=== PATIENT | female | born 1975 | race Two or more races ===

== ENCOUNTER 2024-01-30 14:59 | Outpatient (REF) | payer OTHER, SELFPAY ==
--- NOTE | ~2024-01-30 | XR_ITS ---
EXAMINATION: XR KNEE RIGHT 3 VIEWS CLINICAL INFORMATION: Fibromyalgia M79.7. COMPARISON: None available TECHNIQUE: Three views of the right knee. FINDINGS: No acute fracture or dislocation. No joint space narrowing or marginal osteophytes. No osseous erosion. No abnormal soft tissue calcification. No significant joint effusion. XR/XR knee RT 4V IMPRESSION: Unremarkable examination. Electronically signed by: Jeffrey Hollis MD 04/17/2024 08:31 PM EST
--- NOTE | ~2024-01-30 | XR_ITS ---
EXAMINATION: XR CERVICAL SPINE 7 VIEWS CLINICAL INFORMATION: Fibromyalgia M79.7. COMPARISON: None available TECHNIQUE: 6 views of the cervical spine, inclusive of flexion and extension views, were obtained. FINDINGS: Straightening of the normal cervical lordosis, which may be positional or related to muscular spasm. Minimal grade 1 anterolisthesis of C4 on C5. No acute fracture or subluxation. No loss of vertebral body height. Mild loss of intervertebral disc height with small endplate osteophytes at C5-C6. No concerning lytic or blastic osseous lesion. No significant subluxation with flexion or extension. Normal atlantoaxial alignment. Unremarkable prevertebral soft tissues. XR/XR cervical spine w flex/ext IMPRESSION: 1. Straightening of the normal cervical lordosis, which may be positional or related to muscular spasm. 2. Minimal grade 1 anterolisthesis of C4 on C5. No significant subluxation with flexion or extension. 3. Mild degenerative disc disease at C5-C6. Electronically signed by: Jeffrey Hollis MD 04/17/2024 08:31 PM [facility]
--- NOTE | ~2024-01-30 | XR_ITS ---
EXAMINATION: XR HAND/WRIST LEFT 4 VIEWS CLINICAL INFORMATION: Fibromyalgia M79.7. COMPARISON: None available TECHNIQUE: PA, lateral, oblique, and scaphoid views of the left hand and wrist. FINDINGS: No fracture or dislocation. Normal carpal alignment. No significant joint space narrowing or marginal osteophytes. No osseous erosion. No periarticular osteopenia. No abnormal soft tissue calcification. XR/XR hand wrist LT IMPRESSION: Unremarkable examination. Electronically signed by: Jeffrey Hollis MD 04/17/2024 08:31 PM [facility] MUNRO[facility]
--- NOTE | ~2024-01-30 | XR_ITS ---
EXAMINATION: XR KNEE LEFT 4 VIEWS CLINICAL INFORMATION: Fibromyalgia M79.7. COMPARISON: None available. TECHNIQUE: Four views of the left knee. FINDINGS: No fracture or dislocation. No joint space narrowing or marginal osteophytes. No osseous erosion. No abnormal soft tissue calcification. No significant joint effusion. XR/XR knee LT 4V IMPRESSION: Unremarkable examination. Electronically signed by: Jeffrey Hollis MD 04/17/2024 08:31 PM EST
--- NOTE | ~2024-01-30 | XR_ITS ---
EXAMINATION: XR LUMBAR SPINE 5 VIEWS CLINICAL INFORMATION: Fibromyalgia M79.7. COMPARISON: None available. TECHNIQUE: 5 views of lumbar spine. FINDINGS: Normal vertebral body alignment. The lumbar lordosis is maintained. No acute fracture or subluxation. No loss of vertebral body or intervertebral disc height. No lytic or blastic osseous lesion. No abnormal soft tissue calcification. XR/XR lumbar spine 4V min IMPRESSION: Unremarkable examination. Electronically signed by: Jeffrey Hollis MD 04/17/2024 08:31 PM [facility]
--- NOTE | ~2024-01-30 | XR_ITS ---
EXAMINATION: XR HAND WRIST RIGHT 4 VIEW CLINICAL INFORMATION: Fibromyalgia M79.7. COMPARISON: None available. TECHNIQUE: PA, lateral, oblique, and scaphoid views of the right hand and wrist. FINDINGS: No fracture or dislocation. Normal carpal alignment. No significant joint space narrowing or marginal osteophytes. No osseous erosion. No periarticular osteopenia. No abnormal soft tissue calcification. XR/XR hand wrist RT IMPRESSION: Unremarkable examination. Electronically signed by: Jeffrey Hollis MD 04/17/2024 08:31 PM [facility]UNRO[facility]
[2024-01-30 16:31] LABS: MANUAL DIFF FLAG NO
[2024-01-30 17:09] LABS: Basophils Absolute Auto 0.1 X10*3/uL (0.0-0.2); Basophils Percent Auto 0.8 % (0-2); Eosinophils Absolute Auto 0.3 X10*3/uL (0.0-0.4); Eosinophils Percent Auto 3.7 % (0-4); Hematocrit 37.9 % (37.0-47.0); Hemoglobin 12.6 g/dl (12.0-16.0); Imm Gran Abs Auto 0.03 X10*3/uL (0.00-0.03); Imm Gran Pct Auto 0.4 % (0.0-0.4); Lymphocytes Absolute Auto 2.6 X10*3/uL (1.2-4.9); Lymphocytes Percent Auto 34.4 % (20-40); Mean Corpuscular HGB Conc 33.2 g/dl (31.0-35.0); Mean Corpuscular Hemoglobin 30.5 pg (27.0-33.0); Mean Corpuscular Volume 91.8 fL (80.0-98.0); Mean Platelet Volume 9.9 fL (9.4-12.3); Monocytes Absolute Auto 0.6 X10*3/uL (0.1-1.2); Monocytes Percent Auto 8.4 % (2-11); Neutrophils Absolute Auto 3.9 x10*3/uL (2.0-8.3); Neutrophils Percent Auto 52.3 % (45-73); Platelet Count 350 X10*3/uL (160-400); Red Blood Count 4.13 X10*6/uL (4.20-5.50); Red Cell Distribution Width 12.3 % (11.0-16.0); White Blood Count 7.5 X10*3/uL (4.8-10.8)
[2024-01-30 17:38] LABS: Rheumatoid Factor 18.3 IU/mL (<15.0)
[2024-01-30 17:39] LABS: Alanine Aminotransferase 66 U/L (0-31); Albumin Level 4.3 g/dL (3.5-5.0); Alkaline Phosphatase 164 U/L (39-117); Anion Gap 13 (12-20); Aspartate Amino Transferase 41 U/L (5-31); Bilirubin Total 0.2 mg/dL (0.0-1.0); Blood Urea Nitrogen 12 mg/dL (9-16); C Reactive Protein 3.67 mg/dL (< or = 0.50); Carbon Dioxide 25 mmol/L (22-29); Chloride 107 mmol/L (96-108); Estimated Glomerular Filt Rate > 60; Glucose Random 97 mg/dL (60-115); Potassium 3.7 mmol/L (3.3-5.1); Sodium 141 mmol/L (135-145); Total Protein 8.4 g/dL (6.5-8.0)
[2024-01-30 18:32] LABS: Erythrocyte Sedimentation Rate 79 MM/HR (0-20)
[2024-01-31 17:47] LABS: Thyroglobulin Antibodies <1 IU/mL (< or = 1); Thyroid Peroxidase Antibodies <1 IU/mL (<9)
[2024-02-01 00:13] LABS: Cyclic Citrullinated Peptide <16 UNITS
[2024-02-03 16:58] LABS: Vitamin D 25-OH, D2 <4 ng/mL; Vitamin D 25-OH, D3 39 ng/mL; Vitamin D 25-OH, Total 39 ng/mL (30-100)
== END 2024-01-30 15:00 | disposition home or self-care (01) ==
LOC: HO.LAB 14:59
PROVIDERS: Visit Provider Student in an Organized Health Care Education/Training Program
DX: M79.7 Fibromyalgia (principal); E55.9 Vitamin D deficiency, unspecified
CPT/HCPCS: 36415; 72052; 72110; 73110; 73130; 73564; 80053; 82306; 84443; 85025; 85652; 86140; 86200; 86376; 86431; 86800; 99202

== ENCOUNTER 2024-01-30 14:59 | Outpatient (AMB) | payer OTHER, SELFPAY ==
[2024-01-30 15:12] VITALS: BP 120/70; PULSE 88; O2SAT 98; BMI 26.0
--- NOTE | 2024-01-30 15:12 | A.OFFVIS_ITS ---
Vital Signs 01/30/24 15:12 Height 5 ft 2 in Weight 142 lb 6.698 oz BMI 26.0 BP 120/70 Blood Pressure Location Lt brachial Position Sitting Pulse 88 Pulse Source Pulse Oximeter Pulse Oximetry (%) 98 Oxygen Delivery Method Room Air Intake Visit Reasons: Joint Pain Intake Note: Patient is a new patient, externally referred by her PCP for joint pain. Stitch Wheeler Required: Yes Stitch Wheeler Services: Stitch Wheeler Present Stitch Wheeler Name: Montse Bryan #[id number] Information Interpreted: non-clinical & clinical Allergies No Known Allergies Allergy (Verified 01/30/24 15:13) Medication List - Last Reconciled 01/30/24 by Kathy Alcantara MD albuterol sulfate 90 mcg/actuation (Ventolin HFA) 2 puffs inhalation Q4-6H PRN amitriptyline 25 mg PO BEDTIME baclofen 10 mg PO DAILY ferrous sulfate 325 mg PO DAILY fluticasone propion-salmeterol 250-50 mcg/dose (Advair Diskus) 1 ea inhalation BID fluticasone propionate 50 mcg/actuation sprays intranasal hydroxyzine HCl 50 mg PO BID inhalational spacing device ([employer] Laila C spacer) As directed levothyroxine 25 mcg PO DAILY loratadine 10 mg PO DAILY meloxicam 15 mg PO DAILY sumatriptan succinate mg PO HPI Comments Details: Patient is a 48 y.o. female with hypothyroidism on levothyroxine who presents for evaluation of bone pain. Patient states for the past several years she has been having polyarticular joint pain involving hands, knees, elbows, shoulders, neck, back. She recently emigrated to the [facility] from [place] about 10 months ago. In [place] she was told that she has inflammation in her body and was given meloxicam. However this has not helped much. Reports poor sleep states she is not able to fall asleep and when she does she does not sleep for a long time. Does not do any exercise because she says this makes her in more pain. Currently unemployed. Denies rashes, photosensitivity, alopecia, oral/nasal ulcers, sicca symptoms, lymphadenopathy, chest pain/shortness of breath, inflammatory type joint pain, foamy urine, lower extremity edema, muscle weakness, Raynaud's Also denies history of seizure, CVA, psychosis, history of kidney problems, history of cytopenias, history of [facility] Medical History (Updated 01/30/24 @ 15:48 by Kathy Alcantara MD) Fibromyalgia affecting multiple sites Hyperlipidemia Asthma Migraine Iron deficiency anemia Insomnia Muscle spasm Hypothyroidism Allergic rhinitis Multiple joint pain Surgical History (Updated 01/29/24 @ 10:46 by Annabelle Bruce CMA) H/O: hysterectomy Social History (Updated 01/29/24 @ 10:49 by Annabelle Bruce CMA) Patient Tobacco Use Status: Former Tobacco user Tobacco use type: Cigarette Review of Systems Const Details: Review of Systems Constitutional: Denies fever, chills, weight loss ENT: Denies vision changes, eye pain or eye redness, dental caries, dry mouth GI: Denies nausea, vomiting, diarrhea, abdominal pain, change in BM Pulm: Denies SOB, YAÑEZ, hemoptysis, wheezing Cards: Denies chest pain, palpitations Skin: Denies Raynaud's, rash, nail changes, photosensitivity, 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 ?Gait normal. Constitutional Mucous membranes pink and moist patient alert and cooperative HEENT Conjunctiva and sclera clear. ?Pupils equal round and reactive to light. ?No lymphadenopathy. ?Normal dentition. Respiratory System Normal respiratory effort and able to speak in complete sentences. ?Clear to auscultation bilaterally. ?No crackles, rales, rhonchi, wheezes heard. Cardiac System Regular rate and rhythm. ?S1 and S2 heard no murmurs. ?Radial pulses intact bilaterally MSK No deformity, swelling, abnormalities noted to bilateral hands. ?No evidence of synovitis. ?Able to move all joints with full range of motion, without limitation. Fibromyalgia tender points positive. Results Reviewed Results Reviewed: Labs reviewed on referral. No imaging seen in chart. Assessment & Plan Assessment & Plan (1) Fibromyalgia affecting multiple sites: Code(s): M79.7 - Fibromyalgia Category: Medical Plan: #Fibromyalgia Patient with history and examination consistent with fibromyalgia. Discussed with patient that this is a difficult disease to treat and that lifestyle changes are the best management for it. We will try pregabalin 150 mg nightly and milnacipran 25 mg daily. We will workup patient with x-rays and blood work. We will see again in 6 months Plan I spent 45 minutes reviewing the record and labs, seeing the patient, discussing the treatment plan and diagnosis, and documenting in the medical record Orders: Orders C Reactive Protein Today E55.9 - Vitamin D deficiency, unspecified, M79.7 - Fibromyalgia Thyroid Stimulating Hormone Today E55.9 - Vitamin D deficiency, unspecified, M79.7 - Fibromyalgia Vitamin D 25-OH (D2 and D3) Today E55.9 - Vitamin D deficiency, unspecified, M79.7 - Fibromyalgia Cyclic Citrullinated Peptide Today E55.9 - Vitamin D deficiency, unspecified, M79.7 - Fibromyalgia XR knee LT 3V Today M79.7 - Fibromyalgia XR hand wrist RT Today M79.7 - Fibromyalgia XR cervical spine w flex/ext Today M79.7 - Fibromyalgia Complete Blood Count Auto Diff Today E55.9 - Vitamin D deficiency, unspecified, M79.7 - Fibromyalgia Comprehensive Met. Panel Today E55.9 - Vitamin D deficiency, unspecified, M79.7 - Fibromyalgia Erythrocyte Sedimentation Rate Today E55.9 - Vitamin D deficiency, unspecified, M79.7 - Fibromyalgia Rheumatoid Factor Today E55.9 - Vitamin D deficiency, unspecified, M79.7 - Fibromyalgia XR knee RT 3V Today M79.7 - Fibromyalgia XR hand wrist LT Today M79.7 - Fibromyalgia XR lumbar spine 4V min Today M79.7 - Fibromyalgia Thyroglobulin Antibodies Today M79.7 - Fibromyalgia Thyroid Peroxidase Antibodies Today M79.7 - Fibromyalgia Medications: New pregabalin 150 mg PO BEDTIME 90 caps 0RF M79.7 - Fibromyalgia milnacipran 25 mg PO DAILY 90 tabs 0RF M79.7 - Fibromyalgia Coding Level of Care Code New Pt Level 4 (10238) Diagnoses Fibromyalgia affecting multiple sites M79.7
== END 2024-01-30 16:04 | disposition home or self-care (01) ==
PROVIDERS: Visit Provider Student in an Organized Health Care Education/Training Program
DX: M79.7 Fibromyalgia (principal)
CPT/HCPCS: 99204

== ENCOUNTER 2024-02-25 13:44 | Outpatient (AMB) | payer OTHER, SELFPAY ==
--- NOTE | 2024-02-25 13:52 | MHC.OFFVIS ---
Vital Signs 02/25/24 13:54 Height 5 ft 2 in Weight 145 lb 11.609 oz BMI 26.7 BP 116/72 Blood Pressure Location Rt brachial Position Sitting Pulse 101 H Pulse Source Pulse Oximeter Pulse Oximetry (%) 97 Oxygen Delivery Method Room Air Intake Visit Reasons: DISCUSS LAB RESULTS/CM Intake Note: Patient presents today for follow up on lab work. Her last visit in the office was on 01/30/[address] Alcantara. Coremaking Machine Operator Required: Yes Coremaking Machine Operator Services: Coremaking Machine Operator Present Coremaking Machine Operator Name: Bella [id number] Allergies No Known Allergies Allergy (Verified 01/30/24 15:13) Medication List - Last Reconciled 02/25/24 by Kathy Alcantara MD albuterol sulfate 90 mcg/actuation (Ventolin HFA) 2 puffs inhalation Q4-6H PRN amitriptyline 25 mg PO BEDTIME ferrous sulfate 325 mg PO DAILY fluticasone propion-salmeterol 250-50 mcg/dose (Advair Diskus) 1 ea inhalation BID fluticasone propionate 50 mcg/actuation sprays intranasal folic acid 1 mg PO DAILY 90 days hydroxyzine HCl 50 mg PO BID inhalational spacing device ([employer] Laila C spacer) As directed levothyroxine 25 mcg PO DAILY loratadine 10 mg PO DAILY methotrexate sodium 15 mg (6 x 2.5 mg) PO QWEEK 90 days prednisone 10 mg PO DIRECTED 6 weeks sumatriptan succinate mg PO HPI Comments Details: Patient is a 48-year-old female with hypothyroidism on levothyroxine and GERD secondary to H pylori infection status post eradication who presents for follow up of polyarthralgias Interval History: Since last visit patient has had no improvement on prednisone. Still with whole-body pain numbness and tingling to feet when she walks, neck pain and back pain. Rheumatologic History: Patient initially presented for evaluation of whole-body pain 01/30/2024. At that time evaluation was consistent with fibromyalgia with no evidence of synovitis on examination and tender points. Recommend pregabalin and milnacipran. Preliminary results showed a very elevated CRP and ESR as well as positive rheumatoid factor. The thought was that she had rheumatoid arthritis and she was started on prednisolone taper and methotrexate. She was re-evaluated 4 weeks later with no improvement on the prednisone in fact she stated that the prednisone made her pain worse. Given this she was re-evaluated as fibromyalgia and started on pregabalin and milnacipran Current Rheumatology Medication(s): Prednisone 5 mg daily Methotrexate 15 mg every week Folic acid 1 mg daily [facility] Medical History (Updated 02/25/24 @ 14:40 by Kathy Alcantara MD) Fibromyalgia affecting multiple sites Hyperlipidemia Asthma Migraine Iron deficiency anemia Insomnia Muscle spasm Hypothyroidism Allergic rhinitis Multiple joint pain Surgical History (Updated 01/29/24 @ 10:46 by Annabelle Bruce CMA) H/O: hysterectomy Social History (Updated 01/29/24 @ 10:49 by Annabelle Bruce CMA) Patient Tobacco Use Status: Former Tobacco user Tobacco use type: Cigarette Review of Systems Const Details: Review of Systems Constitutional: Denies fever, chills, weight loss ENT: Denies vision changes, eye pain or eye redness, dental caries, dry mouth GI: Denies nausea, vomiting, diarrhea, abdominal pain, change in BM Pulm: Denies SOB, YAÑEZ, hemoptysis, wheezing Cards: Denies chest pain, palpitations Skin: Denies Raynaud's, rash, nail changes, photosensitivity, 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 Well appearing and in no apparent painful distress HEENT Conjunctiva and sclera clear. ?Pupils equal round and reactive to light. ?No lymphadenopathy. ?Normal dentition. No oral or nasal ulcers noted. No evidence of discoid rash to the martin of ears CHEST/RESPIRATORY SYSTEM Normal respiratory effort and able to speak in complete sentences. ?Clear to auscultation bilaterally. ?No crackles, rales, rhonchi, wheezes heard. CARDIAC SYSTEM Regular rate and rhythm. ?S1 and S2 heard no murmurs. ?Radial pulses intact bilaterally MSK Hands: ?Good patient ambassador strength bilaterally - 5/5. ?No deformities noted. ?No synovitis noted to the MCPs, PIPs or DIPs. ?No tenderness to palpation of these joints. Wrists: ?Full range of motion at the wrists without pain. ?No tenderness to palpation or synovitis noted to the wrists. Elbows: Full range of motion without pain. No tenderness, weakness, swelling, increased warmth or erythema. Shoulders: Full range of motion without pain. No tenderness, weakness, swelling, increased warmth or erythema. Hips: Full range of motion without pain. Hip bursa: No tenderness to palpation Knees: ?Full range of motion. ?No tenderness, swelling, increased warmth or erythema.?No effusion or crepitations Ankles: Full range of motion. ?No tenderness, swelling, increased warmth or erythema.? Feet: ?Negative squeeze test. ?No tenderness to palpation or swelling of the MTPs. Tender points:??Tenderness to palpation of the neck, shoulders, chest, elbows, hips, buttocks or knees. SKIN Skin intact without rashes. Results Reviewed Results Reviewed: Laboratory Tests 01/30/24 16:30 WBC 7.5 RBC 4.13 L Hgb 12.6 Hct 37.9 Plt Count 350 ESR 79 H Sodium 141 Potassium 3.7 Chloride 107 Carbon Dioxide 25 BUN 12 Creatinine 0.83 AST 41 H ALT 66 H Alkaline Phosphatase 164 H C-Reactive Protein 3.67 H Total Protein 8.4 H TSH 3.00 XR Hands and Wrists No evidence of periarticular osteopenia or erosions. XR Knees No evidence of osteoarthritis or joint space narrowing Assessment & Plan Assessment & Plan (1) Fibromyalgia affecting multiple sites: Code(s): M79.7 - Fibromyalgia Category: Medical Plan: #Fibromyalgia This patient definitely has a diagnosis of fibromyalgia whether this is primary or secondary fibromyalgia is still being investigated (2) Multiple joint pain: Code(s): M25.50 - Pain in unspecified joint Category: Medical Plan: #Polyarthralgias Patient fails Prednisone trial. This case is very interesting because her inflammatory markers are through the roof but she had no response to prednisone. I will check for lupus and autoimmune hepatitis. Plan I spent 40 minutes reviewing the record and labs, seeing the patient, discussing the treatment plan and documenting in the medical record ? Orders: Orders Complement C3 Today M25.50 - Pain in unspecified joint Complement C4 Today M25.50 - Pain in unspecified joint Anti Extractable Nuclear Ag Today M25.50 - Pain in unspecified joint Creatine Kinase Total Today M25.50 - Pain in unspecified joint Smooth Muscle Antibody Today M25.50 - Pain in unspecified joint Beta-2 Glycoprotein Antibody Today M25.50 - Pain in unspecified joint Lupus Anticoagulant Panel Today M25.50 - Pain in unspecified joint Thyroid Stimulating Hormone Today M25.50 - Pain in unspecified joint, M79.7 - Fibromyalgia Thyroid Peroxidase Antibodies Today M25.50 - Pain in unspecified joint, M79.7 - Fibromyalgia Protein Creatinine Ratio, Ur Today M25.50 - Pain in unspecified joint Complete Blood Count Auto Diff Today M25.50 - Pain in unspecified joint Comprehensive Met. Panel Today M25.50 - Pain in unspecified joint C Reactive Protein Today M25.50 - Pain in unspecified joint Erythrocyte Sedimentation Rate Today M25.50 - Pain in unspecified joint LORENZO Reflex Titer and Pattern Today M25.50 - Pain in unspecified joint UA w Microscopic Today M25.50 - Pain in unspecified joint Mitochondrial Antibody Today M25.50 - Pain in unspecified joint Liver Kidney Microsomal Ab Today M25.50 - Pain in unspecified joint Cardiolipin Antibodies Today M25.50 - Pain in unspecified joint Syphilis Screen Today M25.50 - Pain in unspecified joint Thyroglobulin Antibodies Today M25.50 - Pain in unspecified joint, M79.7 - Fibromyalgia Gamma Glutamyl Transpeptidase Today R74.8 - Abnormal levels of other serum enzymes Medications: New milnacipran 25 mg PO BID 180 tabs 2RF M79.7 - Fibromyalgia pregabalin 75 mg PO BID 180 caps 2RF M79.7 - Fibromyalgia Discontinued prednisone Take 2 tablets daily for 2 weeks then 1 tablet daily for 2 weeks then 1/2 tablet daily for 2 weeks Discontinued Reason: Duplicate 10 mg PO DIRECTED 6 weeks 50 tabs 0RF M06.9 - Rheumatoid arthritis, unspecified methotrexate sodium Take 4 tablets every week for 4 weeks, then take 6 tablets every week Discontinued Reason: Doctor's Order 15 mg (6 x 2.5 mg) PO QWEEK 90 days 78 tabs 0RF M06.9 - Rheumatoid arthritis, unspecified folic acid Discontinued Reason: Doctor's Order 1 mg PO DAILY 90 days 90 tabs 0RF M06.9 - Rheumatoid arthritis, unspecified Coding Level of Care Code Est Pt Level 5 (47600) Complex EM visit Add On G2211 Diagnoses Fibromyalgia affecting multiple sites M79.7 Multiple joint pain M25.50
[2024-02-25 13:54] VITALS: BP 116/72; PULSE 101; O2SAT 97; BMI 26.7
== END 2024-02-25 14:36 | disposition home or self-care (01) ==
PROVIDERS: Visit Provider Student in an Organized Health Care Education/Training Program
DX: M79.7 Fibromyalgia (principal); M25.50 Pain in unspecified joint
CPT/HCPCS: 99215; G2211

== ENCOUNTER 2024-02-25 13:44 | Outpatient (REF) | payer OTHER, SELFPAY ==
[2024-02-25 15:07] LABS: Appearance Urine Clear; Color Urine Yellow; Glucose Urine UA Negative (Negative); Leukocyte Esterase Urine Moderate (2+) (Negative); Nitrite Urine Negative (Negative); PH 5.5 (5.0-9.0); Specific Gravity - Urine >= 1.030 (1.005-1.025); UMIC TRIGGER UA YES; Urine Blood Negative (Negative); Urine Ketones Trace mg/dL (Negative); Urine Protein Negative (Neg-Trace)
[2024-02-25 15:09] LABS: MANUAL DIFF FLAG NO
[2024-02-25 15:10] LABS: Bacteria Urine None Seen (None Seen); Hyaline Casts Urine 0-2 /LPF (0-2); RBC Urine 0-2 /HPF (0-2); Squamous Epithelial Cell Urine 0-2 /HPF (0-2); WBC Urine 21-50 /HPF (0-5)
[2024-02-25 15:32] LABS: Basophils Percent Auto 0.5 % (0-2); Eosinophils Absolute Auto 0.3 X10*3/uL (0.0-0.4); Eosinophils Percent Auto 3.2 % (0-4); Hematocrit 37.7 % (37.0-47.0); Hemoglobin 12.4 g/dl (12.0-16.0); Imm Gran Abs Auto 0.03 X10*3/uL (0.00-0.03); Imm Gran Pct Auto 0.4 % (0.0-0.4); Lymphocytes Absolute Auto 2.1 X10*3/uL (1.2-4.9); Lymphocytes Percent Auto 27.1 % (20-40); Mean Corpuscular HGB Conc 32.9 g/dl (31.0-35.0); Mean Corpuscular Hemoglobin 30.6 pg (27.0-33.0); Mean Corpuscular Volume 93.1 fL (80.0-98.0); Mean Platelet Volume 10.1 fL (9.4-12.3); Monocytes Absolute Auto 0.5 X10*3/uL (0.1-1.2); Monocytes Percent Auto 6.9 % (2-11); Neutrophils Absolute Auto 4.9 x10*3/uL (2.0-8.3); Neutrophils Percent Auto 61.9 % (45-73); Platelet Count 299 X10*3/uL (160-400); Red Blood Count 4.05 X10*6/uL (4.20-5.50); Red Cell Distribution Width 12.7 % (11.0-16.0); White Blood Count 7.9 X10*3/uL (4.8-10.8)
[2024-02-25 15:39] LABS: Creatinine Urine 243.53 mg/dL; Protein/Creatinine Ratio, Ur 0.06 (<0.2); Total Protein Urine Random 14 mg/dL (<12)
[2024-02-25 16:02] LABS: Alanine Aminotransferase 43 U/L (0-31); Albumin Level 4.2 g/dL (3.5-5.0); Alkaline Phosphatase 117 U/L (39-117); Anion Gap 12 (12-20); Aspartate Amino Transferase 34 U/L (5-31); Bilirubin Total 0.3 mg/dL (0.0-1.0); Blood Urea Nitrogen 17 mg/dL (9-16); C Reactive Protein 0.89 mg/dL (< or = 0.50); Calcium 9.7 mg/dL (8.4-10.2); Carbon Dioxide 24 mmol/L (22-29); Chloride 110 mmol/L (96-108); Estimated Glomerular Filt Rate > 60; Glucose Random 83 mg/dL (60-115); Potassium 3.9 mmol/L (3.3-5.1); Sodium 142 mmol/L (135-145)
[2024-02-25 16:14] LABS: Erythrocyte Sedimentation Rate 40 MM/HR (0-20)
[2024-02-26 08:25] LABS: Syphilis Screen Nonreactive (Nonreactive)
[2024-02-26 08:58] LABS: Complement C3 173 mg/dL (83-193)
[2024-02-26 11:13] LABS: Thyroglobulin Antibodies <1 IU/mL (< or = 1); Thyroid Peroxidase Antibodies <1 IU/mL (<9)
[2024-02-26 18:13] LABS: SM/Ribonucleoprotein Ab <1.0 NEG AI (<1.0 NEG); Smith Protein <1.0 NEG AI (<1.0 NEG)
[2024-02-26 21:48] LABS: Cardiolipin IgG Ab <2.0 GPL-U/mL; Cardiolipin IgM Ab <2.0 MPL-U/mL
[2024-02-27 10:39] LABS: Mitochondrial Antibodies NEGATIVE (NEGATIVE)
[2024-02-28 05:29] LABS: DRVVT Confirmation Negative (Negative); PTT (LAC) Screen 31 sec (<=40)
[2024-02-28 05:49] LABS: Beta-2 Glycoprotein IgA <2.0 U/mL (<20.0); Beta-2 Glycoprotein IgG <2.0 U/mL (<20.0); Beta-2 Glycoprotein IgM <2.0 U/mL (<20.0)
[2024-02-29 11:48] LABS: Anti Nuclear Antibody Screen POSITIVE (NEGATIVE); Anti Nuclear Antibody Titer 1:40 titer
[2024-02-29 23:14] LABS: Liver Kidney Microsomal Ab <=20.0 U (<=20.0); Smooth Muscle Antibody <20 U (<20)
== END 2024-02-25 13:45 | disposition home or self-care (01) ==
LOC: HO.LAB 13:44
PROVIDERS: PCP Physician Assistant; Visit Provider Student in an Organized Health Care Education/Training Program
DX: M25.50 Pain in unspecified joint (principal); M79.7 Fibromyalgia; R74.8 Abnormal levels of other serum enzymes
CPT/HCPCS: 36415; 80053; 81001; 82550; 82570; 84156; 84443; 85025; 85597; 85598; 85613; 85652; 85730; 86015; 86038; 86039; 86140; 86146; 86147; 86160; 86235; 86376; 86381; 86780; 86800; 99212

== ENCOUNTER 2024-02-27 13:47 | Emergency (ER) | payer OTHER, SELFPAY ==
--- NOTE | ~2024-02-27 | CT_ITS ---
EXAMINATION: CT ABDOMEN AND PELVIS WITH CONTRAST CLINICAL INFORMATION: Left lower quadrant flank pain. COMPARISON: None available. TECHNIQUE: Multidetector volumetric images were obtained from the superior aspect of the liver through the pubic symphysis following administration 85 mL of Omnipaque 350 intravenous contrast. Sagittal and coronal reformatted images were obtained on the technologist's workstation. Oral contrast: No This CT examination was performed using dose optimization techniques as appropriate, variously including the following: *Automated exposure control *Adjustment of mA and/or kV according to patient size (this includes techniques or standardized protocols for targeted exams where dose is matched to indication/reason for exam; i.e. extremities or head) *Use of iterative reconstruction technique DLP: 482 mGy-cm FINDINGS: LUNG BASES: There is lingular, right middle and bilateral lower lobe patchy infiltrates and/or atelectasis. Heart size is normal. No pericardial or pleural effusion seen. LIVER, GALLBLADDER, AND BILIARY TREE: The liver is normal in size, shape, and attenuation. No focal hepatic lesion or biliary ductal dilatation is present. The gallbladder is unremarkable with no evidence of radiopaque gallstones, gallbladder wall thickening, or obvious pericholecystic inflammatory changes. PANCREAS: Unremarkable. SPLEEN: Unremarkable. ADRENAL GLANDS: Unremarkable. KIDNEYS AND URETERS: The kidneys are normal in size, shape, and attenuation. No hydronephrosis, hydroureter, or calculi seen. No perinephric stranding. BLADDER: Unremarkable. GASTROINTESTINAL TRACT: There is scattered stool and gas seen throughout the colon without distention. The small bowel loops are normal caliber. Appendix is normal caliber. There is no free air or inflammatory process. ABDOMINAL WALL: A small umbilical hernia containing fat is noted. LYMPH NODES: Normal. VASCULAR: Unremarkable. PELVIC VISCERA: The uterus is likely surgically absent and not visualized. No free fluid or free air seen. No adnexal mass. OSSEOUS STRUCTURES: No aggressive lytic or sclerotic process seen.. CT/CT abdomen pelvis w IV con IMPRESSION: 1. No acute intra-abdominal process seen. 2. Mild constipation. 3. Small umbilical hernia containing fat. 4. Bilateral lower lobe, right middle lobe and lingular patchy infiltrates and/or atelectasis. Fleischner guidelines were followed. Electronically signed by: London Corbett MD 02/27/2024 07:27 PM EST
[2024-02-27 14:05] VITALS: BP 99/62; PULSE 97; RESP 16; TEMP 36.6; O2SAT 98; BMI 26.5
--- NOTE | 2024-02-27 14:14 | ED_ITS ---
HPI - General Adult General Chief complaint: Abdominal Pain Stated complaint: L side pain Time Seen by Provider: 02/27/24 17:10 Source: patient Mode of arrival: ambulatory Limitations: no limitations History of Present Illness HPI narrative: This is a 48-year-old woman with a past medical history hypothyroidism, fibromyalgia, migraine, hyperlipidemia , asthma, iron deficiency anemia, history of hysterectomy who presents for evaluation of abdominal pain. She states pain started 1 day prior to presentation. Patient reports that she initially had left-sided abdominal pain 1 day ago. She states noting radiation of her pain to her left flank overnight. She states nausea without vomiting. She states no fevers or chills. She states no cough, chest pain or dyspnea. She states no dysuria or urinary frequency/urgency. She states no syncope. She states no leg swelling or pain. She states no trauma. Related Data Home Medications ?Medication ?Instructions ?Recorded ?Confirmed albuterol sulfate 90 mcg/actuation 2 puff inhalation Q4-6H PRN 01/30/24 02/25/24 aerosol inhaler (Ventolin HFA) amitriptyline 25 mg tablet 25 mg PO BEDTIME 01/30/24 02/25/24 ferrous sulfate 325 mg (65 mg 325 mg PO DAILY 01/30/24 02/25/24 iron) tablet fluticasone 250 mcg-salmeterol 50 1 ea inhalation BID 01/30/24 02/25/24 mcg/dose blistr powdr for inhalation (Advair Diskus) fluticasone propionate 50 spray intranasal 01/30/24 02/25/24 mcg/actuation nasal spray,suspension hydroxyzine HCl 50 mg tablet 50 mg PO BID 01/30/24 02/25/24 inhalational spacing device #1 ea 01/30/24 02/25/24 ([facility] spacer) levothyroxine 25 mcg tablet 25 mcg PO DAILY 01/30/24 02/25/24 loratadine 10 mg tablet 10 mg PO DAILY 01/30/24 02/25/24 sumatriptan succinate 50 mg tablet mg PO 01/30/24 02/25/24 Previous Rx's ?Medication ?Instructions ?Recorded milnacipran 25 mg tablet 25 mg PO BID #180 tabs 02/25/24 pregabalin 75 mg capsule 75 mg PO BID #180 caps 02/25/24 Allergies Allergy/AdvReac Type Severity Reaction Status Date / Time No Known Allergies Allergy Verified 02/27/24 14:13 Review of Systems 2 Review of Systems: ROS as per HPI [facility] Past Medical History Medical History (Updated 02/28/24 @ 00:01 by Ashely Pereira) Fibromyalgia affecting multiple sites Hyperlipidemia Asthma Migraine Iron deficiency anemia Insomnia Muscle spasm Hypothyroidism Allergic rhinitis Multiple joint pain Surgical History (Updated 01/29/24 @ 10:46 by Annabelle Bruce CMA) H/O: hysterectomy Social History Social History (Updated 01/29/24 @ 10:49 by Annabelle Bruce CMA) Patient Tobacco Use Status: Former Tobacco user Tobacco use type: Cigarette Advance Directives: No Advance Directives Information Provided: No Physical Exam ED Vital Signs: Vital Signs - 24 hr 02/27/24 14:05 02/27/24 19:35 02/27/24 19:57 Temperature 97.9 F 97.9 F 97.9 F Pulse Rate 97 77 77 Respiratory Rate 16 18 18 Blood Pressure 99/62 109/68 109/68 Pulse Oximetry 98 99 99 Oxygen Delivery Method Room Air Room Air Room Air BMI result Body Mass Index 26.5 Gen: NAD, AOx3 HEENT: NCAT, EOMI, normal conjunctiva CV: RRR Pulm: CTAB, no increased work of breathing GI: Soft, nondistended abdomen, positive left-sided abdominal tenderness to palpation without peritoneal rigidity, no bilateral CVAT Neuro: Grossly non focal Course Course Course Narrative: RME: 48-year-old female brought to the ED for left lower quadrant pain radiating to left flank without any urinary symptoms. Positive for left lower quadrant tenderness on palpation. Negative for CVA or flank. Labs UA ordered. Medications Administered Discontinued Medications Generic Name Dose Route Start Last Admin Trade Name Freq PRN Reason Stop Dose Admin Sodium Chloride 1,000 mls @ 999 mls/hr 02/27/24 17:30 02/27/24 19:19 Ns IV 02/27/24 18:30 Infused .Q1H1M LAKISHA Infusion Iohexol 100 ml 02/27/24 18:35 02/27/24 18:36 Iohexol 350 Mg/Ml 100 Ml Infus..Btl IV 02/27/24 18:36 85 ml ONCE ONE Administration Ketorolac Tromethamine 15 mg 02/27/24 17:18 02/27/24 17:37 Ketorolac Tromethamine 15 Mg/Ml Vial IVPUSH 02/27/24 17:19 15 mg ONCE ONE Administration Ondansetron HCl 4 mg 02/27/24 17:18 02/27/24 17:37 Ondansetron Hcl 4 Mg/2 Ml Vial IVPUSH 02/27/24 17:19 4 mg ONCE ONE Administration Medical Decision Making Medical Decision Making [facility] Narrative: Differential diagnosis includes, but is not limited to constipation, diverticulitis, nephrolithiasis. I considered pyelonephritis, but given lack of flank pain, costovertebral angle tenderness to palpation, systemic symptoms, fever, dysuria or urinary frequency/urgency I have very low clinical suspicion for this. Patient is afebrile and hemodynamically stable on room air. Exam is benign and reassuring. Patient is treated supportively with IV fluids, Zofran and Toradol. I reviewed labs as below. I reviewed CT imaging results as below with no acute intra-abdominal process seen, mild constipation, small umbilical hernia containing fat, bilateral lower lobe, right middle lobe and lingular patchy infiltrates and/or atelectasis. In this clinical setting, I suspect that the lung findings are more consistent with atelectasis given absence of fever, cough, dyspnea, chest pain, tachypnea, hypoxia. I have very low clinical suspicion for pneumonia. Otherwise CT imaging results are unremarkable. On re-examination, patient is well-appearing and in no acute distress. ?Patient states symptoms have improved. There is no indication for further emergent evaluation in this otherwise well-appearing patient as above. ?Patient is provided written and verbal instructions, educational materials, recommendations for outpatient follow-up, strict return precautions and teach back is performed. ?Patient states understanding and agreement with plan of care. ?Patient is discharged home in stable and improved condition. Admission/Observation Consideration of admission/observation: Escalation of care including admission/observation considered Lab Data [facility] Lab Attestation statement: I reviewed the patient's lab results. I independently reviewed and interpreted the patient's labs including CBC, metabolic panel , urine test and urinalysis. There are no cell line derangements. Metabolic panel demonstrates mild transaminitis with AST 55, ALT 69 and alkaline phosphatase 120, which are nonspecific findings and not significantly elevated to suggest acute hepatitis. This may be secondary to fatty liver disease. There is no electrolyte abnormality, acute kidney injury or hyperbilirubinemia. Urinalysis is unremarkable and not consistent with a urinary tract infection. Urine test is negative. 02/27/24 14:44 02/27/24 14:44 Labs: Lab Results 02/27/24 Range/Units 14:44 WBC 5.6 (4.8-10.8) X10*3/uL RBC 4.29 (4.20-5.50) X10*6/uL Hgb 13.3 (12.0-16.0) g/dl Hct 41.0 (37.0-47.0) % MCV 95.6 (80.0-98.0) fL MCH 31.0 (27.0-33.0) pg MCHC 32.4 (31.0-35.0) g/dl RDW 13.2 (11.0-16.0) % Plt Count 282 (160-400) X10*3/uL MPV 10.2 (9.4-12.3) fL Immature Gran % (Auto) 0.7 H (0.0-0.4) % Neut % (Auto) 46.8 (45-73) % Lymph % (Auto) 37.8 (20-40) % Pierce % (Auto) 10.3 (2-11) % Eos % (Auto) 3.2 (0-4) % Baso % (Auto) 1.2 (0-2) % Lymph # (Auto) 2.1 (1.2-4.9) X10*3/uL Pierce # (Auto) 0.6 (0.1-1.2) X10*3/uL Eos # (Auto) 0.2 (0.0-0.4) X10*3/uL Baso # (Auto) 0.1 (0.0-0.2) X10*3/uL Abs Immat Gran (auto) 0.04 H (0.00-0.03) X10*3/uL Absolute Neuts (auto) 2.6 (2.0-8.3) x10*3/uL Absolute Nucleated RBC 0.000 (0.0-0.012) X10*3/uL Nucleated RBC % (auto) 0.0 (0.0-0.2) /100WBC Sodium 140 (135-145) mmol/L Potassium 3.8 (3.3-5.1) mmol/L Chloride 109 H (96-108) mmol/L Carbon Dioxide 22 (22-29) mmol/L Anion Gap 13 (12-20) BUN 12 (9-16) mg/dL Creatinine 0.81 (0.5-1.4) mg/dL Estim Creat Clear Calc 74.7 Estimated GFR > 60 Random Glucose 97 (60-115) mg/dL Calcium 9.7 (8.4-10.2) mg/dL Total Bilirubin 0.2 (0.0-1.0) mg/dL AST 55 H (5-31) U/L ALT 69 H (0-31) U/L Alkaline Phosphatase 120 H (39-117) U/L Total Protein 8.0 (6.5-8.0) g/dL Albumin 4.2 (3.5-5.0) g/dL Urine Color Yellow Urine Appearance Clear Urine pH 6.0 (5.0-9.0) Ur Specific [place] <= 1.005 (1.005-1.025) Urine Protein Negative (Neg-Trace) mg/dL Urine Glucose (UA) Negative (Negative) mg/dL Urine Ketones Negative (Negative) mg/dL Urine Blood Negative (Negative) Urine Nitrite Negative (Negative) Ur Leukocyte Esterase Trace H (Negative) Urine RBC 0-2 (0-2) /HPF Urine WBC 0-5 (0-5) /HPF Ur Squamous Epith Cells 0-2 (0-2) /HPF Urine Bacteria None Seen (None Seen) Hyaline Casts 0-2 (0-2) /LPF Urine Test NEGATIVE (NEGATIVE) Independent Interpretation I performed an independent interpretation of an: CT Scan Interpretation: CT/CT abdomen pelvis w IV con IMPRESSION: 1. No acute intra-abdominal process seen. 2. Mild constipation. 3. Small umbilical hernia containing fat. 4. Bilateral lower lobe, right middle lobe and lingular patchy infiltrates and/or atelectasis. Fleischner guidelines were followed. Electronically signed by: London Corbett MD 02/27/2024 07:27 PM [facility] Dictated By: London Corbett MD Signed By: <Electronically signed by London Corbett MD in OV> 02/27/241926 open speech box. Radiology Impression Discussion of test interpretation with radiology: I have reviewed the radiologist's reading. Discharge Plan Discharge Clinical Impression: Abdominal pain Patient Disposition: Home, Self-Care Instructions: Constipation (ED), Abdominal Pain (ED) Additional Instructions: Fue evaluado en la lupe de emergencias. Pelaez an?lisis de deya y pelaez tomograf?a computarizada fueron muy tranquilizadores, no hubo hallazgos emergentes y est? seguro de que le julissa?n el addi a casa. Notamos estre?imiento leve, as? que considere usar un suplemento de fibra. Bill un seguimiento con pelaez m?dico de atenci?n primaria en las pr?ximas 1 a 2 semanas para fam reevaluaci?n. Regrese a la lupe de emergencias si presenta cualquier inquietud o s?ntoma nuevo. Prescriptions: No Action [facility]DME) [facility] See Rx Instructions .ROUTE .MEDSUPPLY Qty: 1 Rx Instructions: As directed albuterol sulfate [Ventolin HFA] 90 mcg/actuation HFA aerosol inhaler 2 puff inhalation Q4-6H PRN fluticasone propionate 50 mcg/actuation spray,suspension intranasal sumatriptan succinate 50 mg tablet PO fluticasone propion-salmeterol [Advair Diskus] 250-50 mcg/dose blister with device 1 ea inhalation BID loratadine 10 mg tablet 10 mg PO DAILY ferrous sulfate 325 mg (65 mg iron) tablet 325 mg PO DAILY amitriptyline 25 mg tablet 25 mg PO BEDTIME levothyroxine 25 mcg tablet 25 mcg PO DAILY hydroxyzine HCl 50 mg tablet 50 mg PO BID pregabalin 75 mg capsule 75 mg PO BID Qty: 180 2RF milnacipran 25 mg tablet 25 mg PO BID Qty: 180 2RF Interventions: ED Discharge Assessment Last Done: 02/27/24 19:57 Discharge Date/Time: 02/27/24 19:57 Print Language: Luxembourgish
[2024-02-27 14:52] LABS: MANUAL DIFF FLAG NO
[2024-02-27 14:54] LABS: Basophils Absolute Auto 0.1 X10*3/uL (0.0-0.2); Basophils Percent Auto 1.2 % (0-2); Eosinophils Absolute Auto 0.2 X10*3/uL (0.0-0.4); Eosinophils Percent Auto 3.2 % (0-4); Hemoglobin 13.3 g/dl (12.0-16.0); Imm Gran Abs Auto 0.04 X10*3/uL (0.00-0.03); Imm Gran Pct Auto 0.7 % (0.0-0.4); Lymphocytes Absolute Auto 2.1 X10*3/uL (1.2-4.9); Lymphocytes Percent Auto 37.8 % (20-40); Mean Corpuscular HGB Conc 32.4 g/dl (31.0-35.0); Mean Corpuscular Volume 95.6 fL (80.0-98.0); Mean Platelet Volume 10.2 fL (9.4-12.3); Monocytes Absolute Auto 0.6 X10*3/uL (0.1-1.2); Monocytes Percent Auto 10.3 % (2-11); Neutrophils Absolute Auto 2.6 x10*3/uL (2.0-8.3); Neutrophils Percent Auto 46.8 % (45-73); Platelet Count 282 X10*3/uL (160-400); Red Blood Count 4.29 X10*6/uL (4.20-5.50); Red Cell Distribution Width 13.2 % (11.0-16.0); White Blood Count 5.6 X10*3/uL (4.8-10.8)
[2024-02-27 14:55] LABS: Appearance Urine Clear; Color Urine Yellow; Glucose Urine UA Negative (Negative); Leukocyte Esterase Urine Trace (Negative); Nitrite Urine Negative (Negative); Specific Gravity - Urine <= 1.005 (1.005-1.025); UMIC TRIGGER UACC YES; UPreg QC Valid YES; Urine Blood Negative (Negative); Urine Ketones Negative (Negative); Urine Pregnancy NEGATIVE (NEGATIVE); Urine Protein Negative (Neg-Trace)
[2024-02-27 14:58] LABS: Bacteria Urine None Seen (None Seen); Hyaline Casts Urine 0-2 /LPF (0-2); RBC Urine 0-2 /HPF (0-2); Squamous Epithelial Cell Urine 0-2 /HPF (0-2); WBC Urine 0-5 /HPF (0-5)
[2024-02-27 15:14] LABS: Alanine Aminotransferase 69 U/L (0-31); Albumin Level 4.2 g/dL (3.5-5.0); Alkaline Phosphatase 120 U/L (39-117); Anion Gap 13 (12-20); Aspartate Amino Transferase 55 U/L (5-31); Bilirubin Total 0.2 mg/dL (0.0-1.0); Blood Urea Nitrogen 12 mg/dL (9-16); Calcium 9.7 mg/dL (8.4-10.2); Carbon Dioxide 22 mmol/L (22-29); Chloride 109 mmol/L (96-108); Creatinine Clr Calc Pharmacy 74.7; Estimated Glomerular Filt Rate > 60; Glucose Random 97 mg/dL (60-115); Potassium 3.8 mmol/L (3.3-5.1); Sodium 140 mmol/L (135-145)
[2024-02-27] MEDS: Ketorolac Tromethamine 15 MG/ML VIAL IVPUSH (17:37)
[2024-02-27] MEDS: ondansetron HCL 4 MG/2 ML VIAL IVPUSH (17:37)
[2024-02-27] MEDS: 0.9 % Sodium Chloride 1,000 ML 999 ML IV (17:37)
[2024-02-27] MEDS: iohexoL 350 MG/ML 100 ML INFUS..BTL IV (18:36)
--- NOTE | 2024-02-27 19:19 | PC.NURSE ---
Assumed care of pt.
[2024-02-27 19:35] VITALS: BP 109/68; PULSE 77; RESP 18; TEMP 36.6; O2SAT 99
[2024-02-27 19:57] VITALS: BP 109/68; PULSE 77; RESP 18; TEMP 36.6; O2SAT 99
== END 2024-02-27 19:57 | disposition home or self-care (01) ==
PROVIDERS: Physician Assistant; Emergency Provider Emergency Medicine; PCP Physician Assistant
DX: R10.2 Pelvic and perineal pain (principal); R11.2 Nausea with vomiting, unspecified; Z87.891 Personal history of nicotine dependence
CPT/HCPCS: 36415; 74177; 80053; 81001; 81025; 85025; 96361; 96374; 96375; 99284; J1885; J2405; Q9967

== ENCOUNTER 2024-03-23 12:25 | Emergency (ER) | payer OTHER, SELFPAY ==
--- NOTE | ~2024-03-23 | XR_ITS ---
EXAMINATION: XR CHEST CLINICAL INFORMATION: cough, chest congestion COMPARISON: None available. TECHNIQUE: 2 views of the chest were obtained. FINDINGS: The cardiac silhouette is normal. There is mild diffuse bronchial wall thickening. Hazy opacity in the lingula. There are no pleural effusions or pneumothoraces. The bones and soft tissues are unremarkable for the patient's age. XR/XR chest 2V IMPRESSION: Hazy opacity in the lingula suspicious for pneumonia. Electronically signed by: Beverly Kang MD 03/23/2024 02:14 PM [facility]
--- NOTE | 2024-03-23 12:27 | ECG_ITS ---
Test Reason : chest congestion Blood Pressure : / mmHG Vent. Rate : 106 BPM Atrial Rate : 106 BPM P-R Int : 126 ms QRS Dur : 078 ms QT Int : 340 ms P-R-T Axes : 030 007 030 degrees QTc Int : 451 ms Sinus tachycardia Otherwise normal ECG No previous ECGs available Referred By: Kristan Bruce Electronically Signed By:GIULIANA JAMISON MD
--- NOTE | 2024-03-23 12:33 | ED.CHESTPAIN ---
HPI - Chest Pain General Chief Complaint: Upper Respiratory Symptoms Stated Complaint: chest pain Time Seen by Provider: 03/23/24 13:05 Source: patient Mode of arrival: ambulatory Limitations: no limitations History of Present Illness ED Provider: Michael Andrade HPI narrative: 48-year-old female history of asthma presents to ED for dry cough, weakness, body aches, chills, chest tightness, and nasal congestion. Patient denies any leg swelling, calf pain, coughing up blood, recent long travel, recent surgery, or chest pain on inspiration. Related Data Home Medications ?Medication ?Instructions ?Recorded ?Confirmed albuterol sulfate 90 mcg/actuation 2 puff inhalation Q4-6H PRN 01/30/24 02/25/24 aerosol inhaler (Ventolin HFA) amitriptyline 25 mg tablet 25 mg PO BEDTIME 01/30/24 02/25/24 ferrous sulfate 325 mg (65 mg 325 mg PO DAILY 01/30/24 02/25/24 iron) tablet fluticasone 250 mcg-salmeterol 50 1 ea inhalation BID 01/30/24 02/25/24 mcg/dose blistr powdr for inhalation (Advair Diskus) fluticasone propionate 50 spray intranasal 01/30/24 02/25/24 mcg/actuation nasal spray,suspension hydroxyzine HCl 50 mg tablet 50 mg PO BID 01/30/24 02/25/24 inhalational spacing device #1 ea 01/30/24 02/25/24 [facility] spacer) levothyroxine 25 mcg tablet 25 mcg PO DAILY 01/30/24 02/25/24 loratadine 10 mg tablet 10 mg PO DAILY 01/30/24 02/25/24 sumatriptan succinate 50 mg tablet mg PO 01/30/24 02/25/24 Previous Rx's ?Medication ?Instructions ?Recorded milnacipran 25 mg tablet 25 mg PO BID #180 tabs 02/25/24 pregabalin 75 mg capsule 75 mg PO BID #180 caps 02/25/24 amoxicillin 875 mg-potassium 1 tab PO Q12H 5 days #10 tabs 03/23/24 clavulanate 125 mg tablet azithromycin 250 mg tablet See Rx Instructions PO .COMPLEX #6 03/23/24 tabs prednisone 20 mg tablet 40 mg (2 x 20 mg) PO DAILY 5 days 03/23/24 #10 tabs Allergies Allergy/AdvReac Type Severity Reaction Status Date / Time No Known Allergies Allergy Verified 03/23/24 12:40 Review of Systems Review of Systems: Dry cough, body aches, chills, chest tightness, wheezing, fever Yes all other systems are reviewed and are negative [facility] Past Medical History Medical History (Updated 03/23/24 @ 14:48 by BRISEIDA Mcmillan) Fibromyalgia affecting multiple sites Hyperlipidemia Asthma Migraine Iron deficiency anemia Insomnia Muscle spasm Hypothyroidism Allergic rhinitis Multiple joint pain Surgical History (Updated 01/29/24 @ 10:46 by Annabelle Bruce CMA) H/O: hysterectomy Social History Social History (Updated 01/29/24 @ 10:49 by Annabelle Bruce CMA) Patient Tobacco Use Status: Former Tobacco user Tobacco use type: Cigarette Advance Directives: No Advance Directives Information Provided: Yes Physical Exam Vital Signs: Vital Signs: Last Vital Signs Temp 98.7 F 03/23/24 15:08 Pulse 111 H 03/23/24 15:08 Resp 18 03/23/24 15:08 BP 122/78 03/23/24 15:08 Pulse Ox 98 03/23/24 15:08 O2 Del Method Room Air 03/23/24 15:08 BMI result Body Mass Index 26.3 Const: General: cooperative, healthy appearing, comfortable, no acute distress, well developed, alert, awake and Physically active Orientation/consciousness: patient oriented x3 HEENT: Head: Yes normal to inspection, Yes No palpable skull fracture present, Yes normocephalic and Yes atraumatic Eyes: General: appearance normal, both eyes and all related structures Neck: Neck: Yes normal visual inspection, Yes full ROM, Yes no lymphadenopathy, Yes no meningeal signs, Yes trachea midline, Yes supple, No anterior neck swelling and No tender Chest: Chest palpation & inspection: normal inspection of the chest and normal palpation of entire chest wall Resp: Effort & Inspection: normal respiratory effort and able to speak in complete sentences Auscultation: clear to auscultation bilaterally Cardio: Jugular venous distension: no JVD Heart sounds: S1 normal heart sound present and S2 normal heart sound present GI: Inspection: Yes normal to inspection Palpation (GI): Soft to palpation, not firm, nontender, no guarding and not rigid : General: Yes no CVA tenderness Back/Spine/Pelvis: Back: no CVA tenderness and No back tenderness Skin: General skin exam: no rashes or lesions noted, elasticity normal and turgor normal Neuro: General: patient oriented x3, gait normal, tone normal, moves all extremities, Normal light touch and pain sensation, no meningeal signs, no focal motor deficits, CN's II-XI intact bilaterally and normal sensation to monofilament Extrem: Other: Bilateral lower extremity negative for swelling, pitting edema, or calf tenderness General: Yes normal to inspection, Yes full ROM and Yes capillary refill normal Psych: Appearance: grossly normal, well kempt and not disheveled Course Course Course Narrative: This is a rapid medical exam. Deferred additional HPI, ROS, PE to primary provider. 48 you female with a past medical history hypothyroidism, fibromyalgia, migraine, hyperlipidemia, COPD, iron deficiency anemia here with complaints of chest congestion, cough x 3 days. No fevers, chills. No sick contact. Will obtain viral testing, CXR KYLAHS -Trish Bruce APRN Medical Decision Making Medical Decision Making [facility] Narrative: 48-year-old presents to ED for URI symptoms. Patient has positive RSV. Pending chest x-ray results. Patient is comfortable. EKG negative STEMI. Sinus tach. 2:44pm: Positive for pneumonia and RSV patient will be discharged antibiotics and steroids due to history of asthma and slight wheezing. Patient not in any distress. Patient explained worrisome signs and informed return to the ED immediately. Differential Diagnosis Differential Diagnoses: The differential diagnosis associated with the presentation includes (Pneumonia, COVID, RSV, influenza) Admission/Observation Consideration of admission/observation: Escalation of care including admission/observation considered Lab Data [facility] Lab Attestation statement: I reviewed the patient's lab results. Labs: Lab Results 03/23/24 Range/Units 12:37 Influenza Type A (PCR) NEGATIVE (Negative) Influenza Type B (PCR) NEGATIVE (Negative) RSV RNA Qual (PCR) POSITIVE A (Negative) SARS-CoV-2 RNA (RT-PCR) NEGATIVE (Negative) S. pyogenes GrpA SUSANNE Negative (Negative) Independent Interpretation I performed an independent interpretation of an: Plain X-Ray Radiology Impression Discussion of test interpretation with radiology: I have reviewed the radiologist's reading. Independent Historian Clinical information obtained from an independent historian. History obtained from or confirmed by: Other (Patient) External Record Review External record reviewed: Other (Prior visits) Discharge Plan Discharge Clinical Impression: CAP (community acquired pneumonia), Respiratory syncytial virus (RSV) Patient Disposition: Home, Self-Care Instructions: Respiratory Syncytial Virus (ED), Community Acquired Pneumonia (ED) Additional Instructions: Recommend follow-up with primary care provider. Chest x-ray shows pneumonia. You came back positive for RSV. Return to the ED immediately for any chest pain, shortness of breath, coughing up blood, weakness, dizziness, calf pain, or any other concerning symptoms. Continue using albuterol inhaler as needed FINDINGS: The cardiac silhouette is normal. There is mild diffuse bronchial wall thickening. Hazy opacity in the lingula. There are no pleural effusions or pneumothoraces. The bones and soft tissues are unremarkable for the patient's age. XR/XR chest 2V IMPRESSION: Hazy opacity in the lingula suspicious for pneumonia. Electronically signed by: Beverly Kang MD 03/23/2024 02:14 PM [facility] Prescriptions: New prednisone 20 mg tablet 40 mg PO DAILY 5 Days Qty: 10 0RF amoxicillin-pot clavulanate 875-125 mg tablet 1 tab PO Q12H 5 Days Qty: 10 0RF azithromycin 250 mg tablet See Rx Instructions .ROUTE .COMPLEX Qty: 6 0RF Rx Instructions: For 250 mg dose pack: take 500 mg today (day 1), then 250 mg for 4 days (days 2-5) No Action (DME) [facility] Spacer See Rx Instructions .ROUTE .MEDSUPPLY Qty: 1 Rx Instructions: As directed albuterol sulfate [Ventolin HFA] 90 mcg/actuation HFA aerosol inhaler 2 puff inhalation Q4-6H PRN fluticasone propionate 50 mcg/actuation spray,suspension intranasal sumatriptan succinate 50 mg tablet PO fluticasone propion-salmeterol [Advair Diskus] 250-50 mcg/dose blister with device 1 ea inhalation BID loratadine 10 mg tablet 10 mg PO DAILY ferrous sulfate 325 mg (65 mg iron) tablet 325 mg PO DAILY amitriptyline 25 mg tablet 25 mg PO BEDTIME levothyroxine 25 mcg tablet 25 mcg PO DAILY hydroxyzine HCl 50 mg tablet 50 mg PO BID pregabalin 75 mg capsule 75 mg PO BID Qty: 180 2RF milnacipran 25 mg tablet 25 mg PO BID Qty: 180 2RF Stand Alone Forms: Work/School Release Interventions: ED Discharge Assessment Last Done: 03/23/24 15:08 Discharge Date/Time: 03/23/24 15:11 Print Language: Djib[place]ian
[2024-03-23 12:39] VITALS: BP 122/78; PULSE 111; RESP 18; TEMP 37.1; O2SAT 98; BMI 26.3
[2024-03-23 12:54] LABS: IDNOW Serial# 58CA691E; Strep A Nucleic Acid Negative (Negative)
[2024-03-23 13:28] LABS: Influenza A PCR NEGATIVE (Negative); Influenza B PCR NEGATIVE (Negative); Resp Syncy Virus RNA Qual PCR POSITIVE (Negative); SARS COV2 PCR INHOUSE NEGATIVE (Negative)
[2024-03-23 15:08] VITALS: BP 122/78; PULSE 111; RESP 18; TEMP 37.1; O2SAT 98
== END 2024-03-23 15:11 | disposition home or self-care (01) ==
PROVIDERS: Nurse Practitioner Family; Emergency Provider Emergency Medicine Emergency Medical Services
DX: J18.9 Pneumonia, unspecified organism (principal); J22 Unspecified acute lower respiratory infection; R07.89 Other chest pain; M79.10 Myalgia, unspecified site; R05.9 Cough, unspecified; R09.81 Nasal congestion; Z03.818 Encounter for observation for suspected exposure to other biological agents ruled out; Z79.899 Other long term (current) drug therapy
CPT/HCPCS: 0241U; 71046; 87651; 93005; 99283

== ENCOUNTER → 2024-03-23 12:27 | Outpatient (BNV) | payer OTHER, SELFPAY | PROVIDERS: Emergency Provider Emergency Medicine Emergency Medical Services; Visit Provider Internal Medicine Cardiovascular Disease | DX: R00.0 Tachycardia, unspecified (principal) | CPT/HCPCS: 93010 ==

== ENCOUNTER 2024-04-30 11:20 | Outpatient (REF) | payer OTHER, SELFPAY ==
[2024-04-30 13:04] LABS: MANUAL DIFF FLAG NO
[2024-04-30 13:41] LABS: Basophils Absolute Auto 0.1 X10*3/uL (0.0-0.2); Basophils Percent Auto 0.8 % (0-2); Eosinophils Absolute Auto 0.1 X10*3/uL (0.0-0.4); Eosinophils Percent Auto 1.7 % (0-4); Hematocrit 40.2 % (37.0-47.0); Hemoglobin 13.4 g/dl (12.0-16.0); Imm Gran Abs Auto 0.03 X10*3/uL (0.00-0.03); Imm Gran Pct Auto 0.4 % (0.0-0.4); Lymphocytes Absolute Auto 2.5 X10*3/uL (1.2-4.9); Mean Corpuscular HGB Conc 33.3 g/dl (31.0-35.0); Mean Corpuscular Hemoglobin 30.7 pg (27.0-33.0); Mean Corpuscular Volume 92.2 fL (80.0-98.0); Mean Platelet Volume 10.3 fL (9.4-12.3); Monocytes Absolute Auto 0.5 X10*3/uL (0.1-1.2); Neutrophils Absolute Auto 4.3 x10*3/uL (2.0-8.3); Neutrophils Percent Auto 57.1 % (45-73); Platelet Count 314 X10*3/uL (160-400); Red Blood Count 4.36 X10*6/uL (4.20-5.50); Red Cell Distribution Width 12.3 % (11.0-16.0); White Blood Count 7.6 X10*3/uL (4.8-10.8)
[2024-04-30 14:17] LABS: Alanine Aminotransferase 26 U/L (0-31); Albumin Level 4.4 g/dL (3.5-5.0); Alkaline Phosphatase 105 U/L (39-117); Anion Gap 7 (12-20); Aspartate Amino Transferase 28 U/L (5-31); Bilirubin Total 0.3 mg/dL (0.0-1.0); Blood Urea Nitrogen 13 mg/dL (9-16); C Reactive Protein 0.74 mg/dL (< or = 0.50); Calcium 9.6 mg/dL (8.4-10.2); Carbon Dioxide 25 mmol/L (22-29); Chloride 112 mmol/L (96-108); Estimated Glomerular Filt Rate > 60; Gamma Glutamyl Transpeptidase 49 U/L (7-33); Glucose Random 97 mg/dL (60-115); Sodium 140 mmol/L (135-145); Total Protein 8.1 g/dL (6.5-8.0)
[2024-04-30 14:26] LABS: Free T4 (Free Thyroxine) 0.97 ng/dL (0.71-1.85); Thyroid Stimulating Hormone 2.99 uIU/mL (0.32-4.0)
[2024-04-30 18:08] LABS: Erythrocyte Sedimentation Rate 34 MM/HR (0-20)
[2024-05-04 12:03] LABS: Prot Elec - Albumin 4.1 g/dL (3.8-4.8); Prot Elec - Alpha1 0.3 g/dL (0.2-0.3); Prot Elec - Alpha2 0.6 g/dL (0.5-0.9); Prot Elec - Beta 1 0.5 g/dL (0.4-0.6); Prot Elec - Beta 2 0.5 g/dL (0.2-0.5); Prot Elec - Gamma 1.3 g/dL (0.8-1.7); Prot Elec - Total Protein 7.3 g/dL (6.1-8.1)
== END 2024-04-30 11:21 | disposition home or self-care (01) ==
LOC: HO.LAB 11:20
PROVIDERS: PCP Physician Assistant; Visit Provider Student in an Organized Health Care Education/Training Program
DX: M05.79 Rheumatoid arthritis with rheumatoid factor of multiple sites without organ or systems involvement (principal); M25.50 Pain in unspecified joint; M79.7 Fibromyalgia; R74.8 Abnormal levels of other serum enzymes
CPT/HCPCS: 36415; 80053; 82977; 84165; 84439; 84443; 85025; 85652; 86140; 99212

== ENCOUNTER 2024-04-30 11:20 | Outpatient (AMB) | payer OTHER, SELFPAY ==
--- NOTE | 2024-04-30 11:27 | MHC.OFFVIS ---
Vital Signs 04/30/24 11:31 Height 5 ft 2 in Weight 145 lb 1.027 oz BMI 26.5 BP 116/80 Blood Pressure Location Rt brachial Position Sitting Respiration 18 Pulse 95 Pulse Source Pulse Oximeter Pulse Oximetry (%) 98 Oxygen Delivery Method Room Air Intake Visit Reasons: discuss lab results/ follow up Intake Note: Patient presents to discuss lab results/follow up. Tarp Repairer Required: Yes Tarp Repairer Language: Prescription Eyeglass Maker Services: Tarp Repairer Present Tarp Repairer Name: Gennaro [id number] Information Interpreted: non-clinical & clinical Allergies No Known Allergies Allergy (Verified 04/30/24 11:31) Medication List - Last Reconciled 04/30/24 by Kathy Alcantara MD albuterol sulfate 90 mcg/actuation (Ventolin HFA) 2 puffs inhalation Q4-6H PRN amitriptyline 25 mg PO BEDTIME amoxicillin-pot clavulanate 875-125 mg 1 tab PO Q12H 5 days azithromycin For 250 mg dose pack: take 500 mg today (day 1), then 250 mg for 4 days (days 2-5) ferrous sulfate 325 mg PO DAILY fluticasone propion-salmeterol 250-50 mcg/dose (Advair Diskus) 1 ea inhalation BID fluticasone propionate 50 mcg/actuation sprays intranasal hydroxyzine HCl 50 mg PO BID inhalational spacing device ([facility] C spacer) As directed levothyroxine 25 mcg PO DAILY loratadine 10 mg PO DAILY milnacipran 25 mg PO BID prednisone 40 mg (2 x 20 mg) PO DAILY 5 days pregabalin 75 mg PO BID sumatriptan succinate mg PO HPI Comments Details: Patient is a 48-year-old female with hypothyroidism on levothyroxine and GERD secondary to H pylori infection status post eradication who presents for follow up of polyarthralgias Interval History: Since last visit patient has had no improvement on prednisone. Still with whole-body pain numbness and tingling to feet when she walks, neck pain and back pain. Rheumatologic History: Patient initially presented for evaluation of whole-body pain 01/30/2024. At that time evaluation was consistent with fibromyalgia with no evidence of synovitis on examination and tender points. Recommend pregabalin and milnacipran. Preliminary results showed a very elevated CRP and ESR as well as positive rheumatoid factor. The thought was that she had rheumatoid arthritis and she was started on prednisolone taper and methotrexate. She was re-evaluated 4 weeks later with no improvement on the prednisone in fact she stated that the prednisone made her pain worse. Given this she was re-evaluated as fibromyalgia and started on pregabalin and milnacipran Current Rheumatology Medication(s): Prednisone 5 mg daily Methotrexate 15 mg every week Folic acid 1 mg daily [facility] Medical History (Updated 04/30/24 @ 14:46 by Kathy Alcantara MD) Adalimumab (Humira) long-term use Rheumatoid arthritis Fibromyalgia affecting multiple sites Hyperlipidemia Asthma Migraine Iron deficiency anemia Insomnia Muscle spasm Hypothyroidism Allergic rhinitis Multiple joint pain Surgical History H/O: hysterectomy Social History Patient Tobacco Use Status: Former Tobacco user Tobacco use type: Cigarette Review of Systems Const Details: Review of Systems Constitutional: Denies fever, chills, weight loss ENT: Denies vision changes, eye pain or eye redness, dental caries, dry mouth GI: Denies nausea, vomiting, diarrhea, abdominal pain, change in BM Pulm: Denies SOB, YAÑEZ, hemoptysis, wheezing Cards: Denies chest pain, palpitations Skin: Denies Raynaud's, rash, nail changes, photosensitivity, CABLE STRANDER: Denies headaches, weakness, paresthesias, recurrent falls MSK: as per HPI All other systems reviewed and are unremarkable except noted above Physical Exam Vital Signs: Last Vital Signs Pulse 95 04/30/24 11:31 Resp 18 04/30/24 11:31 BP 116/80 04/30/24 11:31 Pulse Ox 98 04/30/24 11:31 Oxygen Delivery Method Room Air 04/30/24 11:31 BMI result Body Mass Index 26.5 Physical Examination CONSTITUITIONAL Patient alert and cooperative. Well appearing and in no apparent painful distress HEENT Conjunctiva and sclera clear. ?Pupils equal round and reactive to light. ?No lymphadenopathy. ?Normal dentition. No oral or nasal ulcers noted. No evidence of discoid rash to the martin of ears CHEST/RESPIRATORY SYSTEM Normal respiratory effort and able to speak in complete sentences. ?Clear to auscultation bilaterally. ?No crackles, rales, rhonchi, wheezes heard. CARDIAC SYSTEM Regular rate and rhythm. ?S1 and S2 heard no murmurs. ?Radial pulses intact bilaterally MSK Hands: ?Able to make a fist. No swelling noted but tenderness to palpation of the MCPs and PIPs DIPs. Wrists: Full range of motion to the wrists. Tenderness to palpation of the wrist joint. No swelling noted. ? Elbows: Tenderness to palpation of bilateral tendon insertion of the medial and lateral epicondyles. No tenderness to palpation of the elbow joint proper Shoulders: Decreased active range of motion secondary to pain. Full passive range of motion Hips: Hip flexion with pain but full range of motion. Internal and external rotation of the hip without pain. Hip bursa: Tenderness to palpation Knees: ?Full range of motion. ?No tenderness to palpation of the knee joint but there was swelling over the bilateral pes anserine bursa Ankles: Full range of motion. ?Tenderness to palpation but no evidence of swelling. Feet: ?Positive squeeze test and tenderness to palpation of all MTPs. Tender points:??Tenderness to palpation of the neck, shoulders, chest, elbows, hips, buttocks or knees. SKIN Skin intact without rashes. Results Reviewed Results Reviewed: Laboratory Tests 01/30/24 02/25/24 02/27/24 16:30 15:04 14:44 WBC 5.6 RBC 4.29 Hgb 13.3 Hct 41.0 MCV 95.6 MCH 31.0 Plt Count 282 ESR 40 H Sodium 140 Potassium 3.8 Chloride 109 H Carbon Dioxide 22 BUN 12 Creatinine 0.81 AST 55 H ALT 69 H Alkaline Phosphatase 120 H C-Reactive Protein 0.89 H Total Protein 8.0 Albumin 4.2 Rheumatoid Factor 18.3 H Cycl Citrul Peptide IgG <16 Assessment & Plan Assessment & Plan (1) Rheumatoid arthritis: Code(s): M06.9 - Rheumatoid arthritis, unspecified Category: Medical Qualifiers: Rheumatoid arthritis location: multiple sites Rheumatoid factor presence: with rheumatoid factor Qualified Code(s): M05.79 - Rheumatoid arthritis with rheumatoid factor of multiple sites without organ or systems involvement Plan: #Rheumatoid Arthritis Patient is a 48 y.o. female with polyarthralgias, elevated ESR and CRP and positive RF. This has been a difficult case to pin down because based on her exam and the lab work it is consistent with rheumatoid arthritis. It was unfortunately not responsive to prednisone and failed methotrexate. Based on this I think I am going to move forward with trying to treat her seropositive rheumatoid arthritis more aggressively. We will start Humira 40 mg every other week. I will also trial Medrol (prednisolone) to see if bypassing hypermetabolism we will help efficacy. I did consider giving her an intramuscular injection today but I thought against it because it would not have enough of a lasting effect. It is very likely that she has combination of rheumatoid arthritis and fibromyalgia but her rheumatoid arthritis is currently not controlled. I also discussed this with my co attending Dr. Andrew and he agreed that her exam could be consistent rheumatoid arthritis. Plan - Humira 40mg SC every other week - Medrol 4m tablets for 10 days then 4 tablets for 10 days then 3 tablets for 10 days then 2 tablets for 10 days then 1 tablet daily until follow up in 3 months - CBC, CMP, ESR, CRP, Tb, Hepatitis panel today - RTC 3 months (2) Fibromyalgia affecting multiple sites: Code(s): M79.7 - Fibromyalgia Category: Medical Plan: #Fibromyalgia Patient also has a component of fibromyalgia Will continue the pregabalin and milnacipran Can consider optimizing once her inflammatory arthritis is under control Plan - Pregabalin 75mg bid - Milnacipran 25mg bid - Amytriptyline 25mg bedtime - Check TSH and T4 (3) Adalimumab (Humira) long-term use: Code(s): Z79.620 - nursing home (current) use of immunosuppressive biologic Category: Medical Plan: #Long-term Use of TNF Inhibitors: Humira Discussed with the patient the benefits and risks of TNF inhibitors for the management of the rheumatic condition Benefits include reduce pain, maintenance of remission and reduction of flares as well as ?progression of the disease Risks include injection sites/infusion reactions, serious infections (such as bacterial infections, opportunistic infections), malignancy, delaminating syndromes, autoimmune phenomena, CHF exacerbations, palmar plantar psoriasis and cytopenias Recommended rotating injection sites, and holding medication during and for up to 1 week after resolution of a febrile illness or open skin wound Plan I spent 45 minutes reviewing the record and labs, taking a history, examining the patient, discussing the treatment plan and documenting in the medical record Orders: Orders Comprehensive Met. Panel Today M06.9 - Rheumatoid arthritis, unspecified C Reactive Protein Today M06.9 - Rheumatoid arthritis, unspecified Comprehensive Met. Panel 3 Months M06.9 - Rheumatoid arthritis, unspecified, M25.50 - Pain in unspecified joint, M79.7 - Fibromyalgia C Reactive Protein 3 Months M06.9 - Rheumatoid arthritis, unspecified, M25.50 - Pain in unspecified joint, M79.7 - Fibromyalgia Erythrocyte Sedimentation Rate 3 Months M06.9 - Rheumatoid arthritis, unspecified, M25.50 - Pain in unspecified joint, M79.7 - Fibromyalgia Free T4 (Free Thyroxine) Today M06.9 - Rheumatoid arthritis, unspecified, M25.50 - Pain in unspecified joint, M79.7 - Fibromyalgia Erythrocyte Sedimentation Rate Today M06.9 - Rheumatoid arthritis, unspecified Complete Blood Count Auto Diff Today M06.9 - Rheumatoid arthritis, unspecified Complete Blood Count Auto Diff 3 Months M06.9 - Rheumatoid arthritis, unspecified, M25.50 - Pain in unspecified joint, M79.7 - Fibromyalgia Protein Electrophoresis, Serum Today M06.9 - Rheumatoid arthritis, unspecified, M25.50 - Pain in unspecified joint, M79.7 - Fibromyalgia Thyroid Stimulating Hormone Today M06.9 - Rheumatoid arthritis, unspecified, M25.50 - Pain in unspecified joint, M79.7 - Fibromyalgia Medications: New adalimumab (Humira) 40 mg (0.8 mL) subcut Q2W 2 ea 6RF M06.9 - Rheumatoid arthritis, unspecified methylprednisolone (Medrol) take 4 tablets for 10 days then 3 tablets for 10 days then 2 tablets for 10 days then 1 tablet for 60 days 4 mg PO DAILY 150 tabs 0RF M06.9 - Rheumatoid arthritis, unspecified Discontinued prednisone Discontinued Reason: Doctor's Order 40 mg (2 x 20 mg) PO DAILY 5 days 10 tabs 0RF Coding Level of Care Code Est Pt Level 5 (29113) Complex EM visit Add On G2211 Diagnoses Rheumatoid arthritis involving multiple sites with positive rheumatoid factor M05.79 Rheumatoid arthritis location: multiple sites Rheumatoid factor presence: with rheumatoid factor Fibromyalgia affecting multiple sites M79.7 Adalimumab (Humira) long-term use Z79.620
[2024-04-30 11:31] VITALS: BP 116/80; PULSE 95; RESP 18; O2SAT 98; BMI 26.5
== END 2024-04-30 12:23 | disposition home or self-care (01) ==
PROVIDERS: Visit Provider Student in an Organized Health Care Education/Training Program
DX: M05.79 Rheumatoid arthritis with rheumatoid factor of multiple sites without organ or systems involvement (principal); M79.7 Fibromyalgia; Z79.620 Long term (current) use of immunosuppressive biologic
CPT/HCPCS: 99215; G2211

== ENCOUNTER 2024-05-13 10:59 | Inpatient (IN) | payer OTHER, SELFPAY ==
[2024-05-13] VITALS (12 sets, daily range): BP systolic 95–152; BP diastolic 55–76; PULSE 71–133; RESP 16–24; TEMP 36.4–38.4; O2SAT 93–100; BMI 25.6
--- NOTE | ~2024-05-13 | CT_ITS ---
CLINICAL HISTORY: R O PE CT angiography chest with contrast. 3D Postprocessing. Comparison: CR/SR - XR CHEST 2V - 05/13/24 11:54 EST Findings: The heart size is normal. RV/LV ratio is normal. Unremarkable thoracic aorta and great vessels. No aneurysm. No acute pulmonary embolus. The visualized thyroid and mediastinum are unremarkable. Bilateral lung base patchy areas of consolidation. The visualized upper abdomen is unremarkable. The bones are intact. IMPRESSION: 1. No pulmonary embolus. 2. Bilateral lung base patchy areas of consolidation may represent multifocal pneumonia. This document has been electronically signed by: Howie Jordan MD on 05/13/2024 19:50:42
--- NOTE | ~2024-05-13 | XR_ITS ---
EXAMINATION: XR CHEST CLINICAL INFORMATION: SOB COMPARISON: Chest x-ray 03/23/2024 TECHNIQUE: 2 views of the chest were obtained. FINDINGS: Lungs are expanded with patchy opacity in the lingula, slightly more prominent than previous study. Rest of lungs are clear. There is bilateral apical pleural thickening. No effusion seen. Heart size and poor vascularity is normal. No gross bony abnormality seen. XR/XR chest 2V IMPRESSION: Patchy opacity in the lingula slightly progressed since the previous exam. Bilateral apical pleural thickening, stable. Electronically signed by: London Corbett MD 05/13/2024 12:02 PM EST
--- NOTE | 2024-05-13 11:12 | ECG_ITS ---
Test Reason : chest pain Blood Pressure : */* mmHG Vent. Rate : 136 BPM Atrial Rate : 136 BPM P-R Int : 100 ms QRS Dur : 72 ms QT Int : 280 ms P-R-T Axes : 37 -5 50 degrees QTcB Int : 421 ms Sinus tachycardia Otherwise normal ECG When compared with ECG of 23-Mar-2024 12:26, No significant change was found Referred By: Rachel Hernandez Electronically Signed By: ERIC ESPINOZA
--- NOTE | 2024-05-13 11:13 | ED.CHESTPAIN ---
HPI - Chest Pain General Chief Complaint: Chest Pain Stated Complaint: Chest pressure, shakiness both legs Time Seen by Provider: 05/13/24 12:39 Source: patient, RN notes reviewed and old records reviewed Mode of arrival: ambulatory History of Present Illness ED Provider: Didi Argueta PA-C HPI narrative: 48-year-old female with a past medical history of rheumatoid arthritis on Humira, fibromyalgia, recent pneumonia treated with Augmentin/Azithromycin is seen in our ED on 03/23/2024, presenting to the ED complaining of myalgias, fatigue, productive cough, SOB, chest tightness since last night. Also reports shakiness and lightheadedness. Denies abdominal pain, nausea/vomiting, diarrhea. Admits to finishing previously prescribed antibiotics. Denies sick contacts or recent travel. Related Data Home Medications ?Medication ?Instructions ?Recorded ?Confirmed albuterol sulfate 90 mcg/actuation 2 puff inhalation Q4-6H PRN 01/30/24 04/30/24 aerosol inhaler (Ventolin HFA) amitriptyline 25 mg tablet 25 mg PO BEDTIME 01/30/24 04/30/24 ferrous sulfate 325 mg (65 mg 325 mg PO DAILY 01/30/24 04/30/24 iron) tablet fluticasone 250 mcg-salmeterol 50 1 ea inhalation BID 01/30/24 04/30/24 mcg/dose blistr powdr for inhalation (Advair Diskus) fluticasone propionate 50 spray intranasal 01/30/24 04/30/24 mcg/actuation nasal spray,suspension hydroxyzine HCl 50 mg tablet 50 mg PO BID 01/30/24 04/30/24 inhalational spacing device #1 ea 01/30/24 04/30/24 (Evna Ulloa [facility] spacer) levothyroxine 25 mcg tablet 25 mcg PO DAILY 01/30/24 04/30/24 loratadine 10 mg tablet 10 mg PO DAILY 01/30/24 04/30/24 sumatriptan succinate 50 mg tablet mg PO 01/30/24 04/30/24 Previous Rx's ?Medication ?Instructions ?Recorded milnacipran 25 mg tablet 25 mg PO BID #180 tabs 02/25/24 pregabalin 75 mg capsule 75 mg PO BID #180 caps 02/25/24 amoxicillin 875 mg-potassium 1 tab PO Q12H 5 days #10 tabs 03/23/24 clavulanate 125 mg tablet azithromycin 250 mg tablet See Rx Instructions PO .COMPLEX #6 03/23/24 tabs adalimumab 40 mg/0.8 mL 40 mg (0.8 mL) subcut Q2W #2 ea 04/30/24 subcutaneous syringe kit (Humira) methylprednisolone 4 mg tablet 4 mg PO DAILY #150 tabs 04/30/24 (Medrol) Allergies Allergy/AdvReac Type Severity Reaction Status Date / Time No Known Allergies Allergy Verified 05/13/24 11:16 Review of Systems Review of Systems: Yes all other systems are reviewed and are negative Constitutional: Constitutional: Reports as per [facility] Past Medical History Attestation statement: The following information was validated with the patient. Source: old records reviewed Medical History Adalimumab (Humira) long-term use Rheumatoid arthritis Fibromyalgia affecting multiple sites Hyperlipidemia Asthma Migraine Iron deficiency anemia Insomnia Muscle spasm Hypothyroidism Allergic rhinitis Multiple joint pain Surgical History H/O: hysterectomy Social History Social History Patient Tobacco Use Status: Former Tobacco user Tobacco use type: Cigarette Advance Directives: No Advance Directives Information Provided: Yes Physical Exam Vital Signs: Vital Signs: Last Vital Signs Temp 99 F 05/13/24 11:09 Pulse 133 H 05/13/24 11:09 Resp 20 05/13/24 11:09 BP 117/71 05/13/24 11:09 Pulse Ox 97 05/13/24 11:09 O2 Del Method Room Air 05/13/24 11:09 BMI result Body Mass Index 25.6 Const: General: cooperative, healthy appearing and no acute distress Orientation/consciousness: patient oriented x3 Limitations: no limitations HEENT: Head: Yes normal to inspection and Yes atraumatic Ears: hearing grossly normal bilaterally General nose exam: Normal external nose present Face and sinus: Yes normal facial exam Eyes: General: appearance normal, both eyes and all related structures EOM: EOMs intact bilaterally Neck: Neck: Yes normal visual inspection and Yes no meningeal signs Resp: Effort & Inspection: normal respiratory effort and no respiratory distress Auscultation: no wheezes and diminished lung sounds diffuse Cardio: Rate: tachycardic Heart sounds: S1 normal heart sound present and S2 normal heart sound present GI: Inspection: Yes normal to inspection Palpation (GI): Soft to palpation, nontender, no guarding and not rigid : General: Yes no CVA tenderness Back/Spine/Pelvis: Back: no CVA tenderness Skin: Rashes: no rashes Wounds: no wounds Neuro: General: patient oriented x3, tone normal and no meningeal signs Cranial nerves: Yes CN's II-XII intact bilaterally Gait exam (Neuro): Normal gait present Extrem: General: Yes normal to inspection, Yes no pedal edema and Yes no calf tenderness Course Course Course Narrative: This is an RME: Additional HPI, ROS, PE not included below will be deferred to primary provider. RME assessment and note performed by: Rachel Hernandez PA-C This is a 48 year old female, with a hx of polyarthralgias, HLD, asthma, who presents to the ER with complaints of chest tightness, cough, and BL leg weakness. Reports that she had some SOB yesterday, but used inhaler with some relief. Reports that her cough is productive. Plan: Labs, EKG, CXR, viral swabs -1310--leukocytosis of 15.9. Lactic acidosis of 3.6 > we will give empiric IV antibiotics and IVF. -COVID/flu/RSV negative XR chest 2V IMPRESSION: Patchy opacity in the lingula slightly progressed since the previous exam. Bilateral apical pleural thickening, stable. > plan to admit for further management. Case discussed with hospitalist Medications Administered Generic Name Dose Route Start Last Admin Trade Name Freq PRN Reason Stop Dose Admin Sodium Chloride 1,000 mls @ 999 mls/hr 05/13/24 12:45 05/13/24 12:55 Ns IV 05/13/24 13:45 999 mls/hr .Q1H1M LAKISHA Administration Lactated Ringer's 1,000 mls @ 999 mls/hr 05/13/24 12:45 05/13/24 12:56 Lr IV 05/13/24 13:45 999 mls/hr .Q1H1M LAKISHA Administration Discontinued Medications Generic Name Dose Route Start Last Admin Trade Name Freq PRN Reason Stop Dose Admin Cefepime HCl 2 gm in 50 mls @ 100 mls/hr 05/13/24 12:42 05/13/24 12:55 Maxipime IV 05/13/24 13:11 100 mls/hr ONCE ONE Administration Medical Decision Making Medical Decision Making MDM Narrative: 48-year-old female with a past medical history of rheumatoid arthritis on Humira, fibromyalgia, recent pneumonia treated with Augmentin/Azithromycin is seen in our ED on 03/23/2024, presenting to the ED complaining of myalgias, fatigue, productive cough, SOB, chest tightness since last night. On exam tachycardic, low-grade temp of 99 degrees, NAD, lungs have diminished sounds throughout, abdomen soft/nontender, no pedal edema. Concern for viral illness vs persistent pneumonia vs bronchitis vs ACS. Lower suspicion for PE/DVT at this time. Unlikely dissection Plan: EKG, labs, UA, CXR, viral testing, IVF, +/-admission Please refer to course for remaining clinical decision making, interpretation of labs/imaging results, and discussions with consultants and/or family members. Differential Diagnosis Differential Diagnoses: The differential diagnosis associated with the presentation includes As above Admission/Observation Consideration of admission/observation: Escalation of care including admission/observation considered Lab Data [facility] Lab Attestation statement: I reviewed the patient's lab results. 05/13/24 11:37 05/13/24 11:37 Labs: Lab Results 05/13/24 05/13/24 05/13/24 Range/Units 11:26 11:37 11:45 WBC 15.9 H (4.8-10.8) X10*3/uL RBC 4.78 (4.20-5.50) X10*6/uL Hgb 14.8 (12.0-16.0) g/dl Hct 43.8 (37.0-47.0) % MCV 91.6 (80.0-98.0) fL MCH 31.0 (27.0-33.0) pg MCHC 33.8 (31.0-35.0) g/dl RDW 12.4 (11.0-16.0) % Plt Count 330 (160-400) X10*3/uL MPV 9.8 (9.4-12.3) fL Immature Gran % (Auto) 0.7 H (0.0-0.4) % Neut % (Auto) 73.5 H (45-73) % Lymph % (Auto) 19.7 L (20-40) % [place] % (Auto) 4.6 (2-11) % Eos % (Auto) 1.1 (0-4) % Baso % (Auto) 0.4 (0-2) % Lymph # (Auto) 3.1 (1.2-4.9) X10*3/uL [place] # (Auto) 0.7 (0.1-1.2) X10*3/uL Eos # (Auto) 0.2 (0.0-0.4) X10*3/uL Baso # (Auto) 0.1 (0.0-0.2) X10*3/uL Abs Immat Gran (auto) 0.11 H (0.00-0.03) X10*3/uL Absolute Neuts (auto) 11.7 H (2.0-8.3) x10*3/uL Absolute Nucleated RBC 0.000 (0.0-0.012) X10*3/uL Nucleated RBC % (auto) 0.0 (0.0-0.2) /100WBC PT 13.5 H (10.9-12.4) SEC INR 1.2 H (0.9-1.1) Sodium 135 (135-145) mmol/L Potassium 3.5 (3.3-5.1) mmol/L Chloride 105 (96-108) mmol/L Carbon Dioxide 22 (22-29) mmol/L Anion Gap 12 (12-20) BUN 12 (9-16) mg/dL Creatinine 0.91 (0.5-1.4) mg/dL Estim Creat Clear Calc 65.5 Estimated GFR > 60 Random Glucose 100 (60-115) mg/dL Lactic Acid 3.6 H* (0.5-2.0) mmol/L Calcium 9.9 (8.4-10.2) mg/dL Magnesium 2.3 (1.6-2.6) mg/dL Total Bilirubin 0.8 (0.0-1.0) mg/dL Direct Bilirubin 0.3 (0.0-0.5) mg/dL AST 26 (5-31) U/L ALT 25 (0-31) U/L Alkaline Phosphatase 128 H (39-117) U/L Troponin I High Sens < 2.7 (<3.5-17.0) ng/L Total Protein 9.1 H (6.5-8.0) g/dL Albumin 4.6 (3.5-5.0) g/dL Lipase 34 (8-78) U/L Influenza Type A (PCR) NEGATIVE (Negative) Influenza Type B (PCR) NEGATIVE (Negative) RSV RNA Qual (PCR) NEGATIVE (Negative) SARS-CoV-2 RNA (RT-PCR) NEGATIVE (Negative) Independent Interpretation I performed an independent interpretation of an: EKG (My interpretation EKG sinus tachycardia with short IN interval rate 136. QTC 421. No significant change when compared to prior. No STEMI) and Plain X-Ray Radiology Impression Discussion of test interpretation with radiology: I have reviewed the radiologist's reading. External Record Review External record reviewed: Inpatient record, Office record, Outpatient record, Prior outpatient labs, Prior outpatient radiology, Primary care record and Outside ED record Tests considered The following testing was considered but not selected: As above Prescription Management I considered prescription management with: Pain Medication and Antibiotic Chronic Conditions Patient?s care impacted by: Other Social Determinants Patient?s care significantly limited by Social Determinants of Health including: Other Social Determinant of Health Critical Care Time Critical Care Time Critical Care Time: Yes Total Critical Care Time: 40 Attestation: I have personally provided critical care time exclusive of time spent on separately billable procedures. Time includes review of lab data, radiology results, discussion with consultants, and monitoring for potential decompensation. Intervention performed as documented. Discharge Plan Discharge Clinical Impression: Pneumonia Patient Disposition: Admitted As Inpatient Print Language: Turkish
[2024-05-13 11:43] LABS: MANUAL DIFF FLAG NO
[2024-05-13 11:44] LABS: Basophils Absolute Auto 0.1 X10*3/uL (0.0-0.2); Basophils Percent Auto 0.4 % (0-2); Eosinophils Absolute Auto 0.2 X10*3/uL (0.0-0.4); Eosinophils Percent Auto 1.1 % (0-4); Hematocrit 43.8 % (37.0-47.0); Hemoglobin 14.8 g/dl (12.0-16.0); Imm Gran Abs Auto 0.11 X10*3/uL (0.00-0.03); Imm Gran Pct Auto 0.7 % (0.0-0.4); Lymphocytes Absolute Auto 3.1 X10*3/uL (1.2-4.9); Lymphocytes Percent Auto 19.7 % (20-40); Mean Corpuscular HGB Conc 33.8 g/dl (31.0-35.0); Mean Corpuscular Volume 91.6 fL (80.0-98.0); Mean Platelet Volume 9.8 fL (9.4-12.3); Monocytes Absolute Auto 0.7 X10*3/uL (0.1-1.2); Monocytes Percent Auto 4.6 % (2-11); Neutrophils Absolute Auto 11.7 x10*3/uL (2.0-8.3); Neutrophils Percent Auto 73.5 % (45-73); Platelet Count 330 X10*3/uL (160-400); Red Blood Count 4.78 X10*6/uL (4.20-5.50); Red Cell Distribution Width 12.4 % (11.0-16.0); White Blood Count 15.9 X10*3/uL (4.8-10.8)
[2024-05-13 11:51] LABS: INTERNATIONAL NORM RATIO 1.2 (0.9-1.1); Prothrombin Time 13.5 SEC (10.9-12.4)
[2024-05-13 11:59] LABS: Alanine Aminotransferase 25 U/L (0-31); Albumin Level 4.6 g/dL (3.5-5.0); Alkaline Phosphatase 128 U/L (39-117); Anion Gap 12 (12-20); Aspartate Amino Transferase 26 U/L (5-31); Bilirubin Direct 0.3 mg/dL (0.0-0.5); Bilirubin Total 0.8 mg/dL (0.0-1.0); Blood Urea Nitrogen 12 mg/dL (9-16); Calcium 9.9 mg/dL (8.4-10.2); Carbon Dioxide 22 mmol/L (22-29); Chloride 105 mmol/L (96-108); Creatinine Clr Calc Pharmacy 65.5; Estimated Glomerular Filt Rate > 60; Glucose Random 100 mg/dL (60-115); Lipase 34 U/L (8-78); Magnesium 2.3 mg/dL (1.6-2.6); Potassium 3.5 mmol/L (3.3-5.1); Sodium 135 mmol/L (135-145); Total Protein 9.1 g/dL (6.5-8.0)
[2024-05-13 12:13] LABS: Lactic Acid 3.6 mmol/L (0.5-2.0)
[2024-05-13 12:28] LABS: Troponin-I High Sensitivity < 2.7 ng/L (<3.5-17.0)
[2024-05-13 12:42] LABS: Influenza A PCR NEGATIVE (Negative); Influenza B PCR NEGATIVE (Negative); Resp Syncy Virus RNA Qual PCR NEGATIVE (Negative); SARS COV2 PCR INHOUSE NEGATIVE (Negative)
[2024-05-13] MEDS: 0.9 % Sodium Chloride 1,000 ML 999 ML IV (12:55)
[2024-05-13] MEDS: cefEPime HCl/D5W 2 GM/50 ML PIGGYBACK IV (12:55)
[2024-05-13] MEDS: Lactated Ringers 1,000 ML 999 ML IV (12:56)
--- OUTSIDE RECORDS SUMMARY | 2024-05-13 13:42 | XMS_ITS | Encounter Summary ---
Author Organization [employer] Address [address] [place] [address] Care Team Providers Care Paste Up Artist Name Role Phone Bonnie Huff Primary Care Provider + Reason for Referral * Consultation (Routine) - Authorized Specialty Diagnoses / Procedures Referred By Contac t Referred To Contact General Surgery Diagnoses Umbilical hernia without obstruction and without gangrene Bonnie Huff PA 175 [facility] 200 [place] [address] [facility] [place] [address] [facility] [address] [place] [address] Referral ID Status Reason Start Date Expiration Date Visits Requested Visits Authorized [id number] Authorized Specialty Services Required 04/28/2024 04/28/2025 1 1 Reason for Visit * Reason Comments Jaw Pain Hernia Encounter Details Date Type Department Care Team (Late st Contact Info) Description 04/28/2024 9:45 AM EST Office Visit Internal Medicine - [place] 175 [facility] [address] [place] [phone] Bonnie Huff PA 175 [facility] 200 [place] [address] Umbilical hernia without obstruction and without gangrene (Primary Dx); Jaw pain Social History Tobacco Use Types Packs/Day Years Used Date Smoking Tobacco: Former Smokeless Tobacco: Never Tobacco Cessation:Counseling Given: Not Answered Alcohol Use Standard Drinks/Week Comments Not Currently 0 (1 standard drink = 0.6 oz pur e alcohol) Housing Instability Answer Date Recorde d Are you worried that in the next 2 months you may not have stable housing? Unable to respond 03/17/2024 Food Access & Nutrition Answer Date Rec orded Do you have access to a vari ety of food including fruits and vegetables? Yes 03/17/2024 Health Literacy Answer Date Recorded How often do you need to hav e someone help you when you read instructions, pamphlets, or other written material from your doctor or pharmacy? Sometimes 03/17/2024 Caregiver: How often do you need to have someone help you when you read instructions, pamphlets, or other written material from your doctor or pharmacy? Not on file 03/17/2024 Financial Risk Answer Date Recorded How hard is it for you to pa y for the very basics like food, housing, medical care, and air conditioning / heating? Unable to respond 03/17/2024 Transportation Answer Date Recorded Has the lack of transportati on kept you from meetings, work, or from getting things needed for daily living? Unable to respond 03/17/2024 Has the lack of transportati on kept you from medical appointments or from getting medications? Yes 03/17/2024 Social Isolation Answer Date Recorded How often do you feel lonely or isolated from those around you? Unable to respond 03/17/2024 Food Risk Answer Date Recorded Within the past 12 months we worried whether our food would run out before we got money to buy more. Unable to respond 024 Within the past 12 months th e food we bought just didn't last and we didn't have money to get more. Unable to respond 05/2023 Dependent Care Answer Date Recorded Do you need help finding or paying for care for your loved ones. For example, child and adolescent psychiatrist or elderly care for an older adult? Unable to respond 03/17/2024 Education Answer Date Recorded Do you think completing more education or training, like finishing a GED, going to college, or learning a trade, would be helpful for you? Unable to respond 03/17/2024 Employment and Income Answer Date Recor ded During the last four weeks, have you been actively looking for work? No 03/17/2024 Living Situation Answer Date Recorded What is your living situation? 1 05/18/2023 Sex and Gender Information Value Date Recorded Sex Assigned at Female 02/19/2024 1:59 PM EST Gender Identity Female 02/19/2024 1:59 PM EST Sexual Orientation Straight 02/19/2024 1: 59 PM EST Job Start Date Occupation Industry Not on file Not on file Not on file documented as of this encounter Last Filed Vital Signs Vital Sign Reading Time Taken Comments Blood Pressure 122/84 04/28/2024 8:54 AM EST Pulse 115 04/28/2024 8:54 AM EST Temperature 36.6 ??C (97.8 ??F) 04/28/2024 8:54 AM ES T Respiratory Rate - - Oxygen Saturation 98% 04/28/2024 8:54 AM EST Inhaled Oxygen Concentration - - Weight 64.4 kg (142 lb) 04/28/2024 8:54 AM EST Height - - Body Mass Index 25.97 04/02/2024 3:04 PM EST documented in this encounter Progress Notes * BRISEIDA Patrick - 04/28/2024 9:45 AM EST CHIEF COMPLAINT: Jaw Pain and Hernia IDENTIFIER: Erum Rawls is a 48 y.o. old female. HPI: F/u left law pain and umbilical hernia. She was last seen by me for physical 03/18/2024. Last labs (CMP, hemoglobin A1c, CBC differential, lipids, TSH, vitamin D, iron, magnesium, vitamin B12, ferritin) were done 12/14/2023 and also had ureabreath test and BMP done 02/08/2024 per GI and was treated for positive H. pylori. She had been comp laining of a lump along her left jaw and was seen via Dr. Villa 02/08/24 for [address] she had CT maxillofacial 03/05/2024 that revealed bilateral maxillary sinusitis, extensive opacification of mastoid air cells and middle ear cavities, possibly infectious/inflammatory in mild generalized cervical lymphadenopathy for which she was treated with a course of Augmentin. She had another CT of the head03/27/2024 no acute intracranial process, sinusitis, chronic mastoiditis. She was told via Dr. Villa everything was in acceptable range without any acute abnormalities. Says still having pain leftlaw and will be seeing a new dentist soon. Also does have max sinus pressure, but not having ear pain. Does have nasal spray. Also of note was tx for pneumonia in February at [facility] in February. Did f/u with pulm and theyfound incidental umbilical hernia which his bothering her and wants referral to surgeon. Other providers: [employer] Dr. Stahl - [facility] [employer] Dr. Kathy Alcantara at [facility] ROS: GENERAL: Negative for malaise, significant weight loss and fever RESPIRATORY: No cough, wheezing or shortness of breath CARDIOVASCULAR: No chest pain, leg swelling or palpitations SKIN: No lesions, rash or itching NEURO: No headaches or dizziness PAST MEDICAL HISTORY: Patient Active Problem List Diagnosis Date Noted Allergic rhinitis 12/13/2023 Asthma with COPD ([facility]) 12/13/2023 Hyperlipidemia 12/13/2023 Hypothyroidism 12/13/2023 Insomnia 12/13/2023 Iron deficiency anemia 12/13/2023 Migraine 12/13/2023 Muscle spasm 12/13/2023 Past Surgical History: Procedure Laterality Date HYSTERECTOMY PROCEDURE: HISTORICAL HYSTERECTOMY; COMMENT: ANNI due to fibroids 2020 in [place] SOCIAL HISTORY: Social History Tobacco Use Smoking status: Former Smokeless tobacco: Never Substance Use Topics Alcohol use: Not Currently FAMILY HISTORY: No family history on file. MEDICATIONS DISCONTINUED/REORDERED: There are no discontinued medications. ACTIVE MEDICATIONS: No outpatient medications have been marked as taking for the 04/28/24 encounter (Office Visit) with BRISEIDA Patrick. ALLERGIES: No Known Allergies PHYSICAL EXAM: Visit Vitals BP 122/84 (BP Location: Left arm, Patient Position: Sitting) Pulse (!) 115 Temp 36.6 ??C (97.8 ??F) (Temporal) Wt 64.4 kg (142 lb) SpO2 98% BMI 25.97 kg/m?? OB Status Postmenopausal Smoking Status Former BSA 1.65 m?? APPEARANCE: Alert and in no acute distress EYES: Conjunctiva and sclera normal. EARS: TMs intact without erythema NOSE: Mild maxillary sinus tenderness HEAD: Tenderness along mid left jaw/mandible, no mastoid tenderness bilaterally HEART: RRR LUNG: clear to auscultation bilaterally ABDOMEN: tenderness at umbilicus, no obvious hernia EXTREMITIES: No edema NEURO: Awake, alert and oriented x 3 SKIN: Skin color normal. Warm and dry. LABS: Abstract on 01/29/2024 Component Date Value Ref Range Status Depression Screening 12/13/2023 Abstracted Final Annual BMP Blood Test 12/14/2023 Abstracted Final LDL/HDL Ratio 12/14/2023 4 0 - 4 Final Triglycerides 12/14/2023 113 0 - 150 mg/dL Final Cholesterol 12/14/2023 164 0 - 200 mg/dL Final HDL 12/14/2023 40 40 mg/dL Final LDL Cholesterol 12/14/2023 102 (A) 0 - 100 mg/dL Final Hemoglobin A1C 12/14/2023 5.0 6.5 % Final Medication and lab orders: Orders Placed This Encounter Procedures Ambulatory referral to General Surgery Other orders: AMB REFERRAL TO GENERAL SURGERY IMAGING: IMPRESSION: 1. Umbilical hernia without obstruction and without gangrene 2. Jaw pain PLAN: 1. Umbilical hernia. Referred to surgeon. 2. Jaw pain, unsure if this is dental in origin and she will follow-up with dentist. Did review imaging. Follow-up as scheduled 06/17/2024. Call sooner if needed. BRISEIDA Patrick on 04/28/2024 at 10:46 AM EST documented in this encounter Plan of Treatment Upcoming Encounters Date Type Department Care Team (Late st Contact Info) Description 05/15/2024 2:30 PM EST Evaluation [facility] [place] 175 [facility] 350 [place] [phone] Amelia Perez, PT 05/20/2024 10:15 AM EST Office Visit Pulmonolgy [facility] 175 [facility] 200 [place] [phone] Marlene Ahuja MD 175 [facility] 200 [place] [address] 05/20/2024 2:30 PM EST Consult General Surgery - [place] 175 [facility] 110 [place] [phone] Fredo Machado, 175 [facility] 110 [place] [address] 06/06/2024 3:00 PM EST Office Visit Gastroenterology - [place] 175 [facility] 175 [facility] 200 [place] [phone] Stan Babb PA 175 [facility] 200 [place] [address] 06/17/2024 2:00 PM EST Office Visit Internal Medicine - [place] [address] [phone] Bonnie Huff PA [address] [address] Scheduled Referrals Name Type Priority Associated Diagnoses Order Schedule Ambulatory referral to General Surgery Outpatient Referral Routine Umbilical hernia without obstruction and without gangrene 1 Occurrences starting 04/28/2024 until 04/28/2025 documented as of this encounter Visit Diagnoses Diagnosis Umbilical hernia without obstruction and without gangrene- Primary Jaw pain documented in this encounter Additional Health Concerns Assessment Noted Time PHQ-9 Depression Total Score: 14 025 8:17 PM EST documented as of this encounter Care Teams Paste Up Artist Relationship Specialty Start Date End Date Bonnie Huff PA [address] [place] [address] PCP - General 10/24/23 documented as of this encounter
--- OUTSIDE RECORDS SUMMARY | 2024-05-13 13:42 | XMS_ITS | Encounter Summary ---
Author Organization [employer] Address [address] [place] [address] Care Team Providers Care Helper [employer] Name Role Phone Bonnie Huff Primary Care Provider + Reason for Referral * Consultation (Routine) - Pending Review Specialty Diagnoses / Procedures Referred By Contact Referred To Contact Physical Medicine and Rehabilitation Diagnoses Lateral pain of left hip Lumbar pain Claudy Aryaa PA [address] [place] [address] Referral ID Status Reason Start Date Expiration Date Visits Requested Visits Authorized [id number] Pending Review Specialty Services Required 05/01/2024 05/01/2025 1 1 * Consultation (Routine) - Authorized Specialty Diagnoses / Procedures Referred By Contac t Referred To Contact Physical Therapy Diagnoses Lateral pain of left hip Lumbar pain Claudy Araya PA [address] [place] [address] Referral ID Status Reason Start Date Expiration Date Visits Requested Visits Authorized [id number] Authorized Consult and Treat 05/01/2024 05/01/2025 21 21 Reason for Visit * Reason Comments Pain Consult * Consultation (Routine) - Closed Specialty Diagnoses / Procedures Referred By Contact Referred To Contact Orthopaedics / Orthopedic Diagnoses Lateral pain of left hip Bonnie Huff PA 175 [facility] 200 [place] [address] Claudy Araya PA [address] [place] [address] Referral ID Status Reason Start Date Expiration Date V isits Requested Visits Authorized [id number] Closed Specialty Services Required 03/18/2024 03/18/2025 1 1 Encounter Details Date Type Department Care Team (Late st Contact Info) Description 05/01/2024 2:00 PM EST Consult Orthopedics - [place] [address] [place] [address] Claudy Araya PA [address] [place], [place] Lumbar pain (Primary Dx); Lateral pain of left hip Social History Tobacco Use Types Packs/Day Years [...] care for your loved ones. For example, infant childcare provider or elderly care for an older adult? [...] Sign Reading Time Taken Comments Blood Pressure - - Pulse - - Temperature - - Respiratory Rate 14 05/01/2024 1:51 PM EST Oxygen Saturation - - Inhaled Oxygen Concentration - - Weight 64.4 kg (142 lb) 05/01/2024 1:51 PM EST Height 157.5 cm (5' 2 ) 05/01/2024 1:51 PM EST Body Mass Index 25.97 05/01/2024 1:51 PM EST documented in this encounter Plan of Treatment Upcoming Encounters Date Type Department Care Team (Late st Contact Info) Description 05/15/2024 2:30 PM EST Evaluation [address] [phone] Amelia Perez, PT 05/20/2024 10:15 AM EST Office Visit Pulmonolgy - [place] [address] [phone] Marlene Ahuja MD [address] [address] 05/20/2024 2:30 PM EST Consult General Surgery - [place] [address] [phone] Fredo Machado, [address] [address] 06/06/2024 3:00 PM EST Office Visit Gastroenterology - [place] [address] [phone] Stan Babb PA [address] [address] 06/17/2024 2:00 PM EST Office Visit Internal Medicine - [place] [address] [phone] Bonnie Huff PA [address] [address] Scheduled Referrals Name Type Priority Associated Diagnoses Order Schedule Ambulatory referral to Physical Therapy and Athletic Training Outpatient Referral Routine Lateral pain of left hip Lumbar pain 1 Occurrences starting 05/01/2024 until 05/01/2025 Ambulatory referral to Physical Medicine Rehab Outpatient Referral Routine Lateral pain of left hip Lumbar pain 1 Occurrences starting 05/01/2024 until 05/01/2025 documented as of this encounter Visit Diagnoses Diagnosis Lumbar pain- Primary Lumbago Lateral pain of left hip documented in this encounter Historical Medications * This list may reflect changes made after this encounter. Medication Sig Dispensed Refills Start Date End Date methylPREDNISolone (MEDROL) 4 mg tablet Take 1 tablet (4 mg total) by mouth 1 (one) time each day. adalimumab (HUMIRA) 40 mg/0.8 mL syringe Inject 0.8 mL (40 mg total) under the skin every 14 (fourteen) days. added in this encounter Orders Outpatient Referral Count Last Ordered Date Fir st Ordered Date AMB REFERRAL TO ORTHOPEDIC 1 05/01/2024 documented in this encounter Additional Health Concerns Assessment Noted Time PHQ-9 Depression Total Score: 14 025 8:17 PM EST documented as of this encounter Care Teams Helper [employer] Relationship Specialty Start Date End Date Bonnie Huff PA [address] [place] [address] PCP - General 10/24/23 documented as of this encounter
--- OUTSIDE RECORDS SUMMARY | 2024-05-13 13:42 | XMS_ITS | Encounter Summary ---
Author Organization [employer] Address [address] [place] [address] Care Team Providers Care Operations Professional Name Role Phone Bonnie Huff Primary Care Provider + Encounter Details Date Type Department Care Team (Late st Contact Info) Description 04/21/2024 Telephone Gastroenterology - [place] [address] [place] [phone] Stan Babb PA [address] [place] [address] Social History Tobacco Use Types Packs/Day Years Used Date Smoking Tobacco: Former Smokeless Tobacco: Never Alcohol Use Standard Drinks/Week Comments Not Currently [...] care for your loved ones. For example, exceptional children teacher or elderly care for an older adult? [...] on file documented as of this encounter Progress Notes * BRISEIDA López - 04/21/2024 5:01 PM EST Not quite sure what this document is going to be for as we have been treating her for H. pylori andGERD so I do not believe that this is an appropriate documentation for GI to fill out. She may needto talk to her PCP. Also it looks like she is looking for an appointment with Dr. Savage so maybe he can help her out documented in this encounter Plan of Treatment Upcoming Encounters Date Type Department Care Team (Late st Contact Info) Description 05/15/2024 2:30 PM EST Evaluation [facility] [place] [address] [facility] 350 [place] [phone] Amelia Perez, PT 05/20/2024 10:15 AM EST Office Visit Pulmonolgy - [place] 175 [facility] 200 [place] [phone] Marlene Ahuja MD [address] [facility] 200 [place] [address] 05/20/2024 2:30 PM EST Consult General Surgery - [place] [address] [phone] Fredo Machado DO [address] [address] 06/06/2024 3:00 PM EST Office Visit Gastroenterology - [place] [address] [phone] Stan Babb PA [address] [address] 06/17/2024 2:00 PM EST Office Visit Internal Medicine - [place] [address] [phone] Bonnie Huff PA [address] [address] documented as of this encounter Visit Diagnoses Not on filedocumented in this encounter Additional Health Concerns Assessment Noted Time PHQ-9 Depression Total Score: 11 024 7:08 PM EST documented as of this encounter Care Teams Operations Professional Relationship Specialty Start Date End Date Bonnie Huff PA [address] [place] [address] PCP - General 10/24/23 documented as of this encounter
--- OUTSIDE RECORDS SUMMARY | 2024-05-13 13:42 | XMS_ITS | Encounter Summary ---
Author Organization [employer] Address [address] [place] [address] Care Team Providers Care Credit And Collections Representative Name Role Phone Bonnie Huff Primary Care Provider + Encounter Details Date Type Department Care Team ([facility] st Contact Info) Description 04/07/2024 Telephone Gastroenterology - [place] [address] [facility] [address] [place] [phone] El Savage MD 229 [facility] [address] [place] [address] Social History Tobacco Use Types Packs/Day Years [...] care for your loved ones. For example, early childhood or elderly care for an older adult? [...] as of this encounter Progress Notes * Kateryna Peraza - 04/22/2024 11:24 AM EST PT OF [facility] OF 02/08/24. REFERRAL CLOSED. * Kateryna Peraza - 04/07/2024 2:53 PM EST NEW INTERNAL REFERRAL. GERMAN SPEAKING PT, PLEASE ASK DIRECT BOOKING QUESTIONS AND I WILL FIND PROCEDURE APPT. documented in this encounter Plan of Treatment Upcoming Encounters Date Type Department Care Team (Late st Contact Info) Description 05/15/2024 2:30 PM EST Evaluation [facility] [place] 175 [facility] 350 [place] [phone] Amelia Perez, PT 05/20/2024 10:15 AM EST Office Visit Pulmonolgy - [place] 175 [facility] 200 [place] [phone] Marlene Ahuja MD 175 [facility] 200 [place] [address] 05/20/2024 2:30 PM EST Consult General Surgery - [place] 175 [facility] 110 [place] [phone] Fredo Machado, 175 [facility] 110 [place] [address] 06/06/2024 3:00 PM EST Office Visit Gastroenterology - [place] [address] [place] [phone] Stan Babb PA [address] [address] 06/17/2024 2:00 PM EST Office Visit Internal Medicine - [place] 175 [facility] 200 [place] [phone] Bonnie Huff PA [address] [address] documented as of this encounter Visit Diagnoses Not on filedocumented in this encounter Additional Health Concerns Assessment Noted Time PHQ-9 Depression Total Score: 11 024 7:08 PM EST documented as of this encounter Care Teams Credit And Collections Representative Relationship Specialty Start Date End Date Bonnie Huff PA [address] [place] [address] PCP - General 10/24/23 documented as of this encounter
--- OUTSIDE RECORDS SUMMARY | 2024-05-13 13:42 | XMS_ITS | Clinical Summary ---
Author Organization [facility] Address [address] [place] [phone] Phone Care Team Providers Care Payroll Secretary Name Role Phone Bonnie Huff Primary Care Provider + Allergies No known active allergies Medications Medication Sig Dispensed Refills Start Date End Date Status albuterol HFA (PROAIR HFA ; PROVENTIL HFA ; VENTOLIN HFA) 90 mcg/actuation inhaler Inhale 2 Puffs into the lungs every 6 hours as needed for Cough, Wheezing or Shortness of Breath. 3 inhalers and 3 refills 12/13/2023 01/03/2025 Active amitriptyline (ELAVIL) 25 mg tablet Take 1 Tablet by mouth at bedtime. 12/13/2023 Active baclofen (LIORESAL) 10 mg tablet Take 1 Tablet by mouth daily as needed (muscle spasms). 12/13/2023 Active ferrous sulfate 325 mg (65 mg elemental iron) tablet Take 1 Tablet by mouth daily. 12/13/2023 Active fluticasone-salmeter ol (ADVAIR DISKUS) 250-50 mcg/dose diskus inhaler Inhale 1 Puff into the lungs 2 times daily. 01/04/2024 01/03/2025 Active fluticasone propionate (FLONASE) 50 mcg/actuation nasal spray 2 Sprays by Each Nare route daily. 12/13/2023 Active hydrOXYzine HCL (ATARAX) 50 mg tablet Take 2 Tablets by mouth at bedtime as needed (sleep). 12/13/2023 Active levothyroxine (SYNTHROID, LEVOTHROID) 25 mcg tablet Take 1 Tablet by mouth every morning (before breakfast). 12/13/2023 Active SUMAtriptan (IMITREX) 50 mg tablet Take 1 tab prn migraine, may repeat in 2 hours prn max 100 mg per 24 hours 12/13/2023 12/07/2024 Active loratadine (CLARITIN) 10 mg tablet Take 1 Tablet by mouth daily as needed for Allergies. 12/13/2023 Active Savella 25 mg tablet Take 1 tablet (25 mg total) by mouth 2 (two) times a day. 02/25/2024 Active folic acid (FOLVITE) 1 mg tablet Take 1 tablet (1 mg total) by mouth 1 (one) time each day. 01/31/2024 Active pregabalin (LYRICA) 75 mg capsule Take 1 capsule (75 mg total) by mouth 2 (two) times a day. 02/25/2024 Active adalimumab (HUMIRA) 40 mg/0.8 mL syringe Inject 0.8 mL (40 mg total) under the skin every 14 (fourteen) days. Active methylPREDNISolone (MEDROL) 4 mg tablet Take 1 tablet (4 mg total) by mouth 1 (one) time each day. Active Active Problems Problem Noted Date Diagnosed Date Allergic rhinitis 12/13/2023 Asthma with COPD 12/13/2023 Hyperlipidemia 12/13/2023 Hypothyroidism 12/13/2023 Insomnia 12/13/2023 Iron deficiency anemia 12/13/2023 Migraine 12/13/2023 Muscle spasm 12/13/2023 Encounters Date Type Department Care Team Description 05/01/2024 2:00 PM EST Consult Orthopedics [address] [phone] Claudy Araya PA Lumbar pain (Primary Dx); Lateral pain of left hip 04/28/2024 9:45 AM EST Office Visit Internal Medicine - [address] [place] [address] Bonnie Huff PA Umbilical hernia without obstruction and without gangrene (Primary Dx); Jaw pain 04/21/2024 Telephone Gastroenterology [address] [place] [address] Stan Babb PA 04/07/2024 Telephone Gastroenterology - [address] [facility] [address] [place] [phone] El Savage MD 04/02/2024 3:00 PM EST [facility] [address] [place] [phone] Jessica Stahl MD Pneumonia due to infectious organism, unspecified laterality, unspecified part of lung (Primary Dx); Moderate persistent asthma, unspecified whether complicated; Bronchiectasis without complication ([facility]) 04/02/2024 1:47 PM EST - 04/02/2024 11:59 PM EST Hospital Encounter [facility] Xray [address] [place] [address] Pneumonia due to infectious organism, unspecified laterality, unspecified part of lung Discharge Disposition: Home or Self Care 04/01/2024 Telephone [facility] [address] [phone] Jessica Stahl MD 03/28/2024 1:09 PM EST - 03/28/2024 11:59 PM EST Hospital Encounter [facility] [address] [place] [phone] Routine physical examination Discharge Disposition: Home or Self Care 03/26/2024 12:48 PM EST - 03/26/2024 11:59 PM EST Hospital Encounter [facility] CT Scan [address] [place] [phone] Other migraine without status migrainosus, not intractable Discharge Disposition: Home or Self Care 03/26/2024 12:48 PM EST - 03/26/2024 11:59 PM EST Hospital Encounter [facility] Xray [address] [place] [address] Lateral pain of left hip Discharge Disposition: Home or Self Care 03/18/2024 1:30 PM EST Office Visit Internal Medicine - [facility] [address] [phone] Kalnenieks, Bonnie C, PA Routine physical examination (Primary Dx); Mandibular mass; Lateral pain of left hip 03/04/2024 10:52 AM EST - 03/04/2024 11:59 PM EST Hospital Encounter [facility] CT Scan [address] [place] [address] Localized swelling, mass and lump, head Discharge Disposition: Home or Self Care 02/19/2024 Telephone Internal Medicine [facility] [address] [phone] Bonnie Huff PA Appointment 02/19/2024 Telephone Internal [facility] [address] [phone] Bonnie Huff PA Forms/questionnaires 02/19/2024 Telephone Internal [facility] [address] [phone] Bonnie Huff PA Forms/questionnaires from Last 3 Months Surgical History Surgery Date Site/Laterality Comments HYSTERECTOMY PROCEDURE: HISTORICAL HYSTERECTOMY; COMMENT: ANNI due to fibroids 2020 in [place] Medical History Medical History Date Comments Allergic rhinitis DX:Allergic rh initis Hypothyroidism DX:Hypothyroidis m Muscle spasm DX:Muscle spasm Insomnia DX:Insomnia Iron deficiency anemia DX:Iron d eficiency anemia Migraine DX:Migraine Asthma DX:Asthma Hyperlipidemia DX:Hyperlipidemi a Asthma with COPD ([facility]) DX:As thma with COPD ([facility]) Family History Relation Name Status Comments Father Mother Social History Tobacco Use Types Packs/Day Years [...] for your loved ones. For example, child nutrition director or elderly care for an older adult? [...] file Not on file Not on file Obstetrics History Para Term AB IAB SAB Ectopic Multiple Livin g Live Births 1 Last Filed Vital Signs Vital Sign Reading Time Taken Comments Blood Pressure 122/84 04/28/2024 8:54 AM EST Pulse 115 04/28/2024 8:54 AM EST Temperature 36.6 ??C (97.8 ??F) 04/28/2024 8:54 AM ES T Respiratory Rate 14 05/01/2024 1:51 PM EST Oxygen Saturation 98% 04/28/2024 8:54 AM EST Inhaled Oxygen Concentration - - Weight 64.4 kg (142 lb) 05/01/2024 1:51 PM EST Height 157.5 cm (5' 2 ) 05/01/2024 1:51 PM EST Body Mass Index 25.97 05/01/2024 1:51 PM EST Plan of Treatment Upcoming Encounters Date Type Department Care Team (Late st Contact Info) Description 05/15/2024 2:30 PM EST Evaluation [facility] 175 [facility] [address] [place] [phone] Amelia Perez, PT 05/20/2024 10:15 AM EST Office Visit Pulmon[facility]gy [facility] 175 [facility] [address] [place] [phone] Marlene Ahuja MD [address] [address] 05/20/2024 2:30 PM EST Consult General Surgery - [facility] 175 [facility] [address] [place] [phone] Fredo Machado DO 175 [facility] [address] [place] [address] 06/06/2024 3:00 PM EST Office Visit Gastroenterology - [place] [facility] [address] [phone] Stan Babb PA [address] [address] 06/17/2024 2:00 PM EST Office Visit Internal Medicine - [place] [address] [phone] Bonnie Huff PA [address] [phone] Health Maintenance Due Date Last Done Comments COVID-19 Vaccine (#1) 11/27/1979 Pneumococcal Vaccine: Pediatrics (0 to 5 Years) and At-Risk Patients (6 to 64 Years) (1 of 2 - PCV) 1980 DTaP,Tdap,and Td Vaccines (1 - Tdap) 1993 Hepatitis B Vaccines (1 of 3 - 19+ 3-dose series) 1993 Cervical Cancer Screening: P ap Smear 11/27/1995 Influenza Vaccine (#1) 2023 Colorectal Cancer Screening: Colonoscopy 01/27/2024 HIV Screening 01/27/2024 Hepatitis C Screening 01/27/2024 Social Influencers of Health Screening 03/17/2025 03/17/2024 Depression Screening 04/27/2025 04/27/2024, 12/13/2023 Breast Cancer Screening 03/28/2026 03/28/2024 Cholesterol Screening (Lipid Panel) 12/13/2028 12/14/2023, 12/14/2023 HIB Vaccines Aged Out No longer eligi ble based on patient's age to complete this topic HPV Vaccines Aged Out No longer eligi ble based on patient's age to complete this topic Hepatitis A Vaccines Aged Out No long er eligible based on patient's age to complete this topic IPV Vaccines Aged Out No longer eligi ble based on patient's age to complete this topic MMR Vaccines Aged Out No longer eligi ble based on patient's age to complete this topic Meningococcal ACWY Vaccine Aged Out N o longer eligible based on patient's age to complete this topic RSV Immunization Patients Under 20 months Aged Out No longer eligible b ased on patient's age to complete this topic Varicella Vaccines Aged Out No longer eligible based on patient's age to complete this topic Procedures Procedure Name Priority Date/Time Associated Diagnosis Comments XR CHEST 2 VIEWS Routine 04/02/2024 1:56 PM EST Pneumonia due to infectious organism, unspecified laterality, unspecified part of lung MG MAMMO DIGITAL SCREENING W EDY BILAT Routine 03/28/2024 1:52 PM EST Routine physical examination CT HEAD WO CONTRAST Routine 03/26/2024 1 :22 PM EST Other migraine without status migrainosus, not intractable XR HIP 2-3 VIEWS LEFT Routine 03/26/2024 1:19 PM EST Lateral pain of left hip CT MAXILLOFACIAL W CONTRAST Routine 03/04/2024 11:13 AM EST Localized swelling, mass and lump, head EXTERNAL CT REPORT 02/27/2024 LIPID PANEL Routine 12/14/2023 HM DEPRESSION SCREENING Routine 12/13/2023 from Last 3 Months or Most Recently Relevant to Health Maintenance Results * XR Chest 2 Views (04/02/2024 1:56 PM EST) Anatomical Region Laterality Modality Body Radiographic Nu ging 04/03/2024 7:42 AM EST Impressions 04/03/2024 7:43 AM EST No acute findings. There is mild biapical pleural thickening. Code 93479 -------- FINAL REPORT -------- Dictated By: Pradeep De La Cruz Dictated Date: 04/03/2024 07:42 ET Assigned Physician: Pradeep De La Cruz Reviewed and Electronically Signed By: Pradeep De La Cruz Signed Date: 04/03/2024 07:43 ET Workstation ID: [id number] Transcribed By: Self Edit Transcribed Date: 04/03/2024 07:42 ET Narrative 04/03/2024 7:43 AM EST HISTORY: The patient is a 48-year-old female presenting for follow-up of pneumonia. However, please note that no previous chest imaging has been performed at this institution and no previous outside study is available for comparison. FINDINGS: PA and lateral radiographs of the chest demonstrate normal appearance of the bony structures. The cardiac and mediastinal contours are within normal limits. There is mild biapical pleural thickening. The lungs are clear and the costophrenic angles are sharp. Procedure Note Pradeep De La Cruz MD - 04/03/2024 HISTORY: The patient is a 48-year-old female presenting for follow-up ofpneumonia. However, please note that no previous chest imaging has beenperformed at this institution and no previous outside study is availablefor comparison. FINDINGS: PA and lateral radiographs of the chest demonstrate normalappearance of the bony structures. The cardiac and mediastinal contoursare within normal limits. There is mild biapical pleural thickening. Thelungs are clear and the costophrenic angles are sharp. IMPRESSION: No acute findings. There is mild biapical pleural thickening. Code 09701 -------- FINAL REPORT -------- Dictated By: Pradeep De La Cruz Dictated Date: 04/03/2024 07:42 ET Assigned Physician: Pradeep De La Cruz Reviewed and Electronically Signed By: Pradeep De La Cruz Signed Date: 04/03/2024 07:43 ET Workstation ID: [id number] Transcribed By: Self Edit Transcribed Date: 04/03/2024 07:42 ET Jessica Stahl MD IMG XR PROCEDURES * MG Mammo Digital Screening w Edy bilat (03/28/2024 1:52 PM EST) Anatomical Region Laterality Modality Breast Bilateral Mammography 03/28/2024 2:52 PM EST Impressions 03/28/2024 2:56 PM EST No mammographic evidence of malignancy. ?? Outside previous study is not available for comparison A negative mammogram in the presence of a clinically suspicious palpable abnormality does not preclude the possibility of malignancy or alter the indications for biopsy. ASSESSMENT: ?? BI-RADS 1: NEGATIVE RECOMMENDATION(S): 1: Routine screening mammogram BILATERAL in 1 year. -------- FINAL REPORT -------- Dictated By: Jose L Duque Dictated Date: 03/28/2024 14:52 ET Assigned Physician: Jose L Duque Reviewed and Electronically Signed By: Jose L Duque Signed Date: 03/28/2024 14:56 ET Workstation ID: [id number] Transcribed By: Self Edit Transcribed Date: 03/28/2024 14:52 ET Narrative 03/28/2024 2:56 PM EST EXAM: ??SCREENING MAMMOGRAPHY, BILATERAL HISTORY: ??SCREENING. ??No additional history. COMPARISON: ??None available TECHNIQUE: Synthesized CC and MLO projections of each breast. ??Tomosynthesis of each breast in the CC and MLO projections. ADDITIONAL IMAGING: None Computer-aided detection was employed with the iCAD ??profound AI 3-D. TISSUE DENSITY: There are scattered areas of fibroglandular density. (BI-RADS category B) FINDINGS: RIGHT BREAST: No suspicious mass. No suspicious calcification. No distortion. ?? No additional suspicious right breast findings LEFT BREAST: No suspicious mass. No suspicious calcification. No distortion. ?? No additional suspicious left breast findings Procedure Note Jose L Duque MD - 03/28/2024 EXAM: SCREENING MAMMOGRAPHY, BILATERAL HISTORY: SCREENING. No additional history. COMPARISON: None available TECHNIQUE: Synthesized CC and MLO projections of each breast.Tomosynthesis of each breast in the CC and MLO projections. ADDITIONAL IMAGING: None Computer-aided detection was employed with the iCAD profound AI 3-D. TISSUE DENSITY: There are scattered areas of fibroglandular density.(BI-RADS category B) FINDINGS: RIGHT BREAST: No suspicious mass. No suspicious calcification. No distortion. Noadditional suspicious right breast findings LEFT BREAST: No suspicious mass. No suspicious calcification. No distortion. Noadditional suspicious left breast findings IMPRESSION: No mammographic evidence of malignancy. Outside previous study is not available for comparison A negative mammogram in the presence of a clinically suspicious palpableabnormality does not preclude the possibility of malignancy or alter theindications for biopsy. ASSESSMENT: BI-RADS 1: NEGATIVE RECOMMENDATION(S): 1: Routine screening mammogram BILATERAL in 1 year. -------- FINAL REPORT -------- Dictated By: Jose L Duque Dictated Date: 03/28/2024 14:52 ET Assigned Physician: Jose L Duque Reviewed and Electronically Signed By: Jose L Duque Signed Date: 03/28/2024 14:56 ET Workstation ID: [id number] Transcribed By: Self Edit Transcribed Date: 03/28/2024 14:52 ET Bonnie GOINS IMG BI PROCEDURE S * CT Head wo Contrast (03/26/2024 1:22 PM EST) Anatomical Region Laterality Modality Head and Neck Computed Tomogra phy 03/27/2024 12:5 8 PM EST Impressions 03/27/2024 1:01 PM EST No evidence of acute intracranial process on noncontrast head CT. Sinusitis. Chronic mastoiditis. -------- FINAL REPORT -------- Dictated By: Ramona Camarillo Dictated Date: 03/27/2024 12:58 ET Assigned Physician: Ramona Camarillo Reviewed and Electronically Signed By: Ramona Camarillo Signed Date: 03/27/2024 13:01 ET Workstation ID: [id number] Transcribed By: Self Edit Transcribed Date: 03/27/2024 12:58 ET Narrative 03/27/2024 1:01 PM EST INDICATION: Migraine headache Technique: Axial images were obtained from the skull base to the vertex without contrast enhancement. Scanner: GE LightSpeed 64 slice VCT Dose reduction technique: ASIR (Adaptive statistical iterative reconstruction) Dose: total exam DLP 716 mGY per cm Comparison: No prior studies available for comparison. FINDINGS: Intracranial contents: No acute intracranial hemorrhage, midline shift or mass-effect. The ventricles, sulci, sylvian fissures and basilar cisterns are symmetric and normal in size and shape for the patients age. No abnormal intra or extra-axial fluid collections. Bony structures/soft tissues: Within normal limits. Sinuses: Paranasal sinuses are partially opacified with air-fluid levels within the maxillary sinuses and ethmoid air cells. Opacified mastoid air cells with possible sclerotic change and air-fluid level on the left side. Procedure Note Ramona Camarillo MD - 03/27/2024 INDICATION: Migraine headache Technique: Axial images were obtained from the skull base to the vertexwithout contrast enhancement. Scanner: GE LightSpeed 64 slice VCT Dose reduction technique: ASIR (Adaptive statistical iterativereconstruction) Dose: total exam DLP 716 mGY per cm Comparison: No prior studies available for comparison. FINDINGS: Intracranial contents: No acute intracranial hemorrhage, midline shift ormass- effect. The ventricles, sulci, sylvian fissures and basilar cisternsare symmetric and normal in size and shape for the patients age. Noabnormal intra or extra-axial fluid collections. Bony structures/soft tissues: Within normal limits. Sinuses: Paranasal sinuses are partially opacified with air-fluid levelswithin the maxillary sinuses and ethmoid air cells. Opacified mastoid aircells with possible sclerotic change and air-fluid level on the leftside. IMPRESSION: No evidence of acute intracranial process on noncontrast head CT. Sinusitis. Chronic mastoiditis. -------- FINAL REPORT -------- Dictated By: Ramona Camarillo Dictated Date: 03/27/2024 12:58 ET Assigned Physician: Ramona Camarillo Reviewed and Electronically Signed By: Ramona Camarillo Signed Date: 03/27/2024 13:01 ET Workstation ID: [id number] Transcribed By: Self Edit Transcribed Date: 03/27/2024 12:58 ET Cecilia Villa MD IMG CT PROCEDURES * XR Hip 2-3 Views Left (03/26/2024 1:19 PM EST) Anatomical Region Laterality Modality Lower Extremities, Hip Left Radiograp hic Imaging 03/27/2024 7:54 AM EST Impressions 03/27/2024 7:55 AM EST Normal examination. Code 99310 -------- FINAL REPORT -------- Dictated By: Pradeep De La Cruz Dictated Date: 03/27/2024 07:54 ET Assigned Physician: Pradeep De La Cruz Reviewed and Electronically Signed By: Pradeep De La Cruz Signed Date: 03/27/2024 07:55 ET Workstation ID: [id number] Transcribed By: Self Edit Transcribed Date: 03/27/2024 07:54 ET Narrative 03/27/2024 7:55 AM EST HISTORY: The patient is a 48-year-old female with left hip pain. No history of trauma is provided. FINDINGS: AP radiograph of the pelvis, along with coned-down AP and external rotation-abduction views of the left hip, are obtained. The study demonstrates no fracture, dislocation, arthritic change, osteolytic or osteoblastic lesion, or other bony abnormality. No soft tissue abnormality is seen. Procedure Note Pradeep De La Cruz MD - 03/27/2024 HISTORY: The patient is a 48-year-old female with left hip pain. Nohistory of trauma is provided. FINDINGS: AP radiograph of the pelvis, along with coned-down AP andexternal rotation-abduction views of the left hip, are obtained. The studydemonstrates no fracture, dislocation, arthritic change, osteolytic orosteoblastic lesion, or other bony abnormality. No soft tissue abnormalityis seen. IMPRESSION: Normal examination. Code 83808 -------- FINAL REPORT -------- Dictated By: Pradeep De La Cruz Dictated Date: 03/27/2024 07:54 ET Assigned Physician: Pradeep De La Cruz Reviewed and Electronically Signed By: Pradeep De La Cruz Signed Date: 03/27/2024 07:55 ET Workstation ID: [id number] Transcribed By: Self Edit Transcribed Date: 03/27/2024 07:54 ET Bonnie GOINS IMG XR PROCEDURE S * CT Maxillofacial w Contrast (03/04/2024 11:13 AM EST) Anatomical Region Laterality Modality Head and Neck Computed Tomogra phy 03/05/2024 3:20 PM EST Impressions 03/05/2024 3:37 PM EST Impression: 1. Bilateral maxillary sinusitis. 2. Extensive opacification of the mastoid air cells and middle ear cavities, possibly infectious/inflammatory. 3. Mild generalized cervical lymphadenopathy. -------- FINAL REPORT -------- Dictated By: Raina Ferreira Dictated Date: 03/05/2024 15:20 ET Assigned Physician: Raina Ferreira Reviewed and Electronically Signed By: Raina Ferreira Signed Date: 03/05/2024 15:37 ET Workstation ID: [id number] Transcribed By: Self Edit Transcribed Date: 03/05/2024 15:20 ET Narrative 03/05/2024 3:37 PM EST History: Localized swelling/mass or lump on face. Comparison: No previous imaging at this institution. Technique: Helical volumetric imaging of the maxillofacial structures was performed during the uneventful intravenous administration of 90 cc Isovue-370. DLP: 356.40 mGy/cm 7digital [place] Iterative reconstruction technique Findings: The nasopharyngeal mucosal landmarks are intact. The palatine tonsillar soft tissues are symmetric and normal in appearance. The vallecula and pyriform sinuses are patent. The epiglottis and aryepiglottic folds are normal. The vocal cords are symmetric. The parapharyngeal fat is preserved. Bilateral carotid arteries and internal jugular veins are patent. There is mild generalized cervical lymphadenopathy. The nodes maintain a normal oval shape and are homogeneous in attenuation. The parotid and submandibular glands are symmetric and normal in appearance. The included portions of the thyroid gland are unremarkable. The orbital contents appear normal. The included portions of the intracranial contents show no significant abnormality. The paranasal sinuses are well-developed. There is moderate mucoperiosteal thickening in the maxillary sinuses, with mucosal thickening measuring up to approximately 5 mm. There is also a mild amount of foamy debris within the maxillary sinuses. The sinus ostia are patent. The remainder of the sinuses are clear. Dentition is in good repair. No periapical abscess is seen. The temporomandibular joints are intact. The mastoids are poorly pneumatized and partially opacified. There is also extensive opacification of the middle ear cavities. The tympanic membranes appear to be retracted. The included portions of the cervical spine are remarkable for disc degenerative changes, worst at C5-6. Procedure Note Raina Ferreira MD - 03/05/2024 History: Localized swelling/mass or lump on face. Comparison: No previous imaging at this institution. Technique: Helical volumetric imaging of the maxillofacial structures wasperformed during the uneventful intravenous administration of 90 ccIsovue-370. DLP: 356.40 mGy/cm [employer] Iterative reconstruction technique Findings: The nasopharyngeal mucosal landmarks are intact. The palatine tonsillarsoft tissues are symmetric and normal in appearance. The vallecula andpyriform sinuses are patent. The epiglottis and aryepiglottic folds arenormal. The vocal cords are symmetric. The parapharyngeal fat is preserved. Bilateral carotid arteries andinternal jugular veins are patent. There is mild generalized cervicallymphadenopathy. The nodes maintain a normal oval shape and arehomogeneous in attenuation. The parotid and submandibular glands are symmetric and normal inappearance. The included portions of the thyroid gland are unremarkable. The orbital contents appear normal. The included portions of theintracranial contents show no significant abnormality. The paranasal sinuses are well-developed. There is moderate mucoperiostealthickening in the maxillary sinuses, with mucosal thickening measuring upto approximately 5 mm. There is also a mild amount of foamy debris withinthe maxillary sinuses. The sinus ostia are patent. The remainder of thesinuses are clear. Dentition is in good repair. No periapical abscess is seen. Thetemporomandibular joints are intact. The mastoids are poorly pneumatized and partially opacified. There is alsoextensive opacification of the middle ear cavities. The tympanic membranesappear to be retracted. The included portions of the cervical spine are remarkable for discdegenerative changes, worst at C5-6. IMPRESSION: Impression: 1. Bilateral maxillary sinusitis. 2. Extensive opacification of the mastoid air cells and middle earcavities, possibly infectious/inflammatory. 3. Mild generalized cervical lymphadenopathy. -------- FINAL REPORT -------- Dictated By: Raina Ferreira Dictated Date: 03/05/2024 15:20 ET Assigned Physician: Raina Ferreira Reviewed and Electronically Signed By: Raina Ferreira Signed Date: 03/05/2024 15:37 ET Workstation ID: [id number] Transcribed By: Self Edit Transcribed Date: 03/05/2024 15:20 ET Cecilia Villa MD IMG CT PROCEDURES * External CT Report (02/27/2024) Anatomical Region Laterality Modality Computed Tomogra phy Provider Onbase IMG CT PROCEDURES * (ABNORMAL) Lipid panel (12/14/2023) LDL/HDL Ratio 4 0 - 4 Triglycerides 113 0 - 150 mg/dL Cholesterol 164 0 - 200 mg/dL HDL 40 40 mg/dL LDL Cholesterol 102(A) 0 - 100 mg/dL Blood Venous blood specimen / Unknown Historical Provider LAB BLOOD ORDERAB LES * Depression Screening (12/13/2023) Depression Screening Abstracted Historical Provider [facility] SARINA Feliciano from Last 3 Months or Most Recently Relevant to Health Maintenance Care Teams Payroll Secretary Relationship Specialty Start Date End Date Bonnie Huff PA [address] [place] [address] PCP - General 10/24/23
[2024-05-13 13:49] LABS: Reflex Lactate? Lactic Acid Added
--- NOTE | 2024-05-13 14:00 | PM.IMHP ---
History of Present Illness Date of Service: 05/13/24 Attending physician on admission: Josiah Cohen Chief Complaint: SOB, cough Pt is a 48-year-old female with a PMH significant for?rheumatoid arthritis on Humira, fibromyalgia, hypothyroidism, migraines, asthma, and mood disorder who presents to the ED with?chest tightness, increased fatigue, SOB, and productive cough since yesterday. Chest tightness associated with cough and deep breathing. Also reports lightheadedness and felt ?shaky? in lower extremities when stood up earlier today. Pt reports this is her 8th time having pneumonia, with last episode on 03/23/2024 when she was seen and treated here in the ED. denies fever, but has been experiencing chills. Previously no nausea, though reports vomiting once while in the ED. Denies abdominal pain. Used her home inhalers to little effect. Of note, pt was noted to be desatting into the upper 80s with exertion, recovering quickly to upper 90s at rest. In the ED pt was tachycardic up to 133, tachypneic up to 24, and with low-grade fever of 99.6, satting at 97% on RA. Labs were significant for leukocytosis 15.9, lactic acid 3.6, and alk-phos 128. Stable H&H. No significant electrolyte abnormalities. Renal function WNL. Troponin negative. Tested negative for flu, RSV, COVID.CXR showed patchy opacity in lingual slightly progressed since previous. EKG demonstrated sinus tachycardia of 136, similar to previous. Pt was treated with 2L IVF and cefepime. Pt will be admitted to the hospital for treatment and further evaluation of acute hypoxic respiratory failure in the setting of recurrent pneumonia with sepsis. Review of Systems Review of Systems: Negative except for that which is stated in the [facility] Medical History Adalimumab (Humira) long-term use Rheumatoid arthritis Fibromyalgia affecting multiple sites Hyperlipidemia Asthma Migraine Iron deficiency anemia Insomnia Muscle spasm Hypothyroidism Allergic rhinitis Multiple joint pain Surgical History H/O: hysterectomy Social History Patient Tobacco Use Status: Former Tobacco user Tobacco use type: Cigarette Advance Directives: No Advance Directives Information Provided: Yes Meds Allergies Allergy/AdvReac Type Severity Reaction Status Date / Time No Known Allergies Allergy Verified 05/13/24 11:16 Home Medications ?Medication ?Instructions ?Recorded ?Confirmed ?Last Taken ?Type albuterol sulfate 90 mcg/actuation 2 puff inhalation Q4-6H PRN 01/30/24 05/13/24 Unknown History aerosol inhaler (Ventolin HFA) Shortness Of Breath Or Wheezing amitriptyline 25 mg tablet 25 mg PO BEDTIME 01/30/24 05/13/24 05/12/24 History fluticasone 250 mcg-salmeterol 50 1 ea inhalation BID 01/30/24 05/13/24 05/12/24 History mcg/dose blistr powdr for inhalation (Advair Diskus) hydroxyzine HCl 50 mg tablet 100 mg PO BEDTIME 01/30/24 05/13/24 05/12/24 History inhalational spacing device #1 ea 01/30/24 04/30/24 Unknown History (Evan Ull[facility] spacer) levothyroxine 25 mcg tablet 25 mcg PO DAILY@0600 01/30/24 05/13/24 05/12/24 History loratadine 10 mg tablet 10 mg PO DAILY 01/30/24 05/13/24 05/12/24 History sumatriptan succinate 50 mg tablet 50 mg PO Q2H PRN Migraine Headache 01/30/24 05/13/24 05/12/24 History folic acid 1 mg tablet 1 mg PO DAILY 05/13/24 05/13/24 05/12/24 History meloxicam 15 mg tablet 15 mg PO DAILY PRN pain 05/13/24 05/13/24 05/12/24 History Physical Exam Vital Signs and Narrative: Vital Signs: Last Vital Signs Temp 97.9 F 05/13/24 13:50 Pulse 123 H 05/13/24 13:54 Resp 24 H 05/13/24 13:54 BP 104/62 05/13/24 13:54 Pulse Ox 97 05/13/24 13:54 O2 Del Method Room Air 05/13/24 13:54 BMI result Body Mass Index 25.6 General: AOx3, no acute distress Resp: Lung sounds diminished, poor airflow and inspiratory effort CVS: S1, S2, regular rhythm, tachycardic GI: +BS, NT, no distention Skin: Warm, dry Neuro: Cranial nerves II-XII grossly intact bilaterally. Motor grossly intact bilaterally Extremities: No edema Psych: Appropriate affect Results Labs 05/13/24 11:37 05/13/24 11:37 Labs: Laboratory Results - last 24 hr 05/13/24 05/13/24 05/13/24 11:26 11:37 11:45 MCV 91.6 MCH 31.0 MCHC 33.8 RDW 12.4 Plt Count 330 MPV 9.8 Immature Gran % (Auto) 0.7 H Neut % (Auto) 73.5 H Lymph % (Auto) 19.[address] [place] % (Auto) 4.6 Eos % (Auto) 1.1 Baso % (Auto) 0.4 Lymph # (Auto) 3.1 [place] # (Auto) 0.7 Eos # (Auto) 0.2 Baso # (Auto) 0.1 Abs Immat Gran (auto) 0.11 H Absolute Neuts (auto) 11.7 H Absolute Nucleated RBC 0.000 Nucleated RBC % (auto) 0.0 PT 13.5 H INR 1.2 H Anion Gap 12 Estim Creat Clear Calc 65.5 Estimated GFR > 60 Random Glucose 100 Lactic Acid 3.6 H* Calcium 9.9 Magnesium 2.3 Total Bilirubin 0.8 Direct Bilirubin 0.3 AST 26 ALT 25 Alkaline Phosphatase 128 H Troponin I High Sens < 2.7 Total Protein 9.1 H Albumin 4.6 Lipase 34 Influenza Type A (PCR) NEGATIVE Influenza Type B (PCR) NEGATIVE RSV RNA Qual (PCR) NEGATIVE SARS-CoV-2 RNA (RT-PCR) NEGATIVE Imaging Radiologist's Impressions: Impressions Chest X-Ray 05/13/24 11:16 IMPRESSION: Patchy opacity in the lingula slightly progressed since the previous exam. Bilateral apical pleural thickening, stable. Electronically signed by: London Corbett MD 05/13/2024 12:02 PM [facility] Assessment and Plan (1) Pneumonia: Status: Acute (2) Hypoxia: Status: Acute Plan Pt is a 48-year-old female with a PMH significant for?rheumatoid arthritis on Humira, fibromyalgia, hypothyroidism, migraines, asthma, and mood disorder who presents to the ED with?chest tightness, increased fatigue, SOB, and productive cough since yesterday. Pt will be admitted to the hospital for treatment and further evaluation of acute hypoxic respiratory failure in the setting of recurrent pneumonia with sepsis. Acute hypoxic respiratory failure in the setting of recurrent pneumonia with sepsis Pt noted to be desatting into 80s with exertion, recovering quickly at rest; CXR showing worsening infiltrate Pt with recurrent pneumonia x7 prior episodes Meets sepsis criteria: Tachypnea, tachycardia, leukocytosis; lactic acid 3.6 Pt given IVF and started on broad-spectrum antibiotics in the ED Will treat doxycycline and Zosyn, started 05/13/2024 Will test for MRSA, Legionella, and strep pneumo Check D-dimer to rule out PE Monitor respiratory status Asthma Likely acute exacerbation in the setting of above Pt with poor inspiratory effort and seemingly impaired airflow Will treat with Solu-Medrol and breathing treatments Rheumatoid arthritis Continue Humira outpatient Fibromyalgia Continue amitriptyline K, pregabalin Hypothyroidism Continue levothyroxine Migraines Continue sumatriptan prn Mood disoder Continue hydroxyzine Full Code Attending:?Dr. Cohen DVT Prophylaxis: Lovenox Pt will require a hospitalization of at least two nights for treatment of?acute hypoxic respiratory failure in setting of recurrent pneumonia with sepsis that require treatment with IV antibiotics and close monitoring of respiratory status. Quality Stroke Does the patient have a stroke diagnosis?: No VTE Prior VTE?: No VTE Risk Level:: Medical - moderate - high VTE Device Contraindication: Treatment Not Indicated VTE Drug Contraindication: N/A - Med Ordered
[2024-05-13 14:30] LABS: ~Lactic Acid-LAB USE ONLY 3.6 mmol/L (0.5-2.0)
--- NOTE | 2024-05-13 15:06 | PHA.MEDREC ---
Addendum entered by Gerson Alexander, [facility] 05/13/24 18:46: For the methylprednisolone tapering dose, spoke to patient (via certified court/medical interpreter) and she confirmed that she last took 4 tablets (of 4 mg) on sunday and she's supposed to start 3 tablets this sunday (05/16/24). Addendum entered by Alysia Rodriguez, [facility] 05/13/24 15:43: reviewed by [facility]. Original Note: Pharmacy Consult ? Medication Reconciliation Pharmacy has completed the medication reconciliation. Spoke with patient with help from certified court/medical interpreter and in the beginning the patient was confirming her medications with no issues but half way through the list the patient got very confused and did not want to answer anymore questions about medications at this time, I asked if there was anyone at home who would be able to confirm that and she stated there was only her brother and niece at home but they would not know what she was taking; there also is a contact in the profile (Kaden Obrien) and when I called that number the phone was off. She did confirmed she is taking her Hydroxyzine 50mg tab and stated she takes 2 tabs (100mg) at bedtime instead of 1 BID due to the medication making the patient sleepy while taking it. I saw that the patient just recently saw her paving machine operator on 04/30 and looking at that office visit they started her on a methylprednisolone 4 mg regimen (4 tabs for 10 days, 3 tabs for 10 days, 2 tabs for 10 days and 1 tab for 10 days), when talking to the patient she had no clue if she was taking this or not, I did leave that unconfirmed since patient was not aware of that. Also on the visit from the paving machine operator they started her on Humira 40mg/0.8mL injection every 2 week and she confirmed that medication and confirmed she is due for it this Sunday. I confirmed the medications the patient confirmed on the med rec and utilized claims and the Office visit to complete the med rec.
[2024-05-13 16:02] LABS: Reflex Lactate? 2 Y
[2024-05-13 16:03] LABS: D Dimer High Sensitivity 442 NG/ML
[2024-05-13] MEDS: 0.9 % Sodium Chloride Flush 3 ML SYRINGE IVFLUSH ×2 (17:22→21:06)
[2024-05-13] MEDS: Enoxaparin Sodium 40 MG/0.4 ML SYRINGE SUBCUT (17:22)
[2024-05-13] MEDS: Doxycycline Hyclate 100 MG in 0.9 % Sodium Chloride 250 ML 166.67 MG IV (17:22)
[2024-05-13] MEDS: methylPREDNISolone Sod Succ 40 MG/ML VIAL IVPUSH (17:23)
[2024-05-13] MEDS: Acetaminophen 325 MG TABLET 650 MG PO (18:05)
[2024-05-13 18:51] LABS: ~Lactic Acid-LAB USE ONLY 1.2 mmol/L (0.5-2.0)
[2024-05-13] MEDS: iohexoL 350 MG/ML 100 ML INFUS..BTL 70 ML IV (19:22)
[2024-05-13] MEDS: levalbuterol HCL 1.25 MG/3 ML VIAL.NEB INHALE (20:10)
[2024-05-13] MEDS: Amitriptyline HCl 25 MG TABLET PO (21:05)
[2024-05-13] MEDS: hydrOXYzine HCL 50 MG TABLET 100 MG PO (21:05)
[2024-05-13] MEDS: Pregabalin 75 MG CAPSULE PO (21:05)
[2024-05-14] VITALS (11 sets, daily range): BP systolic 86–104; BP diastolic 44–60; PULSE 77–102; RESP 16–24; TEMP 36.2–37.2; O2SAT 88–98
[2024-05-14] MEDS: Doxycycline Hyclate 100 MG in 0.9 % Sodium Chloride 250 ML 166.67 MG IV ×2 (03:54→15:59)
[2024-05-14] MEDS: Levothyroxine Sodium 25 MCG TABLET PO (05:27)
[2024-05-14] MEDS: methylPREDNISolone Sod Succ 40 MG/ML VIAL IVPUSH ×2 (05:27→15:59)
[2024-05-14 06:45] LABS: Hematocrit 34.5 % (37.0-47.0); Hemoglobin 11.7 g/dl (12.0-16.0); Mean Corpuscular HGB Conc 33.9 g/dl (31.0-35.0); Mean Corpuscular Hemoglobin 31.3 pg (27.0-33.0); Mean Corpuscular Volume 92.2 fL (80.0-98.0); Platelet Count 281 X10*3/uL (160-400); Red Blood Count 3.74 X10*6/uL (4.20-5.50); Red Cell Distribution Width 12.4 % (11.0-16.0); White Blood Count 14.1 X10*3/uL (4.8-10.8)
[2024-05-14 07:02] LABS: Anion Gap 11 (12-20); Blood Urea Nitrogen 13 mg/dL (9-16); Calcium 9.2 mg/dL (8.4-10.2); Carbon Dioxide 19 mmol/L (22-29); Chloride 112 mmol/L (96-108); Creatinine Clr Calc Pharmacy 87.6; Estimated Glomerular Filt Rate > 60; Glucose Random 143 mg/dL (60-115); Potassium 4.3 mmol/L (3.3-5.1); Sodium 138 mmol/L (135-145)
[2024-05-14] MEDS: levalbuterol HCL 1.25 MG/3 ML VIAL.NEB INHALE ×4 (07:33→19:49)
[2024-05-14] MEDS: Lactated Ringers 1,000 ML 999 ML IV (08:32)
[2024-05-14] MEDS: Loratadine 10 MG TABLET PO (08:33)
[2024-05-14] MEDS: 0.9 % Sodium Chloride Flush 3 ML SYRINGE IVFLUSH ×3 (08:33→20:18)
[2024-05-14] MEDS: Pregabalin 75 MG CAPSULE PO ×2 (08:33→20:16)
[2024-05-14] MEDS: Folic Acid 1 MG TABLET PO (08:33)
--- NOTE | 2024-05-14 08:55 | MHC.CM.PN ---
This CM met with pt with the assistance of a garnetter. Pt self-care, lives at home with her brother, [id number], and nephew. Pts brother will transport her home at discharge. PCP: Bonnie GOINS
[2024-05-14 09:13] LABS: Procalcitonin 0.31 ng/mL
[2024-05-14 10:57] LABS: MRSA Nasal PCR NEGATIVE (Negative); SA Nasal PCR NEGATIVE (Negative)
[2024-05-14] MEDS: Fluticasone/Vilanterol 100/25 BLST.W.DEV 1 PUFF INHALE (11:32)
[2024-05-14] MEDS: Lactated Ringers 1,000 ML 100 ML IVCONT ×2 (11:33→21:45)
--- NOTE | 2024-05-14 15:37 | P.PNIM_ITS ---
Subjective Subjective Date of Service: 05/14/24 Interval History: breathing/cough improved, producing white sputum febrile to 101.2 @ 1800 BP low overnight, responded to IV fluids This history was taken in [place] from the patient. Review of Systems Review of Systems: Yes all other systems are reviewed and are negative Physical Exam 2 Vital Signs: Vital Signs: Last Vital Signs Temp 98.3 F 05/14/24 11:18 Pulse 77 05/14/24 15:14 Resp 16 05/14/24 15:14 BP 98/60 05/14/24 11:18 Pulse Ox 98 05/14/24 11:18 O2 Del Method Room Air 05/14/24 11:18 BMI result Body Mass Index 25.6 Gen: in no acute distress HEENT: sclera anicteric, moist mucus membranes Neck: supple Lungs: bibasilar inspiratory crackles Heart: regular rate and rhythm, no murmurs Abd: soft, non-tender, non-distended Ext: no edema Skin: warm/well-perfused Neuro: alert and oriented x3, no focal findings Psych: appropriate affect Objective Data Active Medications Acetaminophen (Acetaminophen 325 Mg Tablet) 650 mg PO Q6H PRN PRN Reason: Pain, Mild 1-3,fever,headache Last Admin: 05/13/24 18:05 Dose: 650 mg Documented By: RADHA Albuterol Sulfate (Albuterol Sulfate 90 Mcg 8 Gm Inhaler) 2 puff INHALE Q4H PRN PRN Reason: Shortness Of Breath Or Wheezing Amitriptyline HCl (Amitriptyline Hcl 25 Mg Tablet) 25 mg PO BEDTIME [facility] Last Admin: 05/13/24 21:05 Dose: 25 mg Documented By: TED Calcium Carbonate (Calcium Carbonate 750 Mg Tab.Chew) 750 mg PO Q4H PRN PRN Reason: Heartburn Enoxaparin Sodium (Enoxaparin Sodium 40 Mg/0.4 Ml Syringe) 40 mg SUBCUT Q24H [facility] Last Admin: 05/13/24 17:22 Dose: 40 mg Documented By: KELLY Fluticasone/Vilanterol (Fluticasone/Vilanterol 100/25 Blst.W.Dev) 1 puff INHALE RDAILY [facility] Last Admin: 05/14/24 11:32 Dose: 1 puff Documented By: AMBROCIO Folic Acid (Folic Acid 1 Mg Tablet) 1 mg PO DAILY [facility] Last Admin: 05/14/24 08:33 Dose: 1 mg Documented By: RADHA Hydroxyzine HCl (Hydroxyzine Hcl 50 Mg Tablet) 100 mg PO BEDTIME [facility] Last Admin: 05/13/24 21:05 Dose: 100 mg Documented By: TED Doxycycline Hyclate 100 mg/ (Sodium Chloride) 250 mls @ 166.67 mls/hr IV Q12H [facility] Last Infusion: 05/14/24 05:29 Dose: Infused Documented By: TED Lactated Ringer's (Lr) 1,000 mls @ 100 mls/hr IVCONT .Q10H [facility] Last Admin: 05/14/24 11:33 Dose: 100 mls/hr Documented By: RADHA Levalbuterol HCl (Levalbuterol Hcl 1.25 Mg/3 Ml Vial.Neb) 1.25 mg INHALE RQ4H WHILE AWAKE [facility] Last Admin: 05/14/24 15:13 Dose: 1.25 mg Documented By: AMBROCIO Levothyroxine Sodium (Levothyroxine Sodium 25 Mcg Tablet) 25 mcg PO DAILY@0600 [facility] Last Admin: 05/14/24 05:27 Dose: 25 mcg Documented By: TED Loratadine (Loratadine 10 Mg Tablet) 10 mg PO DAILY [facility] Last Admin: 05/14/24 08:33 Dose: 10 mg Documented By: RADHA Magnesium Hydroxide (Milk Of Magnesia 30 Ml Oral.Susp) 30 ml PO DAILY PRN PRN Reason: Constipation Melatonin (Melatonin 3 Mg Tablet) 6 mg PO BEDTIME PRN PRN Reason: Insomnia Methylprednisolone Sodium Succinate (Methylprednisolone Sod Succ 40 Mg/Ml Vial) 40 mg IVPUSH Q12H [facility] Last Admin: 05/14/24 05:27 Dose: 40 mg Documented By: TED Ondansetron HCl (Ondansetron Hcl 4 Mg/2 Ml Vial) 4 mg IVPUSH Q8H PRN PRN Reason: Nausea and Vomiting Pregabalin (Pregabalin 75 Mg Capsule) 75 mg PO BID [facility] Last Admin: 05/14/24 08:33 Dose: 75 mg Documented By: RADHA Sodium Chloride (0.9 % Sodium Chloride Flush 3 Ml Syringe) 3 ml IVFLUSH QSHIFT [facility] Last Admin: 05/14/24 08:33 Dose: 3 ml Documented By: RADHA Sumatriptan Succinate (Sumatriptan Succinate 50 Mg Tablet) 50 mg PO DAILY MRX1 PRN PRN Reason: Migraine Headache Labs 05/14/24 06:11 05/14/24 06:11 Labs: Laboratory Results - last 24 hr 05/13/24 05/13/24 05/13/24 11:37 18:16 19:49 MCV MCH MCHC RDW Plt Count MPV Absolute Nucleated RBC Nucleated RBC % (auto) D-Dimer High Sensitivty 442 Anion Gap Estim Creat Clear Calc Estimated GFR Random Glucose Lactic Acid F/U @ 4Hr 1.2 Calcium Procalcitonin Nasal Screen MRSA (PCR) NEGATIVE Nasal S. aureus Screen NEGATIVE Nasal MRSA/S.aureus Interp SEE NOTE 05/14/24 06:11 MCV 92.2 MCH 31.3 MCHC 33.9 RDW 12.4 Plt Count 281 MPV 10.0 Absolute Nucleated RBC 0.000 Nucleated RBC % (auto) 0.0 D-Dimer High Sensitivty Anion Gap 11 L Estim Creat Clear Calc 87.6 Estimated GFR > 60 Random Glucose 143 H Lactic Acid F/U @ 4Hr Calcium 9.2 D Procalcitonin 0.31 Nasal Screen MRSA (PCR) Nasal S. aureus Screen Nasal MRSA/S.aureus Interp CTA chest 05/13 1. No pulmonary embolus. 2. Bilateral lung base patchy areas of consolidation may represent multifocal pneumonia. Microbiology Microbiology Results: Microbiology 05/13/24 11:45 Blood Culture - Preliminary Blood - Venous No growth after 24 hours. 05/13/24 11:37 Blood Culture - Preliminary Blood - Venous No growth after 24 hours. Assessment and Plan (1) Sepsis: Status: Acute (2) Pneumonia: Status: Acute Plan d2 for 48yo F with RA on adalimumab, FM, HTN, migraines, asthma, mood disorder, and recurrent PNA presenting with dyspnea + productive cough, admitted for hypoxia and sepsis due to PNA sepsis due to pneumonia - continue pip-waylon + doxy 05/13-, follow BCx, trend PCT - MRSA swab negative - CTA neg for PE - methylprednisolone 05/13- AHRF - weaned off O2 acute exacerbation for moderate peristent asthma - methylprednisolone as above, nebs, Breo FM - continue amitriptylline, pregabalin hypothyroidism - continue LT4 migraines - prn sumatriptan mood disorder - hydroxyzine VTE ppx - enoxaparin dispo - TBD In my clinical judgment, the patient requires continued inpatient hospitalization for the following reasons: IV ABX Total time managing care of this patient today: 45 minutes. Quality Stroke Does the patient have a stroke diagnosis?: No VTE Prior VTE?: No VTE Risk Level:: Medical - moderate - high VTE Device Contraindication: Treatment Not Indicated VTE Drug Contraindication: N/A - Med Ordered
[2024-05-14] MEDS: Enoxaparin Sodium 40 MG/0.4 ML SYRINGE SUBCUT (15:59)
[2024-05-14] MEDS: hydrOXYzine HCL 50 MG TABLET 100 MG PO (20:16)
[2024-05-14] MEDS: Amitriptyline HCl 25 MG TABLET PO (20:16)
[2024-05-14] MEDS: Lactated Ringers 500 ML 999 ML IV (20:40)
[2024-05-14] MEDS: Piperacillin Sodium/Tazobactam 3.375 GM in 0.9 % Sodium Chloride 50 ML IV (21:44)
[2024-05-15] VITALS (11 sets, daily range): BP systolic 92–120; BP diastolic 54–69; PULSE 76–113; RESP 15–20; TEMP 36.1–37.1; O2SAT 93–97
[2024-05-15] MEDS: Piperacillin Sodium/Tazobactam 3.375 GM in 0.9 % Sodium Chloride 50 ML IV ×4 (02:04→22:13)
[2024-05-15] MEDS: Doxycycline Hyclate 100 MG in 0.9 % Sodium Chloride 250 ML 166.67 MG IV ×2 (03:55→17:05)
[2024-05-15] MEDS: methylPREDNISolone Sod Succ 40 MG/ML VIAL IVPUSH ×2 (06:08→17:03)
[2024-05-15] MEDS: Levothyroxine Sodium 25 MCG TABLET PO (06:08)
[2024-05-15] MEDS: Lactated Ringers 1,000 ML 100 ML IVCONT ×2 (07:30→17:05)
[2024-05-15 07:34] LABS: Hematocrit 31.4 % (37.0-47.0); Hemoglobin 10.6 g/dl (12.0-16.0); Mean Corpuscular HGB Conc 33.8 g/dl (31.0-35.0); Mean Corpuscular Hemoglobin 31.5 pg (27.0-33.0); Mean Corpuscular Volume 93.5 fL (80.0-98.0); Mean Platelet Volume 10.3 fL (9.4-12.3); Platelet Count 290 X10*3/uL (160-400); Red Blood Count 3.36 X10*6/uL (4.20-5.50); Red Cell Distribution Width 12.7 % (11.0-16.0); White Blood Count 22.2 X10*3/uL (4.8-10.8)
[2024-05-15] MEDS: Fluticasone/Vilanterol 100/25 BLST.W.DEV 1 PUFF INHALE (07:41)
[2024-05-15] MEDS: levalbuterol HCL 1.25 MG/3 ML VIAL.NEB INHALE ×3 (07:41→18:50)
[2024-05-15 07:44] LABS: Anion Gap 12 (12-20); Blood Urea Nitrogen 16 mg/dL (9-16); Calcium 8.9 mg/dL (8.4-10.2); Carbon Dioxide 19 mmol/L (22-29); Chloride 114 mmol/L (96-108); Creatinine Clr Calc Pharmacy 79.4; Estimated Glomerular Filt Rate > 60; Glucose Random 146 mg/dL (60-115); Potassium 4.2 mmol/L (3.3-5.1); Sodium 141 mmol/L (135-145)
[2024-05-15] MEDS: 0.9 % Sodium Chloride Flush 3 ML SYRINGE IVFLUSH ×2 (08:33→15:29)
[2024-05-15] MEDS: Pregabalin 75 MG CAPSULE PO ×2 (08:34→20:58)
[2024-05-15] MEDS: Folic Acid 1 MG TABLET PO (08:34)
[2024-05-15] MEDS: Loratadine 10 MG TABLET PO (08:34)
[2024-05-15] MEDS: Milk of Magnesia 30 ML ORAL.SUSP PO (08:40)
--- NOTE | 2024-05-15 13:22 | HO.PM.IMPN ---
Subjective Subjective Date of Service: 05/15/24 Interval History: This history was taken in Belarusian from the patient. Cough improved BP again low overnight to 86/44; responded to IV fluids Review of Systems Review of Systems: Yes all other systems are reviewed and are negative Physical Exam Vital Signs: Vital Signs: Last Vital Signs Temp 97.8 F 05/15/24 11:07 Pulse 89 05/15/24 11:07 Resp 18 05/15/24 11:07 BP 106/59 L 05/15/24 11:07 Pulse Ox 96 05/15/24 11:07 O2 Del Method Room Air 05/15/24 11:07 BMI result Body Mass Index 25.6 Gen: in no acute distress HEENT: sclera anicteric, moist mucus membranes Neck: supple Lungs: clear to auscultation bilaterally Heart: regular rate and rhythm, no murmurs Abd: soft, non-tender, non-distended Ext: no edema Skin: warm/well-perfused Neuro: alert and oriented x3, no focal findings Psych: appropriate affect Objective Data Active Medications Acetaminophen (Acetaminophen 325 Mg Tablet) 650 mg PO Q6H PRN PRN Reason: Pain, Mild 1-3,fever,headache Last Admin: 05/13/24 18:05 Dose: 650 mg Documented By: RADHA Albuterol Sulfate (Albuterol Sulfate 90 Mcg 8 Gm Inhaler) 2 puff INHALE Q4H PRN PRN Reason: Shortness Of Breath Or Wheezing Amitriptyline HCl (Amitriptyline Hcl 25 Mg Tablet) 25 mg PO BEDTIME [facility] Last Admin: 05/14/24 20:16 Dose: 25 mg Documented By: TED Calcium Carbonate (Calcium Carbonate 750 Mg Tab.Chew) 750 mg PO Q4H PRN PRN Reason: Heartburn Enoxaparin Sodium (Enoxaparin Sodium 40 Mg/0.4 Ml Syringe) 40 mg SUBCUT Q24H [facility] Last Admin: 05/14/24 15:59 Dose: 40 mg Documented By: RADHA Fluticasone/Vilanterol (Fluticasone/Vilanterol 100/25 Blst.W.Dev) 1 puff INHALE RDAILY [facility] Last Admin: 05/15/24 07:41 Dose: 1 puff Documented By: AMBROCIO Folic Acid (Folic Acid 1 Mg Tablet) 1 mg PO DAILY [facility] Last Admin: 05/15/24 08:34 Dose: 1 mg Documented By: IRENE Hydroxyzine HCl (Hydroxyzine Hcl 50 Mg Tablet) 100 mg PO BEDTIME [facility] Last Admin: 05/14/24 20:16 Dose: 100 mg Documented By: TED Doxycycline Hyclate 100 mg/ (Sodium Chloride) 250 mls @ 166.67 mls/hr IV Q12H [facility] Last Infusion: 05/15/24 07:29 Dose: Infused Documented By: IRENE Lactated Ringer's (Lr) 1,000 mls @ 100 mls/hr IVCONT .Q10H [facility] Last Admin: 05/15/24 07:30 Dose: 100 mls/hr Documented By: IRENE Piperacillin Sod/Tazobactam (Sod 3.375 gm/ Sodium Chloride) 50 mls @ 100 mls/hr IV Q6H [facility] Last Infusion: 05/15/24 09:09 Dose: Infused Documented By: IRENE Levalbuterol HCl (Levalbuterol Hcl 1.25 Mg/3 Ml Vial.Neb) 1.25 mg INHALE RQ4H WHILE AWAKE [facility] Last Admin: 05/15/24 11:58 Dose: Not Given Documented By: DUARTE Non-Admin Reason: Patient Asleep Levothyroxine Sodium (Levothyroxine Sodium 25 Mcg Tablet) 25 mcg PO DAILY@0600 [facility] Last Admin: 05/15/24 06:08 Dose: 25 mcg Documented By: TED Loratadine (Loratadine 10 Mg Tablet) 10 mg PO DAILY [facility] Last Admin: 05/15/24 08:34 Dose: 10 mg Documented By: IRENE Magnesium Hydroxide (Milk Of Magnesia 30 Ml Oral.Susp) 30 ml PO DAILY PRN PRN Reason: Constipation Last Admin: 05/15/24 08:40 Dose: 30 ml Documented By: IRENE Melatonin (Melatonin 3 Mg Tablet) 6 mg PO BEDTIME PRN PRN Reason: Insomnia Methylprednisolone Sodium Succinate (Methylprednisolone Sod Succ 40 Mg/Ml Vial) 40 mg IVPUSH Q12H [facility] Last Admin: 05/15/24 06:08 Dose: 40 mg Documented By: TED Ondansetron HCl (Ondansetron Hcl 4 Mg/2 Ml Vial) 4 mg IVPUSH Q8H PRN PRN Reason: Nausea and Vomiting Pregabalin (Pregabalin 75 Mg Capsule) 75 mg PO BID [facility] Last Admin: 05/15/24 08:34 Dose: 75 mg Documented By: IRENE Sodium Chloride (0.9 % Sodium Chloride Flush 3 Ml Syringe) 3 ml IVFLUSH QSHIFT [facility] Last Admin: 05/15/24 08:33 Dose: 3 ml Documented By: IRENE Sumatriptan Succinate (Sumatriptan Succinate 50 Mg Tablet) 50 mg PO DAILY MRX1 PRN PRN Reason: Migraine Headache Labs 05/15/24 07:10 05/15/24 07:10 Labs: Laboratory Results - last 24 hr 05/15/24 07:10 MCV 93.5 MCH 31.5 MCHC 33.8 RDW 12.7 Plt Count 290 MPV 10.3 Absolute Nucleated RBC 0.000 Nucleated RBC % (auto) 0.0 Anion Gap 12 Estim Creat Clear Calc 79.4 Estimated GFR > 60 Random Glucose 146 H Calcium 8.9 Microbiology Microbiology Results: Microbiology 05/13/24 11:45 Blood Culture - Preliminary Blood - Venous No growth after 24 hours. 05/13/24 11:37 Blood Culture - Preliminary Blood - Venous No growth after 24 hours. Assessment and Plan (1) Sepsis: Status: Acute (2) Pneumonia: Status: Acute Plan d3 for 48yo F with RA on adalimumab, FM, HTN, migraines, asthma, mood disorder, and recurrent PNA presenting with dyspnea + productive cough, admitted for hypoxia and sepsis due to PNA sepsis due to pneumonia - continue pip-waylon + doxy 05/13-, follow BCx, trend PCT - MRSA swab negative - CTA neg for PE - methylprednisolone 40mg IV q12h 05/13- hypotension - fluid-responsive; doubt adrenal insufficiency [was on PO methylprednisolone tapering down from 16 mg daily 04/30-]; check orthostatic vital signs AHRF - weaned off O2 acute exacerbation for moderate peristent asthma - methylprednisolone as above, nebs, Breo FM - continue amitriptylline, pregabalin hypothyroidism - continue LT4 migraines - prn sumatriptan mood disorder - hydroxyzine VTE ppx - enoxaparin dispo - plan home with VNA In my clinical judgment, the patient requires continued inpatient hospitalization for the following reasons: IV ABX Total time managing care of this patient today: 45 minutes. Quality Stroke Does the patient have a stroke diagnosis?: No VTE Prior VTE?: No VTE Risk Level:: Medical - moderate - high VTE Device Contraindication: Treatment Not Indicated VTE Drug Contraindication: N/A - Med Ordered
--- NOTE | 2024-05-15 14:23 | P.CDIM_ITS ---
PROVIDER RESPONSE TEXT: To clarify, the appropriate diagnosis supported by the clinical indicators: Acute QUERY TEXT: PHYSICIAN'S DOCUMENTATION REQUEST Date of Query: 05/15/2024 08:33 AM EST Patient Name: Erum Carmen Admit Date: 05/13/2024 Dear Josiah Cohen MD, A review of the medical record indicates additional documentation may be needed. Please review below and update the documentation accordingly. Clinical Indicators: ED 05/13--leukocytosis of 15.9. Lactic acidosis of 3.6 > we will give empiric IV antibiotics an d IVF. Clarify which of the following accurately represents the acuity of the lactic acidosis: Possible options might include: Acute Acute on chronic Chronic Other (explain) Clinically unable to determine (explain) Thank you, Caron Benavidez, CCS, CDIS Use of terms such as suspected, likely, concern for, or probable (associated with a specific diagnosi s that is being evaluated, monitored, or treated as if it exists) are acceptable and can be coded in the inpatient se tting, when documented at the time of discharge. Please use your independent medical judgment in providing your response. THIS QUERY IS PART OF THE PERMANENT MEDICAL RECORD
[2024-05-15] MEDS: Enoxaparin Sodium 40 MG/0.4 ML SYRINGE SUBCUT (17:03)
--- NOTE | 2024-05-15 18:14 | PC.NURSE ---
Pt unable to tolerated Doxycycline Iv infusion , c/o pain in the IV site and her left arm when antibiotic was started , This pain is not new with this antibiotic infusion . The night RN reported this am that IV site was painful with Doxycycline incision so IV site was replaced last night. Present IV is patent , has good blood return and there was only sMALL DISCOMFORT WITH OTHER IV meds. Pt had multople IV sites on this admission as per previous RN report. Doxycycline infusion was stopped , IV fluids were stopped , DR Cohen was notified
[2024-05-15] MEDS: hydrOXYzine HCL 50 MG TABLET 100 MG PO (20:58)
[2024-05-15] MEDS: Amitriptyline HCl 25 MG TABLET PO (20:58)
[2024-05-15] MEDS: Azithromycin 500 MG in 0.9 % Sodium Chloride 250 ML 125 MG IV (20:59)
--- NOTE | 2024-05-15 22:02 | PM.EVENT ---
Event Note Date of Service: 05/15/24 Event Note: Only tolerated about half a pack of azithromycin, we will give additional 250 p.o. Time Spent With Patient Time: Total time managing care of this patient today ____ minutes.
[2024-05-15] MEDS: Azithromycin 250 MG TABLET PO (22:12)
[2024-05-16 03:52] VITALS: BP 109/63; PULSE 76; RESP 16; TEMP 36.5; O2SAT 96
[2024-05-16] MEDS: Levothyroxine Sodium 25 MCG TABLET PO (05:39)
[2024-05-16] MEDS: methylPREDNISolone Sod Succ 40 MG/ML VIAL IVPUSH (05:39)
[2024-05-16] MEDS: Piperacillin Sodium/Tazobactam 3.375 GM in 0.9 % Sodium Chloride 50 ML IV (05:39)
[2024-05-16 06:53] LABS: Hematocrit 32.8 % (37.0-47.0); Hemoglobin 10.8 g/dl (12.0-16.0); Mean Corpuscular HGB Conc 32.9 g/dl (31.0-35.0); Mean Corpuscular Hemoglobin 31.1 pg (27.0-33.0); Mean Corpuscular Volume 94.5 fL (80.0-98.0); Mean Platelet Volume 10.2 fL (9.4-12.3); Platelet Count 290 X10*3/uL (160-400); Red Blood Count 3.47 X10*6/uL (4.20-5.50); Red Cell Distribution Width 13.1 % (11.0-16.0)
[2024-05-16 07:31] LABS: Procalcitonin 0.18 ng/mL
[2024-05-16 08:00] VITALS: BP 136/74; PULSE 73; RESP 16; TEMP 36.4; O2SAT 97
[2024-05-16] MEDS: Folic Acid 1 MG TABLET PO (08:02)
[2024-05-16] MEDS: Pregabalin 75 MG CAPSULE PO (08:02)
[2024-05-16] MEDS: Loratadine 10 MG TABLET PO (08:02)
[2024-05-16] MEDS: 0.9 % Sodium Chloride Flush 3 ML SYRINGE IVFLUSH (08:02)
[2024-05-16 08:26] VITALS: BP 126/65; PULSE 85
[2024-05-16 09:44] VITALS: BP 128/69; BP 129/68; PULSE 107; PULSE 88
--- NOTE | 2024-05-16 10:58 | P.DS_ITS ---
DS: Providers Provider Date of Service: 05/16/24 Date of admission: 05/13/24 15:55 Date of discharge: 05/16/24 Primary care physician: BRISEIDA Myers DS: Diagnosis Discharge Diagnosis (1) Sepsis: Status: Acute (2) Pneumonia: Status: Acute (3) Acute respiratory failure with hypoxia: Status: Acute (4) Rheumatoid arthritis: Status: Acute (5) Acute severe exacerbation of moderate persistent asthma: Status: Acute DS: Summary Hospital Course Hospital Course: From the history and physical by the admitting hospitalist, Rhianna Bashir, 05/13/24: Pt is a 48-year-old female with a PMH significant for?rheumatoid arthritis on Humira, fibromyalgia, hypothyroidism, migraines, asthma, and mood disorder who presents to the ED with?chest tightness, increased fatigue, SOB, and productive cough since yesterday. Chest tightness associated with cough and deep breathing. Also reports lightheadedness and felt ?shaky? in lower extremities when stood up earlier today. Pt reports this is her 8th time having pneumonia, with last episode on 03/23/2024 when she was seen and treated here in the ED. denies fever, but has been experiencing chills. Previously no nausea, though reports vomiting once while in the ED. Denies abdominal pain. Used her home inhalers to little effect. Of note, pt was noted to be desatting into the upper 80s with exertion, recovering quickly to upper 90s at rest. In the ED pt was tachycardic up to 133, tachypneic up to 24, and with low-grade fever of 99.6, satting at 97% on RA. Labs were significant for leukocytosis 15.9, lactic acid 3.6, and alk-phos 128. Stable H&H. No significant electrolyte abnormalities. Renal function WNL. Troponin negative. Tested negative for flu, RSV, COVID.CXR showed patchy opacity in lingual slightly progressed since previous. EKG demonstrated sinus tachycardia of 136, similar to previous. Pt was treated with 2L IVF and cefepime. Pt will be admitted to the hospital for treatment and further evaluation of acute hypoxic respiratory failure in the setting of recurrent pneumonia with sepsis 48yo F with RA on adalimumab, FM, HTN, migraines, asthma, mood disorder, and recurrent PNA presenting with dyspnea + productive cough, admitted for hypoxia and sepsis due to PNA. CTA negative for PE. She was admitted to the hospitalist service and treated with IV piperacillin-tazobactam and doxycycline [the latter then changed to azithromycin due to burning with doxycycline IV administration]. Blood cultures negative and MRSA swab negative. She was also given methylprednisolone for component of asthma exacerbation as well as being recently started on a steroid taper by her research program coordinator for RA. She had fluid-responsive hypotension that resolved. She was weaned off of oxygen and sepsis physiology resolved. She was seen by PT and home PT was recommended. She was discharged on 4 days of azithromycin plus amoxicillin-clavulanate, along with prednisone taper. VNA services were arrranged. Time Attestation Discharge Coordination Time (in mins): 45 Quality: Safe Use of Opioids Does Pt have an Active Cancer Diagnosis on the Problem List?: No Quality: Stroke Does the patient have a stroke diagnosis?: No Physical Exam Vital Signs: Vital Signs: Last Vital Signs Temp 97.5 F 05/16/24 08:00 Pulse 107 H 05/16/24 09:44 Resp 16 05/16/24 08:00 BP 128/69 05/16/24 09:44 Pulse Ox 97 05/16/24 08:00 O2 Del Method Room Air 05/16/24 08:00 BMI result Body Mass Index 25.6 Gen: in no acute distress HEENT: sclera anicteric, moist mucus membranes Neck: supple Lungs: clear to auscultation bilaterally Heart: regular rate and rhythm, no murmurs Abd: soft, non-tender, non-distended Ext: no edema Skin: warm/well-perfused Neuro: alert and oriented x3, no focal findings Psych: appropriate affect DS: Data Data Completed and Pending Completed studies during hospitalization [Text1]: Laboratory Results WBC 20.0 X10*3/uL (4.8-10.8) H 05/16/24 06:24 RBC 3.47 X10*6/uL (4.20-5.50) L 05/16/24 06:24 Hgb 10.8 g/dl (12.0-16.0) L 05/16/24 06:24 Hct 32.8 % (37.0-47.0) L 05/16/24 06:24 MCV 94.5 fL (80.0-98.0) 05/16/24 06:24 MCH 31.1 pg (27.0-33.0) 05/16/24 06:24 MCHC 32.9 g/dl (31.0-35.0) 05/16/24 06:24 RDW 13.1 % (11.0-16.0) 05/16/24 06:24 Plt Count 290 X10*3/uL (160-400) 05/16/24 06:24 MPV 10.2 fL (9.4-12.3) 05/16/24 06:24 Immature Gran % (Auto) 0.7 % (0.0-0.4) H 05/13/24 11:37 Neut % (Auto) 73.5 % (45-73) H 05/13/24 11:37 Lymph % (Auto) 19.7 % (20-40) L 05/13/24 11:37 [place] % (Auto) 4.6 % (2-11) 05/13/24 11:37 Eos % (Auto) 1.1 % (0-4) 05/13/24 11:37 Baso % (Auto) 0.4 % (0-2) 05/13/24 11:37 Lymph # (Auto) 3.1 X10*3/uL (1.2-4.9) 05/13/24 11:37 [place] # (Auto) 0.7 X10*3/uL (0.1-1.2) 05/13/24 11:37 Eos # (Auto) 0.2 X10*3/uL (0.0-0.4) 05/13/24 11:37 Baso # (Auto) 0.1 X10*3/uL (0.0-0.2) 05/13/24 11:37 Abs Immat Gran (auto) 0.11 X10*3/uL (0.00-0.03) H 05/13/24 11:37 Absolute Neuts (auto) 11.7 x10*3/uL (2.0-8.3) H 05/13/24 11:37 Absolute Nucleated RBC 0.000 X10*3/uL (0.0-0.012) 05/16/24 06:24 Nucleated RBC % (auto) 0.0 /100WBC (0.0-0.2) 05/16/24 06:24 PT 13.5 SEC (10.9-12.4) H 05/13/24 11:37 INR 1.2 (0.9-1.1) H 05/13/24 11:37 D-Dimer High Sensitivty 442 NG/ML 05/13/24 11:37 Sodium 141 mmol/L (135-145) 05/15/24 07:10 Potassium 4.2 mmol/L (3.3-5.1) 05/15/24 07:10 Chloride 114 mmol/L (96-108) H 05/15/24 07:10 Carbon Dioxide 19 mmol/L (22-29) L 05/15/24 07:10 Anion Gap 12 (12-20) 05/15/24 07:10 BUN 16 mg/dL (9-16) 05/15/24 07:10 Creatinine 0.75 mg/dL (0.5-1.4) 05/15/24 07:10 Estim Creat Clear Calc 79.4 05/15/24 07:10 Estimated GFR > 60 05/15/24 07:10 Random Glucose 146 mg/dL (60-115) H 05/15/24 07:10 Lactic Acid 3.6 mmol/L (0.5-2.0) H* 05/13/24 11:45 Lactic Acid F/U @ 2Hr 3.6 mmol/L (0.5-2.0) H* 05/13/24 13:59 Lactic Acid F/U @ 4Hr 1.2 mmol/L (0.5-2.0) 05/13/24 18:16 Calcium 8.9 mg/dL (8.4-10.2) 05/15/24 07:10 Magnesium 2.3 mg/dL (1.6-2.6) 05/13/24 11:37 Total Bilirubin 0.8 mg/dL (0.0-1.0) 05/13/24 11:37 Direct Bilirubin 0.3 mg/dL (0.0-0.5) 05/13/24 11:37 AST 26 U/L (5-31) 05/13/24 11:37 ALT 25 U/L (0-31) 05/13/24 11:37 Alkaline Phosphatase 128 U/L (39-117) H 05/13/24 11:37 Troponin I High Sens < 2.7 ng/L (<3.5-17.0) 05/13/24 11:37 Total Protein 9.1 g/dL (6.5-8.0) H 05/13/24 11:37 Albumin 4.6 g/dL (3.5-5.0) 05/13/24 11:37 Lipase 34 U/L (8-78) 05/13/24 11:37 Procalcitonin 0.18 ng/mL 05/16/24 06:24 Nasal Screen MRSA (PCR) NEGATIVE (Negative) 05/13/24 19:49 Nasal S. aureus Screen NEGATIVE (Negative) 05/13/24 19:49 Nasal MRSA/S.aureus Interp SEE NOTE 05/13/24 19:49 Influenza Type A (PCR) NEGATIVE (Negative) 05/13/24 11:26 Influenza Type B (PCR) NEGATIVE (Negative) 05/13/24 11:26 RSV RNA Qual (PCR) NEGATIVE (Negative) 05/13/24 11:26 SARS-CoV-2 RNA (RT-PCR) NEGATIVE (Negative) 05/13/24 11:26 Impressions Chest X-Ray 05/13/24 11:16 IMPRESSION: Patchy opacity in the lingula slightly progressed since the previous exam. Bilateral apical pleural thickening, stable. Electronically signed by: London Corbett MD 05/13/2024 12:02 PM [facility] [place] Discharge Plan Discharge Anticipated Discharge Date/Time: 05/16/24 10:52 Patient Disposition: Home Health Service Discharge Diagnosis: sepsis/hypoxia due to pneumonia asthma exacerbation Referrals: Bonnie Huff PA [Primary Care Provider] - 1 Week Discharge Medications: New azithromycin 500 mg tablet 500 mg PO DAILY 4 Days Qty: 4 0RF amoxicillin-pot clavulanate 875-125 mg tablet 1 tab PO BID Qty: 8 0RF prednisone 10 mg tablet See Rx Instructions .ROUTE .COMPLEX Qty: 40 0RF Rx Instructions: 40 mg daily x 4 days, then 30 mg daily x 4 days, then 20 mg daily x 4 days, then 10 mg daily x 4 days. Afterwards, resume methylprednisolone 4 mg daily until seen by research program coordinator. Continued folic acid 1 mg tablet 1 mg PO DAILY (DME) [facility] Spacer See Rx Instructions .ROUTE .MEDSUPPLY Qty: 1 Rx Instructions: As directed albuterol sulfate [Ventolin HFA] 90 mcg/actuation HFA aerosol inhaler 2 puff inhalation Q4-6H PRN (Reason: Shortness Of Breath Or Wheezing) sumatriptan succinate 50 mg tablet 50 mg PO Q2H MDD 100 PRN (Reason: Migraine Headache) fluticasone propion-salmeterol [Advair Diskus] 250-50 mcg/dose blister with device 1 ea inhalation BID loratadine 10 mg tablet 10 mg PO DAILY amitriptyline 25 mg tablet 25 mg PO BEDTIME levothyroxine 25 mcg tablet 25 mcg PO DAILY@0600 hydroxyzine HCl 50 mg tablet 100 mg PO BEDTIME pregabalin 75 mg capsule 75 mg PO BID Qty: 180 2RF milnacipran 25 mg tablet 25 mg PO BID Qty: 180 2RF Humira 40 mg/0.8 mL syringe kit 40 mg subcut Q2W Qty: 2 6RF Discontinued meloxicam 15 mg tablet 15 mg PO DAILY PRN (Reason: pain) methylprednisolone [Medrol] 4 mg tablet 16 mg PO DAILY Rx Instructions: take 4 tablets for 10 days then 3 tablets for 10 days then 2 tablets for 10 days then 1 tablet for 60 days Discharge Orders: Discharge Order (Routine); Ordered 05/16/24 Ordered By: Josiah Cohen Diet: Advance to usual diet Activity on Discharge: As tolerated Stand Alone Forms: Patient Portal Discharge page Print Language: Croatian Care Plan Goals: recovery from pneumonia Health Concerns: sepsis/hypoxia due to pneumonia asthma exacerbation Plan of Treatment: home with VNA services take azithromycin 500 mg once daily PLUS amoxicillin-clavulanate 875-125 mg t wice daily for 4 days prednisone 10 mg tabs, taper as follows: 40 mg (4 tabs) daily x 4 days, then 30 mg (3 tabs) daily x 4 days, then 20 mg (2 tabs) daily x 4 days, then 10 mg (1 tab) daily x 4 days; then resume methylprednisolone 4 mg daily until seen by research program coordinator Please follow up with your primary care doctor within 1 week. Return to the hospital if you experience recurrent or worsening symptoms. Assessment: See Discharge Summary.
--- NOTE | 2024-05-16 10:58 | W.MHC.F2F ---
Service Date Service Date: 05/16/24 Encounter Date of encounter: 05/16/24 Reasons for Services Signs and symptoms assessed: see PT evaluation Reason for half-way: medication management, medication treatment and teach disease management Reason for physical therapy: home safety and mobility, therapeutic exercises, gait/transfer training, assess need for DME, ADL training and energy conservation Overseeing Care: Bonnie Huff Homebound: Leaving the home is medically contraindicated at this time without the asist of a device and/or another person due th the listed conditions above and below. Reason homebound: shortness of breath with minimal effort and immunosuppression / infection risk Homebound supporting statement: see PT evaluation Certification: Based on the above findings, I certify that this patient is confined to the home and needs intermittent half-way care, physical therapy and/or speech therapy, or continues to need occupational therapy. The patient is under my care, and I have initiated the establishment of the plan of care. The patient will be followed by a physician who will periodically review the plan of care. Time Spent With Patient Time: Total time managing care of this patient today ____ minutes.
[2024-05-16 11:08] VITALS: BP 128/69; PULSE 107
[2024-05-16] MEDS: levalbuterol HCL 1.25 MG/3 ML VIAL.NEB INHALE (11:27)
[2024-05-16 11:29] VITALS: PULSE 76; RESP 16; O2SAT 96
--- NOTE | 2024-05-16 11:33 | PC.NURSE ---
Discharge instructions given with accounting machine operator
--- NOTE | 2024-05-16 11:55 | MHC.CM.PN ---
Pt is medically cleared for discharge home with new NA services today, pts brother will transport her home at discharge.
[2024-05-17 07:34] LABS: Strep Pneumo Ag urine Not Detected (Not Detected)
[2024-05-21 05:34] LABS: Legionella Ag Urine Not Detected (Not Detected)
== END 2024-05-16 12:05 | disposition home health service (06) | DRG 720 ==
LOC: HO.ED 13:14 → HO.EDOVER 16:13 → HO.IMC 16:22
PROVIDERS: Physician Assistant Medical; Admitting Provider Student in an Organized Health Care Education/Training Program; Emergency Provider Emergency Medicine Emergency Medical Services; PCP Physician Assistant; Visit Provider Family Medicine
DX: A41.9 Sepsis, unspecified organism (principal); J96.01 Acute respiratory failure with hypoxia; E87.21 Acute metabolic acidosis; J18.9 Pneumonia, unspecified organism; J45.41 Moderate persistent asthma with (acute) exacerbation; I95.9 Hypotension, unspecified; E03.9 Hypothyroidism, unspecified; M79.7 Fibromyalgia; F39 Unspecified mood [affective] disorder; M06.9 Rheumatoid arthritis, unspecified; Z20.822 Contact with and (suspected) exposure to COVID-19; Z79.3 Long term (current) use of hormonal contraceptives; Z79.620 Long term (current) use of immunosuppressive biologic; Z79.890 Hormone replacement therapy; Z79.899 Other long term (current) drug therapy
CPT/HCPCS: 0241U; 36415; 71046; 71275; 80048; 80076; 83605; 83690; 83735; 84145; 84484; 85025; 85027; 85379; 85610; 87040; 87449; 87640; 87641; 87899; 93005; 94640; 97116; 97161; 99285; J0456; J0692; J1650; J2543; J2919; J7120; Q9967

== ENCOUNTER → 2024-05-13 11:12 | Outpatient (BNV) | payer OTHER, SELFPAY | PROVIDERS: Admitting Provider Student in an Organized Health Care Education/Training Program; Emergency Provider Emergency Medicine Emergency Medical Services; PCP Physician Assistant; Visit Provider Internal Medicine | DX: R07.9 Chest pain, unspecified (principal) | CPT/HCPCS: 93010 ==

== ENCOUNTER → 2024-05-13 11:16 | Outpatient (BNV) | payer OTHER, SELFPAY | PROVIDERS: PCP Physician Assistant; Visit Provider Radiology Diagnostic Radiology | DX: J18.9 Pneumonia, unspecified organism (principal); R91.8 Other nonspecific abnormal finding of lung field; J92.9 Pleural plaque without asbestos | CPT/HCPCS: 71046 ==

== ENCOUNTER → 2024-05-13 15:55 | Outpatient (BNV) | payer OTHER, SELFPAY | PROVIDERS: Admitting Provider Student in an Organized Health Care Education/Training Program; Emergency Provider Emergency Medicine Emergency Medical Services; PCP Physician Assistant; Visit Provider Student in an Organized Health Care Education/Training Program | DX: A41.9 Sepsis, unspecified organism (principal); J18.9 Pneumonia, unspecified organism | CPT/HCPCS: 99232; 99499 ==

== ENCOUNTER 2024-06-24 14:02 | Outpatient (REF) | payer OTHER, SELFPAY ==
[2024-06-24 15:07] LABS: MANUAL DIFF FLAG NO
[2024-06-24 15:15] LABS: Basophils Absolute Auto 0.1 X10*3/uL (0.0-0.2); Basophils Percent Auto 0.9 % (0-2); Eosinophils Absolute Auto 0.1 X10*3/uL (0.0-0.4); Eosinophils Percent Auto 1.8 % (0-4); Hematocrit 41.5 % (37.0-47.0); Hemoglobin 13.7 g/dl (12.0-16.0); Imm Gran Abs Auto 0.02 X10*3/uL (0.00-0.03); Imm Gran Pct Auto 0.3 % (0.0-0.4); Lymphocytes Absolute Auto 2.3 X10*3/uL (1.2-4.9); Lymphocytes Percent Auto 34.6 % (20-40); Mean Corpuscular Hemoglobin 30.9 pg (27.0-33.0); Mean Corpuscular Volume 93.7 fL (80.0-98.0); Mean Platelet Volume 10.1 fL (9.4-12.3); Monocytes Absolute Auto 0.5 X10*3/uL (0.1-1.2); Monocytes Percent Auto 7.1 % (2-11); Neutrophils Absolute Auto 3.7 x10*3/uL (2.0-8.3); Neutrophils Percent Auto 55.3 % (45-73); Platelet Count 273 X10*3/uL (160-400); Red Blood Count 4.43 X10*6/uL (4.20-5.50); Red Cell Distribution Width 12.7 % (11.0-16.0); White Blood Count 6.6 X10*3/uL (4.8-10.8)
[2024-06-24 16:05] LABS: Erythrocyte Sedimentation Rate 34 MM/HR (0-20)
[2024-06-24 16:15] LABS: Alanine Aminotransferase 40 U/L (0-31); Albumin Level 4.2 g/dL (3.5-5.0); Anion Gap 11 (12-20); Aspartate Amino Transferase 34 U/L (5-31); Bilirubin Total 0.3 mg/dL (0.0-1.0); Blood Urea Nitrogen 12 mg/dL (9-16); C Reactive Protein 0.82 mg/dL (< or = 0.50); Calcium 9.6 mg/dL (8.4-10.2); Carbon Dioxide 24 mmol/L (22-29); Chloride 111 mmol/L (96-108); Estimated Glomerular Filt Rate > 60; Glucose Random 96 mg/dL (60-115); Potassium 3.9 mmol/L (3.3-5.1); Sodium 142 mmol/L (135-145)
--- OUTSIDE RECORDS SUMMARY | 2024-06-24 18:03 | XMS_ITS | Encounter Summary ---
Author Organization [employer] Address [address] [place] [address] Care Team Providers Care Clipman Name Role Phone Bonnie Huff Primary Care Provider + Reason for Referral * Imaging (Routine) - Closed Specialty Diagnoses / Procedures Referred By Contsilvestre t Referred To Contact Radiology Diagnoses Pneumonia of left lung due to infectious organism, unspecified part of lung Procedures CT Chest wo Contrast Marlene Ahuja MD [address] [address] Phone: tel: fax: [facility] CT Scan [address] [place] [address] Phone: tel: Referral ID Status Reason Start Date Expiration Date Visits Re quested Visits Authorized [id number] Closed 05/21/2024 07/20/2024 1 1 Reason for Visit * Imaging (Routine) - Closed Specialty Diagnoses / Procedures Referred By Contsilvestre t Referred To Contact Radiology Diagnoses Pneumonia of left lung due to infectious organism, unspecified part of lung Procedures CT Chest wo Contrast Marlene Ahuja MD [address] [address] Phone: tel: fax: [facility] CT Scan [address] [place] [address] Phone: tel: Referral ID Status Reason Start Date Expiration Date Visits Re quested Visits Authorized [id number] Closed 05/21/2024 07/20/2024 1 1 Encounter Details Date Type Department Care Team (Latest Contact Info) Description 06/09/2024 1:49 PM EST - 06/09/2024 11:59 PM EST Hospital Encounter [facility] CT Scan [address] [place] [address] Pneumonia of left lung due [...] care for your loved ones. For example, children's minister or elderly care for an older adult? [...] Info) Description 06/30/2024 2:00 PM EDT Treatment [facility] [address] [phone] Hugo Shultz, ARMORED CAR GUARD AND DRIVER 07/01/2024 1:00 PM EDT Office Visit General Surgery [facility] [address] [phone] Fredo Machado, [address] [phone] 07/04/2024 1:30 PM EDT Office Visit Pulmonolgy [facility] [address] [phone] Marlene Ahuja MD [address] [address] 07/07/2024 2:00 PM EDT Treatment [facility] [address] [phone] Felix Loredo, ARMORED CAR GUARD AND DRIVER 07/14/2024 2:00 PM EDT Treatment [facility] [address] [phone] Amelia Perez, PT 09/18/2024 2:15 PM EDT Office Visit Internal Medicine [facility] [address] [phone] Bonnie Huff PA [address] [address] documented as of this encounter Procedures Procedure [...] Signed Date: 06/12/2024 13:19 ET Workstation ID: [id number] Transcribed By: Self Edit Transcribed Date: 06/12/2024 [...] Signed Date: 06/12/2024 13:19 ET Workstation ID: [id number] Transcribed By: Self Edit Transcribed Date: 06/12/2024 13:12 ET us Marlene Ahuja MD IMG CT PROCEDURES Final Result documented in this encounter Visit Diagnoses Diagnosis Pneumonia of left lung due to infectious organism, unspecified part of lung documented in this encounter Additional Health Concerns Assessment Noted Time PHQ-9 Depression Total Score: 14 025 8:17 PM EST documented as of this encounter Care Teams Clipman Relationship Specialty Start Date End Date Bonnie Huff PA [address] [place] [address] PCP - General 10/24/23 documented as of this encounter
--- OUTSIDE RECORDS SUMMARY | 2024-06-24 18:03 | XMS_ITS | Encounter Summary ---
Author Organization [employer] Address [address] [place] [address] Care Team Providers Care Auto Body Customizer Name Role Phone Bonnie Huff Primary Care Provider + Reason for Visit * Consultation (Routine) - Authorized Specialty Diagnoses / Procedures Referred By Contsilvestre reynolds Referred To Contact Physical Therapy Diagnoses Lateral pain of left hip Lumbar pain Claudy Araya PA [address] [place] [address] Phone: tel: fax: Referral ID Status Reason Start Date Expiration Date Visits Requested Visits Authorized [id number] Authorized Consult and Treat 05/01/2024 05/01/2025 21 21 Encounter Details Date Type Department Care Team ([facility] st Contact Info) Description 06/23/2024 2:00 PM EDT Treatment [address] [phone] Hugo Shultz, CRANE OILER Lateral pain of left hip (Primary Dx) [...] your loved ones. For example, early childhood associate or elderly care for an older adult? [...] this encounter Progress Notes * Hugo Shultz, CRANE OILER - 06/23/2024 2:00 PM EDT [facility] - Outpatient PHYSICAL THERAPY DAILY TREATMENT NOTE - OP Date: 06/23/2024 Visit Number: 3 Patient Name: Erum Rawls : 1975 Age: 48 y.o. Gender: female Diagnosis: ICD-10-CM ICD-9-CM 1. Lateral pain of left hip M25.552 719.45 Date of Onset/Surgery: 12/02/2022 Referring Provider: Claudy Araya PA Insurance: Payor: [employer] PLAN / Plan: [employer] MEDICAID / Product Type: *No Product type* / Patient Identified by: Hugo Shultz PTA Language: Albanian Medications: Current Outpatient Medications on File Prior [...] Info) Description 06/30/2024 2:00 PM EDT Treatment [facility] [address] [phone] Hugo Shultz PTA 07/01/2024 1:00 PM EDT Office Visit General Surgery [facility] 175 [facility] 110 [place] [phone] Fredo Machado, DO [address] [address] 07/04/2024 1:30 PM EDT Office Visit Pulmonolgy [facility] 175 [facility] 200 [place] [phone] Marlene Ahuja MD [address] [address] 07/07/2024 2:00 PM EDT Treatment [facility] [address] [phone] Felix Loredo, INDER 07/14/2024 2:00 PM EDT Treatment [facility] [address] [phone] Amelia Perez, PT 09/18/2024 2:15 PM EDT Office Visit Internal Medicine - [place] 175 [facility] 200 [place] [address] Bonnie Huff PA [address] [address] documented as of this encounter Visit Diagnoses Diagnosis Lateral pain of left hip- Primary documented in this encounter Additional Health Concerns Assessment Noted Time PHQ-9 Depression Total Score: 14 025 8:17 PM EST documented as of this encounter Care Teams Auto Body Customizer Relationship Specialty Start Date End Date Bonnie Huff PA [address] [place] [address] PCP - General 10/24/23 documented as of this encounter
--- OUTSIDE RECORDS SUMMARY | 2024-06-24 18:03 | XMS_ITS | Encounter Summary ---
Author Organization [facility] Address [address] [place] [address] Care Team Providers Care Mutual Fund Sales Agent Name Role Phone Bonnie Huff Primary Care Provider + Reason for Referral * Medications - Pending Review Specialty Diagnoses / Procedures Referred By Contac t Referred To Contact Diagnoses Routine physical examination Epigastric pain H/O Helicobacter infection Straining with stools Stan Babb PA [address] [address] Phone: tel: fax: Referral ID Status Reason Start Date Expiration Date V isits Requested Visits Authorized [id number] Pending Review 1 1 Reason for Visit * Reason Comments Abdominal Pain Constipation * Consultation (Routine) - Closed Specialty Diagnoses / Procedures Referred By Contac t Referred To Contact Gastroenterology Diagnoses Routine physical examination Bonnie Huff PA [address] [address] Phone: tel: fax: Gastroenterology - [place] [address] [address] Phone: tel: fax: Referral ID Status Reason Start Date Expiration Date V isits Requested Visits Authorized [id number] Closed Specialty Services Required 03/18/2024 03/18/2025 1 1 Encounter Details Date Type Department Care Team (Latest Contact Info) Description 06/06/2024 3:00 PM EST Office Visit Gastroenterology - [place] 175 [address] 175 [facility] [address] [place] [address] Stan Babb PA [address] [place] [address] Epigastric pain (Primary Dx); Routine physical examination; [...] for your loved ones. For example, child development consultant or elderly care for an older adult? [...] sent through Care Everywhere. * Abdominal Pain (Bangladeshi) * Acid-Reducing Medicines: General Info (Bangladeshi) * Dyspepsia (Bangladeshi) * Constipation (Bangladeshi) * Helicobacter Pylori Tests (Bangladeshi) * Infection: H. Pylori Bacterial (Bangladeshi) documented in this encounter Ordered Prescriptions Prescription [...] Noted Allergic rhinitis 12/13/2023 Asthma with COPD ([facility]) 12/13/2023 Hyperlipidemia 12/13/2023 Hypothyroidism 12/13/2023 Insomnia 12/13/2023 [...] There is mild biapical pleural thickening. Code 72579 -------- FINAL REPORT -------- Dictated By: Pradeep De La Cruz Dictated Date: 04/03/2024 07:42 ET Assigned Physician: Pradeep De La Cruz Reviewed and Electronically Signed By: Pradeep De La Cruz Signed Date: 04/03/2024 07:43 ET Workstation ID: [id number] Transcribed By: Self Edit Transcribed Date: 04/03/2024 07:[address] Results for orders placed during the hospital encounter of 03/26/24 CT Head wo Contrast Narrative INDICATION: Migraine headache Technique: Axial images were obtained from the skull base to the vertex without contrast enhancement. Scanner: [id number] 64 slice VCT Dose reduction technique: ASIR [...] Signed Date: 03/27/2024 13:01 ET Workstation ID: [id number] Transcribed By: Self Edit Transcribed Date: 03/27/2024 [...] Info) Description 06/30/2024 2:00 PM EDT Treatment [address] [phone] Hugo Shultz, AMPLIFIER MECHANIC 07/01/2024 1:00 PM EDT Office Visit General Surgery [facility] 175 [facility] 110 [place] [phone] Fredo Machado, DO 175 [facility] 110 [place] [address] 07/04/2024 1:30 PM EDT Office Visit Pulmonolgy - [place] [address] [phone] Marlene Ahuja MD [address] [address] 07/07/2024 2:00 PM EDT Treatment [address] [phone] Felix Loredo, INDER 07/14/2024 2:00 PM EDT Treatment [facility] [address] [phone] Amelia Perez, PT 09/18/2024 2:15 PM EDT Office Visit Internal Medicine [facility] [address] [phone] Bonnie Huff PA [address] [address] documented as of this encounter Results * (ABNORMAL) Helicobacter pylori breath test (06/09/2024 1:08 PM EST) H Pylori Breath Test Positive( A) Negative LAB CHEMISTRY METHOD 06/10/2024 6:25 AM EST [facility] Breath Oral cavity structure / Unknown Non-blood Collection / Unknown 06/09/2024 1:08 PM EST 06/09/2024 1:08 PM EST Stan GOINS LAB BODY FLUIDS AND STOOLS NICK BUNN Final Result [facility] LAB [address] [place] [address], documented in this encounter Visit Diagnoses Diagnosis [...] documented as of this encounter Care Teams Mutual Fund Sales Agent Relationship Specialty Start Date End Date Bonnie Huff PA [address] [place] [address] PCP - General 10/24/23 documented as of this encounter
--- OUTSIDE RECORDS SUMMARY | 2024-06-24 18:04 | XMS_ITS | Encounter Summary ---
Author Organization [employer] Address [address] [place] [address] Care Team Providers Care Analyst Business Analysis Name Role Phone Bonnie Huff Primary Care Provider + Reason for Visit * Reason Onset Date Comments PRIOR AUTHORIZATION 06/09/2024 Encounter Details Date Type Department Care Team ([facility] st Contact Info) Description 06/09/2024 Telephone Gastroenterology - [place] [address] [place] [phone] Elba Sierra PA [address] [place], [place] [phone] PRIOR AUTHORIZATION Social History Tobacco Use Types [...] for your loved ones. 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 aide or elderly care for an older adult? [...] med? Thank you Please reply back to [facility] (Prior Auth Gray) Rocio Tracey On License Of [facility] Prior Authorization Ext [id number] * Dalila Guthrie - 06/09/2024 11:27 AM EST [facility]: [id number] MEDICATION: TRULANCE 3MG TAB SIG: Take 1 tablet (3 mg total) by mouth 1 (one) time each day. PHARMACY: [facility] FAX: [phone] No other info given on faxed request. documented in this encounter Plan of Treatment Upcoming Encounters Date Type Department Care Team (Late st Contact Info) Description 06/30/2024 2:00 PM EDT Treatment [facility] [place] 175 [facility] 350 [place] [phone] Hugo Shultz, INDER 07/01/2024 1:00 PM EDT Office Visit General Surgery [facility] 175 [facility] 110 [place] [phone] Fredo Machado, 175 [facility] 110 [place] [address] 07/04/2024 1:30 PM EDT Office Visit Pulmonolgy [facility] 175 [facility] 200 [place] [phone] Marlene Ahuja MD 175 [facility] 200 [place] [address] 07/07/2024 2:00 PM EDT Treatment [facility] [address] [phone] Felix Loredo, NITRIC ACID CONCENTRATOR OPERATOR 07/14/2024 2:00 PM EDT Treatment [facility] [address] [phone] Amelia Perez, PT 09/18/2024 2:15 PM EDT Office Visit Internal Medicine [facility] [address] [phone] Bonnie Huff PA [address] [address] documented as of this encounter Visit Diagnoses Not on filedocumented in this encounter Additional Health Concerns Assessment Noted Time PHQ-9 Depression Total Score: 14 025 8:17 PM EST documented as of this encounter Care Teams Analyst Business Analysis Relationship Specialty Start Date End Date Bonnie Huff PA [address] [place] [address] PCP - General 10/24/23 documented as of this encounter
--- OUTSIDE RECORDS SUMMARY | 2024-06-24 18:04 | XMS_ITS | Encounter Summary ---
Author Organization [employer] Address [address] [place] [address] Care Team Providers Care Fusing Line Inspector Name Role Phone Bonnie Huff Primary Care Provider + Reason for Visit * Reason Onset Date Comments Request For Order(s) 06/04/2024 [facility] Missed Visit 05/20/24 Encounter Details Date Type Department Care Team ([facility] st Contact Info) Description 06/04/2024 Telephone Internal Medicine - [place] 175 [facility] [address] [place] [address] Rocio Almaguer [place] Request For [...] for your loved ones. For example, children's service supervisor or elderly care for an older adult? [...] Info) Description 06/30/2024 2:00 PM EDT Treatment [facility] [address] [phone] Hugo Shultz, CARD CUTTER HELPER 07/01/2024 1:00 PM EDT Office Visit General Surgery [facility] [address] [phone] Fredo Machado, DO [address] [address] 07/04/2024 1:30 PM EDT Office Visit Pulmonolgy [facility] [address] [phone] Marlene Ahuja MD [address] [address] 07/07/2024 2:00 PM EDT Treatment [facility] [address] [phone] Felix Loredo, CARD CUTTER HELPER 07/14/2024 2:00 PM EDT Treatment [facility] [address] [phone] Amelia Perez, PT 09/18/2024 2:15 PM EDT Office Visit Internal Medicine [facility] [address] [phone] Bonnie Huff PA [address] [address] documented as of this encounter Visit Diagnoses Not on filedocumented in this encounter Additional Health Concerns Assessment Noted Time PHQ-9 Depression Total Score: 14 025 8:17 PM EST documented as of this encounter Care Teams Fusing Line Inspector Relationship Specialty Start Date End Date Bonnie Huff PA [address] [place] [address] PCP - General 10/24/23 documented as of this encounter
--- OUTSIDE RECORDS SUMMARY | 2024-06-24 18:04 | XMS_ITS | Encounter Summary ---
Author Organization [employer] Address [address] [place] [address] Care Team Providers Care Almond Blancher Name Role Phone Bonnie Huff Primary Care Provider + Reason for Visit * Consultation (Routine) - Authorized Specialty Diagnoses / Procedures Referred By Contsilvestre reynolds Referred To Contact Physical Therapy Diagnoses Lateral pain of left hip Lumbar pain Claudy Araya PA [address] [place] [address] Phone: tel: fax: Referral ID Status Reason Start Date Expiration Date Visits Requested Visits Authorized [id number] Authorized Consult and Treat 05/01/2024 05/01/2025 21 21 Encounter Details Date Type Department Care Team (Late st Contact Info) Description 06/16/2024 2:30 PM EST Treatment [address] [phone] Hugo Shultz, PATTERN CARRIER Lateral pain of left hip (Primary Dx) [...] your loved ones. For example, early childhood teacher assistant or elderly care for an [...] this encounter Progress Notes * Hugo Shultz, PATTERN CARRIER - 06/16/2024 2:30 PM EST [facility] - Outpatient PHYSICAL THERAPY DAILY TREATMENT NOTE - OP Date: 06/16/2024 Visit Number: 2 Patient Name: Erum Rawls : 1975 Age: 48 y.o. Gender: female Diagnosis: ICD-10-CM ICD-9-CM 1. Lateral pain of left hip M25.552 719.45 Date of Onset/Surgery: 12/02/2022 Referring Provider: Claudy Araya PA Insurance: Payor: [employer] PLAN / Plan: [place] MEDICAID / Product Type: *No Product type* / Patient Identified by: Hugo Shultz PTA Language: Urdu Medications: Current Outpatient Medications on File Prior [...] Description 06/30/2024 2:00 PM EDT Treatment [facility] 175 [facility] 350 [place] [phone] Hugo Shultz PTA 07/01/2024 1:00 PM EDT Office Visit General Surgery [facility] 175 [facility] 110 [place] [phone] Fredo Machado DO 175 [facility] 110 [place] [address] 07/04/2024 1:30 PM EDT Office Visit Pulmonolgy [facility] 175 [facility] 200 [place] [phone] Marlene Ahuja MD 175 [facility] 200 [place] [address] 07/07/2024 2:00 PM EDT Treatment [facility] [address] [phone] Felix Loredo, PATTERN CARRIER 07/14/2024 2:00 PM EDT Treatment [facility] [address] [phone] Amelia Perez, PT 09/18/2024 2:15 PM EDT Office Visit Internal Medicine - [place] [address] [phone] Bonnie Huff PA [address] [address] documented as of this encounter Visit Diagnoses Diagnosis Lateral pain of left hip- Primary documented in this encounter Additional Health Concerns Assessment Noted Time PHQ-9 Depression Total Score: 14 025 8:17 PM EST documented as of this encounter Care Teams Almond Blancher Relationship Specialty Start Date End Date Bonnie Huff PA [address] [place] [address] PCP - General 10/24/23 documented as of this encounter
--- OUTSIDE RECORDS SUMMARY | 2024-06-24 18:04 | XMS_ITS | Encounter Summary ---
Author Organization [employer] Address [address] [place] [address] Care Team Providers Care Charrer Name Role Phone Bonnie Huff Primary Care Provider + Encounter Details Date Type Department Care Team (Late st Contact Info) Description 06/10/2024 Telephone Gastroenterology - [place] [address] [place] [phone] Stan Babb PA [address] [place] [address] Social History Tobacco Use Types Packs/Day Years [...] for your loved ones. For example, child day care teacher or elderly care for an older [...] I will also send her message through [employer]. Thank you documented in this encounter Plan of Treatment Upcoming Encounters Date Type Department Care Team (Late st Contact Info) Description 06/30/2024 2:00 PM EDT Treatment [facility] [address] [phone] Hugo Shultz, SPECIAL NEEDS CHILD CAREGIVER 07/01/2024 1:00 PM EDT Office Visit General Surgery [facility] [address] [phone] Fredo Machado, [address] [address] 07/04/2024 1:30 PM EDT Office Visit Pul[facility]ol[facility] [address] [phone] Marlene Ahuja MD [address] [address] 07/07/2024 2:00 PM EDT Treatment [facility] [address] [phone] Felix Loredo, INDER 07/14/2024 2:00 PM EDT Treatment [facility] [address] [phone] Amelia Perez, PT 09/18/2024 2:15 PM EDT Office Visit Internal Medicine - [place] [address] [phone] Bonnie Huff PA [address] [address] documented as of this encounter Visit Diagnoses Not on filedocumented in this encounter Additional Health Concerns Assessment Noted Time PHQ-9 Depression Total Score: 14 025 8:17 PM EST documented as of this encounter Care Teams Charrer Relationship Specialty Start Date End Date Bonnie Huff PA [address] [place] [address] PCP - General 10/24/23 documented as of this encounter
--- OUTSIDE RECORDS SUMMARY | 2024-06-24 18:04 | XMS_ITS | Clinical Summary ---
Author Organization [facility] Address [address] [place] [address] Phone Care Team Providers Care Medical Physiologist Name Role Phone Bonnie Huff Primary Care [...] Care Team Description 06/24/2024 Telephone Internal Medicine [address] [phone] Rocio Almaguer [place] Request For Order(s) (Karen CRYSTAL Physicians Discharge Summary Report /) 06/23/2024 2:00 PM EDT Treatment [address] [phone] Hugo Shultz, MEDICATION TECH Lateral pain of left hip (Primary Dx) 06/19/2024 Telephone Internal Medicine [address] [phone] Rocio Almaguer [place] Request For Order(s) (Karen CRYSTAL Missed Visit 05/27/24) 06/17/2024 2:00 PM EST Office Visit Internal [address] [phone] Bonnie Huff PA Asthma with COPD ([facility]) (Primary Dx); Allergic rhinitis, unspecified seasonality, unspecified trigger; Hypothyroidism, unspecified type; Fibromyalgia; Rheumatoid arthritis involving multiple sites, unspecified whether rheumatoid factor present ([facility]); Iron deficiency anemia, unspecified iron deficiency anemia type 06/16/2024 2:30 PM EST Treatment [address] [phone] Hugo Shultz, MEDICATION TECH Lateral pain of left hip (Primary Dx) 06/10/2024 Telephone Internal Medicine [address] [phone] Rocio Almaguer [place] Request For Order(s) (Karen CRYSTAL Physicians Missed Visit 05/20/24) 06/10/2024 Telephone [address] [phone] Stan Babb PA 06/10/2024 Telephone Gastroenterology [address] [phone] Stan Babb PA 06/09/2024 1:49 PM EST - 06/09/2024 11:59 PM EST Hospital Encounter [facility] CT Scan [address] [place] [phone] Umbilical hernia without obstruction and without gangrene Discharge Disposition: Home or Self Care 06/09/2024 1:49 PM EST - 06/09/2024 11:59 PM EST Hospital Encounter [facility] CT Scan [address] [place] [phone] Pneumonia of left lung due to infectious organism, unspecified part of lung Discharge Disposition: Home or Self Care 06/09/2024 Telephone Gastroenterology [address] [phone] Elba Sierra PA PRIOR AUTHORIZATION 06/06/2024 3:00 PM EST Office Visit Gastroenterology [address] [phone] Stan Babb PA Epigastric pain (Primary Dx); Routine physical examination; H/O Helicobacter infection; Straining with stools 06/04/2024 2:00 PM EST Evaluation [address] [phone] AnaAmelia, PT Lateral pain of left hip (Primary Dx); Lumbar pain 06/04/2024 Telephone Internal Medicine - [address] [phone] Bonnie Huff PA Melonie: MARAH CRAVENI 06/04/2024 Telephone Internal Medicine [address] [phone] Rocio Almaguer [place] Request For Order(s) (Karen CRYSTAL Physicians Missed Visit 05/20/24/) 05/20/2024 11:00 AM EST Consult General Surgery - [address] [place] [phone] Fredo Machado, DO Umbilical hernia without obstruction and without gangrene 05/20/2024 10:15 AM EST Office Visit [address] [phone] Marlene Ahuja MD Pneumonia of left lung due to infectious organism, unspecified part of lung (Primary Dx); Asthma with COPD ([facility]); Bronchiectasis without acute exacerbation ([facility]) 05/19/2024 1:30 PM EST Office Visit Internal Medicine [address] [phone] Bonnie Huff PA Hospital discharge follow-up (Primary Dx); Pneumonia of left lung due to infectious organism, unspecified part of lung; Moderate persistent asthma with acute exacerbation 05/16/2024 Telephone Internal Medicine [address] [phone] Bonnie Huff PA [facility] 05/01/2024 2:00 PM EST Consult Orthopedics [address] [phone] Claudy Araya PA Lumbar pain (Primary Dx); Lateral pain of left hip 04/28/2024 9:45 AM EST Office Visit Internal Medicine [address] [phone] Bonnie Huff PA Umbilical hernia without obstruction and without gangrene (Primary Dx); Jaw pain 04/21/2024 Telephone Gastroenterology [facility] [address] [phone] Stan Babb PA 04/07/2024 Telephone Gastroenterology - 299 [facility] [address] [phone] El Savage MD 04/02/2024 3:00 PM EST Office Visit Pulmonol[address] [phone] Jessica Stahl MD Pneumonia due to infectious organism, unspecified laterality, unspecified part of lung (Primary Dx); Moderate persistent asthma, unspecified whether complicated; Bronchiectasis without complication ([facility]) 04/02/2024 1:47 PM EST - 04/02/2024 11:59 PM EST Hospital Encounter [facility] Xray [address] [place] [phone] Pneumonia due to infectious organism, unspecified laterality, unspecified part of lung Discharge Disposition: Home or Self Care 04/01/2024 Telephone Pulmonolgy - [place] [address] [phone] Jessica Stahl MD 03/28/2024 1:09 PM EST - 03/28/2024 11:59 PM EST Hospital Encounter [facility] [address] [place] [phone] Routine physical examination Discharge Disposition: Home or Self Care 03/26/2024 12:48 PM EST - 03/26/2024 11:59 PM EST Hospital Encounter [facility] CT Scan [address] [place] [phone] Other migraine without status migrainosus, not intractable Discharge Disposition: Home or Self Care 03/26/2024 12:48 PM EST - 03/26/2024 11:59 PM EST Hospital Encounter [facility] Xray [address] [place] [phone] Lateral pain of left hip Discharge Disposition: Home or Self Care from Last 3 Months Surgical History Surgery Date Site/Laterality Comments HYSTERECTOMY PROCEDURE: HISTORICAL HYSTERECTOMY; COMMENT: ANNI due to fibroids 2020 in [place] Medical History Medical History Date Comments Allergic rhinitis DX:Allergic rh initis Hypothyroidism DX:Hypothyroidis m Muscle spasm DX:Muscle spasm Insomnia DX:Insomnia Iron deficiency anemia DX:Iron d eficiency anemia Migraine DX:Migraine Asthma DX:Asthma Hyperlipidemia DX:Hyperlipidemi a Asthma with COPD ([facility]) DX:As thma with COPD ([facility]) Fibromyalgia Rheumatoid arthritis ([facility]) Family History Relation Name Status [...] care for your loved ones. For example, director child abuse therapy or elderly care for an older adult? [...] Info) Description 06/30/2024 2:00 PM EDT Treatment [facility] [address] [phone] Hugo Shultz PTA 07/01/2024 1:00 PM EDT Office Visit General Surgery [facility] [address] [phone] Fredo Machado, DO [address] [address] 07/04/2024 1:30 PM EDT Office Visit Pulmonolgy [facility] [address] [phone] Marlene Ahuja MD [address] [address] 07/07/2024 2:00 PM EDT Treatment [facility] [address] [place] [phone] Felix Loredo, MEDICATION TECH 07/14/2024 2:00 PM EDT Treatment [facility] [place] 175 [facility] [address] [place] [phone] [place] Amelia, PT 09/18/2024 2:15 PM EDT Office Visit Internal Medicine - [place] 175 [facility] [address] [place] [phone] Bonnie Huff PA 175 [facility] 200 [place] [address] Health Maintenance Due Date Last Done Comments [...] K/mcL LAB [facility] 4.10 3.80 - 4.80 M/mcL LAB HEMETOLOGY METHOD 06/23/2024 6:31 PM EDT [facility] Hemoglobin 13.0 11.5 - 16.0 g/dL LAB [facility]24 [facility] Hematocrit 39.7 35.0 - 47.0 % LAB [facility]/23[facility]2024 6[facility] MCV 95.9 79.0 - 98.0 FL LAB [facility]23[facility]2024 6[facility] MCH 31.4 27.0 - 32.0 pcg LAB HEMETOLOGY METHOD 06/23/2024 6:31 PM [facility] MCHC 32.7 32.0 - 37.0 g/dL LAB HEMETOLOGY METHOD 06/23/2024 6:31 PM [facility] RDW 12.6 11.0 - 15.0 % LAB HEMETOLOGY METHOD 06/23/2024 6:31 PM [facility] Platelets 293 130 - 400 K/mcL LAB HEMETOLOGY METHOD 06/23/2024 6:31 PM [facility] MPV 10.8 7.0 - 11.0 FL LAB HEMETOLOGY METHOD 06/23/2024 6:31 PM [facility] NRBC 0.0 <1.0 % LAB HEMETOLOGY METHOD 06/23/2024 6:31 PM [facility] NRBC Absolute 0.00 <0.10 K/mcL LAB HEMETOLOGY METHOD 06/23/2024 6:31 PM [facility] Neutrophils Relative 56.9 % LAB HEMETOLOGY METHOD 06/23/2024 6:31 PM [facility] Lymphocytes Relative 31.7 % LAB HEMETOLOGY METHOD 06/23/2024 6:31 PM [facility] Monocytes Relative 8.6 % LAB HEMETOLOGY METHOD 06/23/2024 6:31 PM [facility] Eosinophils Relative 1.4 % LAB HEMETOLOGY METHOD 06/23/2024 6:31 PM [facility] Basophils Relative 1.0 % LAB HEMETOLOGY METHOD 06/23/2024 6:31 PM [facility] Immature Granulocytes Relative 0.4 % LAB HEMETOLOGY METHOD 06/23/2024 6:31 PM [facility] Neutrophils Absolute 4.02 1.50 - 7.00 K/mcL LAB HEMETOLOGY METHOD 06/23/2024 6:31 PM EDT [facility] Lymphocytes Absolute 2.24 1.00 - 5.00 K/mcL LAB HEMETOLOGY METHOD 06/23/2024 6:31 PM EDT [facility] Monocytes Absolute 0.61 0.20 - 1.00 K/[facility] LAB HEMETOLOGY METHOD 06/23/2024 6:31 PM EDT [facility] Eosinophils Absolute 0.10 0.00 - 0.50 K/[facility] LAB HEMETOLOGY METHOD 06/23/2024 6:31 PM EDT [facility] Basophils Absolute 0.07 0.00 - 0.20 K/[facility] LAB HEMETOLOGY METHOD 06/23/2024 6:31 PM EDT [facility] Immature Granulocytes Absolute 0.03 0.00 - 0.03 K/[facility] LAB HEMETOLOGY METHOD 06/23/2024 6:31 PM EDT [facility] Blood Venous blood specimen / Unknown Venipuncture / Unknown 06/23/2024 2:31 PM EDT 06/23/2024 2:31 PM EDT Bonnie GOINS LAB BLOOD ORDERABLES Fin al Result [facility] [address] [place] [address], * Thyroid stimulating hormone (06/23/2024 2:31 PM EDT) TSH 1.84 0.40 - 4.00 mcIU/mL LAB CHEMISTRY METHOD 06/23/2024 6:48 PM EDT [facility] Blood Venous blood specimen / Unknown Venipuncture / Unknown 06/23/2024 2:31 PM EDT 06/23/2024 2:31 PM EDT us Bonnie GOINS LAB BLOOD ORDERABLES Fin al Result Performing Organization Address [facility] Co de Phone Number [facility] [address] [place] [address], [place] [phone] * Iron (06/23/2024 2:31 PM EDT) Pathologist [facility] Iron 71 40 - 150 mcg/dL LAB CHEMISTRY METHOD 06/23/2024 6:41 PM EDT [facility] Blood Venous blood specimen / Unknown Venipuncture / Unknown 06/23/2024 2:31 PM EDT 06/23/2024 2:31 PM EDT Bonnie GOINS LAB BLOOD ORDERABLES Fin al Result Performing Organization Address [facility] de Phone Number [facility] [address] [place] [address], [place] [phone] * Ferritin (06/23/2024 2:31 PM EDT) Pathologist [facility] Ferritin 118 8 - 252 ng/mL LAB CHEMISTRY METHOD 06/23/2024 6:42 PM EDT [facility] Blood Venous blood specimen / Unknown Venipuncture / Unknown 06/23/2024 2:31 PM EDT 06/23/2024 2:31 PM EDT Bonnie GOINS LAB BLOOD ORDERABLES Fin al Result Performing Organization Address City/[facility]/ZIP Co de Phone Number [facility] [address] [place] [address], [place] [phone] * Comprehensive metabolic panel (06/23/2024 2:31 PM EDT) Sodium 140 133 - 145 mmol/L LAB CHEMISTRY METHOD 06/23/2024 6:41 PM EDT [facility] Potassium 4.5 3.5 - 5.5 mmol/L LAB CHEMISTRY METHOD 06/23/2024 6:41 PM [facility] Chloride 107 96 - 110 mmol/L LAB CHEMISTRY METHOD 06/23/2024 6:41 PM [facility] CO2 26 21 - 32 mmol/L LAB CHEMISTRY METHOD 06/23/2024 6:41 PM [facility] Anion Gap 7 3 - 11 LAB CHEMISTRY METHOD 06/23/2024 6:41 PM [facility] Glucose 92 70 - 100 mg/dL LAB CHEMISTRY METHOD 06/23/2024 6:41 PM [facility] BUN 15 5 - 25 mg/dL LAB CHEMISTRY METHOD 06/23/2024 6:41 PM [facility] Creatinine 0.79 0.50 - 1.10 mg/dL LAB CHEMISTRY METHOD 06/23/2024 6:41 PM [facility] eGFR 92 >=60 mL/min/1. 73m2 LAB CHEMISTRY METHOD 06/23/2024 6:41 PM [facility] Comment:Calculation based on the??Chronic Kidney Disease Epidemiology Collaboration (CKD-EPI) equation refit??without adjustment for race. BUN/Creatinine Ratio 19.0 LAB CHEMISTRY METHOD 06/23/2024 6:41 PM [facility] Calcium 9.6 8.5 - 10.5 mg/dL LAB CHEMISTRY METHOD 06/23/2024 6:41 PM [facility] AST (SGOT) 30 10 - 42 unit/L LAB CHEMISTRY METHOD 06/23/2024 6:41 PM [facility] ALT (SGPT) 44 10 - 60 unit/L LAB CHEMISTRY METHOD 06/23/2024 6:41 PM [facility] Alkaline Phosphatase 106 42 - 121 unit/L LAB CHEMISTRY METHOD 06/23/2024 6:41 PM [facility] Total Protein 7.5 6.0 - 8.0 g/dL LAB CHEMISTRY METHOD 06/23/2024 6:41 PM EDT [facility] Albumin 3.9 3.2 - 5.0 g/dL LAB CHEMISTRY METHOD 06/23/2024 6:41 PM EDT [facility] Total Bilirubin 0.3 0.0 - 1.4 mg/dL LAB CHEMISTRY METHOD 06/23/2024 6:41 PM EDT [facility] Blood Venous blood specimen / Unknown Venipuncture / Unknown 06/23/2024 2:31 PM EDT 06/23/2024 2:31 PM EDT us Bonnie GOINS LAB BLOOD ORDERABLES Fin al Result [facility] [address] [place] [address], [place] [phone] * CT Abdomen Pelvis wo Contrast (06/09/2024 [...] Signed Date: 06/12/2024 13:19 ET Workstation ID: [id number] Transcribed By: Self Edit Transcribed Date: 06/12/2024 [...] Signed Date: 06/12/2024 13:19 ET Workstation ID: [id number] Transcribed By: Self Edit Transcribed Date: 06/12/2024 [...] Signed Date: 06/12/2024 13:19 ET Workstation ID: [id number] Transcribed By: Self Edit Transcribed Date: 06/12/2024 [...] Signed Date: 06/12/2024 13:19 ET Workstation ID: [id number] Transcribed By: Self Edit Transcribed Date: 06/12/2024 13:12 ET Marlene Ahuja MD IMG CT PROCEDURES Final Result * (ABNORMAL) Helicobacter pylori breath test (06/09/2024 1:08 PM EST) [facility] H Pylori Breath Test Positive( A) Negative LAB CHEMISTRY METHOD 06/10/2024 6:25 AM EST [facility] Breath Oral cavity structure / Unknown Non-blood Collection / Unknown 06/09/2024 1:08 PM EST 06/09/2024 1:08 PM EST Stan GOINS LAB BODY FLUIDS AND STOOLS NICK BUNN Final Result [facility] [address] [place] [address], [place] [phone] * (ABNORMAL) Manual differential (05/20/2024 11:35 AM EST) Pathologist [facility] Neutrophils % 56.0 % LAB HEMETOLOGY METHOD 05/20/2024 2:54 PM [facility] Lymphocytes % 32.0 % LAB HEMETOLOGY METHOD 05/20/2024 2:54 PM [facility] Reactive Lymphocyte 4.00 % LAB HEMETOLOGY METHOD 05/20/2024 2:54 PM [facility] Monocytes % 4.0 % LAB HEMETOLOGY METHOD 05/20/2024 2:54 PM [facility] Eosinophils % 2.0 % LAB HEMETOLOGY METHOD 05/20/2024 2:54 PM [facility] Basophils % 0.0 % LAB HEMETOLOGY METHOD 05/20/2024 2:54 PM [facility] Myelocytes % 3.0(H) % LAB HEMETOLOGY METHOD 05/20/2024 2:54 PM [facility] Neutrophils Absolute Manual 9.13(H) 1.50 - 7.00 K/mcL LAB HEMETOLOGY METHOD 05/20/2024 2:54 PM [facility] Lymphocytes Absolute 5.22(H) 1.00 - 5.00 K/mcL LAB HEMETOLOGY METHOD 05/20/2024 2:54 PM [facility] Reactive Lymph Abs Manual 0.65(H) 0.00 - 0.00 lym LAB HEMETOLOGY METHOD 05/20/2024 2:54 PM [facility] Monocytes Absolute Manual 0.65 0.20 - 1.00 K/mcL LAB HEMETOLOGY METHOD 05/20/2024 2:54 PM [facility] Eosinophils Absolute Manual 0.33 0.00 - 0.50 K/mcL LAB HEMETOLOGY METHOD 05/20/2024 2:54 PM [facility] Basophils Absolute Manual 0.00 0.00 - 0.20 K/mcL LAB HEMETOLOGY METHOD 05/20/2024 2:54 PM [facility] Myelocytes Absolute Manual 0.49(H) 0.00 - 0.00 K/mcL LAB HEMETOLOGY METHOD 05/20/2024 2:54 PM EST [facility] Rbc Morphology See comment( A) Consistent with indices, Normal for [place] LAB HEMETOLOGY METHOD 05/20/2024 2:54 PM EST [facility] Comment:RBC: Morphology agre es with CBC Platelet Morphology - WAM See Note(A) Normal LAB HEMETOLOGY METHOD 05/20/2024 2:54 PM EST [facility] Comment:PLT: Normal Blood Venous blood specimen / Unknown Venipuncture / Unknown 05/20/2024 11:35 AM EST 05/20/2024 11:35 AM EST us Marlene Ahuja MD LAB BLOOD ORDERABLES Final Resul t [facility] [address] [place] [address], * XR Chest 2 Views (04/02/2024 1:56 PM EST) Anatomical Region Laterality Modality Body Radiographic Nu ging 04/03/2024 7:42 AM EST Impressions 04/03/2024 7:43 AM EST No acute findings. There is mild biapical pleural thickening. Code 38304 -------- FINAL REPORT -------- Dictated By: Pradeep De La Cruz Dictated Date: 04/03/2024 07:42 ET Assigned Physician: Pradeep De La Cruz Reviewed and Electronically Signed By: Pradeep De La Cruz Signed Date: 04/03/2024 07:43 ET Workstation ID: [id number] Transcribed By: Self Edit Transcribed Date: 04/03/2024 [...] There is mild biapical pleural thickening. Code 25715 -------- FINAL REPORT -------- Dictated By: Pradeep De La Cruz Dictated Date: 04/03/2024 07:42 ET Assigned Physician: Pradeep De La Cruz Reviewed and Electronically Signed By: Pradeep De La Cruz Signed Date: 04/03/2024 07:43 ET Workstation ID: [id number] Transcribed By: Self Edit Transcribed Date: 04/03/2024 [...] Signed Date: 03/28/2024 14:56 ET Workstation ID: [id number] Transcribed By: Self Edit Transcribed Date: 03/28/2024 [...] L Duque Reviewed and Electronically Signed By: Jos eL Duque Signed Date: 03/28/2024 14:56 ET Workstation ID: [id number] Transcribed By: Self Edit Transcribed Date: 03/28/2024 [...] Signed Date: 03/27/2024 13:01 ET Workstation ID: [id number] Transcribed By: Self Edit Transcribed Date: 03/27/2024 12:58 ET Narrative 03/27/2024 1:01 PM EST INDICATION: Migraine headache Technique: Axial images were obtained from the skull base to the vertex without contrast enhancement. Scanner: [employer] 64 slice VCT Dose reduction technique: ASIR [...] base to the vertexwithout contrast enhancement. Scanner: [employer] 64 slice VCT Dose reduction technique: ASIR [...] Signed Date: 03/27/2024 13:01 ET Workstation ID: [id number] Transcribed By: Self Edit Transcribed Date: 03/27/2024 12:58 ET Cecilia Villa MD IMG CT PROCEDURES Final Result * XR Hip 2-3 Views Left (03/26/2024 1:19 PM EST) Anatomical Region Laterality Modality Lower Extremities, Hip Left Radiograp hic Imaging 03/27/2024 7:54 AM EST Impressions 03/27/2024 7:55 AM EST Normal examination. Code 28474 -------- FINAL REPORT -------- Dictated By: Pradeep De La Cruz Dictated Date: 03/27/2024 07:54 ET Assigned Physician: Pradeep De La Cruz Reviewed and Electronically Signed By: Pradeep De La Cruz Signed Date: 03/27/2024 07:55 ET Workstation ID: [id number] Transcribed By: Self Edit Transcribed Date: 03/27/2024 [...] tissue abnormalityis seen. IMPRESSION: Normal examination. Code 68289 -------- FINAL REPORT -------- Dictated By: Pradeep De La Cruz Dictated Date: 03/27/2024 07:54 ET Assigned Physician: Pradeep De La Cruz Reviewed and Electronically Signed By: Pradeep De La Cruz Signed Date: 03/27/2024 07:55 ET Workstation ID: [id number] Transcribed By: Self Edit Transcribed Date: 03/27/2024 07:54 ET Result [facility] Bonnie GOINS IMG XR PROCEDURES Final Result * (ABNORMAL) Lipid panel (12/14/2023) Pathologist [facility] LDL/HDL Ratio 4 0 - 4 Triglycerides 113 0 - 150 mg/dL Cholesterol 164 0 - 200 mg/dL HDL 40 >=40 mg/dL LDL Cholesterol 102(A) 0 - 100 mg/dL Blood Venous blood specimen / Unknown Result [facility] Historical Provider LAB BLOOD ORDERABLES Sujey l Result * Depression Screening (12/13/2023) Pathologist [facility] Depression Screening Abstracted Result [facility] Historical Provider HEALTH MAINTENANCE Final Result from Last 3 Months or Most Recently Relevant to Health Maintenance Insurance [facility] [employer] Care Teams Medical Physiologist Relationship Specialty Start Date End Date Bonnie Huff PA [address] [place] [address] PCP - General 10/24/23
--- OUTSIDE RECORDS SUMMARY | 2024-06-24 18:04 | XMS_ITS | Encounter Summary ---
Author Organization [facility] Address [address] [place] [address] Care Team Providers Care Project Manager Finance Name Role Phone Bonnie Huff Primary Care Provider + Reason for Visit * Reason Onset Date Comments Request For Order(s) 06/24/2024 Karen CRYSTAL Physicians Discharge Summary Report Encounter Details Date Type Department Care Team ([facility] st Contact Info) Description 06/24/2024 Telephone Internal Medicine - [place] 175 [facility] [address] [place] [address] Roico Almaguer [place] Request For Order(s) (Karen CRYSTAL [...] loved ones. For example, early childhood education worker or elderly care for an older [...] Info) Description 06/30/2024 2:00 PM EDT Treatment [facility] [address] [phone] Hugo Shultz, PRIZE FIGHTER 07/01/2024 1:00 PM EDT Office Visit General Surgery - [place] [address] [phone] Fredo Machado, DO [address] [phone] 07/04/2024 1:30 PM EDT Office Visit Pulmonolgy [facility] [address] [phone] Marlene Ahuja MD [address] [phone] 07/07/2024 2:00 PM EDT Treatment [facility] [address] [phone] Felix Loredo, INDER 07/14/2024 2:00 PM EDT Treatment [facility] [address] [phone] Amelia Perez, PT 09/18/2024 2:15 PM EDT Office Visit Internal Medicine [facility] [address] [phone] Bonnie Huff PA [address] [phone] documented as of this encounter Visit Diagnoses Not on filedocumented in this encounter Additional Health Concerns Assessment Noted Time PHQ-9 Depression Total Score: 14 025 8:17 PM EST documented as of this encounter Care Teams Project Manager Finance Relationship Specialty Start Date End Date Bonnie Huff PA [address] [place] [address] PCP - General 10/24/23 documented as of this encounter
--- OUTSIDE RECORDS SUMMARY | 2024-06-24 18:04 | XMS_ITS | Encounter Summary ---
Author Organization [employer] Address [address] [place] [address] Care Team Providers Care Wastewater Manager Name Role Phone Bonnie Huff Primary Care Provider + Reason for Visit * Consultation (Routine) - Authorized Specialty Diagnoses / Procedures Referred By Contsilvestre reynolds Referred To Contact Physical Therapy Diagnoses Lateral pain of left hip Lumbar pain Claudy Araya PA [address] [place] [address] Phone: tel: fax: Referral ID Status Reason Start Date Expiration Date Visits Requested Visits Authorized [id number] Authorized Consult and Treat 05/01/2024 05/01/2025 21 21 Encounter Details Date Type Department Care Team (Latest Contact Info) Description 06/04/2024 2:00 PM EST Evaluation [address] [address] Amelia Perez PT Lateral pain [...] care for your loved ones. For example, summer child caregiver or elderly care for an [...] Perez, PT - 06/04/2024 2:00 PM EST [facility] - Outpatient PHYSICAL THERAPY EVALUATION Date: [...] Referring Provider: Claudy Araya PA Insurance: Payor: [employer] PLAN / Plan: [employer] MEDICAID / Product Type: *No Product type* / Patient identified by: Amelia Perez PT Language: Speaks and understands Sinhala as preferred language with no director business management required Chart Reviewed: Yes Medications: Current Outpatient [...] of Allergic rhinitis, Asthma, Asthma with COPD ([facility]), Hyperlipidemia, Hypothyroidism, Insomnia, Iron deficiency anemia, Migraine, [...] more than a year ago. X-ray in [place] of hip and low back showed some [...] flexion ROM to mid shins or better. Integrated Logistics Programs Director Goals (will be achieved in 8-12 weeks) [...] restrictions Documentation completed by Amelia Perez PT [address] [address] Dept: [phone] Dept PATIENT NAME: Erum Rawls : 1975 [...] Info) Description 06/30/2024 2:00 PM EDT Treatment [facility] [address] [phone] Hugo Shultz, KILN TESTER 07/01/2024 1:00 PM EDT Office Visit General Surgery [facility] [address] [phone] rFedo Machado, DO [address] [address] 07/04/2024 1:30 PM EDT Office Visit Pulmonolgy [facility] [address] [phone] Marlene Ahuja MD [address] [address] 07/07/2024 2:00 PM EDT Treatment [facility] [address] [phone] Felix Loredo, INDER 07/14/2024 2:00 PM EDT Treatment [facility] [address] [phone] Amelia Perez, PT 09/18/2024 2:15 PM EDT Office Visit Internal Medicine [facility] [address] [phone] Bonnie Huff PA [address] [address] documented as of this encounter Visit Diagnoses [...] documented as of this encounter Care Teams Wastewater Manager Relationship Specialty Start Date End Date Bonnie Huff PA [address] [place] [address] PCP - General 10/24/23 documented as of this encounter
--- OUTSIDE RECORDS SUMMARY | 2024-06-24 18:04 | XMS_ITS | Encounter Summary ---
Author Organization [employer] Address [address] [place] [address] Care Team Providers Care Senior Geologist Name Role Phone Bonnie Huff Primary Care Provider + Reason for Visit * Reason Onset Date Comments Request For Order(s) 06/10/2024 Karen CRYSTAL [facility] Missed Visit 05/20/24 Encounter Details Date Type Department Care Team ([facility] st Contact Info) Description 06/10/2024 Telephone Internal Medicine - [place] 175 [facility] [address] [place] [address] Rocio Almaguer MA Request For [...] for your loved ones. For example, child psychologist or elderly care for an older adult? [...] into chart and faxed to Karen CRYSTAL [phone] * Rocio Almaguer MA - 06/10/2024 8:10 AM EST [facility] Missed Visit 05/20/24 Please sign & documented in this encounter Plan of Treatment Upcoming Encounters Date Type Department Care Team (Late st Contact Info) Description 06/30/2024 2:00 PM EDT Treatment [facility] [address] [phone] Hugo Shultz, BAND INSTRUMENT MAKER 07/01/2024 1:00 PM EDT Office Visit General Surgery [facility] [place] [facility] [address] [phone] Fredo Machado, DO [address] [address] 07/04/2024 1:30 PM EDT Office Visit Pulmonolgy [facility] [place] [facility] [address] [phone] Marlene Ahuja MD [address] [address] 07/07/2024 2:00 PM EDT Treatment [facility] [address] [phone] Felix Loredo, BAND INSTRUMENT MAKER 07/14/2024 2:00 PM EDT Treatment [facility] [address] [phone] Amelia Perez, PT 09/18/2024 2:15 PM EDT Office Visit Internal Medicine [facility] [place] [facility] [address] [phone] Bonnie Huff PA [address] [address] documented as of this encounter Visit Diagnoses Not on filedocumented in this encounter Additional Health Concerns Assessment Noted Time PHQ-9 Depression Total Score: 14 025 8:17 PM EST documented as of this encounter Care Teams Senior Geologist Relationship Specialty Start Date End Date Bonnie Huff PA [address] [place] [address] PCP - General 10/24/23 documented as of this encounter
--- OUTSIDE RECORDS SUMMARY | 2024-06-24 18:04 | XMS_ITS | Encounter Summary ---
Author Organization [employer] Address [address] [place] [address] Care Team Providers Care Playground Supervisor Name Role Phone Bonnie Huff Primary Care Provider + Reason for Visit * Reason Onset Date Comments Mauricio JEFF 06/04/2024 Encounter Details Date Type Department Care Team (Late st Contact Info) Description 06/04/2024 Telephone Internal Medicine - [place] [address] [facility] [address] [place] [phone] Bonnie Huff PA [address] [facility] [address] [place] [address] Bonnie: MARAH JEFF Social History Tobacco Use [...] your loved ones. For example, child life specialist or elderly care for an older [...] Info) Description 06/30/2024 2:00 PM EDT Treatment [facility] [address] [phone] Hugo Shultz, AUTOMOTIVE VEHICLE INSPECTOR 07/01/2024 1:00 PM EDT Office Visit General Surgery [facility] [address] [facility] [address] [phone] Fredo Machado, DO [address] [address] 07/04/2024 1:30 PM EDT Office Visit Pulmonolgy [facility] [address] [facility] [address] [phone] Marlene Ahuja MD [address] [address] 07/07/2024 2:00 PM EDT Treatment [facility] [address] [facility] [address] [phone] Felix Loredo, AUTOMOTIVE VEHICLE INSPECTOR 07/14/2024 2:00 PM EDT Treatment [facility] [address] [phone] Amelia Perez, PT 09/18/2024 2:15 PM EDT Office Visit Internal Medicine [facility] [address] [phone] Bonnie Huff PA [address] [address] documented as of this encounter Visit Diagnoses Not on filedocumented in this encounter Additional Health Concerns Assessment Noted Time PHQ-9 Depression Total Score: 14 025 8:17 PM EST documented as of this encounter Care Teams Playground Supervisor Relationship Specialty Start Date End Date Bonnie Huff PA [address] [place] [address] PCP - General 10/24/23 documented as of this encounter
--- OUTSIDE RECORDS SUMMARY | 2024-06-24 18:04 | XMS_ITS | Encounter Summary ---
Author Organization [employer] Address [address] [place] [address] Care Team Providers Care Dowel Inspector Name Role Phone Bonnie Huff Primary Care Provider + Reason for Visit * Reason Onset Date Comments Request For Order(s) 06/19/2024 Karen CRYSTAL Missed Visit 05/27/24 Encounter Details Date Type Department Care Team ([facility] st Contact Info) Description 06/19/2024 Telephone Internal Medicine - [place] 175 [facility] [address] [place] [address] Rocio Almaguer MA Request For [...] your loved ones. For example, child care associate teacher or elderly care for an older [...] into chart and faxed to Karen CRYSTAL [phone] * Rocio Almaguer MA - 06/19/2024 1:56 PM EST Karen CRYSTAL Missed Visit 05/27/24 Please sign & documented in this encounter Plan of Treatment Upcoming Encounters Date Type Department Care Team (Late st Contact Info) Description 06/30/2024 2:00 PM EDT Treatment [facility] [address] [phone] Hugo Shultz, REAL ESTATE BRANCH MANAGER 07/01/2024 1:00 PM EDT Office Visit General Surgery [facility] [place] [facility] [address] [phone] Fredo Machado, DO [address] [address] 07/04/2024 1:30 PM EDT Office Visit Pulmonolgy [facility] [place] [facility] [address] [phone] Marlene Ahuja MD [address] [address] 07/07/2024 2:00 PM EDT Treatment [facility] [address] [phone] Felix Loredo, REAL ESTATE BRANCH MANAGER 07/14/2024 2:00 PM EDT Treatment [facility] [address] [phone] Amelia Perez, PT 09/18/2024 2:15 PM EDT Office Visit Internal Medicine [facility] [place] [facility] [address] [phone] Bonnie Huff PA [address] [address] documented as of this encounter Visit Diagnoses Not on filedocumented in this encounter Additional Health Concerns Assessment Noted Time PHQ-9 Depression Total Score: 14 025 8:17 PM EST documented as of this encounter Care Teams Dowel Inspector Relationship Specialty Start Date End Date Bonnie Huff PA [address] [place] [address] PCP - General 10/24/23 documented as of this encounter
--- OUTSIDE RECORDS SUMMARY | 2024-06-24 18:04 | XMS_ITS | Encounter Summary ---
Author Organization [employer] Address [address] [place] [address] Care Team Providers Care Media Aid Name Role Phone Bonnie Huff Primary Care Provider + Encounter Details Date Type Department Care Team (Late st Contact Info) Description 06/10/2024 Telephone Gastroenterology - [place] [address] [place] [phone] Stan Babb PA [address] [place] [address] Social History Tobacco Use Types Packs/Day Years [...] for your loved ones. For example, child welfare counselor or elderly care for an older adult? [...] Info) Description 06/30/2024 2:00 PM EDT Treatment [facility] [address] [phone] Hugo Shultz, BIOLOGY INTERN 07/01/2024 1:00 PM EDT Office Visit General Surgery [facility] [address] [phone] Fredo Machado DO [address] [address] 07/04/2024 1:30 PM EDT Office Visit Pulmonolgy [place] [facility] 175 [facility] 200 [place] [phone] Marlene Ahuja MD [address] [address] 07/07/2024 2:00 PM EDT Treatment [facility] [address] [phone] Fleix Loredo, INDER 07/14/2024 2:00 PM EDT Treatment [facility] [address] [phone] Amelia Perez, PT 09/18/2024 2:15 PM EDT Office Visit Internal Medicine [facility] [address] [phone] Bonnie Huff PA [address] [address] Scheduled Orders Name Type Priority Associated Diagnoses [...] documented as of this encounter Care Teams Media Aid Relationship Specialty Start Date End Date Bonnie Huff PA [address] [place] [address] PCP - General 10/24/23 documented as of this encounter
--- OUTSIDE RECORDS SUMMARY | 2024-06-24 18:04 | XMS_ITS | Encounter Summary ---
Author Organization [facility] Address [address] [place] [address] Care Team Providers Care Editor Index Name Role Phone Bonnie Huff Primary Care Provider + Reason for Referral * Imaging (Routine) - Closed Specialty Diagnoses / Procedures Referred By Contac t Referred To Contact Radiology Diagnoses Umbilical hernia without obstruction and without gangrene Procedures CT Abdomen Pelvis wo Contrast Fredo Machado DO [address] [address] Phone: tel: fax: [facility] CT Scan [address] [place] [address] Phone: tel: Referral ID Status Reason Start Date Expiration Date Visits Re quested Visits Authorized [id number] Closed 05/30/2024 07/29/2024 1 1 Reason for Visit * Imaging (Routine) - Closed Specialty Diagnoses / Procedures Referred By Contac t Referred To Contact Radiology Diagnoses Umbilical hernia without obstruction and without gangrene Procedures CT Abdomen Pelvis wo Contrast Fredo Machado DO [address] [address] Phone: tel: fax: [facility] CT [address] [place] [address] Phone: tel: Referral ID Status Reason Start Date Expiration Date Visits Re quested Visits Authorized [id number] Closed 05/30/2024 07/29/2024 1 1 Encounter Details Date Type Department Care Team (Latest Contact Info) Description 06/09/2024 1:49 PM EST - 06/09/2024 11:59 PM EST Hospital Encounter [facility] CT Scan [address] [place] [address] Umbilical hernia without obstruction and [...] loved ones. For example, child protective services specialist or elderly care for an older [...] Info) Description 06/30/2024 2:00 PM EDT Treatment [address] [place] [phone] Hugo Shultz, ANIMAL BOUNTY HUNTER 07/01/2024 1:00 PM EDT Office Visit General Surgery [facility] 175 [facility] [address] [place] [phone] Fredo Machado, DO [address] [address] 07/04/2024 1:30 PM EDT Office Visit Pulmonolgy [facility] [address] [phone] Marlene Ahuja MD [address] [phone] 07/07/2024 2:00 PM EDT Treatment [facility] [address] [phone] Felix Loredo, ANIMAL BOUNTY HUNTER 07/14/2024 2:00 PM EDT Treatment [facility] [address] [phone] Amelia Perez, PT 09/18/2024 2:15 PM EDT Office Visit Internal Medicine [facility] [address] [phone] Bonnie Huff PA [address] [address] documented as of this encounter Procedures Procedure [...] Signed Date: 06/12/2024 13:19 ET Workstation ID: [id number] Transcribed By: Self Edit Transcribed Date: 06/12/2024 [...] Signed Date: 06/12/2024 13:19 ET Workstation ID: [id number] Transcribed By: Self Edit Transcribed Date: 06/12/2024 13:19 ET Fredo Machado DO IMG CT PROCEDURES Final Result documented in this encounter Visit Diagnoses Diagnosis Umbilical hernia without obstruction and without gangrene documented in this encounter Additional Health Concerns Assessment Noted Time PHQ-9 Depression Total Score: 14 025 8:17 PM EST documented as of this encounter Care Teams Editor Index Relationship Specialty [place] [address] [place] [address] PCP - General 10/24/23 documented as of this encounter
--- OUTSIDE RECORDS SUMMARY | 2024-06-24 18:04 | XMS_ITS | Encounter Summary ---
Author Organization [employer] Address [address] [place] [address] Care Team Providers Care Teleradiologist Name Role Phone Bonnie Huff Primary Care Provider + Reason for Visit * Reason Comments Asthma Allergies Hypothyroidism Fibromyalgia Migraine Encounter Details Date Type Department Care Team ([facility] st Contact Info) Description 06/17/2024 2:00 PM EST Office Visit Internal Medicine - [place] [address] [facility] [address] [place] [phone] Bonnie Huff PA [address] [facility] [address] [place] [address] Asthma with COPD (CMS/HCC) (Primary Dx); Allergic [...] for your loved ones. For example, children's nursery assistant or elderly care for an older [...] encounter Progress Notes * BRISEIDA Patrick - 06/17/2024 2:00 PM EST CHIEF [...] anemia tx with ferrous sulfate. Other providers: Cupola Worker Dr. Stahl - Asthma Sales Representative [employer] Dr. Kathy Alcantara at [facility] - RA and Fibromyalgia GI through [place] - H.pylori gastritis, constipation ROS: GENERAL: Fatigue, no fevers RESPIRATORY: No cough, wheezing or shortness of breath CARDIOVASCULAR: No chest pain, leg swelling or palpitations SKIN: No lesions, rash or itching NEURO: No headaches or dizziness PAST MEDICAL HISTORY: Patient Active Problem List Diagnosis Date Noted Fibromyalgia Rheumatoid arthritis ([facility]) Allergic rhinitis 12/13/2023 Asthma with COPD ([facility]) 12/13/2023 Hyperlipidemia 12/13/2023 Hypothyroidism 12/13/2023 Insomnia 12/13/2023 [...] Morphology agrees with CBC Platelet Morphology - [facility] 05/20/2024 See Note (A) Normal Final PLT: [...] None IMAGING: IMPRESSION: 1. Asthma with COPD ([facility]) 2. Allergic rhinitis, unspecified seasonality, unspecified trigger 3. Hypothyroidism, unspecified type 4. Fibromyalgia 5. Rheumatoid arthritis involving multiple sites, unspecified whether rheumatoid factor present ([facility]) 6. Iron deficiency anemia, unspecified iron deficiency [...] Info) Description 06/30/2024 2:00 PM EDT Treatment [facility] 175 [facility] 350 [place] [phone] Hugo Shultz, INDER 07/01/2024 1:00 PM EDT Office Visit General Surgery [facility] 175 [facility] 110 [place] [phone] Fredo Machado, 175 [facility] 110 [place] [address] 07/04/2024 1:30 PM EDT Office Visit Pulmonolgy [facility] 175 [facility] 200 [place] [phone] Marlene Ahuja MD [address] [address] 07/07/2024 2:00 PM EDT Treatment [facility] [address] [phone] Felix Loredo, BEET FLUMER 07/14/2024 2:00 PM EDT Treatment [facility] [address] [phone] Amelia Perez, PT 09/18/2024 2:15 PM EDT Office Visit Internal Medicine [facility] [address] [phone] Bonnie Huff PA [address] [address] documented as of this encounter Results * Iron (06/23/2024 2:31 PM EDT) Pathologist [facility] Iron 71 40 - 150 mcg/dL LAB CHEMISTRY METHOD 06/23/2024 6:41 PM EDT [facility] Blood Venous blood specimen / Unknown Venipuncture / Unknown 06/23/2024 2:31 PM EDT 06/23/2024 2:31 PM EDT Bonnie GOINS LAB BLOOD ORDERABLES Fin al Result [facility] [address] [place] [address], * Ferritin (06/23/2024 2:31 PM EDT) Ferritin 118 8 - 252 ng/mL LAB CHEMISTRY METHOD 06/23/2024 6:42 PM EDT [facility] Blood Venous blood specimen / Unknown Venipuncture / Unknown 06/23/2024 2:31 PM EDT 06/23/2024 2:31 PM EDT us Bonnie GOINS LAB BLOOD ORDERABLES Fin al Result [facility] [address] [place] [address], [place] [phone] * Comprehensive metabolic panel (06/23/2024 2:31 PM EDT) Sodium 140 133 - 145 mmol/L LAB CHEMISTRY METHOD 06/23/2024 6:41 PM [facility] Potassium 4.5 3.5 - 5.5 mmol/L LAB CHEMISTRY METHOD 06/23/2024 6:41 PM [facility] Chloride 107 96 - 110 mmol/L LAB CHEMISTRY METHOD 06/23/2024 6:41 PM [facility] CO2 26 21 - 32 mmol/L LAB CHEMISTRY METHOD 06/23/2024 6:41 PM [facility] Anion Gap 7 3 - 11 LAB CHEMISTRY METHOD 06/23/2024 6:41 PM [facility] Glucose 92 70 - 100 mg/dL LAB CHEMISTRY METHOD 06/23/2024 6:41 PM [facility] BUN 15 5 - 25 mg/dL LAB CHEMISTRY METHOD 06/23/2024 6:41 PM [facility] Creatinine 0.79 0.50 - 1.10 mg/dL LAB CHEMISTRY METHOD 06/23/2024 6:41 PM [facility] eGFR 92 >=60 mL/min/1. 73m2 LAB CHEMISTRY METHOD 06/23/2024 6:41 PM [facility] Comment:Calculation based on the??Chronic Kidney Disease Epidemiology Collaboration (CKD-EPI) equation refit??without adjustment for race. BUN/Creatinine Ratio 19.0 LAB CHEMISTRY METHOD 06/23/2024 6:41 PM [facility] Calcium 9.6 8.5 - 10.5 mg/dL LAB CHEMISTRY METHOD 06/23/2024 6:41 PM EDT [facility] AST (SGOT) 30 10 - 42 unit/L LAB CHEMISTRY METHOD 06/23/2024 6:41 PM EDT [facility] ALT (SGPT) 44 10 - 60 unit/L LAB CHEMISTRY METHOD 06/23/2024 6:41 PM EDT [facility] Alkaline Phosphatase 106 42 - 121 unit/L LAB CHEMISTRY METHOD 06/23/2024 6:41 PM EDT [facility] Total Protein 7.5 6.0 - 8.0 g/dL LAB CHEMISTRY METHOD 06/23/2024 6:41 PM EDT [facility] Albumin 3.9 3.2 - 5.0 g/dL LAB CHEMISTRY METHOD 06/23/2024 6:41 PM EDT [facility] Total Bilirubin 0.3 0.0 - 1.4 mg/dL LAB CHEMISTRY METHOD 06/23/2024 6:41 PM EDT [facility] Blood Venous blood specimen / Unknown Venipuncture / Unknown 06/23/2024 2:31 PM EDT 06/23/2024 2:31 PM EDT Bonnie GOINS LAB BLOOD ORDERABLES Fin al Result [facility] [address] [place] [address], * Thyroid stimulating hormone (06/23/2024 2:31 PM EDT) TSH 1.84 0.40 - 4.00 mcIU/mL LAB CHEMISTRY METHOD 06/23/2024 6:48 PM EDT [facility] Blood Venous blood specimen / Unknown Venipuncture / Unknown 06/23/2024 2:31 PM EDT 06/23/2024 2:31 PM EDT us Bonnie GOINS LAB BLOOD ORDERABLES Fin al Result [facility] [address] [place] [address], documented in this encounter Visit Diagnoses Diagnosis Asthma with COPD ([facility])- Primary Allergic rhinitis, unspecified seasonality, unspecified trigger Hypothyroidism, unspecified type Fibromyalgia Unspecified myalgia and myositis Rheumatoid arthritis involving multiple sites, unspecified whether rheumatoid factor present ([facility]) Iron deficiency anemia, unspecified iron deficiency anemia type documented in this encounter Additional Health Concerns Assessment Noted Time PHQ-9 Depression Total Score: 14 025 8:17 PM EST documented as of this encounter Care Teams Teleradiologist Relationship Specialty Start Date End Date Bonnie Huff PA [address] [place] [address] PCP - General 10/24/23 documented as of this encounter
[2024-06-24 18:22] LABS: Alkaline Phosphatase 96 U/L (39-117)
== END 2024-06-24 14:03 | disposition home or self-care (01) ==
LOC: HO.LAB 14:02
PROVIDERS: PCP Physician Assistant; Visit Provider Student in an Organized Health Care Education/Training Program
DX: M05.79 Rheumatoid arthritis with rheumatoid factor of multiple sites without organ or systems involvement (principal); M79.7 Fibromyalgia; Z79.620 Long term (current) use of immunosuppressive biologic
CPT/HCPCS: 36415; 80053; 85025; 85652; 86140; 99212

== ENCOUNTER 2024-06-24 14:02 | Outpatient (AMB) | payer OTHER, SELFPAY ==
--- NOTE | 2024-06-24 14:05 | MHC.OFFVIS ---
Vital Signs 06/24/24 14:09 Height 5 ft 2 in Weight 144 lb 9.972 oz BMI 26.4 BP 124/72 Blood Pressure Location Rt brachial Position Sitting Pulse 88 Pulse Source Pulse Oximeter Pulse Oximetry (%) 98 Oxygen Delivery Method Room Air Intake Visit Reasons: follow up Intake Note: Patient presents for follow up. Form Press Operator Required: Yes Form Press Operator Language: Coremaking Supervisor Services: Form Press Operator Present Form Press Operator Name: Stacey [id number] Information Interpreted: non-clinical & clinical Allergies No Known Allergies Allergy (Verified 06/24/24 14:08) Medication List - Last Reconciled 06/24/24 by Kathy Alcantara MD adalimumab (Humira) 40 mg (0.8 mL) subcut Q2W albuterol sulfate 90 mcg/actuation (Ventolin HFA) 2 puffs inhalation Q4-6H PRN amitriptyline 25 mg PO BEDTIME amoxicillin-pot clavulanate 875-125 mg 1 tab PO BID azithromycin 500 mg PO DAILY 4 days fluticasone propion-salmeterol 250-50 mcg/dose (Advair Diskus) 1 ea inhalation BID folic acid 1 mg PO DAILY hydroxyzine HCl 100 mg PO BEDTIME inhalational spacing device (RadioScape Laila C spacer) As directed levothyroxine 25 mcg PO DAILY@0600 loratadine 10 mg PO DAILY milnacipran 25 mg PO BID prednisone 40 mg daily x 4 days, then 30 mg daily x 4 days, then 20 mg daily x 4 days, then 10 mg daily x 4 days. Afterwards, resume methylprednisolone 4 mg daily until seen by water pumper. pregabalin 75 mg PO BID sumatriptan succinate 50 mg PO Q2H PRN MDD 100 HPI Comments Details: Patient is a 48-year-old female with hypothyroidism on levothyroxine and GERD secondary to H pylori infection status post eradication who presents for follow up of polyarthralgias Interval History: Patient last seen 04/30/2024 with me. At that time she continued to have signs and symptoms suspicious for seronegative rheumatoid arthritis. She did not respond to methotrexate or prednisone however her exam showed very typical sites of inflammation including the MCPs, PIPs DIPs, the wrists and the knees. So she was started on Humira. She had only received 1 dose of the Humira and then about a week later developed cough and fever. She was seen initially in the emergency department and diagnosed with pneumonia and sent home however she subsequently developed hypoxia requiring inpatient management. She did not take her 2nd dose of the Humira. She was discharged 05/15/2024 and has not restarted her Humira. She did note that taking the Medrol helped her a bit but not that much, of note she did not take the full course of the Medrol because she ended up in hospital. Rheumatologic History: Patient initially presented for evaluation of whole-body pain 01/30/2024. At that time evaluation was consistent with fibromyalgia with no evidence of synovitis on examination and tender points. Recommend pregabalin and milnacipran. Preliminary results showed a very elevated CRP and ESR as well as positive rheumatoid factor. The thought was that she had rheumatoid arthritis and she was started on prednisolone taper and methotrexate. She was re-evaluated 4 weeks later with no improvement on the prednisone in fact she stated that the prednisone made her pain worse. Given this she was re-evaluated as fibromyalgia and started on pregabalin and milnacipran Current Rheumatology Medication(s): Humira 40 mg SC every other week (not currently taking) Prednisone prescribed by hospitalist [facility] Medical History Adalimumab (Humira) long-term use Rheumatoid arthritis Fibromyalgia affecting multiple sites Hyperlipidemia Asthma Migraine Iron deficiency anemia Insomnia Muscle spasm Hypothyroidism Allergic rhinitis Multiple joint pain Surgical History H/O: hysterectomy Social History Household Members: Family Housing: Apartment Do you presently have visiting nurse or other home services: No Patient Tobacco Use Status: Former Tobacco user Tobacco use type: Cigarette service: No Review of Systems Const Details: Review of Systems Constitutional: Denies fever, chills, weight loss ENT: Denies vision changes, eye pain or eye redness, dental caries, dry mouth GI: Denies nausea, vomiting, diarrhea, abdominal pain, change in BM Pulm: Denies SOB, YAÑEZ, hemoptysis, wheezing Cards: Denies chest pain, palpitations Skin: Denies Raynaud's, rash, nail changes, photosensitivity, PREFORMING MACHINE OPERATOR: Denies headaches, weakness, paresthesias, recurrent falls MSK: as per HPI All other systems reviewed and are unremarkable except noted above Physical Exam Vital Signs: Last Vital Signs Pulse 88 06/24/24 14:09 BP 124/72 06/24/24 14:09 Pulse Ox 98 06/24/24 14:09 Oxygen Delivery Method Room Air 06/24/24 14:09 BMI result Body Mass Index 26.4 Physical Examination CONSTITUITIONAL Patient alert and cooperative. Well appearing and in no apparent painful distress HEENT Conjunctiva and sclera clear. ?Pupils equal round and reactive to light. ?No lymphadenopathy. ?Normal dentition. No oral or nasal ulcers noted. No evidence of discoid rash to the martin of ears CHEST/RESPIRATORY SYSTEM Normal respiratory effort and able to speak in complete sentences. ?Clear to auscultation bilaterally. ?No crackles, rales, rhonchi, wheezes heard. CARDIAC SYSTEM Regular rate and rhythm. ?S1 and S2 heard no murmurs. ?Radial pulses intact bilaterally MSK Hands: ?Able to make a fist. No swelling noted but tenderness to palpation of the MCPs and PIPs DIPs. Wrists: Full range of motion to the wrists. Tenderness to palpation of the wrist joint. No swelling noted. ? Elbows: Tenderness to palpation of bilateral tendon insertion of the medial and lateral epicondyles. No tenderness to palpation of the elbow joint proper Shoulders: Decreased active range of motion secondary to pain. Full passive range of motion Hips: Hip flexion with pain but full range of motion. Internal and external rotation of the hip without pain. Hip bursa: Tenderness to palpation Knees: ?Full range of motion. ?No tenderness to palpation of the knee joint but there was swelling over the bilateral pes anserine bursa Ankles: Full range of motion. ?Tenderness to palpation but no evidence of swelling. Feet: ?Positive squeeze test and tenderness to palpation of all MTPs. Tender points:??Tenderness to palpation of the neck, shoulders, chest, elbows, hips, buttocks or knees. SKIN Skin intact without rashes. Results Reviewed Results Reviewed: Patient needs new labs. The last labs were from her hospital admission. Assessment & Plan Assessment & Plan (1) Rheumatoid arthritis: Comment: DDx 02/2024 +RF, -CCP Methotrexate 02/2024 - 04/2024. Not effective Humira 04/2024 Code(s): M06.9 - Rheumatoid arthritis, unspecified Category: Medical Qualifiers: Rheumatoid arthritis location: multiple sites Rheumatoid factor presence: with rheumatoid factor Qualified Code(s): M05.79 - Rheumatoid arthritis with rheumatoid factor of multiple sites without organ or systems involvement Plan: #Seropositive RA Patient with seropositive rheumatoid arthritis currently on hold from treatment given her recent pneumonia complicated by sepsis. Disease is currently in flare. We will restart her Humira and re-evaluate Plan - Humira 40mg SC every other week - Complete prednisone/medrol taper - Labs today: CBC, CMP, ESR, CRP - RTC 3 months - Labs before visit: CBC, CMP, ESR, CRP, hepatitis panel, T spot (2) Fibromyalgia affecting multiple sites: Code(s): M79.7 - Fibromyalgia Category: Medical Plan: #Fibromyalgia Patient also has a component of fibromyalgia Will continue the pregabalin and milnacipran Can consider optimizing once her inflammatory arthritis is under control Plan - Pregabalin 75mg bid - Milnacipran 25mg bid - Amytriptyline 25mg bedtime (3) Adalimumab (Humira) long-term use: Code(s): Z79.620 - MCC (current) use of immunosuppressive biologic Category: Medical Plan: #Long-term Use of TNF Inhibitors: Humira Discussed with the patient the benefits and risks of TNF inhibitors for the management of the rheumatic condition Benefits include reduce pain, maintenance of remission and reduction of flares as well as ?progression of the disease Risks include injection sites/infusion reactions, serious infections (such as bacterial infections, opportunistic infections), malignancy, delaminating syndromes, autoimmune phenomena, CHF exacerbations, palmar plantar psoriasis and cytopenias Recommended rotating injection sites, and holding medication during and for up to 1 week after resolution of a febrile illness or open skin wound Plan I spent 45 minutes reviewing the record and labs, taking a history, examining the patient, discussing the treatment plan and documenting in the medical record Orders: Orders C Reactive Protein 3 Months M05.79 - Rheumatoid arthritis with rheumatoid factor of multiple sites without organ or systems involvement C Reactive Protein Today M05.79 - Rheumatoid arthritis with rheumatoid factor of multiple sites without organ or systems involvement Erythrocyte Sedimentation Rate Today M05.79 - Rheumatoid arthritis with rheumatoid factor of multiple sites without organ or systems involvement Complete Blood Count Auto Diff 3 Months M05.79 - Rheumatoid arthritis with rheumatoid factor of multiple sites without organ or systems involvement Comprehensive Met. Panel 3 Months M05.79 - Rheumatoid arthritis with rheumatoid factor of multiple sites without organ or systems involvement Erythrocyte Sedimentation Rate 3 Months M05.79 - Rheumatoid arthritis with rheumatoid factor of multiple sites without organ or systems involvement Hepatitis A,B,C Profile 3 Months M05.79 - Rheumatoid arthritis with rheumatoid factor of multiple sites without organ or systems involvement T Spot TB 3 Months M05.79 - Rheumatoid arthritis with rheumatoid factor of multiple sites without organ or systems involvement Complete Blood Count Auto Diff Today M0. - Rheumatoid arthritis with rheumatoid factor of multiple sites without organ or systems involvement Comprehensive Met. Panel Today .79 - Rheumatoid arthritis with rheumatoid factor of multiple sites without organ or systems involvement Coding Level of Care Code Est Pt Level 5 (59995) Complex EM visit Add On G2211 Diagnoses Rheumatoid arthritis involving multiple sites with positive rheumatoid factor 5. Rheumatoid arthritis location: multiple sites Rheumatoid factor presence: with rheumatoid factor Fibromyalgia affecting multiple sites M79.7 Adalimumab (Humira) long-term use Z79.620
[2024-06-24 14:09] VITALS: BP 124/72; PULSE 88; O2SAT 98; BMI 26.4
--- OUTSIDE RECORDS SUMMARY | 2024-06-24 17:10 | XMS_ITS | Encounter Summary ---
Author Organization [employer] Address [address] [place] [address] Care Team Providers Care Five Roll Refiner Batch Mixer Name Role Phone Bonnie Huff Primary Care Provider + Reason for Visit * Reason Onset Date Comments Request For Order(s) 06/10/2024 [facility] Missed Visit 05/20/24 Encounter Details Date Type Department Care Team ([facility] st Contact Info) Description 06/10/2024 Telephone Internal Medicine - [place] [address] [facility] [address] [place] [address] Rocio Almaguer MA Request For Order(s) ([facility] Missed Visit 05/20/24) Social History Tobacco Use Types Packs/Day Years [...] for your loved ones. For example, child therapist or elderly care for an older adult? [...] What is your living situation? 1 05/18/2023 Comments No Sex and Gender Information Value Date Recorded Sex Assigned at Female 02/19/2024 1:59 PM EST Legal Sex Female 11:41 AM EDT Gender Identity Female 02/19/2024 1:59 PM EST Sexual Orientation Straight 02/19/2024 1: 59 PM EST documented as of this encounter Progress Notes * Rocio Almaguer MA - 06/10/2024 8:11 AM EST Scanned into chart and faxed to Karen [facility]YSTAL [phone] * Rocio Almaguer MA - 06/10/2024 8:10 AM EST [facility] Missed Visit 05/20/24 Please sign & documented in this encounter Plan of Treatment Upcoming Encounters Date Type Department Care Team (Late st Contact Info) Description 06/30/2024 2:00 PM EDT Treatment [facility] [address] [phone] Hugo Shultz, WATERPROOF BAG CUTTING MACHINE OPERATOR 07/01/2024 1:00 PM EDT Office Visit General Surgery [facility] [address] [phone] Fredo Machado, DO [address] [address] 07/04/2024 1:30 PM EDT Office Visit Pulmonolgy [facility] [address] [phone] Marlene Ahuja MD [address] [address] 07/07/2024 2:00 PM EDT Treatment [facility] [address] [phone] Felix Loredo, WATERPROOF BAG CUTTING MACHINE OPERATOR 07/14/2024 2:00 PM EDT Treatment [facility] [address] [phone] Amelia Perez, PT 09/18/2024 2:15 PM EDT Office Visit Internal Medicine [facility] [address] [phone] Bonnie Huff PA [address] [phone] documented as of this encounter Visit Diagnoses Not on filedocumented in this encounter Additional Health Concerns Assessment Noted Time PHQ-9 Depression Total Score: 14 025 8:17 PM EST documented as of this encounter Care Teams Five Roll Refiner Batch Mixer Relationship Specialty Start Date End Date Bonnie Huff PA [address] [place] [address] PCP - General 10/24/23 documented as of this encounter
--- OUTSIDE RECORDS SUMMARY | 2024-06-24 17:10 | XMS_ITS | Encounter Summary ---
Author Organization [employer] Address [address] [place] [address] Care Team Providers Care Marine Erector Name Role Phone Bonnie Huff Primary Care Provider + Reason for Visit * Reason Comments Asthma Allergies Hypothyroidism Fibromyalgia Migraine Encounter Details Date Type Department Care Team ([facility] st Contact Info) Description 06/17/2024 2:00 PM EST Office Visit Internal Medicine - [place] [address] [place] [phone] Bonnie Huff PA [address] [place] [address] Asthma with COPD (CMS/HCC) (Primary Dx); Allergic rhinitis, unspecified seasonality, unspecified trigger; Hypothyroidism, unspecified type; Fibromyalgia; Rheumatoid arthritis involving multiple sites, unspecified whether rheumatoid factor present (CMS/HCC); Iron deficiency anemia, unspecified iron deficiency anemia type Social History Tobacco Use Types Packs/Day Years [...] for your loved ones. For example, child protective services social worker or elderly care for an older adult? [...] PM EST documented as of this encounter Last Filed Vital Signs Vital Sign Reading Time Taken Comments Blood Pressure 100/68 06/17/2024 1:46 PM EST Pulse - - Temperature 36.6 ??C (97.8 ??F) 06/17/2024 1:46 PM ES T Respiratory Rate - - Oxygen Saturation 98% 06/17/2024 1:46 PM EST Inhaled Oxygen Concentration - - Weight 66.6 kg (146 lb 12.8 oz) 06/17/2024 1:46 PM EST Height 157.5 cm (5' 2 ) 06/17/2024 1:46 PM EST Body Mass Index 26.85 06/17/2024 1:46 PM EST documented in this encounter Progress Notes * BIRSEIDA Patrick - 06/17/2024 2:00 PM EST CHIEF COMPLAINT: Asthma, Allergies, Hypothyroidism (/), Fibromyalgia, and Migraine (/) IDENTIFIER: Erum Rawls is a 48 y.o. old female. HPI: Follow-up asthma, allergic rhinitis, hypothyroidism, fibromyalgia and migraines. She was last seen by me for hospital follow-up 05/19/2024. States she is compliant with her medications and denies any side effects. Asthma stable on Advair for maintenance and albuterol as needed, followed by her pulmonary department. Allergies are stable on loratadine and Flonase as needed. Hypothyroidism is stable on levothyroxine 25 mcg daily with last TSH 3.05 on 12/14/2023. Fibromyalgia is treated with Savella and Lyrica per rheumatology and also dx RA and was on humira, but off since had pneumonia last month. Will discuss further tx with rheum next week. Migraines are stable on amitriptyline for maintenance and Imitrexas needed. Iron def anemia tx with ferrous sulfate. Other providers: Medical Office Secretary Dr. Stahl - Asthma Underground Drill Operator Dr. Kathy Alcantara at [facility] - RA and Fibromyalgia GI through [place] - H.pylori gastritis, constipation ROS: GENERAL: Fatigue, no fevers RESPIRATORY: No cough, wheezing or shortness of breath CARDIOVASCULAR: No chest pain, leg swelling or palpitations SKIN: No lesions, rash or itching NEURO: No headaches or dizziness PAST MEDICAL HISTORY: Patient Active Problem List Diagnosis Date Noted Fibromyalgia Rheumatoid arthritis ([facility]) Allergic rhinitis 12/13/2023 Asthma with COPD ([facility]) 12/13/2023 Hyperlipidemia 12/13/2023 Hypothyroidism 12/13/2023 Insomnia 12/13/2023 Iron deficiency anemia 12/13/2023 Migraine 12/13/2023 Muscle spasm 12/13/2023 Past Surgical History: Procedure Laterality Date HYSTERECTOMY PROCEDURE: HISTORICAL HYSTERECTOMY; COMMENT: ANNI due to fibroids 2020 in [place] SOCIAL HISTORY: Social History Tobacco Use Smoking status: Former Smokeless tobacco: Never Substance Use Topics Alcohol use: Not Currently FAMILY HISTORY: No family history on file. MEDICATIONS DISCONTINUED/REORDERED: There are no discontinued medications. ACTIVE MEDICATIONS: No outpatient medications have been marked as taking for the 06/17/24 encounter (Office Visit) with BRISEIDA Patrick. ALLERGIES: No Known Allergies PHYSICAL EXAM: Visit Vitals BP 100/68 (BP Location: Left arm, Patient Position: Sitting, BP Cuff Size: Adult) Temp 36.6 ??C (97.8 ??F) (Temporal) Ht 1.575 m (62 ) Wt 66.6 kg (146 lb 12.8 oz) SpO2 98% BMI 26.85 kg/m?? OB Status Postmenopausal Smoking Status Former BSA 1.68 m?? APPEARANCE: Alert and in no acute distress EYES: Conjunctiva and sclera normal. HEART: RRR LUNG: clear to auscultation bilaterally EXTREMITIES: No edema NEURO: Awake, alert and oriented x 3 SKIN: Skin color normal. Warm and dry. LABS: Appointment on 06/09/2024 Component Date Value Ref Range Status H Pylori Breath Test 06/09/2024 Positive (A) Negative Final Appointment on 05/20/2024 Component Date Value Ref Range Status WBC 05/20/2024 16.3 (H) 4.8 - 10.8 K/mcL Final RBC 05/20/2024 4.40 3.80 - 4.80 M/mcL Final Hemoglobin 05/20/2024 13.5 11.5 - 16.0 g/dL Final Hematocrit 05/20/2024 41.7 35.0 - 47.0 % Final MCV 05/20/2024 95.0 79.0 - 98.0 FL Final MCH 05/20/2024 30.8 27.0 - 32.0 pcg Final MCHC 05/20/2024 32.4 32.0 - 37.0 g/dL Final RDW 05/20/2024 12.9 11.0 - 15.0 % Final Platelets 05/20/2024 349 130 - 400 K/mcL Final MPV 05/20/2024 9.8 7.0 - 11.0 FL Final NRBC 05/20/2024 0.0 <1.0 % Final NRBC Absolute 05/20/2024 0.00 <0.10 K/mcL Final Neutrophils % 05/20/2024 56.0 % Final Lymphocytes % 05/20/2024 32.0 % Final Reactive Lymphocyte 05/20/2024 4.00 % Final Monocytes % 05/20/2024 4.0 % Final Eosinophils % 05/20/2024 2.0 % Final Basophils % 05/20/2024 0.0 % Final Myelocytes % 05/20/2024 3.0 (H) % Final Neutrophils Absolute Manual 05/20/2024 9.13 (H) 1.50 - 7.00 K/mcL Final Lymphocytes Absolute 05/20/2024 5.22 (H) 1.00 - 5.00 K/mcL Final Reactive Lymph Abs Manual 05/20/2024 0.65 (H) 0.00 - 0.00 lym Final Monocytes Absolute Manual 05/20/2024 0.65 0.20 - 1.00 K/mcL Final Eosinophils Absolute Manual 05/20/2024 0.33 0.00 - 0.50 K/mcL Final Basophils Absolute Manual 05/20/2024 0.00 0.00 - 0.20 K/mcL Final Myelocytes Absolute Manual 05/20/2024 0.49 (H) 0.00 - 0.00 K/mcL Final Rbc Morphology 05/20/2024 See comment (A) Consistent with indices, Normal for Final RBC: Morphology agrees with CBC Platelet Morphology - [facility] 05/20/2024 See Note (A) Normal Final PLT: Normal Abstract on 01/29/2024 Component Date Value Ref Range Status Depression Screening 12/13/2023 Abstracted Final Annual BMP Blood Test 12/14/2023 Abstracted Final LDL/HDL Ratio 12/14/2023 4 0 - 4 Final Triglycerides 12/14/2023 113 0 - 150 mg/dL Final Cholesterol 12/14/2023 164 0 - 200 mg/dL Final HDL 12/14/2023 40 >=40 mg/dL Final LDL Cholesterol 12/14/2023 102 (A) 0 - 100 mg/dL Final Hemoglobin A1C 12/14/2023 5.0 <=6.5 % Final Medication and lab orders: Orders Placed This Encounter Procedures Thyroid stimulating hormone Comprehensive metabolic panel CBC and differential Ferritin Iron Other orders: None IMAGING: IMPRESSION: 1. Asthma with COPD ([facility]) 2. Allergic rhinitis, unspecified seasonality, unspecified trigger 3. Hypothyroidism, unspecified type 4. Fibromyalgia 5. Rheumatoid arthritis involving multiple sites, unspecified whether rheumatoid factor present ([facility]) 6. Iron deficiency anemia, unspecified iron deficiency anemia type PLAN: 1. Asthma. Stable. Continue with Advair for maintenance and albuterol as needed, follow-up with pulmonary as scheduled. 2. Allergic rhinitis. Stable. Continue loratadine and Flonase as needed and avoid triggers. 3. Hypothyroidism. Stable. Reviewed most recent TSH. Continue with levothyroxine 25 mcg daily. Recheck TSH today. 4. Fibromyalgia/RA. Stable. Continue current medications (see HPI (and follow-up with rheumatology as scheduled. 5. Iron deficiency anemia. Check labs today, continue with iron replacement. Diet discussed. Follow-up 3 months. Call sooner if needed. BRISEIDA Patrick on 06/17/2024 at 4:53 PM EST documented in this encounter Plan of Treatment Upcoming Encounters Date Type Department Care Team (Late st Contact Info) Description 06/30/2024 2:[address] [facility] 175 [facility] [address] [place] [phone] Hugo Shultz, INDER 07/01/2024 1:00 PM EDT Office Visit General Surgery [facility] 175 [facility] [address] [place] [phone] Fredo Machado, 175 [facility] [address] [place] [address] 07/04/2024 1:30 PM EDT Office Visit Pulmonolgy [facility] 175 [facility] [address] [place] [phone] Marlene Ahuja MD [address] [address] 07/07/2024 2:00 PM EDT Treatment [facility] [address] [phone] Felix Loredo, EARTH SCIENCES PROFESSOR 07/14/2024 2:00 PM EDT Treatment [facility] [address] [phone] Amelia Perez, PT 09/18/2024 2:15 PM EDT Office Visit Internal Medicine [facility] [address] [phone] Bonnie Huff PA [address] [address] documented as of this encounter Results * Iron (06/23/2024 2:31 PM EDT) Pathologist [facility] Iron 71 40 - 150 mcg/dL LAB CHEMISTRY METHOD 06/23/2024 6:41 PM EDT [facility] Blood Venous blood specimen / Unknown Venipuncture / Unknown 06/23/2024 2:31 PM EDT 06/23/2024 2:31 PM EDT Bonnie GOINS LAB BLOOD ORDERABLES Fin al Result [facility] [address] [place] [address], * Ferritin (06/23/2024 2:31 PM EDT) Ferritin 118 8 - 252 ng/mL LAB CHEMISTRY METHOD 06/23/2024 6:42 PM EDT [facility] Blood Venous blood specimen / Unknown Venipuncture / Unknown 06/23/2024 2:31 PM EDT 06/23/2024 2:31 PM EDT us Bonnie GOINS LAB BLOOD ORDERABLES Fin al Result [facility] [address] [place] [address], [place] [phone] * Comprehensive metabolic panel (06/23/2024 2:31 PM EDT) Sodium 140 133 - 145 mmol/L LAB CHEMISTRY METHOD 06/23/2024 6:41 PM [facility] Potassium 4.5 3.5 - 5.5 mmol/L LAB CHEMISTRY METHOD 06/23/2024 6:41 PM [facility] Chloride 107 96 - 110 mmol/L LAB CHEMISTRY METHOD 06/23/2024 6:41 PM [facility] CO2 26 21 - 32 mmol/L LAB CHEMISTRY METHOD 06/23/2024 6:41 PM [facility] Anion Gap 7 3 - 11 LAB CHEMISTRY METHOD 06/23/2024 6:41 PM [facility] Glucose 92 70 - 100 mg/dL LAB CHEMISTRY METHOD 06/23/2024 6:41 PM [facility] BUN 15 5 - 25 mg/dL LAB CHEMISTRY METHOD 06/23/2024 6:41 PM [facility] Creatinine 0.79 0.50 - 1.10 mg/dL LAB CHEMISTRY METHOD 06/23/2024 6:41 PM [facility] eGFR 92 >=60 mL/min/1. 73m2 LAB CHEMISTRY METHOD 06/23/2024 6:41 PM [facility] Comment:Calculation based on the??Chronic Kidney Disease Epidemiology Collaboration (CKD-EPI) equation refit??without adjustment for race. BUN/Creatinine Ratio 19.0 LAB CHEMISTRY METHOD 06/23/2024 6:41 PM [facility] Calcium 9.6 8.5 - 10.5 mg/dL LAB CHEMISTRY METHOD 06/23/2024 6:41 PM EDT [facility] AST (SGOT) 30 10 - 42 unit/L LAB CHEMISTRY METHOD 06/23/2024 6:41 PM EDT [facility] ALT (SGPT) 44 10 - 60 unit/L LAB CHEMISTRY METHOD 06/23/2024 6:41 PM EDT [facility] Alkaline Phosphatase 106 42 - 121 unit/L LAB CHEMISTRY METHOD 06/23/2024 6:41 PM EDT [facility] Total Protein 7.5 6.0 - 8.0 g/dL LAB CHEMISTRY METHOD 06/23/2024 6:41 PM EDT [facility] Albumin 3.9 3.2 - 5.0 g/dL LAB CHEMISTRY METHOD 06/23/2024 6:41 PM EDT [facility] Total Bilirubin 0.3 0.0 - 1.4 mg/dL LAB CHEMISTRY METHOD 06/23/2024 6:41 PM EDT [facility] Blood Venous blood specimen / Unknown Venipuncture / Unknown 06/23/2024 2:31 PM EDT 06/23/2024 2:31 PM EDT Bonnie GOINS LAB BLOOD ORDERABLES Fin al Result [facility] [address] [place] [address], * Thyroid stimulating hormone (06/23/2024 2:31 PM EDT) TSH 1.84 0.40 - 4.00 mcIU/mL LAB CHEMISTRY METHOD 06/23/2024 6:48 PM EDT [facility] Blood Venous blood specimen / Unknown Venipuncture / Unknown 06/23/2024 2:31 PM EDT 06/23/2024 2:31 PM EDT us Bonnie GOINS LAB BLOOD ORDERABLES Fin al Result [facility] [address] [place] [address], documented in this encounter Visit Diagnoses Diagnosis Asthma with COPD ([facility])- Primary Allergic rhinitis, unspecified seasonality, unspecified trigger Hypothyroidism, unspecified type Fibromyalgia Unspecified myalgia and myositis Rheumatoid arthritis involving multiple sites, unspecified whether rheumatoid factor present ([facility]) Iron deficiency anemia, unspecified iron deficiency anemia type documented in this encounter Additional Health Concerns Assessment Noted Time PHQ-9 Depression Total Score: 14 025 8:17 PM EST documented as of this encounter Care Teams Marine Erector Relationship Specialty Start Date End Date Bonnie Huff PA [address] [place] [address] PCP - General 10/24/23 documented as of this encounter
--- OUTSIDE RECORDS SUMMARY | 2024-06-24 17:10 | XMS_ITS | Encounter Summary ---
Author Organization [facility] Address [address] [place] [address] Care Team Providers Care Geodetic Surveyor Technologist Name Role Phone Bonnie Huff Primary Care Provider + Reason for Referral * Imaging (Routine) - Closed Specialty Diagnoses / Procedures Referred By Contac t Referred To Contact Radiology Diagnoses Umbilical hernia without obstruction and without gangrene Procedures CT Abdomen Pelvis wo Contrast Fredo Machado DO [address] [address] Phone: tel: fax: [facility] [address] [place] [address] Phone: tel: Referral ID Status Reason Start Date Expiration Date Visits Re quested Visits Authorized [id number] Closed 05/30/2024 07/29/2024 1 1 Reason for Visit * Imaging (Routine) - Closed Specialty Diagnoses / Procedures Referred By Contac t Referred To Contact Radiology Diagnoses Umbilical hernia without obstruction and without gangrene Procedures CT Abdomen Pelvis wo Contrast Fredo Machado DO [address] [address] Phone: tel: fax: [facility] [address] [place] [address] Phone: tel: Referral ID Status Reason Start Date Expiration Date Visits Re quested Visits Authorized [id number] Closed 05/30/2024 07/29/2024 1 1 Encounter Details Date Type Department Care Team (Latest Contact Info) Description 06/09/2024 1:49 PM EST - 06/09/2024 11:59 PM EST Hospital Encounter [facility] CT [address] [place] [address] Umbilical hernia without obstruction and without gangrene Discharge Disposition: Home or Self Care Social History Tobacco Use Types Packs/Day Years [...] for your loved ones. For example, child life therapist or elderly care for an older [...] PM EST documented as of this encounter Medications at Time of Discharge adalimumab (HUMIRA) 40 mg/0.8 mL syringe Inject 0.8 mL (40 mg total) under the skin every 14 (fourteen) days. albuterol HFA (PROAIR HFA ; PROVENTIL HFA ; VENTOLIN HFA) 90 mcg/actuation inhaler Inhale 2 Puffs into the lungs every 6 hours as needed for Cough, Wheezing or Shortness of Breath. 3 inhalers and 3 refills 12/13/2023 5 baclofen (LIORESAL) 10 mg tablet Take 1 Tablet by mouth daily as needed (muscle spasms). 12/13/2023 docusate sodium (Colace) 100 mg capsule Take 1 capsule (100 mg total) by mouth 2 (two) times a day. 60 each 11 06/06/2024 fluticasone-salmet myesha (ADVAIR DISKUS) 250-50 mcg/dose diskus inhaler Inhale 1 Puff into the lungs 2 times daily. 01/04/2024 folic acid (FOLVITE) 1 mg tablet Take 1 tablet (1 mg total) by mouth 1 (one) time each day. 01/31/2024 hydrOXYzine HCL (ATARAX) 50 mg tablet Take 2 Tablets by mouth at bedtime as needed (sleep). 12/13/2023 linaCLOtide (Linzess) 145 mcg capsule Take 1 capsule (145 mcg total) by mouth 1 (one) time each day. Hold for diarrhea 30 capsule 11 06/15/2024 loratadine (CLARITIN) 10 mg tablet Take 1 Tablet by mouth daily as needed for Allergies. 12/13/2023 plecanatide (Trulance) 3 mg tabletIndications: Routine physical examination,Epigas tric pain,H/O Helicobacter infection,Strainin g with stools Take 1 tablet (3 mg total) by mouth 1 (one) time each day. 30 tablet 11 06/06/2024 polyethylene glycol (MIRALAX) 17 gram packet Take 17 g by mouth 1 (one) time each day. 510 g 06/06/2024 pregabalin (LYRICA) 75 mg capsule Take 1 capsule (75 mg total) by mouth 2 (two) times a day. 02/25/2024 Savella 25 mg tablet Take 1 tablet (25 mg total) by mouth 2 (two) times a day. 02/25/2024 SUMAtriptan (IMITREX) 50 mg tablet Take 1 tablet (50 mg total) by mouth 2 (two) times a day if needed for migraine. Take 1 tab prn migraine, may repeat in 2 hours prn max 100 mg per 24 hours 9 tablet 1 06/10/2024 6 amitriptyline (ELAVIL) 25 mg tablet Take 1 Tablet by mouth at bedtime. 12/13/2023 5 ferrous sulfate 325 mg (65 mg elemental iron) tablet Take 1 Tablet by mouth daily. 12/13/2023 5 fluticasone propionate (FLONASE) 50 mcg/actuation nasal spray 2 Sprays by Each Nare route daily. 12/13/2023 5 levothyroxine (SYNTHROID, LEVOTHROID) 25 mcg tablet Take 1 Tablet by mouth every morning (before breakfast). 12/13/2023 5 documented as of this encounter Discharge Disposition Disposition Code Departure Means Destination Home or Self Care documented in this encounter Plan of Treatment Upcoming Encounters Date Type Department Care Team (Late st Contact Info) Description 06/30/2024 2:00 PM EDT Treatment [address] [place] [phone] Hugo Shultz, STAVE SAW OPERATOR 07/01/2024 1:00 PM EDT Office Visit General Surgery [facility] 175 [facility] [address] [place] [phone] Fredo Machado, DO [address] [address] 07/04/2024 1:30 PM EDT Office Visit Pulmonolgy [facility] [address] [phone] Marlene Ahuja MD [address] [phone] 07/07/2024 2:00 PM EDT Treatment [facility] [address] [phone] Felix Loredo, STAVE SAW OPERATOR 07/14/2024 2:00 PM EDT Treatment [facility] [address] [phone] Amelia Perez, PT 09/18/2024 2:15 PM EDT Office Visit Internal Medicine [facility] [address] [phone] Bonnie Huff PA [address] [address] documented as of this encounter Procedures Procedure Name Priority Date/Time Associated Diagnosis Comments CT ABDOMEN PELVIS WO CONTRAST Routine 06/09/2024 2:06 PM EST Umbilical hernia without obstruction and without gangrene documented in this encounter Results * CT Abdomen Pelvis wo Contrast (06/09/2024 2:06 PM EST) Anatomical Region Laterality Modality Body Computed Tomogra phy 06/12/2024 1:19 PM EST Impressions 06/12/2024 1:19 PM EST No acute findings in the chest, abdomen, or pelvis. Chronic changes at the lung bases suspicious for an infectious or inflammatory process such as chronic atypical mycobacterial infection or recurrent aspiration. Hepatic steatosis. Tiny fat-containing periumbilical hernia -------- FINAL REPORT -------- Dictated By: MATT WORLEY Dictated Date: 06/12/2024 13:19 ET Assigned Physician: MATT WORLEY Reviewed and Electronically Signed By: MATT WORLEY Signed Date: 06/12/2024 13:19 ET Workstation ID: [id number] Transcribed By: Self Edit Transcribed Date: 06/12/2024 13:19 ET Narrative 06/12/2024 1:19 PM EST PROCEDURE: Chest, abdomen, and pelvis CT INDICATION: Interstitial lung disease, pain, hernia TECHNIQUE: Chest, abdomen, and pelvis CT without contrast. Multi planar reformats were created and interpreted. The examination was performed utilizing dose reduction techniques. ??Total DLP 189 COMPARISON: ??No priors available. FINDINGS: Chest: Central airways are patent. ??Biapical pleural-parenchymal scarring. ??Basilar predominant centrilobular nodularity, groundglass opacities, traction bronchiectasis, and scarring, most pronounced in the right middle lobe and lingula. ??No honeycombing. No pleural effusion or pneumothorax. Thyroid gland is normal. ??No mediastinal or hilar lymphadenopathy. ??Esophagus is normal. Cardiac chambers are normal in size. ??No pericardial effusion. ??No significant coronary artery calcifications. No axillary adenopathy or soft tissue mass. Bones are normal for age. Abdomen/pelvis: Hepatic steatosis. ??No focal liver lesions. ??Gallbladder and biliary tree are normal. Pancreas, spleen, and adrenal glands are normal. Kidneys are normal. No retroperitoneal or mesenteric lymphadenopathy. ??Abdominal aorta is normal in size. Hysterectomy. ??No adnexal mass or pelvic lymphadenopathy. ??Bladder is partially decompressed and within normal limits. No bowel obstruction or wall thickening. ??Normal appendix. No ascites, fluid collection, or free intraperitoneal air. Tiny fat-containing periumbilical hernia. Bones are normal for age. Procedure Note Matt Worley MD - 06/12/2024 PROCEDURE: Chest, abdomen, and pelvis CT INDICATION: Interstitial lung disease, pain, hernia TECHNIQUE: Chest, abdomen, and pelvis CT without contrast. Multi planarreformats were created and interpreted. The examination was performedutilizing dose reduction techniques. Total DLP 189 COMPARISON: No priors available. FINDINGS: Chest: Central airways are patent. Biapical pleural-parenchymal scarring.Basilar predominant centrilobular nodularity, groundglass opacities,traction bronchiectasis, and scarring, most pronounced in the right middlelobe and lingula. No honeycombing. No pleural effusion or pneumothorax. Thyroid gland is normal. No mediastinal or hilar lymphadenopathy.Esophagus is normal. Cardiac chambers are normal in size. No pericardial effusion. Nosignificant coronary artery calcifications. No axillary adenopathy or soft tissue mass. Bones are normal for age. Abdomen/pelvis: Hepatic steatosis. No focal liver lesions. Gallbladder and biliary treeare normal. Pancreas, spleen, and adrenal glands are normal. Kidneys are normal. No retroperitoneal or mesenteric lymphadenopathy. Abdominal aorta isnormal in size. Hysterectomy. No adnexal mass or pelvic lymphadenopathy. Bladder ispartially decompressed and within normal limits. No bowel obstruction or wall thickening. Normal appendix. No ascites, fluid collection, or free intraperitoneal air. Tiny fat-containing periumbilical hernia. Bones are normal for age. IMPRESSION: No acute findings in the chest, abdomen, or pelvis. Chronic changes at the lung bases suspicious for an infectious orinflammatory process such as chronic atypical mycobacterial infection orrecurrent aspiration. Hepatic steatosis. Tiny fat-containing periumbilical hernia -------- FINAL REPORT -------- Dictated By: MATT WORLEY Dictated Date: 06/12/2024 13:19 ET Assigned Physician: MATT WORLEY Reviewed and Electronically Signed By: MATT WORLEY Signed Date: 06/12/2024 13:19 ET Workstation ID: [id number] Transcribed By: Self Edit Transcribed Date: 06/12/2024 13:19 ET Fredo Machado DO IMG CT PROCEDURES Final Result documented in this encounter Visit Diagnoses Diagnosis Umbilical hernia without obstruction and without gangrene documented in this encounter Additional Health Concerns Assessment Noted Time PHQ-9 Depression Total Score: 14 025 8:17 PM EST documented as of this encounter Care Teams Geodetic Surveyor Technologist Relationship Specialty [place] [address] [place] [address] PCP - General 10/24/23 documented as of this encounter
--- OUTSIDE RECORDS SUMMARY | 2024-06-24 17:10 | XMS_ITS | Encounter Summary ---
Author Organization [employer] Address [address] [place] [address] Care Team Providers Care Fly Maker Name Role Phone Bonnie Huff Primary Care Provider + Reason for Visit * Reason Onset Date Comments Request For Order(s) 06/19/2024 Karen CRYSTAL Missed Visit 05/27/24 Encounter Details Date Type Department Care Team ([facility] st Contact Info) Description 06/19/2024 Telephone Internal Medicine - [place] [address] [facility] [address] [place] [address] Rocio Almaguer MA Request For Order(s) (Karen CRYSTAL Missed Visit 05/27/24) Social History Tobacco Use Types Packs/Day Years [...] for your loved ones. For example, child care center assistant director or elderly care for an older [...] Progress Notes * Rocio Almaguer MA - 06/23/2024 6:24 AM EDT Scanned into chart and faxed to Karen CRYSTAL [phone] * Rocio Almaguer MA - 06/19/2024 1:56 PM EST Karen CRYSTAL Missed Visit 05/27/24 Please sign & documented in this encounter Plan of Treatment Upcoming Encounters Date Type Department Care Team (Late st Contact Info) Description 06/30/2024 2:00 PM EDT Treatment [facility] [address] [phone] Hugo Shultz, LAND ACQUISITION SPECIALIST 07/01/2024 1:00 PM EDT Office Visit General Surgery [facility] [address] [phone] Fredo Machado, DO [address] [address] 07/04/2024 1:30 PM EDT Office Visit Pulmonolgy [facility] [address] [phone] Marlene Ahuja MD [address] [address] 07/07/2024 2:00 PM EDT Treatment [facility] [address] [phone] Felix Loredo, LAND ACQUISITION SPECIALIST 07/14/2024 2:00 PM EDT Treatment [facility] [address] [phone] Amelia Perez, PT 09/18/2024 2:15 PM EDT Office Visit Internal Medicine [facility] [address] [phone] Bonnie Huff PA [address] [address] documented as of this encounter Visit Diagnoses Not on filedocumented in this encounter Additional Health Concerns Assessment Noted Time PHQ-9 Depression Total Score: 14 025 8:17 PM EST documented as of this encounter Care Teams Fly Maker Relationship Specialty Start Date End Date Bonnie Huff PA [address] [place] [address] PCP - General 10/24/23 documented as of this encounter
--- OUTSIDE RECORDS SUMMARY | 2024-06-24 17:10 | XMS_ITS | Clinical Summary ---
Author Organization [facility] Address [address] [place] [address] Phone Care Team Providers Care Locomotive Engineer Name Role Phone Bonnie Huff Primary Care Provider + Allergies No known active allergies Medications albuterol HFA (PROAIR HFA ; PROVENTIL HFA ; VENTOLIN HFA) 90 mcg/actuation inhaler Inhale 2 Puffs into the lungs every 6 hours as needed for Cough, Wheezing or Shortness of Breath. 3 inhalers and 3 refills 12/13/19 24 025 Active baclofen (LIORESAL) 10 mg tablet Take 1 Tablet by mouth daily as needed (muscle spasms). 12/13/19 24 Active fluticasone-analisa meterol (ADVAIR DISKUS) 250-50 mcg/dose diskus inhaler Inhale 1 Puff into the lungs 2 times daily. 01/04/20 24 025 Active hydrOXYzine HCL (ATARAX) 50 mg tablet Take 2 Tablets by mouth at bedtime as needed (sleep). 12/13/19 24 Active loratadine (CLARITIN) 10 mg tablet Take 1 Tablet by mouth daily as needed for Allergies. 12/13/19 24 Active Savella 25 mg tablet Take 1 tablet (25 mg total) by mouth 2 (two) times a day. 02/25/20 24 Active folic acid (FOLVITE) 1 mg tablet Take 1 tablet (1 mg total) by mouth 1 (one) time each day. 01/31/20 24 Active pregabalin (LYRICA) 75 mg capsule Take 1 capsule (75 mg total) by mouth 2 (two) times a day. 02/25/20 Active adalimumab (HUMIRA) 40 mg/0.8 mL syringe Inject 0.8 mL (40 mg total) under the skin every 14 (fourteen) days. Active docusate sodium (Colace) 100 mg capsule Take 1 capsule (100 mg total) by mouth 2 (two) times a day. 60 each 06/06/19 Active polyethylene glycol (MIRALAX) 17 gram packet Take 17 g by mouth 1 (one) time each day. 510 g 06/06/19 026 Active plecanatide (Trulance) 3 mg tabletIndicatio ns:Routine physical examination,Epi gastric pain,H/O Helicobacter infection,Strai [place] with stools Take 1 tablet (3 mg total) by mouth 1 (one) time each day. 30 tablet 06/06/19 Active SUMAtriptan (IMITREX) 50 mg tablet Take 1 tablet (50 mg total) by mouth 2 (two) times a day if needed for migraine. Take 1 tab prn migraine, may repeat in 2 hours prn max 100 mg per 24 hours 9 tablet 1 06/10/19 25 026 Active amoxicillin (AMOXIL) 500 mg capsule Take 2 capsules (1,000 mg total) by mouth 2 (two) times a day. 56 capsule 06/10/19 25 Active levoFLOXacin (LEVAQUIN) 500 mg tablet Take 1 tablet (500 mg total) by mouth 1 (one) time each day for 14 days. 14 each 06/10/19 25 025 Active omeprazole (PriLOSEC) [address] capsule Take 1 capsule (40 mg total) by mouth 1 (one) time each day. Take in a.m. on empty stomach, wait 30 minutes and then eat to activate medication 14 each 06/10/19 25 026 Active amitriptyline (ELAVIL) 25 mg tablet Take 1 tablet (25 mg total) by mouth at bedtime. Take 1 Tablet by mouth at bedtime. 90 tablet 3 06/10/19 25 Active ferrous sulfate 325 mg (65 mg elemental iron) tablet Take 1 tablet (325 mg total) by mouth 1 (one) time each day. Take 1 Tablet by mouth daily. 90 tablet 3 06/10/19 25 Active levothyroxine (SYNTHROID, LEVOTHROID) 25 mcg tablet Take 1 tablet (25 mcg total) by mouth 1 (one) time each day before breakfast. Take 1 Tablet by mouth every morning (before breakfast). 90 tablet 3 06/10/19 25 Active fluticasone propionate (FLONASE) 50 mcg/actuation nasal spray Administer 2 sprays into each nostril 1 (one) time each day. 2 Sprays by Each Nare route daily. 16 g 3 06/10/19 25 Active linaCLOtide (Linzess) 145 mcg capsule Take 1 capsule (145 mcg total) by mouth 1 (one) time each day. Hold for diarrhea 30 capsule 11 06/16/19 25 Active amitriptyline (ELAVIL) 25 mg tablet Take 1 Tablet by mouth at bedtime. 12/13/19 24 025 Discontinued(R eorder) ferrous sulfate 325 mg (65 mg elemental iron) tablet Take 1 Tablet by mouth daily. 12/13/19 24 025 Discontinued(R eorder) fluticasone propionate (FLONASE) 50 mcg/actuation nasal spray 2 Sprays by Each Nare route daily. 12/13/19 24 025 Discontinued(R eorder) levothyroxine (SYNTHROID, LEVOTHROID) 25 mcg tablet Take 1 Tablet by mouth every morning (before breakfast). 12/13/19 24 025 Discontinued(R eorder) SUMAtriptan (IMITREX) 50 mg tablet Take 1 tab prn migraine, may repeat in 2 hours prn max 100 mg per 24 hours 12/13/19 24 025 Discontinued(R eorder) methylPREDNISol one (MEDROL) 4 mg tablet Take 1 tablet (4 mg total) by mouth 1 (one) time each day. 025 Discontinued Active Problems Problem Noted Date Diagnosed Date Allergic rhinitis 12/13/2023 Asthma with COPD 12/13/2023 Hyperlipidemia 12/13/2023 Hypothyroidism 12/13/2023 Insomnia 12/13/2023 Iron deficiency anemia 12/13/2023 Migraine 12/13/2023 Muscle spasm 12/13/2023 Fibromyalgia Rheumatoid arthritis Encounters Date Type Department Care Team Description 06/24/2024 Telephone Internal Medicine [address] [phone] Rocio Almaguer [place] Request For Order(s) (Karen CRYSTAL Physicians Discharge Summary Report /) 06/23/2024 2:00 PM EDT Treatment [address] [phone] Hugo Shultz, FOOD PROCESSING CHEMIST Lateral pain of left hip (Primary Dx) 06/19/2024 Telephone Internal Medicine [address] [phone] Rocio Almaguer [place] Request For Order(s) (Karen CRYSTAL Missed Visit 05/27/24) 06/17/2024 2:00 PM EST Office Visit Internal [address] [phone] Bonnie Huff PA Asthma with COPD ([facility]) (Primary Dx); Allergic rhinitis, unspecified seasonality, unspecified trigger; Hypothyroidism, unspecified type; Fibromyalgia; Rheumatoid arthritis involving multiple sites, unspecified whether rheumatoid factor present ([facility]); Iron deficiency anemia, unspecified iron deficiency anemia type 06/16/2024 2:30 PM EST Treatment [address] [phone] Hugo Shultz, FOOD PROCESSING CHEMIST Lateral pain of left hip (Primary Dx) 06/10/2024 Telephone Internal Medicine [address] [phone] Rocio Almaguer [place] Request For Order(s) ([facility] Missed Visit 05/20/24) 06/10/2024 Telephone [address]astroenter[address] [phone] Stan Babb PA 06/10/2024 Telephone Gastroenterology [address] [phone] Stan Babb PA 06/09/2024 1:49 PM EST - 06/09/2024 11:59 PM EST Hospital Encounter [facility] CT Scan [address] [place] [phone] Umbilical hernia without obstruction and without gangrene Discharge Disposition: Home or Self Care 06/09/2024 1:49 PM EST - 06/09/2024 11:59 PM EST Hospital Encounter [facility] CT Scan [address] [place] [phone] Pneumonia of left lung due to infectious organism, unspecified part of lung Discharge Disposition: Home or Self Care 06/09/2024 Telephone Gastroenterology [address] [phone] Elba Sierra PA PRIOR AUTHORIZATION 06/06/2024 3:00 PM EST Office Visit Gastroenterology [address] [phone] Stan Babb PA Epigastric pain (Primary Dx); Routine physical examination; H/O Helicobacter infection; Straining with stools 06/04/2024 2:00 PM EST Evaluation [address] [phone] AnaAmelia, PT Lateral pain of left hip (Primary Dx); Lumbar pain 06/04/2024 Telephone Internal Medicine - [address] [phone] Bonnie Huff PA Melonie: MARAH CRAVENI 06/04/2024 Telephone Internal Medicine [address] [phone] Rocio Almaguer [place] Request For Order(s) ([facility] Missed Visit 05/20/24/) 05/20/2024 11:00 AM EST Consult General Surgery - [address] [place] [phone] Fredo Machado, DO Umbilical hernia without obstruction and without gangrene 05/20/2024 10:15 AM EST Office Visit [address] [phone] Marlene Ahuja MD Pneumonia of left lung due to infectious organism, unspecified part of lung (Primary Dx); Asthma with COPD ([facility]); Bronchiectasis without acute exacerbation ([facility]) 05/19/2024 1:30 PM EST Office Visit Internal Medicine [address] [phone] Bonnie Huff PA Hospital discharge follow-up (Primary Dx); Pneumonia of left lung due to infectious organism, unspecified part of lung; Moderate persistent asthma with acute exacerbation 05/16/2024 Telephone Internal Medicine [address] [phone] Bonnie Huff PA VNA 05/01/2024 2:00 PM EST Consult Orthopedics [address] [phone] Claudy Araya PA Lumbar pain (Primary Dx); Lateral pain of left hip 04/28/2024 9:45 AM EST Office Visit Internal Medicine [address] [phone] Bonnie Huff PA Umbilical hernia without obstruction and without gangrene (Primary Dx); Jaw pain 04/21/[address] [facility] [address] [phone] Stan Babb PA 04/07/2024 Telephone Gastroenterology - 299 [facility] [address] [phone] El Savage MD 04/02/2024 3:00 PM EST Office Visit Pulmonol[address] [phone] Jessica Stahl MD Pneumonia due to infectious organism, unspecified laterality, unspecified part of lung (Primary Dx); Moderate persistent asthma, unspecified whether complicated; Bronchiectasis without complication ([facility]) 04/02/2024 1:47 PM EST - 04/02/2024 11:59 PM EST Hospital Encounter [facility] Xray [address] [place] [phone] Pneumonia due to infectious organism, unspecified laterality, unspecified part of lung Discharge Disposition: Home or Self Care 04/01/2024 Telephone Pulmonolgy - [facility] [address] [phone] Jessica Stahl MD 03/28/2024 1:09 PM EST - 03/28/2024 11:59 PM EST Hospital Encounter [facility] [address] [place] [phone] Routine physical examination Discharge Disposition: Home or Self Care 03/26/2024 12:48 PM EST - 03/26/2024 11:59 PM EST Hospital Encounter [facility] CT Scan [address] [place] [phone] Other migraine without status migrainosus, not intractable Discharge Disposition: Home or Self Care 03/26/2024 12:48 PM EST - 03/26/2024 11:59 PM EST Hospital Encounter [facility] Xray [address] [place] [address] Lateral pain of left hip Discharge Disposition: Home or Self Care from Last 3 Months Surgical History Surgery Date Site/Laterality Comments HYSTERECTOMY PROCEDURE: HISTORICAL HYSTERECTOMY; COMMENT: ANNI due to fibroids 2020 in [place] Medical History Medical History Date Comments Allergic rhinitis DX:Allergic rh initis Hypothyroidism DX:Hypothyroidis m Muscle spasm DX:Muscle spasm Insomnia DX:Insomnia Iron deficiency anemia DX:Iron d eficiency anemia Migraine DX:Migraine Asthma DX:Asthma Hyperlipidemia DX:Hyperlipidemi a Asthma with COPD ([facility]) DX:As thma with COPD ([facility]) Fibromyalgia Rheumatoid arthritis ([facility]) Family History Relation Name Status Comments Father [...] for your loved ones. For example, child support investigator or elderly care for an older adult? [...] Orientation Straight 02/19/2024 1: 59 PM EST Obstetrics History Para Term AB IAB SAB Ectopic Multiple Livin g Live Births 1 Last Filed Vital Signs Vital Sign Reading Time Taken Comments Blood Pressure 100/68 06/17/2024 1:46 PM EST Pulse 70 06/06/2024 3:21 PM EST Temperature 36.6 ??C (97.8 ??F) 06/17/2024 1:46 PM ES T Respiratory Rate 20 05/20/2024 10:1 9 AM EST Oxygen Saturation 98% 06/17/2024 1:46 PM EST Inhaled Oxygen Concentration - - Weight 66.6 kg (146 lb 12.8 oz) 06/17/2024 1:46 PM EST Height 157.5 cm (5' 2 ) 06/17/2024 1:46 PM EST Body Mass Index 26.85 06/17/2024 1:46 PM EST Plan of Treatment Upcoming Encounters Date Type Department Care Team (Late st Contact Info) Description 06/30/2024 2:00 PM EDT Treatment [facility] [address] [phone] Hugo Shultz PTA 07/01/2024 1:00 PM EDT Office Visit General Surgery [facility] [address] [phone] Fredo Machado, DO [address] [address] 07/04/2024 1:30 PM EDT Office Visit Pulmonolgy [facility] [address] [phone] Marlene Ahuja MD [address] [address] 07/07/2024 2:00 PM EDT Treatment [facility] [address] [place] [phone] Felix Loredo, FOOD PROCESSING CHEMIST 07/14/2024 2:00 PM EDT Treatment [facility] [address] [facility] [address] [place] [phone] Martinsdale Amelia, PT 09/18/2024 2:15 PM EDT Office Visit Internal Medicine - [facility] [address] [facility] [address] [place] [phone] Bonnie Huff PA [address] [facility] [address] [place] [address] Health Maintenance Due Date Last Done Comments COVID-19 Vaccine (#1) 11/27/1979 DTaP,Tdap,and Td Vaccines (1 - Tdap) 1993 Hepatitis B Vaccines (1 of 3 - 19+ 3-dose series) 1993 Pneumococcal Vaccine: Pediatrics (0 to 5 Years) and At-Risk Patients (6 to 64 Years) (1 of 2 - PCV) 1993 Cervical Cancer Screening: P ap Smear [...] patient's age to complete this topic Meningococcal B Vacine Aged Out No lo nger eligible based on patient's age to complete this topic RSV Immunization Patients Under 20 months Aged Out No longer eligible b ased on patient's age to complete this topic Varicella Vaccines Aged Out No longer eligible based on patient's age to complete this topic Procedures Procedure Name Priority Date/Time Associated Diagnosis Comments CBC WITH AUTO DIFFERENTIAL Routine 06/23/2024 2:31 PM EDT Fibromyalgia IRON Routine 06/23/2024 2:31 PM EDT Iron deficiency anemia, unspecified iron deficiency anemia type FERRITIN Routine 06/23/2024 2:31 PM EDT Iron deficiency anemia, unspecified iron deficiency anemia type CBC AND DIFFERENTIAL Routine 06/23/2024 2:31 PM EDT Fibromyalgia COMPREHENSIVE METABOLIC PANEL Routine 06/23/2024 2:31 PM EDT Fibromyalgia THYROID STIMULATING HORMONE Routine 06/23/2024 2:31 PM EDT Hypothyroidism, unspecified type CT ABDOMEN PELVIS WO CONTRAST Routine 06/09/2024 2:06 PM EST Umbilical hernia without obstruction and without gangrene CT CHEST WO CONTRAST Routine 06/09/2024 2:06 PM EST Pneumonia of left lung due to infectious organism, unspecified part of lung HELICOBACTER PYLORI BREATH TEST Routine 06/09/2024 1:08 PM EST Routine physical examination Epigastric pain H/O Helicobacter infection Straining with stools MANUAL DIFFERENTIAL - SYSMEX WAM Routine 05/20/2024 11:35 AM EST Pneumonia of left lung due to infectious organism, unspecified part of lung CBC WITH AUTO DIFFERENTIAL Routine 05/20/2024 11:35 AM EST Pneumonia of left lung due to infectious organism, unspecified part of lung CBC AND DIFFERENTIAL Routine 05/20/2024 11:35 AM EST Pneumonia of left lung due to infectious organism, unspecified part of lung XR CHEST 2 VIEWS Routine 04/02/2024 1:56 [...] PM EST Lateral pain of left hip LIPID PANEL Routine 12/14/2023 HM DEPRESSION SCREENING Routine 12/13/2023 from Last 3 Months or Most Recently Relevant to Health Maintenance Results * CBC auto differential (06/23/2024 2:31 PM EDT) Only the most recent of2 resultswithin the time period is included. WBC 7.1 4.8 - 10.8 K/mcL LAB HEMETOLOGY [facility] RBC 4.10 3.80 - 4.80 M/mcL LAB HEMETOLOGY METHOD 06/23/2024 6:31 PM EDT [facility] Hemoglobin 13.0 11.5 - 16.0 g/dL LAB HEMETOLOGY METHOD 06/23/2024 6:[facility] Hematocrit 39.7 35.0 - 47.0 % LAB HEMETOLOGY METHOD 06/23/2024 6:31 PM [facility] MCV 95.9 79.0 - 98.0 FL LAB HEMETOLOGY METHOD 06/23/2024 6:31 PM [facility] MCH 31.4 27.0 - 32.0 pcg LAB HEMETOLOGY METHOD 06/23/2024 6:31 PM [facility] MCHC 32.7 32.0 - 37.0 g/dL LAB HEMETOLOGY METHOD 06/23/2024 6:31 PM [facility] RDW 12.6 11.0 - 15.0 % LAB HEMETOLOGY METHOD 06/23/2024 6:31 PM [facility] Platelets 293 130 - 400 K/mcL LAB HEMETOLOGY METHOD 06/23/2024 6:31 PM [facility] MPV 10.8 7.0 - 11.0 FL LAB HEMETOLOGY METHOD 06/23/2024 6:31 PM [facility] NRBC 0.0 <1.0 % LAB HEMETOLOGY METHOD 06/23/2024 6:31 PM [facility] NRBC Absolute 0.00 <0.10 K/mcL LAB HEMETOLOGY METHOD 06/23/2024 6:31 PM [facility] Neutrophils Relative 56.9 % LAB HEMETOLOGY METHOD 06/23/2024 6:31 PM [facility] Lymphocytes Relative 31.7 % LAB HEMETOLOGY METHOD 06/23/2024 6:31 PM [facility] Monocytes Relative 8.6 % LAB HEMETOLOGY METHOD 06/23/2024 6:31 PM [facility] Eosinophils Relative 1.4 % LAB HEMETOLOGY METHOD 06/23/2024 6:31 PM [facility] Basophils Relative 1.0 % LAB HEMETOLOGY METHOD 06/23/2024 6:31 PM [facility] Immature Granulocytes Relative 0.4 % LAB HEMETOLOGY METHOD 06/23/2024 6:31 PM [facility] Neutrophils Absolute 4.02 1.50 - 7.00 K/mcL LAB HEMETOLOGY METHOD 06/23/2024 6:31 PM EDT [facility] Lymphocytes Absolute 2.24 1.00 - 5.00 K/mcL LAB HEMETOLOGY METHOD 06/23/2024 6:31 PM EDT [facility] Monocytes Absolute 0.61 0.20 - 1.00 K/[facility] LAB HEMETOLOGY METHOD 06/23/2024 6:31 PM EDT [facility] Eosinophils Absolute 0.10 0.00 - 0.50 K/[facility] LAB HEMETOLOGY METHOD 06/23/2024 6:31 PM EDT [facility] Basophils Absolute 0.07 0.00 - 0.20 K/[facility] LAB HEMETOLOGY METHOD 06/23/2024 6:31 PM EDT [facility] Immature Granulocytes Absolute 0.03 0.00 - 0.03 K/[facility] LAB HEMETOLOGY METHOD 06/23/2024 6:31 PM EDT [facility] Blood Venous blood specimen / Unknown Venipuncture / Unknown 06/23/2024 2:31 PM EDT 06/23/2024 2:31 PM EDT Bonnie GOINS LAB BLOOD ORDERABLES Fin al Result [facility] [address] [place] [address], * Thyroid stimulating hormone (06/23/2024 2:31 PM EDT) TSH 1.84 0.40 - 4.00 mcIU/mL LAB CHEMISTRY METHOD 06/23/2024 6:48 PM EDT [facility] Blood Venous blood specimen / Unknown Venipuncture / Unknown 06/23/2024 2:31 PM EDT 06/23/2024 2:31 PM EDT us Bonnie GOINS LAB BLOOD ORDERABLES Fin al Result Performing Organization Address [facility] Co de Phone Number [facility] [address] [place] [address], [place] [phone] * Iron (06/23/2024 2:31 PM EDT) Pathologist [facility] Iron 71 40 - 150 mcg/dL LAB CHEMISTRY METHOD 06/23/2024 6:41 PM EDT [facility] Blood Venous blood specimen / Unknown Venipuncture / Unknown 06/23/2024 2:31 PM EDT 06/23/2024 2:31 PM EDT Bonnie GOINS LAB BLOOD ORDERABLES Fin al Result Performing Organization Address [facility] de Phone Number [facility] [address] [place] [address], [place] [phone] * Ferritin (06/23/2024 2:31 PM EDT) Pathologist [facility] Ferritin 118 8 - 252 ng/mL LAB CHEMISTRY METHOD 06/23/2024 6:42 PM EDT [facility] Blood Venous blood specimen / Unknown Venipuncture / Unknown 06/23/2024 2:31 PM EDT 06/23/2024 2:31 PM EDT Bonnie GOINS LAB BLOOD ORDERABLES Fin al Result Performing Organization Address City/[facility]/ZIP Co de Phone Number [facility] [address] [place] [address], [place] [phone] * Comprehensive metabolic panel (06/23/2024 2:31 PM EDT) Sodium 140 133 - 145 mmol/L LAB CHEMISTRY METHOD 06/23/2024 6:41 PM EDT [facility] Potassium 4.5 3.5 - 5.5 mmol/L LAB CHEMISTRY METHOD 06/23/2024 6:41 PM [facility] Chloride 107 96 - 110 mmol/L LAB CHEMISTRY METHOD 06/23/2024 6:41 PM [facility] CO2 26 21 - 32 mmol/L LAB CHEMISTRY METHOD 06/23/2024 6:41 PM [facility] Anion Gap 7 3 - 11 LAB CHEMISTRY METHOD 06/23/2024 6:41 PM [facility] Glucose 92 70 - 100 mg/dL LAB CHEMISTRY METHOD 06/23/2024 6:41 PM [facility] BUN 15 5 - 25 mg/dL LAB CHEMISTRY METHOD 06/23/2024 6:41 PM [facility] Creatinine 0.79 0.50 - 1.10 mg/dL LAB CHEMISTRY METHOD 06/23/2024 6:41 PM [facility] eGFR 92 >=60 mL/min/1. 73m2 LAB CHEMISTRY METHOD 06/23/2024 6:41 PM [facility] Comment:Calculation based on the??Chronic Kidney Disease Epidemiology Collaboration (CKD-EPI) equation refit??without adjustment for race. BUN/Creatinine Ratio 19.0 LAB CHEMISTRY METHOD 06/23/2024 6:41 PM [facility] Calcium 9.6 8.5 - 10.5 mg/dL LAB CHEMISTRY METHOD 06/23/2024 6:41 PM [facility] AST (SGOT) 30 10 - 42 unit/L LAB CHEMISTRY METHOD 06/23/2024 6:41 PM [facility] ALT (SGPT) 44 10 - 60 unit/L LAB CHEMISTRY METHOD 06/23/2024 6:41 PM [facility] Alkaline Phosphatase 106 42 - 121 unit/L LAB CHEMISTRY METHOD 06/23/2024 6:41 PM [facility] Total Protein 7.5 6.0 - 8.0 g/dL LAB CHEMISTRY METHOD 06/23/2024 6:41 PM EDT [facility] Albumin 3.9 3.2 - 5.0 g/dL LAB CHEMISTRY METHOD 06/23/2024 6:41 PM EDT [facility] Total Bilirubin 0.3 0.0 - 1.4 mg/dL LAB CHEMISTRY METHOD 06/23/2024 6:41 PM EDT [facility] Blood Venous blood specimen / Unknown Venipuncture / Unknown 06/23/2024 2:31 PM EDT 06/23/2024 2:31 PM EDT us Bonnie GOINS LAB BLOOD ORDERABLES Fin al Result [facility] [address] [place] [address], [place] [phone] * CT Abdomen Pelvis wo Contrast (06/09/2024 [...] hernia -------- FINAL REPORT -------- Dictated By: JARAD GARCIA Dictated Date: 06/12/2024 13:19 ET Assigned Physician: JARAD GARCIA Reviewed and Electronically Signed By: JARAD GARCIA Signed Date: 06/12/2024 13:19 ET Workstation ID: [id number] Transcribed By: Self Edit Transcribed Date: 06/12/2024 [...] Bones are normal for age. Procedure Note Jarad Garcia MD - 06/12/2024 PROCEDURE: Chest, abdomen, and [...] hernia -------- FINAL REPORT -------- Dictated By: JARAD GARCIA Dictated Date: 06/12/2024 13:19 ET Assigned Physician: JARAD GARCIA Reviewed and Electronically Signed By: JARAD GARCIA Signed Date: 06/12/2024 13:19 ET Workstation ID: [id number] Transcribed By: Self Edit Transcribed Date: 06/12/2024 13:19 ET Fredo Machado DO IMG CT PROCEDURES Final Result * CT Chest wo Contrast (06/09/2024 2:06 PM EST) Anatomical Region Laterality Modality Body Computed Tomogra phy 06/12/2024 1:12 PM EST Impressions 06/12/2024 1:19 PM EST No acute findings in the chest, abdomen, or pelvis. Chronic changes at the lung bases suspicious for an infectious or inflammatory process such as chronic atypical mycobacterial infection or recurrent aspiration. Hepatic steatosis. Tiny fat-containing periumbilical hernia -------- FINAL REPORT -------- Dictated By: JARAD GARCIA Dictated Date: 06/12/2024 13:12 ET Assigned Physician: JARAD GARCIA Reviewed and Electronically Signed By: JARAD GARCIA Signed Date: 06/12/2024 13:19 ET Workstation ID: [id number] Transcribed By: Self Edit Transcribed Date: 06/12/2024 13:12 ET Narrative 06/12/2024 1:19 PM EST PROCEDURE: [...] Bones are normal for age. Procedure Note Jarad Garcia MD - 06/12/2024 PROCEDURE: Chest, abdomen, and [...] hernia -------- FINAL REPORT -------- Dictated By: JARAD GARCIA Dictated Date: 06/12/2024 13:12 ET Assigned Physician: JARAD GARCIA Reviewed and Electronically Signed By: JARAD GARCIA Signed Date: 06/12/2024 13:19 ET Workstation ID: [id number] Transcribed By: Self Edit Transcribed Date: 06/12/2024 13:12 ET Marlene Ahuja MD IMG CT PROCEDURES Final Result * (ABNORMAL) Helicobacter pylori breath test (06/09/2024 1:08 PM EST) [facility] H Pylori Breath Test Positive( A) Negative LAB CHEMISTRY METHOD 06/10/2024 6:25 AM EST [facility] Breath Oral cavity structure / Unknown Non-blood Collection / Unknown 06/09/2024 1:08 PM EST 06/09/2024 1:08 PM EST Stan [facility] LAB BODY FLUIDS AND STOOLS NICK BUNN Final Result [facility] [address] [place] [address], [place] [phone] * (ABNORMAL) Manual differential (05/20/2024 11:35 AM EST) Pathologist [facility] Neutrophils % 56.0 % LAB HEMETOLOGY METHOD 05/20/2024 2:54 PM [facility] Lymphocytes % 32.0 % LAB HEMETOLOGY METHOD 05/20/2024 2:54 PM [facility] Reactive Lymphocyte 4.00 % LAB HEMETOLOGY METHOD 05/20/2024 2:54 PM [facility] Monocytes % 4.0 % LAB HEMETOLOGY METHOD 05/20/2024 2:54 PM [facility] Eosinophils % 2.0 % LAB HEMETOLOGY METHOD 05/20/2024 2:54 PM [facility] Basophils % 0.0 % LAB HEMETOLOGY METHOD 05/20/2024 2:54 PM [facility] Myelocytes % 3.0(H) % LAB HEMETOLOGY METHOD 05/20/2024 2:54 PM [facility] Neutrophils Absolute Manual 9.13(H) 1.50 - 7.00 K/mcL LAB HEMETOLOGY METHOD 05/20/2024 2:54 PM [facility] Lymphocytes Absolute 5.22(H) 1.00 - 5.00 K/mcL LAB HEMETOLOGY METHOD 05/20/2024 2:54 PM [facility] Reactive Lymph Abs Manual 0.65(H) 0.00 - 0.00 lym LAB HEMETOLOGY METHOD 05/20/2024 2:54 PM [facility] Monocytes Absolute Manual 0.65 0.20 - 1.00 K/mcL LAB HEMETOLOGY METHOD 05/20/2024 2:54 PM [facility] Eosinophils Absolute Manual 0.33 0.00 - 0.50 K/mcL LAB HEMETOLOGY METHOD 05/20/2024 2:54 PM [facility] Basophils Absolute Manual 0.00 0.00 - 0.20 K/mcL LAB HEMETOLOGY METHOD 05/20/2024 2:54 PM [facility] Myelocytes Absolute Manual 0.49(H) 0.00 - 0.00 K/mcL LAB HEMETOLOGY METHOD 05/20/2024 2:54 PM EST [facility] Rbc Morphology See comment( A) Consistent with indices, Normal for [place] LAB HEMETOLOGY METHOD 05/20/2024 2:54 PM EST [facility] Comment:RBC: Morphology agre es with CBC Platelet Morphology - WAM See Note(A) Normal LAB HEMETOLOGY METHOD 05/20/2024 2:54 PM EST [facility] Comment:PLT: Normal Blood Venous blood specimen / Unknown Venipuncture / Unknown 05/20/2024 11:35 AM EST 05/20/2024 11:35 AM EST us Marlene Ahuja MD LAB BLOOD ORDERABLES Final Resul t [facility]) [facility] [address] [place] [address], * XR Chest 2 Views (04/02/2024 1:56 PM EST) Anatomical Region Laterality Modality Body Radiographic Nu ging 04/03/2024 7:42 AM EST Impressions 04/03/2024 7:43 AM EST No acute findings. There is mild biapical pleural thickening. Code 63862 -------- FINAL REPORT -------- Dictated By: Pradeep De La Cruz Dictated Date: 04/03/2024 07:42 ET Assigned Physician: Pradeep De La Cruz Reviewed and Electronically Signed By: Pradeep De La Cruz Signed Date: 04/03/2024 07:43 ET Workstation ID: [id number] Transcribed By: Self Edit Transcribed Date: 04/03/2024 [...] There is mild biapical pleural thickening. Code 04984 -------- FINAL REPORT -------- Dictated By: Pradeep De La Cruz Dictated Date: 04/03/2024 07:42 ET Assigned Physician: Pradeep De La Cruz Reviewed and Electronically Signed By: Pradeep De La Cruz Signed Date: 04/03/2024 07:43 ET Workstation ID: [id number] Transcribed By: Self Edit Transcribed Date: 04/03/2024 07:42 ET Jessica Stahl MD IMG XR PROCEDURES Final Result * MG Mammo Digital Screening w Edy [...] Signed Date: 03/28/2024 14:56 ET Workstation ID: [id number] Transcribed By: Self Edit Transcribed Date: 03/28/2024 [...] Signed Date: 03/28/2024 14:56 ET Workstation ID: [id number] Transcribed By: Self Edit Transcribed Date: 03/28/2024 14:52 ET us Bonnie GOINS IMG BI PROCEDURES Final Result * CT Head wo Contrast (03/26/2024 1:22 [...] Signed Date: 03/27/2024 13:01 ET Workstation ID: [id number] Transcribed By: Self Edit Transcribed Date: 03/27/2024 12:58 ET Narrative 03/27/2024 1:01 PM EST INDICATION: Migraine headache Technique: Axial images were obtained from the skull base to the vertex without contrast enhancement. Scanner: TrendratingpeLucernex 64 slice VCT Dose reduction technique: ASIR [...] base to the vertexwithout contrast enhancement. Scanner: TrendratingpeLucernex 64 slice VCT Dose reduction technique: ASIR [...] Signed Date: 03/27/2024 13:01 ET Workstation ID: [id number] Transcribed By: Self Edit Transcribed Date: 03/27/2024 12:58 ET Cecilia Villa MD IMG CT PROCEDURES Final Result * XR Hip 2-3 Views Left (03/26/2024 1:19 PM EST) Anatomical Region Laterality Modality Lower Extremities, Hip Left Radiograp hic Imaging 03/27/2024 7:54 AM EST Impressions 03/27/2024 7:55 AM EST Normal examination. Code 27202 -------- FINAL REPORT -------- Dictated By: Pradeep De La Cruz Dictated Date: 03/27/2024 07:54 ET Assigned Physician: Pradeep De La Cruz Reviewed and Electronically Signed By: Pradeep De La Cruz Signed Date: 03/27/2024 07:55 ET Workstation ID: [id number] Transcribed By: Self Edit Transcribed Date: 03/27/2024 [...] tissue abnormalityis seen. IMPRESSION: Normal examination. Code 82113 -------- FINAL REPORT -------- Dictated By: Pradeep De La Cruz Dictated Date: 03/27/2024 07:54 ET Assigned Physician: Pradeep De La Cruz Reviewed and Electronically Signed By: Pradeep De La Cruz Signed Date: 03/27/2024 07:55 ET Workstation ID: [id number] Transcribed By: Self Edit Transcribed Date: 03/27/2024 07:[address] [facility] Bonnie GOINS IMG XR PROCEDURES Final Result * (ABNORMAL) Lipid panel (12/14/2023) Pathologist [facility] LDL/HDL Ratio 4 0 - 4 Triglycerides 113 0 - 150 mg/dL Cholesterol 164 0 - 200 mg/dL HDL 40 >=40 mg/dL LDL Cholesterol 102(A) 0 - 100 mg/dL Blood Venous blood specimen / Unknown Result [facility] Historical Provider LAB BLOOD ORDERABLES Sujey l Result * Depression Screening (12/13/2023) Pathologist [facility] Depression Screening Abstracted Result [facility] Historical Provider HEALTH MAINTENANCE Final Result from Last 3 Months or Most Recently Relevant to Health Maintenance Insurance [facility] Care Teams Locomotive Engineer Relationship Specialty Start Date End Date Bonnie Huff PA [address] [place] [address] PCP - General 10/24/23
--- OUTSIDE RECORDS SUMMARY | 2024-06-24 17:10 | XMS_ITS | Encounter Summary ---
Author Organization [employer] Address [address] [place] [address] Care Team Providers Care Injection Press Operator Name Role Phone Bonnie Huff Primary Care Provider + Reason for Visit * Consultation (Routine) - Authorized Specialty Diagnoses / Procedures Referred By Contsilvestre reynolds Referred To Contact Physical Therapy Diagnoses Lateral pain of left hip Lumbar pain Claudy Araya PA [address] [place] [address] Phone: tel: fax: Referral ID Status Reason Start Date Expiration Date Visits Requested Visits Authorized [id number] Authorized Consult and Treat 05/01/2024 05/01/2025 21 21 Encounter Details Date Type Department Care Team (Late st Contact Info) Description 06/16/2024 2:30 PM EST Treatment [address] [phone] Hugo Shultz, MAIL CARRIER TECHNICIAN Lateral pain of left hip (Primary Dx) Social History Tobacco Use Types Packs/Day Years [...] your loved ones. For example, child life assistant or elderly care for an older adult? [...] as of this encounter Progress Notes * Hugo Shultz, MAIL CARRIER TECHNICIAN - 06/16/2024 2:30 PM EST [facility] - Outpatient PHYSICAL THERAPY DAILY TREATMENT NOTE - OP Date: 06/16/2024 Visit Number: [id number] Patient Name: Erum Rawls : 1975 Age: 48 y.o. Gender: female Diagnosis: ICD-10-CM ICD-9-CM 1. Lateral pain of left hip M25.552 719.45 Date of Onset/Surgery: 12/02/2022 Referring Provider: lCaudy Araya PA Insurance: Payor: [employer] PLAN / Plan: [place] MEDICAID / Product Type: *No Product type* / Patient Identified by: Hugo Shultz PTA Language: Hebrew Medications: Current Outpatient Medications on File Prior to Visit Medication Sig Dispense Refill amitriptyline (ELAVIL) 25 mg tablet Take 1 tablet (25 mg total) by mouth at bedtime. Take 1 Tablet by mouth at bedtime. 90 tablet 3 ferrous sulfate 325 mg (65 mg elemental iron) tablet Take 1 tablet (325 mg total) by mouth 1 (one) time each day. Take 1 Tablet by mouth daily. 90 tablet 3 fluticasone propionate (FLONASE) 50 mcg/actuation nasal spray Administer 2 sprays into each nostril1 (one) time each day. 2 Sprays by Each Nare route daily. 16 g 3 levothyroxine (SYNTHROID, LEVOTHROID) 25 mcg tablet Take 1 tablet (25 mcg total) by mouth 1 (one) time each day before breakfast. Take 1 Tablet by mouth every morning (before breakfast). 90 tablet 3 adalimumab (HUMIRA) 40 mg/0.8 mL syringe Inject 0.8 mL (40 mg total) under the skin every 14 (fourteen) days. albuterol HFA (PROAIR HFA ; PROVENTIL HFA ; VENTOLIN HFA) 90 mcg/actuation inhaler Inhale 2 Puffs into the lungs every 6 hours as needed for Cough, Wheezing or Shortness of Breath. 3 inhalers and 3 refills amoxicillin (AMOXIL) 500 mg capsule Take 2 capsules (1,000 mg total) by mouth 2 (two) times a day. 56 capsule 0 baclofen (LIORESAL) 10 mg tablet Take 1 Tablet by mouth daily as needed (muscle spasms). docusate sodium (Colace) 100 mg capsule Take 1 capsule (100 mg total) by mouth 2 (two) times a day.60 each 11 fluticasone-salmeterol (ADVAIR DISKUS) 250-50 mcg/dose diskus inhaler Inhale 1 Puff into the lungs 2 times daily. folic acid (FOLVITE) 1 mg tablet Take 1 tablet (1 mg total) by mouth 1 (one) time each day. hydrOXYzine HCL (ATARAX) 50 mg tablet Take 2 Tablets by mouth at bedtime as needed (sleep). levoFLOXacin (LEVAQUIN) 500 mg tablet Take 1 tablet (500 mg total) by mouth 1 (one) time each day for 14 days. 14 each 0 linaCLOtide (Linzess) 145 mcg capsule Take 1 capsule (145 mcg total) by mouth 1 (one) time each day. Hold for diarrhea 30 capsule 11 loratadine (CLARITIN) 10 mg tablet Take 1 Tablet by mouth daily as needed for Allergies. omeprazole (PriLOSEC) [address] capsule Take 1 capsule (40 mg total) by mouth 1 (one) time each day.Take in a.m. on empty stomach, wait 30 minutes and then eat to activate medication 14 each 0 plecanatide (Trulance) 3 mg tablet Take 1 tablet (3 mg total) by mouth 1 (one) time each day. 30 tablet 11 polyethylene glycol (MIRALAX) 17 gram packet Take 17 g by mouth 1 (one) time each day. 510 g 11 pregabalin (LYRICA) 75 mg capsule Take 1 capsule (75 mg total) by mouth 2 (two) times a day. Savella 25 mg tablet Take 1 tablet (25 mg total) by mouth 2 (two) times a day. SUMAtriptan (IMITREX) 50 mg tablet Take 1 tablet (50 mg total) by mouth 2 (two) times a day if needed for migraine. Take 1 tab prn migraine, may repeat in 2 hours prn max 100 mg per 24 hours 9 tablet1 [DISCONTINUED] amitriptyline (ELAVIL) 25 mg tablet Take 1 Tablet by mouth at bedtime. [DISCONTINUED] ferrous sulfate 325 mg (65 mg elemental iron) tablet Take 1 Tablet by mouth daily. [DISCONTINUED] fluticasone propionate (FLONASE) 50 mcg/actuation nasal spray 2 Sprays by Each Nare route daily. [DISCONTINUED] levothyroxine (SYNTHROID, LEVOTHROID) 25 mcg tablet Take 1 Tablet by mouth every morning (before breakfast). No current facility-administered medications on file prior to visit. Allergies: has No Known Allergies. Precautions: Fall risk: No Patient/Caregiver Goals: SUBJECTIVE Subjective Report: pr reports cont left hip pain Chart Reviewed: Yes Pain 4/10 left hip pain OBJECTIVE TREATMENT INTERVENTION: Nu step x 5 min Attempted standing hamstring but increased pain Seated hamstring and hip flexo x 3 with 20 sec hold H/L hip add x 15 H/L hip abd x 15 (L)LE long axis distraction MH at no charge ASSESSMENT/Response to Treatment Fair to poor with there ed,, hoever some relief after long axis distraction Patient Education: Education provided: Yes Education Provided To: Patient utilizing Explanation mode(s) of education Response to Education: Verbal Understanding PLAN POC Development/Review: No Change in the Plan of Care; Participants: Patient Total Treatment Time: 25 Modalities: Therapeutic procedures: Documentation completed by Hugo Shultz PTA documented in this encounter Plan of Treatment Upcoming Encounters Date Type Department Care Team (Late st Contact Info) Description 06/30/2024 2:00 PM EDT Treatment [facility] 175 [facility] [address] [place] [phone] Hugo Shultz PTA 07/01/2024 1:00 PM EDT Office Visit General Surgery [facility] 175 [facility] [address] [place] [phone] Fredo Machado DO 175 [facility] [address] [place] [address] 07/04/2024 1:30 PM EDT Office Visit Pulmonolgy [facility] 175 [facility] [address] [place] [phone] Marlene Ahuja MD 175 [facility] [address] [place] [address] 07/07/2024 2:00 PM EDT Treatment [facility] [address] [phone] Felix Loredo, MAIL CARRIER TECHNICIAN 07/14/2024 2:00 PM EDT Treatment [facility] [address] [phone] Amelia Perez, PT 09/18/2024 2:15 PM EDT Office Visit Internal Medicine - [place] [address] [phone] Bonnie Huff PA [address] [address] documented as of this encounter Visit Diagnoses Diagnosis Lateral pain of left hip- Primary documented in this encounter Additional Health Concerns Assessment Noted Time PHQ-9 Depression Total Score: 14 025 8:17 PM EST documented as of this encounter Care Teams Injection Press Operator Relationship Specialty Start Date End Date Bonnie Huff PA [address] [place] [address] PCP - General 10/24/23 documented as of this encounter
--- OUTSIDE RECORDS SUMMARY | 2024-06-24 17:10 | XMS_ITS | Encounter Summary ---
Author Organization [employer] Address [address] [place] [address] Care Team Providers Care Distiller Name Role Phone Bonnie Huff Primary Care Provider + Reason for Referral * Imaging (Routine) - Closed Specialty Diagnoses / Procedures Referred By Contsilvestre t Referred To Contact Radiology Diagnoses Pneumonia of left lung due to infectious organism, unspecified part of lung Procedures CT Chest wo Contrast Marlene Ahuja MD [address] [address] Phone: tel: fax: [facility] CT Scan [address] [place] [address] Phone: tel: Referral ID Status Reason Start Date Expiration Date Visits Re quested Visits Authorized [id number] Closed 05/21/2024 07/20/2024 1 1 Reason for Visit * Imaging (Routine) - Closed Specialty Diagnoses / Procedures Referred By Contsilvestre t Referred To Contact Radiology Diagnoses Pneumonia of left lung due to infectious organism, unspecified part of lung Procedures CT Chest wo Contrast Marlene Ahuja MD [address] [address] Phone: tel: fax: [facility] CT Scan [address] [place] [address] Phone: tel: Referral ID Status Reason Start Date Expiration Date Visits Re quested Visits Authorized [id number] Closed 05/21/2024 07/20/2024 1 1 Encounter Details Date Type Department Care Team (Latest Contact Info) Description 06/09/2024 1:49 PM EST - 06/09/2024 11:59 PM EST Hospital Encounter [facility] CT Scan [address] [place] [address] Pneumonia of left lung due to infectious organism, unspecified part of lung Discharge Disposition: Home or Self Care Social [...] care for your loved ones. For example, special needs child caregiver or elderly care for an older adult? [...] into the lungs 2 times daily. 01/04/2024 5 folic acid (FOLVITE) 1 mg tablet Take [...] Take 1 Tablet by mouth daily. 12/13/2023 fluticasone propionate (FLONASE) 50 mcg/actuation nasal spray 2 Sprays by Each Nare route daily. 12/13/2023 levothyroxine (SYNTHROID, LEVOTHROID) 25 mcg tablet Take 1 Tablet by mouth every morning (before breakfast). 12/13/2023 5 documented as of this encounter Discharge Disposition Disposition Code Departure Means Destination Home or Self Care documented in this encounter Plan of Treatment Upcoming Encounters Date Type Department Care Team (Late st Contact Info) Description 06/30/2024 2:[address] [facility] [address] [phone] Hugo Shultz, RIB SAWYER 07/01/2024 1:00 PM EDT Office Visit General Surgery [facility] [address] [phone] Fredo Machado, [address] [phone] 07/04/2024 1:30 PM EDT Office Visit Pulmonolgy [facility] [address] [phone] Marlene Ahuja MD [address] [address] 07/07/2024 2:[address] [facility] [address] [phone] Felix Loredo, RIB SAWYER 07/14/2024 2:[address] [facility] [address] [phone] Amelia Perez, PT 09/18/2024 2:15 PM EDT Office Visit Internal Medicine [facility] [address] [phone] Bonnie Huff PA [address] [address] documented as of this encounter Procedures Procedure Name Priority Date/Time Associated Diagnosis Comments CT CHEST WO CONTRAST Routine 06/09/2024 2:06 PM EST Pneumonia of left lung due to infectious organism, unspecified part of lung documented in this encounter Results * CT Chest wo Contrast (06/09/2024 2:06 [...] Dictated By: MATT WORLEY Dictated Date: 06/12/2024 13:12 ET Assigned Physician: MATT WORLEY Reviewed and Electronically Signed By: MATT WORLEY Signed Date: 06/12/2024 13:19 ET Workstation ID: [id number] Transcribed By: Self Edit Transcribed Date: 06/12/2024 [...] Dictated By: MATT WORLEY Dictated Date: 06/12/2024 13:12 ET Assigned Physician: MATT WORLEY Reviewed and Electronically Signed By: MATT WORLEY Signed Date: 06/12/2024 13:19 ET Workstation ID: [id number] Transcribed By: Self Edit Transcribed Date: 06/12/2024 13:12 ET us Marlene Ahuja MD IMG CT PROCEDURES Final Result documented in this encounter Visit Diagnoses Diagnosis Pneumonia of left lung due to infectious organism, unspecified part of lung documented in this encounter Additional Health Concerns Assessment Noted Time PHQ-9 Depression Total Score: 14 025 8:17 PM EST documented as of this encounter Care Teams Distiller Relationship Specialty Start Date End Date Bonnie Huff PA [address] [place] [address] PCP - General 10/24/23 documented as of this encounter
--- OUTSIDE RECORDS SUMMARY | 2024-06-24 17:10 | XMS_ITS | Encounter Summary ---
Author Organization [employer] Address [address] [place] [address] Care Team Providers Care Dinking Machine Operator Name Role Phone Bonnie Huff Primary Care Provider + Reason for Visit * Reason Onset Date Comments Mauricio JEFF 06/04/2024 Encounter Details Date Type Department Care Team (Late st Contact Info) Description 06/04/2024 Telephone Internal Medicine - [place] [address] [facility] [address] [place] [phone] Bonnie Huff PA [address] [place] [address] Bonnie: MARAH JEFF Social History Tobacco Use Types Packs/Day Years [...] your loved ones. For example, child care lead teacher or elderly care for an older [...] of this encounter Progress Notes * BRISEIDA Patrick - 06/04/2024 12:02 PM EST Noted. Thank you. * Loren Oliveira RN - 06/04/2024 11:46 AM EST FYI from [facility], pt fell no injury. Noted. * Carisa Ren - 06/04/2024 11:08 AM EST Karen MARAH called and would like to report a fall that the patient had on 05/29 but no injuries patient caught herself with her hands. documented in this encounter Plan of Treatment Upcoming Encounters Date Type Department Care Team (Late st Contact Info) Description 06/30/2024 2:00 PM EDT Treatment [facility] [address] [phone] Hugo Shultz, PLAYER DEVELOPMENT EXECUTIVE 07/01/2024 1:00 PM EDT Office Visit General Surgery [facility] [address] [phone] Fredo Machado, DO [address] [address] 07/04/2024 1:30 PM EDT Office Visit Pulmonolgy [facility] [address] [phone] Marlene Ahuja MD [address] [address] 07/07/2024 2:00 PM EDT Treatment [facility] [address] [phone] Felix Loredo, PLAYER DEVELOPMENT EXECUTIVE 07/14/2024 2:00 PM EDT Treatment [facility] [address] [phone] Amelia Perez, PT 09/18/2024 2:15 PM EDT Office Visit Internal Medicine [facility] [address] [phone] Bonnie Huff PA [address] [address] documented as of this encounter Visit Diagnoses Not on filedocumented in this encounter Additional Health Concerns Assessment Noted Time PHQ-9 Depression Total Score: 14 025 8:17 PM EST documented as of this encounter Care Teams Dinking Machine Operator Relationship Specialty Start Date End Date Bonnie Huff PA [address] [place] [address] PCP - General 10/24/23 documented as of this encounter
--- OUTSIDE RECORDS SUMMARY | 2024-06-24 17:10 | XMS_ITS | Encounter Summary ---
Author Organization [employer] Address [address] [place] [address] Care Team Providers Care Reconsignment Clerk Name Role Phone Bonnie Huff Primary Care Provider + Reason for Visit * Consultation (Routine) - Authorized Specialty Diagnoses / Procedures Referred By Contsilvestre reynolds Referred To Contact Physical Therapy Diagnoses Lateral pain of left hip Lumbar pain Claudy Araya PA [address] [place] [address] Phone: tel: fax: Referral ID Status Reason Start Date Expiration Date Visits Requested Visits Authorized [id number] Authorized Consult and Treat 05/01/2024 05/01/2025 21 21 Encounter Details Date Type Department Care Team (Latest Contact Info) Description 06/04/2024 2:00 PM EST Evaluation [address] [address] Amelia Perez PT Lateral pain of left hip (Primary Dx); Lumbar pain Social History Tobacco Use Types Packs/Day [...] your loved ones. For example, child care specialist or elderly care for an older adult? [...] as of this encounter Progress Notes * Amelia Perez, PT - 06/04/2024 2:00 PM EST [facility] - Outpatient PHYSICAL THERAPY EVALUATION Date: 06/04/2024 Visit Number: 1 Patient Name: Erum Rawls : 1975 Age: 48 y.o. Gender: female Diagnosis: ICD-10-CM ICD-9-CM 1. Lateral pain of left hip M25.552 719.45 Ambulatory referral to Physical Therapy and Athletic Training 2. Lumbar pain M54.50 724.2 Ambulatory referral to Physical Therapy and Athletic Training Date of Onset/Surgery: 12/02/2022 Referring Provider: Claudy Araya PA Insurance: Payor: [employer] PL[employer] / Plan: [employer] MEDICAID / Product Type: *No Product type* / Patient identified by: Amelia Perez PT Language: Speaks and understands Hungarian as preferred language with no conference interpreter required Chart Reviewed: Yes Medications: Current Outpatient Medications on File Prior to Visit Medication Sig Dispense Refill adalimumab (HUMIRA) 40 mg/0.8 mL syringe Inject 0.8 mL (40 mg total) under the skin every 14 (fourteen) days. albuterol HFA (PROAIR HFA ; PROVENTIL HFA ; VENTOLIN HFA) 90 mcg/actuation inhaler Inhale 2 Puffs into the lungs every 6 hours as needed for Cough, Wheezing or Shortness of Breath. 3 inhalers and 3 refills amitriptyline (ELAVIL) 25 mg tablet Take 1 Tablet by mouth at bedtime. baclofen (LIORESAL) 10 mg tablet Take 1 Tablet by mouth daily as needed (muscle spasms). ferrous sulfate 325 mg (65 mg elemental iron) tablet Take 1 Tablet by mouth daily. fluticasone propionate (FLONASE) 50 mcg/actuation nasal spray 2 Sprays by Each Nare route daily. fluticasone-salmeterol (ADVAIR DISKUS) 250-50 mcg/dose diskus inhaler Inhale 1 Puff into the lungs 2 times daily. folic acid (FOLVITE) 1 mg tablet Take 1 tablet (1 mg total) by mouth 1 (one) time each day. hydrOXYzine HCL (ATARAX) 50 mg tablet Take 2 Tablets by mouth at bedtime as needed (sleep). levothyroxine (SYNTHROID, LEVOTHROID) 25 mcg tablet Take 1 Tablet by mouth every morning (before breakfast). loratadine (CLARITIN) 10 mg tablet Take 1 Tablet by mouth daily as needed for Allergies. methylPREDNISolone (MEDROL) 4 mg tablet Take 1 tablet (4 mg total) by mouth 1 (one) time each day. pregabalin (LYRICA) 75 mg capsule Take 1 capsule (75 mg total) by mouth 2 (two) times a day. Savella 25 mg tablet Take 1 tablet (25 mg total) by mouth 2 (two) times a day. SUMAtriptan (IMITREX) 50 mg tablet Take 1 tab prn migraine, may repeat in 2 hours prn max 100 mg per 24 hours No current facility-administered medications on file prior to visit. Discussed current medications that may impact therapy. Medication list obtained and reviewed. Referto document in medical record. Advised Patient to contact MD with any questions regarding medications and importance of managing medication information. has a past medical history of Allergic rhinitis, Asthma, Asthma with COPD ([facility]), Hyperlipidemia, Hypothyroidism, Insomnia, Iron deficiency anemia, Migraine, and Muscle spasm. has a past surgical history that includes Hysterectomy. has No Known Allergies. Precautions: Fibromyalgia, Rheumatoid arthritis Past Medical History to be aware of: reports occasional low blood pressure with lightheadedness symptoms Concurrent Services: No Concurrent Services SUBJECTIVE HISTORY: Patient presents to clinic with left hip pain/low back pain that began more than a year ago. X-ray in [place] of hip and low back showed some degenerative changes (see below). 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 She moved here in October 2023. Currently, does not leave where she lives much because of the cold weather can triggerpneumonia and also has to do stairs which are hard for her. COURSE OF CURRENT CONDITION: worse PREVIOUS EPISODES: none PREVIOUS MEDICAL CARE/THERAPY: PT a long time ago (leg raises, shoulder pulleys, massage)- made pain worse DIAGNOSTIC TESTS: 03/18/24 left hip: normal 05/27/23 lumbar: facet hypertrophery and arthrosis from L3-4 down to L5-S1. There is rightward rotatory component in the lumbar spine. No fx identified. OCCUPATION: none LEISURE/ACTIVITY LEVEL: sweeping/mopping, dishes, clean clothes (has to pace herself with these activities) GOALS: be able to do more activities with grandkids and go out more Home Environment: lives on 2nd floor (stays home) Prior Level of Function: more tolerance to ADLs/IADLs Current Functional Limitations: Reported by Patient limitations with prolonged standing, bending, stairs, walking (relied on cart at store) Pain: Current level of pain 5/10; Pain at worst over the past week 9/10 and at best is a 4/10 Pain/symptoms described as: sharp/shooting; has some type of tingling/numbness in the feet Pain is located: low back across, goes down the legs, Left anterior/lateral hip Aggravating factors include: prolonged standing (causes leg shaking), bending, going up stairs, doing some exercises Easing factors include: pain medication (baclofen as needed), lay down Is the patient at Risk for Falls: Encouraged having her get a cane for walking due to leg weakness OBJECTIVE Vitals: There were no vitals filed for this visit.; Gait: amb unassisted with slight unsteadiness, bilateral trendelenburg, slow mojgan, small step length Posture/Observation: R iliac crest higher than L, anterior pelvic tilt Palpation: tenderness L ASIS, lower lumbar paraspinals, bilateral PSIS Lumbar Spine ROM Active Lumbar flexion (0-60) To knees with low back pain Lumbar extension (0-35) NT Lumbar side bending R (0-25) 75% limited P (worse than L) Lumbar side bending L (0-25) 50% limited P Lumbar Rotation R (0-20) 75% limited P Lumbar Rotation L (0-20) 75% limited P HIP RANGE OF MOTION Right PROM Left PROM Flexion (120 deg) 70 low back P 40 low back/hip P Extension (30 deg) NT NT Abduction (45 deg) 25 low back pain 10 hip P Adduction (45 deg) NT NT External Rotation (45 deg) 30 10 P Internal Rotation (45 deg) 35 15 P LOWER EXTREMITY MYOTOMES: Myotome Right Left Hip Flexion (L2) 2+/5 P 2+/5 P (less ROM than R) Knee Extension (L3) 2+/5 knee P 2+/5 knee P Ankle Dorsiflexion (L4) 3+/5 ankle P 2+/5 ankle P Big Toe Extension (L5) NT/5 NT/5 Ankle Plantar Flexion (S1) 2+/5 P cramping in calf feeling 2+/5 P Knee flexion (S2) 2+/5 2+/5 Special Tests: Unable to tolerate any special testing positions TREATMENT INTERVENTION Procedures: Long sitting quad set x 5, 5 sec hold each Sitting hip adduction isometric pillow x 5, 5 sec hold Home exercise program: Long sitting quad set x 10, 5 sec hold each Sitting hip adduction isometric pillow or ball x 10, 5 sec hold ASSESSMENT/Response to Treatment: Erum Rawls is a 48 y.o. female presenting for outpatient physical therapy evaluation with complaints of chronic low back pain and left hip pain. X-rays show some degenerative changes in lumbar spine, but no findings in hip. Has multiple comorbidities including fibromyalgia and Rheumatoid Arthritis that are likely contributing to pain. Significant clinical findings include: decreased lumbar ROM, hip ROM, impaired gait, and decreased lower extremity strength. Due to limited lower extremity strength, I recommended she get a cane for ambulation. Patients progress may be limited by low tolerance for movement due to pain and ability to only come once a week to PT. Skilled Physical therapy is medically necessary to address these limitations. Rehabilitation Potential: Rehab Potential: Additional Comment: Fair prognosis due to multiple comorbidities and low tolerancefor movement Motivation for Rehab: Good Support Structure: Fair Learning Needs: Were Patient Learning needs assessed: Yes Learning Preferences: Explanation, Demonstration, and Printed Materials Barriers to Learning: No Barriers to Learning Patient Education: [x] Discussed, with patient and/or caregiver, the recommended plan of care/goals, the importance oftherapy and appointment compliance in order to achieve goals in a timely manner. Education provided: home exercise program and plan of care Education Provided To: Patient utilizing Explanation and Printed Material as mode(s) of education. Response to Education: Verbal Understanding GOALS Short Term Goals (will be achieved in 4 weeks) 1. Initiate home exercise program. 2. Pain will be improved by 2-3 points on VAS. 3. Patient will improve lower extremity strength by 1/3 grade on manual muscle testing. 4. Patient will improve lumbar flexion ROM to mid shins or better. Hazmat Technician Goals (will be achieved in 8-12 weeks) 1. Patient will be independent with home exercise program to maintain therapeutic gains. 2. Patient will be able to bend over with less pain and improved ROM to pick things off floor 3. Patient will be able to stand for longer times with less pain and improved tolerance. PLAN POC Development/Review: Initial Evaluation; Participants: Patient Skilled Therapy Plan Required: YES- Reasons for Rehab and Medical Necessity -- Return to Premorbid Environment and Reduce Need for Assist with Functional Activity/ADL's/Mobility Frequency/Duration of Treatment: 8-12 weeks (1x a week) Plan for next session(s): Nustep if able, may only likely tolerate seated/long sitting strengthening/ROM (possible moist heat if needed) Planned Therapy Interventions: Cold Pack, E-Stim -- Unattended, Hot Pack, Kinesiotaping, Manual Therapy, Neuromuscular Re-education, Patient / Family Education, Soft Tissue Mobility, TENS, Therapeutic Activity, and Therapeutic Exercise Recommended Consults: none Equipment Recommended: cane ; Equipment Provided: none BILLING TOTAL TREATMENT TIME: 53 Minutes Evaluation High Complexity Justification ::: A history of present problem with 3 or more personal factors and/or co-morbidities that impact the plan of care and An examination of body systems using standardized tests and measures addressing a total of 4 or more elements from any of the following: body structures and functions, activity limitations, and/or participation restrictions Documentation completed by Amelia Perez PT [address] [address] Dept: [phone] Dept PATIENT NAME: Erum Rawls : 1975 Certification: This is to certify that the above named patient, who is under my care, requires skilled Therapy services as described in the above treatment plan. I further certify that the services outlined in this plan are skilled and medically necessary. I have reviewed this plan for rehabilitation services, and I recommend that these services continue to meet the above stated goals and plan. SIGNATURE: DATE Claudy Araya PA Referring provider documented in this encounter Plan of Treatment Upcoming Encounters Date Type Department Care Team (Late st Contact Info) Description 06/30/2024 2:00 PM EDT Treatment [facility] [address] [phone] Hugo Shultz, FAMILY SERVICES COORDINATOR 07/01/2024 1:00 PM EDT Office Visit General Surgery [facility] [address] [phone] Fredo Machado, DO [address] [address] 07/04/2024 1:30 PM EDT Office Visit Pulmonolgy [facility] [address] [phone] Marlene Ahuja MD [address] [address] 07/07/2024 2:00 PM EDT Treatment [facility] [address] [phone] Felix Loredo, INDER 07/14/2024 2:00 PM EDT Treatment [facility] [address] [phone] Amelia Perez, PT 09/18/2024 2:15 PM EDT Office Visit Internal Medicine [facility] [address] [phone] Bonnie Huff PA [address] [address] documented as of this encounter Visit Diagnoses Diagnosis Lateral pain of left hip- Primary Lumbar pain Lumbago documented in this encounter Orders Outpatient Referral Count Last Ordered Date Fir st Ordered Date AMB REFERRAL TO PHYSICAL [facility] 1 06/04/2024 documented in this encounter Additional Health Concerns Assessment Noted Time PHQ-9 Depression Total Score: 14 025 8:17 PM EST documented as of this encounter Care Teams Reconsignment Clerk Relationship Specialty Start Date End Date Bonnie Huff PA [address] [place] [address] PCP - General 10/24/23 documented as of this encounter
--- OUTSIDE RECORDS SUMMARY | 2024-06-24 17:10 | XMS_ITS | Encounter Summary ---
Author Organization [employer] Address [address] [place] [address] Care Team Providers Care Sheriff Sergeant Name Role Phone Bonnie Huff Primary Care Provider + Reason for Visit * Reason Onset Date Comments PRIOR AUTHORIZATION 06/09/2024 Encounter Details Date Type Department Care Team ([facility] st Contact Info) Description 06/09/2024 Telephone Gastroenterology - [place] [address] [place] [phone] Elba Sierra PA [address] [place], [place] [phone] PRIOR AUTHORIZATION Social History Tobacco Use Types Packs/Day Years [...] your loved ones. For example, child care development specialist or elderly care for an older [...] PM EST documented as of this encounter Ordered Prescriptions Prescription Sig Dispense Quantity Refills Last Filled Start Date End Date linaCLOtide (Linzess) 145 mcg capsule Take 1 capsule (145 mcg total) by mouth 1 (one) time each day. Hold for diarrhea 30 capsule 11 06/15/2024 documented in this encounter Progress Notes * BRISEIDA López - 06/15/2024 7:42 PM EST Patient Linzess does not appear the Trulance is covered * Rocio Small [place] - 06/12/2024 11:53 AM EST The covered product is linzess do you want to change the med? Thank you Please reply back to [facility] (Prior Auth [place]) Rocio Tracey [facility] Prior Authorization Ext [id number] * Dalila Guthrie - 06/09/2024 11:27 AM EST [facility]MM [facility]: [id number] MEDICATION: TRULANCE 3MG TAB SIG: Take 1 tablet (3 mg total) by mouth 1 (one) time each day. PHARMACY: [facility] FAX: [phone] No other info given on faxed request. documented in this encounter Plan of Treatment Upcoming Encounters Date Type Department Care Team (Late st Contact Info) Description 06/30/2024 2:00 PM EDT Treatment [facility] Outpatient Rehabilitation - [place] 175 [facility] [address] [place] [phone] Hugo Shultz, INDER 07/01/2024 1:00 PM EDT Office Visit General Surgery [facility] 175 [facility] [address] [place] [phone] Fredo Machado, 175 [facility] [address] [place] [address] 07/04/2024 1:30 PM EDT Office Visit Pulmonolgy [facility] 175 [facility] [address] [place] [phone] Marlene Ahuja MD 175 [facility] [address] [place] [address] 07/07/2024 2:00 PM EDT Treatment [facility] [address] [phone] Felix Loredo, DIRECTOR OF SUPPLY CHAIN 07/14/2024 2:00 PM EDT Treatment [facility] [address] [phone] Amelia Perez, PT 09/18/2024 2:15 PM EDT Office Visit Internal Medicine [facility] [address] [phone] Bonnie Huff PA [address] [address] documented as of this encounter Visit Diagnoses Not on filedocumented in this encounter Additional Health Concerns Assessment Noted Time PHQ-9 Depression Total Score: 14 025 8:17 PM EST documented as of this encounter Care Teams Sheriff Sergeant Relationship Specialty Start Date End Date Bonnie Huff PA [address] [place] [address] PCP - General 10/24/23 documented as of this encounter
--- OUTSIDE RECORDS SUMMARY | 2024-06-24 17:10 | XMS_ITS | Encounter Summary ---
Author Organization [employer] Address [address] [place] [address] Care Team Providers Care Rate Manager Name Role Phone Bonnie Huff Primary Care Provider + Encounter Details Date Type Department Care Team (Late st Contact Info) Description 06/10/2024 Telephone Gastroenterology - [place] [address] [place] [phone] Stan Babb PA [address] [place] [address] Social History Tobacco Use Types Packs/Day Years [...] loved ones. For example, exceptional children teacher assistant or elderly care for an older [...] Refills Last Filled Start Date End Date omeprazole (PriLOSEC) [address] capsule Take 1 capsule (40 mg total) by mouth 1 (one) time each day. Take in a.m. on empty stomach, wait 30 minutes and then eat to activate medication 14 each 06/10/2024 levoFLOXacin (LEVAQUIN) 500 mg tablet Take 1 tablet (500 mg total) by mouth 1 (one) time each day for 14 days. 14 each 06/10/2024 amoxicillin (AMOXIL) 500 mg capsule Take 2 capsules (1,000 mg total) by mouth 2 (two) times a day. 56 capsule 06/10/2024 documented in this encounter Progress Notes * BRISEIDA López - 06/10/2024 7:45 AM EST Patient is noted to have positive H. pylori breath test and we will send in medication. Please remind the patient that she is going to have to perform breath test a month after starting the antibiotic to see if the bacteria is documented in this encounter Plan of Treatment Upcoming Encounters Date Type Department Care Team (Late st Contact Info) Description 06/30/2024 2:00 PM EDT Treatment [facility] [address] [phone] Hugo Shultz, LABOR STANDARDS DIRECTOR 07/01/2024 1:00 PM EDT Office Visit General Surgery [facility] [address] [phone] Fredo Machado DO [address] [address] 07/04/2024 1:30 PM EDT Office Visit Pulmonolgy [facility] 175 [facility] [address] [place] [phone] Marlene Ahuja MD [address] [address] 07/07/2024 2:00 PM EDT Treatment [facility] [address] [phone] Felix Loredo, INDER 07/14/2024 2:00 PM EDT Treatment [facility] [address] [phone] Amelia Perez, PT 09/18/2024 2:15 PM EDT Office Visit Internal Medicine [facility] [address] [phone] Bonnie Huff PA [address] [address] Scheduled Orders Name Type Priority Associated Diagnoses Orde r Schedule Helicobacter pylori breath test Lab Routine Helicobacter pylori (H. pylori) infection Expected: 06/10/2024, Expires: 06/10/2025 documented as of this encounter Visit Diagnoses Diagnosis Helicobacter pylori (H. pylori) infection- Primary Helicobacter pylori (H. pylori) documented in this encounter Additional Health Concerns Assessment Noted Time PHQ-9 Depression Total Score: 14 025 8:17 PM EST documented as of this encounter Care Teams Rate Manager Relationship Specialty Start Date End Date Bonnie Huff PA [address] [place] [address] PCP - General 10/24/23 documented as of this encounter
--- OUTSIDE RECORDS SUMMARY | 2024-06-24 17:10 | XMS_ITS | Encounter Summary ---
Author Organization [employer] Address [address] [place] [address] Care Team Providers Care Harness Puller Name Role Phone Bonnie Huff Primary Care Provider + Reason for Visit * Reason Onset Date Comments Request For Order(s) 06/04/2024 [facility] Missed Visit 05/20/24 Encounter Details Date Type Department Care Team ([facility] st Contact Info) Description 06/04/2024 Telephone Internal Medicine - [place] 175 [facility] [address] [place] [address] Rocio Almaguer [place] Request For Order(s) ([facility] Missed Visit 05/20/24/) Social History Tobacco Use Types Packs/Day Years [...] Progress Notes * Rocio Almaguer MA - 06/04/2024 7:22 AM EST [facility] Missed Visit 05/20/24 Please sign & documented in this encounter Plan of Treatment Upcoming Encounters Date Type Department Care Team (Late st Contact Info) Description 06/30/2024 2:00 PM EDT Treatment [facility] [address] [phone] Hugo Shultz, BLOCK CABLEMAN 07/01/2024 1:00 PM EDT Office Visit General Surgery [facility] [address] [phone] Fredo Machado, DO [address] [address] 07/04/2024 1:30 PM EDT Office Visit Pulmonolgy [facility] [address] [phone] Marlene Ahuja MD [address] [address] 07/07/2024 2:00 PM EDT Treatment [facility] [address] [phone] Felix Loredo, BLOCK CABLEMAN 07/14/2024 2:00 PM EDT Treatment [facility] [address] [phone] Amelia Perez, PT 09/18/2024 2:15 PM EDT Office Visit Internal Medicine [facility] [address] [phone] Bonnie Huff PA [address] [address] documented as of this encounter Visit Diagnoses Not on filedocumented in this encounter Additional Health Concerns Assessment Noted Time PHQ-9 Depression Total Score: 14 025 8:17 PM EST documented as of this encounter Care Teams Harness Puller Relationship Specialty Start Date End Date Bonnie Huff PA [address] [place] [address] PCP - General 10/24/23 documented as of this encounter
--- OUTSIDE RECORDS SUMMARY | 2024-06-24 17:10 | XMS_ITS | Encounter Summary ---
Author Organization [employer] Address [address] [place] [address] Care Team Providers Care Allergist/Immunologist Physician Name Role Phone Bonnie Huff Primary Care Provider + Reason for Visit * Reason Onset Date Comments Request For Order(s) 06/24/2024 [facility] Discharge Summary Report Encounter Details Date Type Department Care Team ([facility] st Contact Info) Description 06/24/2024 Telephone Internal Medicine - [facility] 175 [facility] [address] [place] [address] Rocio Almaguer MA Request For Order(s) ([facility] Discharge Summary Report /) Social History Tobacco Use Types Packs/Day Years [...] care for your loved ones. 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 center administrator or elderly care for an older adult? [...] Progress Notes * Rocio Almaguer MA - 06/24/2024 8:10 AM EDT [facility] Discharge Summary Report Please sign & documented in this encounter Plan of Treatment Upcoming Encounters Date Type Department Care Team (Late st Contact Info) Description 06/30/2024 2:00 PM EDT Treatment [facility] [address] [phone] Hugo Shultz, DRAW FRAME OPERATOR 07/01/2024 1:00 PM EDT Office Visit General Surgery - [facility] [address] [phone] Fredo Machado, DO [address] [phone] 07/04/2024 1:30 PM EDT Office Visit Pulmonolgy [facility] [address] [phone] Marlene Ahuja MD [address] [phone] 07/07/2024 2:00 PM EDT Treatment [facility] [address] [phone] Felix Loredo, INDER 07/14/2024 2:00 PM EDT Treatment [facility] [address] [phone] Amelia Perez, PT 09/18/2024 2:15 PM EDT Office Visit Internal Medicine [facility] [address] [phone] Bonnie Huff PA [address] [address] documented as of this encounter Visit Diagnoses Not on filedocumented in this encounter Additional Health Concerns Assessment Noted Time PHQ-9 Depression Total Score: 14 025 8:17 PM EST documented as of this encounter Care Teams Allergist/Immunologist Physician Relationship Specialty Start Date End Date Bonnie Huff PA [address] [place] [address] PCP - General 10/24/23 documented as of this encounter
--- OUTSIDE RECORDS SUMMARY | 2024-06-24 17:10 | XMS_ITS | Encounter Summary ---
Author Organization [employer] Address [address] [place] [address] Care Team Providers Care Radio Artist Name Role Phone Bonnie Huff Primary Care Provider + Encounter Details Date Type Department Care Team (Late st Contact Info) Description 06/10/2024 Telephone Gastroenterology - [facility] [address] [place] [phone] Stan Babb PA [address] [place] [address] Social History Tobacco Use Types Packs/Day Years [...] your loved ones. For example, early childhood education coordinator or elderly care for an older adult? [...] as of this encounter Progress Notes * Sherron Smith MA - 06/10/2024 1:24 PM EST Spoke to patient and advised. * BRISEIDA López - 06/10/2024 7:49 AM EST Please tell patient that she does have the bacteria in her stomach and that she needs to take the antibiotic for 2 weeks and then be without medication for 2 weeks and then perform the breath test which has already been ordered. If she has any questions, please let me know and I will also send her message through [employer]. Thank you documented in this encounter Plan of Treatment Upcoming Encounters Date Type Department Care Team (Late st Contact Info) Description 06/30/2024 2:00 PM EDT Treatment [facility] [address] [phone] Hugo Shultz, INSULATION CUTTER 07/01/2024 1:00 PM EDT Office Visit General Surgery [facility] [address] [phone] Fredo Machado, [address] [address] 07/04/2024 1:30 PM EDT Office Visit Pulmonolgy [facility] [address] [phone] Marlene Ahuja MD [address] [address] 07/07/2024 2:00 PM EDT Treatment [facility] [address] [phone] Felix Loredo, INDER 07/14/2024 2:00 PM EDT Treatment [facility] [address] [phone] Amelia Perez, PT 09/18/2024 2:15 PM EDT Office Visit Internal Medicine - [place] [address] [phone] Bonnie Huff PA [address] [address] documented as of this encounter Visit Diagnoses Not on filedocumented in this encounter Additional Health Concerns Assessment Noted Time PHQ-9 Depression Total Score: 14 025 8:17 PM EST documented as of this encounter Care Teams Radio Artist Relationship Specialty Start Date End Date Bonnie Huff PA [address] [place] [address] PCP - General 10/24/23 documented as of this encounter
--- OUTSIDE RECORDS SUMMARY | 2024-06-24 17:10 | XMS_ITS | Encounter Summary ---
[facility] [address] Address [address] [place] [address] Care Team Providers Care Spud Driller Name Role Phone Bonnie Huff Primary Care Provider + Reason for Referral * Medications - Pending Review Specialty Diagnoses / Procedures Referred By Contac t Referred To Contact Diagnoses Routine physical examination Epigastric pain H/O Helicobacter infection Straining with stools Stan Babb PA [address] [address] Phone: tel: fax: Referral ID Status Reason Start Date Expiration Date V isits Requested Visits Authorized [id number] Pending Review 1 1 Reason for Visit * Reason Comments Abdominal Pain Constipation * Consultation (Routine) - Closed Specialty Diagnoses / Procedures Referred By Contac t Referred To Contact Gastroenterology Diagnoses Routine physical examination Bonnie Huff PA [address] [address] Phone: tel: fax: Gastroenterology - [place] [address] [phone] Phone: tel: fax: Referral ID Status Reason Start Date Expiration Date V isits Requested Visits Authorized [id number] Closed Specialty Services Required 03/18/2024 03/18/2025 1 1 Encounter Details Date Type Department Care Team (Latest Contact Info) Description 06/06/2024 3:00 PM EST Office Visit Gastroenterology - [place] [address] [place] [address] Stan Babb PA [address] [place] [address] Epigastric pain (Primary Dx); Routine physical examination; H/O Helicobacter infection; Straining with stools Social History Tobacco Use Types Packs/Day Years [...] care for your loved ones. For example, teacher early childhood development or elderly care for an older adult? [...] Sign Reading Time Taken Comments Blood Pressure 106/64 06/06/2024 3:21 PM EST Pulse 70 06/06/2024 3:21 PM EST Temperature - - Respiratory Rate - - Oxygen Saturation - - Inhaled Oxygen Concentration - - Weight 64.9 kg (143 lb) 06/06/2024 3:21 PM EST Height 157.5 cm (5' 2 ) 06/06/2024 3:21 PM EST Body Mass Index 26.16 06/06/2024 3:21 PM EST documented in this encounter Patient Instructions * Attachments The following attachments cannot be sent through Care Everywhere. * Abdominal Pain (Stateless) * Acid-Reducing Medicines: General Info (Stateless) * Dyspepsia (Stateless) * Constipation (Stateless) * Helicobacter Pylori Tests (Stateless) * Infection: H. Pylori Bacterial (Stateless) documented in this encounter Ordered Prescriptions Prescription Sig Dispense Quantity Refills Last Filled Start Date End Date plecanatide (Trulance) 3 mg tabletIndications: Routine physical examination,Epigas tric pain,H/O Helicobacter infection,Strainin g with stools Take 1 tablet (3 mg total) by mouth 1 (one) time each day. 30 tablet 11 06/06/2024 polyethylene glycol (MIRALAX) 17 gram packet Take 17 g by mouth 1 (one) time each day. 510 g 06/06/2024 docusate sodium (Colace) 100 mg capsule Take 1 capsule (100 mg total) by mouth 2 (two) times a day. 60 each 06/06/2024 documented in this encounter Progress Notes * BRISEIDA López - 06/06/2024 3:00 PM EST Patient returns for follow up of epigastric pain after eating and dyspepsia. Has been taking her medications as directed for the h.pylori when she was dxd in Jan, States that although she was treatedshe still is having epigastric pain. Aware that she will need to repeat the the breath test to see if the bacteria has been eliminated and if not then we will need to treat with other medications. Patient will be informed when the next results are given. Also having some strain with stool., Will use the colace as a stool softener, use the miralax daily for regularity of bowels and use trulance tosee if that will help move her bowels as well and she needs to contact us with update on sxs. * BRISEIDA López - 06/06/2024 3:00 PM EST DENTIFIER: Erum Rawls is a 48 y.o. old female who presents to the gastroenterology department today for re-evaluation of postprandial epigastric pain and dyspepsia as well as straining with stool. HPI: 48-year-old female eturns for follow up of epigastric pain after eating and dyspepia Has been taking her medications as directed for the h.pylori when she was dxd in Jan, States that although she was treated she still is having epigastric pain. Aware that she will need to repeat the the breath test to see if the bacteria has been eliminated and if not then we will need to treat with other medications. Patient will be informed when the next results are received Also having some strain with stool., Will use the colace as a stool softener, use the miralax daily for regularity of bowels and use trulance to see if that will help move her bowels as well and she needs to contact us with update on sxs. ROS: GENERAL: No malaise, significant weight loss or fever HEENT: No changes in hearing or vision, nose bleeds or swallowing problems NECK: No lumps, goiter, pain or significant neck swelling RESPIRATORY: No cough, wheezing or shortness of breath CARDIOVASCULAR: No chest pain, leg swelling or palpitations GI: Noted for postprandial epigastric pain, dyspepsia, straining with stool, history of H. pylori MUSCULOSKELETAL: No joint pain or swelling, back pain, or muscle pain. SKIN: No lesions, rash or itching The remainder of the review of systems is reviewed and negative. PAST MEDICAL HISTORY: Patient Active Problem List Diagnosis Date Noted Allergic rhinitis 12/13/2023 Asthma with COPD ([facility]) 12/13/2023 Hyperlipidemia 12/13/2023 Hypothyroidism 12/13/2023 Insomnia 12/13/2023 Iron deficiency anemia 12/13/2023 Migraine 12/13/2023 Muscle spasm 12/13/2023 SOCIAL HISTORY: Social History Tobacco Use Smoking status: Former Smokeless tobacco: Never Substance Use Topics Alcohol use: Not Currently FAMILY HISTORY: No family history on file. ACTIVE MEDICATIONS: Outpatient Medications Marked as Taking for the 06/06/24 encounter (Office Visit) with BRISEIDA López Medication Sig Dispense Refill adalimumab (HUMIRA) 40 [...] by mouth daily as needed for Allergies. pregabalin (LYRICA) 75 mg capsule Take 1 capsule (75 mg total) by mouth 2 (two) times a day. Savella 25 mg tablet Take 1 tablet (25 mg total) by mouth 2 (two) times a day. SUMAtriptan (IMITREX) 50 mg tablet Take 1 tab prn migraine, may repeat in 2 hours prn max 100 mg per 24 hours ALLERGIES: @ALL@ PHYSICAL EXAM: Visit Vitals BP 106/64 Pulse 70 Ht 1.575 m (62 ) Wt 64.9 kg (143 lb) BMI 26.16 kg/m?? OB Status Postmenopausal Smoking Status Former BSA 1.66 m?? APPEARANCE: Alert and in no acute distress EYES: PERRLA, conjunctiva and sclera normal. MOUTH/THROAT: no erythema or exudates NECK: Neck supple, no adenopathy HEART: RRR with normal S1 and S2, no murmurs appreciated LUNG: clear to auscultation LYMPH NODES: grossly normal ABDOMEN:, Nontender, normal active bowel sound throughout, no organomegaly RECTAL: Exam deferred. EXTREMITIES: Extremities warm and well perfused SKIN: Skin color, texture, turgor normal. LABS: Lab Results Component Value Date WBC 16.3 (H) 05/20/2024 HGB 13.5 05/20/2024 HCT 41.7 05/20/2024 MCV 95.0 05/20/2024 PLT 349 05/20/2024 No results found for: SEDRATE , CRP , IRON , FERRITIN , CDIFFTOX , HPYLORI , STOOLCX , LIPASE , APTT , PT , INR , CELIAC , TTGIGA , GLIADINIGA , OCCULTBLD , CALPROTECTIN IMAGING: XR Chest 2 Views Narrative: HISTORY: The patient is a 48-year-old female [...] clear and the costophrenic angles are sharp. Impression: No acute findings. There is mild biapical pleural thickening. Code 91379 -------- FINAL REPORT -------- Dictated By: Pradeep De La Cruz Dictated Date: 04/03/2024 07:42 ET Assigned Physician: Pradeep De La Cruz Reviewed and Electronically Signed By: Pradeep De La Cruz Signed Date: 04/03/2024 07:43 ET Workstation ID: [id number] Transcribed By: Self Edit Transcribed Date: 04/03/2024 07:[address] Results for orders placed during the hospital encounter of 03/26/24 CT Head wo Contrast Narrative INDICATION: Migraine headache Technique: Axial images were obtained from the skull base to the vertex without contrast enhancement. Scanner: [employer] 64 slice VCT Dose reduction technique: ASIR (Adaptive statistical iterative reconstruction) Dose: total exam DLP 716 mGY per cm Comparison: No prior studies available for comparison. FINDINGS: Intracranial contents: No acute intracranial hemorrhage, midline shift or mass- effect. The ventricles, sulci, sylvian fissures and [...] and air-fluid level on the left side. Impression No evidence of acute intracranial process on noncontrast head CT. Sinusitis. Chronic mastoiditis. -------- FINAL REPORT -------- Dictated By: Ramnoa Camarillo Dictated Date: 03/27/2024 12:58 ET Assigned Physician: Ramona Camarillo Reviewed and Electronically Signed By: Ramona Camarillo Signed Date: 03/27/2024 13:01 ET Workstation ID: [id number] Transcribed By: Self Edit Transcribed Date: 03/27/2024 12:58 ET IMPRESSION: 1. Epigastric pain 2. Routine physical examination 3. H/O Helicobacter infection 4. Straining with stools PLAN: 1. Gastric pain, history of H. pylori, strain with stool Patient is seen in follow-up for epigastric pain after eating as well as dyspepsia. She was treatedfor H. pylori in January but she still feels that she is having epigastric pain. We will have her repeat the breath test to see if they have bacteria still present and if so then another medication needs to be used. Patient is not having any issues with swallowing but does not feel her heartburn is well-controlled. We will be in touch with her once the results of the breath test are received Strain with stool-patient states that she does have some issues with straining with stool and have suggested that she use Colace as a stool softener and MiraLAX as a mild laxative as well as Trulanceto see if that will be any more help for her moving her bowels and have asked patient to contact office with an update regarding her symptoms. Will be in touch with patient when results are received Total time of today's encounter is 37 minutes in preparing to see the patient, reviewing labs, diagnostic studies as well as other provider notes, documenting in charting, creating an HPI, performinga medically appropriate exam, counseling patient at length in regards to heartburn, reflux, epigastric pain, history of H. pylori, straining with stool as well as prescribing medication. There was doc umentation in EMR after visit. None of which time was spent performing separately billable procedures or ancillary services. Much appreciation for allowing us to participate in patient's care Orders Placed This Encounter Procedures Helicobacter pylori breath test ADDITIONAL ORDERS: AMB REFERRAL TO GASTROENTEROLOGY BRISEIDA López documented in this encounter Plan of Treatment Upcoming Encounters Date Type Department Care Team (Late st Contact Info) Description 06/30/2024 2:00 PM EDT Treatment [address] [phone] Hugo Shultz, OIL AND GAS DRAFTER 07/01/2024 1:00 PM EDT Office Visit General Surgery [facility] 175 [facility] [address] [place] [phone] Fredo Machado, DO 175 [facility] [address] [place] [address] 07/04/2024 1:30 PM EDT Office Visit Pulmonolgy - [place] [address] [phone] Marlene Ahuja MD [address] [address] 07/07/2024 2:00 PM EDT Treatment [address] [phone] Felix Loredo, INDER 07/14/2024 2:00 PM EDT Treatment [facility] [address] [phone] Amelia Perez, PT 09/18/2024 2:15 PM EDT Office Visit Internal Medicine [facility] [address] [phone] Bonnie Huff PA [address] [address] documented as of this encounter Results * (ABNORMAL) Helicobacter pylori breath test (06/09/2024 1:08 PM EST) H Pylori Breath Test Positive( A) Negative LAB CHEMISTRY METHOD 06/10/2024 6:25 AM EST [facility] Breath Oral cavity structure / Unknown Non-blood Collection / Unknown 06/09/2024 1:08 PM EST 06/09/2024 1:08 PM EST Stan GOINS LAB BODY FLUIDS AND STOOLS NICK BUNN Final Result [facility] [address] [place] [address], documented in this encounter Visit Diagnoses Diagnosis Epigastric pain- Primary Abdominal pain, epigastric Routine physical examination Routine general medical examination at a health care facility H/O Helicobacter infection Straining with stools documented in this encounter Discontinued Medications Medication Sig Discontinue Reason Start Date End Da te methylPREDNISolone (MEDROL) 4 mg tablet Take 1 tablet (4 mg total) by mouth 1 (one) time each day. 06/06/2024 documented as of this encounter Orders Outpatient Referral Count Last Ordered Date Fir st Ordered Date AMB REFERRAL TO GASTROENTEROLOGY 1 06/06/19 25 documented in this encounter Additional Health Concerns Assessment Noted Time PHQ-9 Depression Total Score: 14 025 8:17 PM EST documented as of this encounter Care Teams Spud Driller Relationship Specialty Start Date End Date Bonnie Huff PA [address] [place] [address] PCP - General 10/24/23 documented as of this encounter
--- OUTSIDE RECORDS SUMMARY | 2024-06-24 17:10 | XMS_ITS | Encounter Summary ---
Author Organization [employer] Address [address] [place] [address] Care Team Providers Care Spd Tech Name Role Phone Bonnie Huff Primary Care Provider + Reason for Visit * Consultation (Routine) - Authorized Specialty Diagnoses / Procedures Referred By Contsilvestre reynolds Referred To Contact Physical Therapy Diagnoses Lateral pain of left hip Lumbar pain Claudy Araya PA [address] [place] [address] Phone: tel: fax: Referral ID Status Reason Start Date Expiration Date Visits Requested Visits Authorized [id number] Authorized Consult and Treat 05/01/2024 05/01/2025 21 21 Encounter Details Date Type Department Care Team ([facility] st Contact Info) Description 06/23/2024 2:00 PM EDT Treatment [address] [phone] Hugo Shultz, MIDLEVEL PROVIDER Lateral pain of left hip (Primary Dx) [...] your loved ones. For example, child and family therapist or elderly care for an older [...] this encounter Progress Notes * Hugo Shultz, MIDLEVEL PROVIDER - 06/23/2024 2:00 PM EDT [facility] - Outpatient PHYSICAL THERAPY DAILY TREATMENT NOTE - OP Date: 06/23/2024 Visit Number: [id number] Patient Name: Erum Rawls : 1975 Age: 48 y.o. Gender: female Diagnosis: ICD-10-CM ICD-9-CM 1. Lateral pain of left hip M25.552 719.45 Date of Onset/Surgery: 12/02/2022 Referring Provider: Claudy Araya PA Insurance: Payor: [employer] PLAN / Plan: [employer] MEDICAID / Product Type: *No Product type* / Patient Identified by: Hugo Shultz PTA Language: Latvian Medications: Current Outpatient Medications on File Prior [...] 100 mg per 24 hours 9 tablet1 No current facility-administered medications on file prior to visit. Allergies: has No Known Allergies. Precautions: Fall risk: No Patient/Caregiver Goals: SUBJECTIVE Subjective Report: pt reports that she isnt feeling to bad today Chart Reviewed: Yes Pain 5/10 left hip pain OBJECTIVE TREATMENT INTERVENTION: Nu step x 5 min Attempted standing hamstring and hip flexor 3 x 20 sec hold (B) H/L hip add x 20 H/L hip abd x 20 (L)LE long axis distraction ASSESSMENT/Response to Treatment Fair progress as able.. pt perform there ex at a slower pace. Pt able to tolerate standing hamstring and hip flexor stretch Patient Education: Education provided: Yes Education Provided [...] Info) Description 06/30/2024 2:00 PM EDT Treatment [facility] [address] [phone] Hugo Shultz PTA 07/01/2024 1:00 PM EDT Office Visit General Surgery [facility] 175 [facility] [address] [place] [phone] Fredo Machado, DO [address] [address] 07/04/2024 1:30 PM EDT Office Visit Pulmonolgy [facility] 175 [facility] 200 [place] [phone] Marlene Ahuja MD [address] [address] 07/07/2024 2:00 PM EDT Treatment [facility] [address] [phone] Felix Loredo, INDER 07/14/2024 2:00 PM EDT Treatment [facility] [address] [phone] Amelia Perez, PT 09/18/2024 2:15 PM EDT Office Visit Internal Medicine - [place] 175 [facility] [address] [place] [address] Bonnie Huff PA [address] [address] documented as of this encounter Visit Diagnoses Diagnosis Lateral pain of left hip- Primary documented in this encounter Additional Health Concerns Assessment Noted Time PHQ-9 Depression Total Score: 14 025 8:17 PM EST documented as of this encounter Care Teams Spd Tech Relationship Specialty Start Date End Date Bonnie Huff PA [address] [place] [address] PCP - General 10/24/23 documented as of this encounter
== END 2024-06-24 14:39 | disposition home or self-care (01) ==
LOC: HO.RHE 14:03
PROVIDERS: PCP Physician Assistant; Visit Provider Student in an Organized Health Care Education/Training Program
DX: M05.79 Rheumatoid arthritis with rheumatoid factor of multiple sites without organ or systems involvement (principal); M79.7 Fibromyalgia; Z79.620 Long term (current) use of immunosuppressive biologic
CPT/HCPCS: 99215; G2211

== ENCOUNTER 2024-07-18 11:01 | Outpatient (AMB) | payer OTHER, SELFPAY ==
--- NOTE | 2024-07-18 11:21 | MHC.OFFVIS ---
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 No complaints. Last Pap/HPV was many years ago, with no history of abnormal Pap smears, the patient is status post hysterectomy with BSO for endometriosis Last Mammogram was many years ago No previous screening colonoscopy [facility] Medical History (Updated 07/18/24 @ 11:41 by Iftikhar Damian MD) Adalimumab (Humira) long-term use Rheumatoid arthritis Fibromyalgia affecting multiple sites Hyperlipidemia Asthma Migraine Iron deficiency anemia Insomnia Muscle spasm Hypothyroidism Allergic rhinitis Surgical History H/O: hysterectomy Family History (Updated 07/18/24 @ 11:24 by Lyndsay Rodriguez MA) Mother Breast cancer Sister Breast cancer Social History Household Members: Family Housing: Apartment Do you presently have visiting nurse or other home services: No Patient Tobacco Use Status: Former Tobacco user Tobacco use type: Cigarette service: No Female Reproductive History Menstrual Age of Menarche: 10 Total pregnancies: 3 Full term: 1 History of abnormal pap smear: No Date of Mammogram: 05/26/24 Review of Systems Const All systems reviewed & are unremarkable except as noted in HPI and below Card Reports as per HPI and Reports no additional complaints Resp Reports as per HPI and Reports no additional complaints GI Reports as per HPI and Reports no additional complaints Reports as per HPI Physical Exam Const General: cooperative, healthy appearing and comfortable General: Yes bladder normal to palpation External Female Exam: No lesion Speculum Exam - Vagina: normal appearance of the vagina, normal vaginal discharge and not erythematous Speculum Exam - Cervix: Cervix absent Bimanual exam- vagina & uterus: bladder normal to palpation and uterus absent Bimanual Exam- Adnexa, other: Other (No masses detected) Assessment & Plan Assessment & Plan (1) Well woman exam: Code(s): Z01.419 - Encounter for gynecological examination (general) (routine) without abnormal findings Category: Medical Plan: Cotesting not indicated since the patient does not have any history of abnormal Pap smear status post hysterectomy for benign disease. Mammogram ordered. GI referral placed for screening colonoscopy Counseled the patient about the recommended dietary allowance of 1000 mg of Calcium & 600 IU of vitamin D. The patient was instructed to perform monthly self-breast exams and to schedule an annual exam in a year; All questions answered and the patient verbalized understanding. Instructed the patient to schedule annual exam in a year Orders: Orders MM tomosynthesis screening BI Today Z12.31 - Encounter for screening mammogram for malignant neoplasm of breast Referrals Gastroenterology Referral Z12.11 - Encounter for screening for malignant neoplasm of colon Coding Level of Care Code New Pt Prev Care 40-64y(73392) Diagnoses Well woman exam Z01.419
[2024-07-18 11:31] VITALS: BP 126/72; BMI 26.3
--- OUTSIDE RECORDS SUMMARY | 2024-07-18 12:48 | XMS_ITS | Encounter Summary ---
Author Organization [employer] Address [address] [place] [address] Care Team Providers Care Heavy Mobile Equipment Repairer Name Role Phone Bonnie Huff Primary Care Provider + Reason for Visit * Auth/Cert (Routine) Specialty Diagnoses / Procedures Referred By Contac t Referred To Contact Diagnoses Chronic cough CHRONIC COUGH Procedures TN BRONCHOSCOPY RIGID/FLEXIBLE DIAGNOSTIC W/CELL WASHING BRONCHOSCOPY Marlene Ahuja MD [address] [address] Phone: tel: fax: [facility] OR [address] [place] [phone] Phone: tel: Referral ID Status Reason Start Date Expiration Date Visits Re quested Visits Authorized [id number] 1 1 Encounter Details Date Type Department Care Team (Late st Contact Info) Description 07/17/2024 1:30 PM EDT - 07/17/2024 3:00 PM EDT Surgery [facility] Main OR [address] [place] [phone] Marlene Ahuja MD [address] [address] BRONCHOSCOPY [[id number] (CPT??)] Surgery Details Date/Time Status Location OR Service Patient Class Case Cl ass Case Type Trauma Case? 07/17/2024 1:30 PM Posted [facility] OR OR Pulmonology [facility] Surgery F - Elective Panel 1 Procedure LRB Anes Op Region Wound Class Comments BRONCHOSCOPY N/A general Bronchus Class II/ Clean C ontaminated Surgeon Surgeon Role Service Panel Marlene Ahuja MD Primary Pulmonology 1 documented in this encounter Social History Tobacco Use Types Packs/Day Years [...] for your loved ones. 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 director or elderly care for an older [...] Sign Reading Time Taken Comments Blood Pressure 103/75 07/17/2024 2:55 PM EDT Pulse 88 07/17/2024 2:55 PM EDT Temperature 36.2 ??C (97.1 ??F) 07/17/2024 2:15 PM ED T Respiratory Rate 18 07/17/2024 2:55 PM EDT Oxygen Saturation 95% 07/17/2024 2:55 PM EDT Inhaled Oxygen Concentration - - Weight 65.8 kg (145 lb) 07/11/2024 3:00 PM EDT Height 157.5 cm (5' 2 ) 07/11/2024 3:00 PM EDT Body Mass Index 26.52 07/11/2024 3:00 PM EDT documented in this encounter Discharge Instructions * Attachments The following attachments cannot be sent through Care Everywhere. * General Anesthesia (Faroese) documented in this encounter Medications at Time of Discharge adalimumab (HUMIRA) 40 mg/0.8 mL syringe Inject 0.8 mL (40 mg total) under the skin every 14 (fourteen) days. albuterol HFA (PROAIR HFA ; PROVENTIL HFA ; VENTOLIN HFA) 90 mcg/actuation inhalerIndications :acute asthma attack,bronchospas m prevention 2 puffs every 4 (four) hours if needed. Inhale 2 Puffs into the lungs every 6 hours as needed for Cough, Wheezing or Shortness of Breath. 3 inhalers and 3 refills 12/13/2023 amitriptyline (ELAVIL) 25 mg tablet Take 1 tablet (25 mg total) by mouth at bedtime. Take 1 Tablet by mouth at bedtime. 90 tablet 3 07/10/2024 docusate sodium (Colace) 100 mg capsule Take 1 capsule (100 mg total) by mouth 2 (two) times a day. 60 each 11 06/06/2024 ferrous sulfate 325 mg (65 mg elemental iron) tablet Take 1 tablet (325 mg total) by mouth 1 (one) time each day. Take 1 Tablet by mouth daily. 90 tablet 3 06/10/2024 fluticasone-salmet myesha (ADVAIR DISKUS) 250-50 mcg/dose diskus inhalerIndications :maintenance therapy for asthma 1 puff 2 (two) times a day. Inhale 1 Puff into the lungs 2 times daily. 01/04/2024 folic acid (FOLVITE) 1 mg tablet Take 1 tablet (1 mg total) by mouth 1 (one) time each day. 01/31/2024 hydrOXYzine HCL (ATARAX) 50 mg tablet Take 1 tablet (50 mg total) by mouth at bedtime. Take 2 Tablets by mouth at bedtime as needed (sleep). 12/13/2023 levothyroxine (SYNTHROID, LEVOTHROID) 25 mcg tablet Take 1 tablet (25 mcg total) by mouth 1 (one) time each day before breakfast. Take 1 Tablet by mouth every morning (before breakfast). 90 tablet 3 06/10/2024 linaCLOtide (Linzess) 145 mcg capsule Take 1 capsule (145 mcg total) by mouth 1 (one) time each day. Hold for diarrhea 30 capsule 11 06/15/2024 loratadine (CLARITIN) 10 mg tablet Take 1 tablet (10 mg total) by mouth 1 (one) time each day. Take 1 Tablet by mouth daily as needed for Allergies. 12/13/2023 omeprazole (PriLOSEC) [address] capsule Take 1 capsule (40 mg total) by mouth 1 (one) time each day. Take in a.m. on empty stomach, wait 30 minutes and then eat to activate medication 14 each 06/10/2024 6 plecanatide (Trulance) 3 mg tabletIndications: Routine physical [...] mg per 24 hours 9 tablet 1 07/10/2024 6 documented as of this encounter Discharge Disposition Disposition Code Departure Means Destination Comment s Home or Self Care Wheelchair documented in this encounter Procedure Notes * Abby Barcenas RN - 07/17/2024 4:12 PM EDT All dc instructions reviewed w/pt who verbalized understanding. Written instructions given to review at home as well. * Marlene Ahuja MD - 07/17/2024 1:31 PM EDT BRONCHOSCOPY OPERATIVE NOTE Date: 07/17/2024 Location: [facility] OR Name: Erum Rawls, : 1975, Diagnosis Pre-op Diagnosis * Chronic cough [R05.3] Post-op Diagnosis * Chronic cough [R05.3] Procedures BRONCHOSCOPY [id number] - TN BRONCHOSCOPY RIGID/FLEXIBLE DIAGNOSTIC W/CELL WASHING Indications: Erum Rawls is an 48 y.o. female who is having surgery for CHRONIC COUGH. Surgeon(s) & Margin Analyst(s) * Marlene Ahuja MD - Primary Anesthesia: general ASA: II Estimated Blood Loss: Minimal Specimen: Specimens ID Source Type Tests Collected By Collected At [facility]? Priority Lab ID 1 Lung, Left Upper Lobe Wash NON-GYNECOLOGIC CYTOLOGY Marlene Ahuja MD 07/17/24 1341 Description: left upper lobe bronchial wash A Lung, Right Middle Lobe Wash CULTURE, AFB AND SMEAR WITH REFLEX TO IDENTIFICATION AND SUSCEPTIBILITY CULTURE FUNGUS, OTHER THAN SKIN HAIR OR NAILS CULTURE BRONCHIAL WITH GRAM STAIN Marlene Ahuja MD 07/17/24 1336 [id number], [id number], [id number] Description: right middle lobe bronchial wash B Lung, Left Upper Lobe Wash CULTURE, AFB AND SMEAR WITH REFLEX TO IDENTIFICATION AND SUSCEPTIBILITY CULTURE FUNGUS, OTHER THAN SKIN HAIR OR NAILS CULTURE BRONCHIAL WITH GRAM STAIN Marlene Ahuja MD 07/17/24 1337 [id number], [id number], [id number] Description: left upper lobe bronchial wash Procedure Details: ET tube placed by anesthesia. Trachea was midline, the gregory was sharp. The submucosa was not inflamed I first inspected the left lung forde, left main bronchus to left upper left lower and left lingula lobe were all clear of significant endobronchial debris or airway inflammation. I proceeded to performed bronchial lavage with 40 mL of saline in the left upper lobe. There was good return. After this was done, I inspected the left the right lung forde the right main was patent the right upper lobe was also likewise pain I cannot visualize the superior segment of the right upper lobe. The right lower lobe and subsegments were patent without any significant endobronchial debris or abnormal mucosa I performed bronchial lavage with approximately 40 mL of saline in the right middle lobe more so in the medial segment. I had good bedside. Patient tolerated procedure well without significant coughing Findings: Normal airways Complications: None; patient tolerated the procedure well. Disposition: PACU - hemodynamically stable. Condition: stable documented in this encounter Plan of Treatment Upcoming Encounters Date Type Department Care Team (Late st Contact Info) Description 09/05/2024 2:45 PM EDT Office Visit Pulmonolgy - [place] 175 [facility] [address] [place] [phone] Marleen Ahuja MD 175 [facility] [address] [place] [address] 09/18/2024 2:15 PM EDT Office Visit Internal Medicine - [place] 175 [facility] [address] [place] [id number] Bonnie Huff, BRISEIDA 175 [facility] [address] [place] [address] 12/30/2024 2:00 PM EDT Office Visit General Surgery - [place] 175 [facility] [address] [place] [phone] Fredo Machado, 175 [facility] [address] [place] [address] Pending Results Name Type Priority Associated Diagnoses Date/Time Culture, afb and smear with reflex to identification and susceptibility Microbiology Routine Chronic cough 07/17/2024 1:36 PM EDT Culture fungus, other than skin hair or nails Microbiology Routine Chronic cough 07/17/2024 1:36 PM EDT Culture bronchial with gram stain Microbiology Routine Chronic cough 07/17/2024 1:36 PM EDT Culture, afb and smear with reflex to identification and susceptibility Microbiology Routine Chronic cough 07/17/2024 1:37 PM EDT Culture fungus, other than skin hair or nails Microbiology Routine Chronic cough 07/17/2024 1:37 PM EDT Culture bronchial with gram stain Microbiology Routine Chronic cough 07/17/2024 1:37 PM EDT Non-gynecologic cytology Pathology and Cytology Routine Chronic cough 07/17/2024 1:41 PM EDT Scheduled Orders Name Type Priority Associated Diagnoses Order Schedule Culture, afb and smear with reflex to identification and susceptibility Microbiology Timed Chronic cough Release Upon Ordering for 1 Occurrences starting 07/17/2024 Culture fungus, other than skin hair or nails Microbiology Routine Chronic cough Release Upon Ordering for 1 Occurrences starting 07/17/2024 Culture, afb and smear with reflex to identification and susceptibility Microbiology Timed Chronic cough Release Upon Ordering for 1 Occurrences starting 07/17/2024 Culture fungus, other than skin hair or nails Microbiology Routine Chronic cough Release Upon Ordering for 1 Occurrences starting 07/17/2024 Non-gynecologic cytology Pathology and Cytology Timed Chronic cough Release Upon Ordering for 1 Occurrences starting 07/17/2024, 1 completed documented as of this encounter Procedures Procedure Name Priority Date/Time Associated Diagnosis Comments OXYGEN THERAPY, ADULT Routine 07/17/2024 2:13 PM EDT CULTURE BRONCHIAL WITH GRAM STAIN Routine 07/17/2024 1:37 PM EDT Chronic cough ACID FAST BACILLI STAIN Routine 07/17/2024 1:37 PM EDT Chronic cough CULTURE BRONCHIAL WITH GRAM STAIN Routine 07/17/2024 1:36 PM EDT Chronic cough ACID FAST BACILLI STAIN Routine 07/17/2024 1:36 PM EDT Chronic cough TN BRONCHOSCOPY RIGID/FLEXIBLE DIAGNOSTIC W/CELL WASHING 07/17/2024 1:13 PM EDT Chronic cough POCT GLUCOSE BLOOD Routine 07/17/2024 12 :34 PM EDT documented in this encounter Results * Acid fast bacilli stain (07/17/2024 1:37 PM EDT) AFB Stain Result No Acid fast bacilli seen on direct smear (Fuchsin method, 1000x) No Acid Fast Bacilli seen on direct smear 07/17/2024 9:03 PM EDT [facility] Wash Structure of upper lobe of left lung / Unknown 07/17/2024 1:37 PM EDT 07/17/2024 2:50 PM EDT us Marlene Ahuja MD LAB MICROBIOLOGY - GENERAL ORDER ALONSO Final Result [facility] [address] [place] [address], [place] [phone] * Acid fast bacilli stain (07/17/2024 1:36 PM EDT) AFB Stain Result No Acid fast bacilli seen on direct smear (Fuchsin method, 1000x) No Acid Fast Bacilli seen on direct smear 07/17/2024 9:57 PM EDT [facility] Wash Structure of middle lobe of right lung / Unknown 07/17/2024 1:36 PM EDT 07/17/2024 2:50 PM EDT us Marlene Ahuja MD LAB MICROBIOLOGY - GENERAL ORDER ALONSO Final Result Performing Organization Address [facility]/ZIP Co de Phone Number [facility] [address] [place] [address], [place] [phone] * (ABNORMAL) POCT Glucose, blood (07/17/2024 12:34 PM EDT) [facility] [address] Glucose POCT 107(H) 70 - 100 mg/dL 07/17/2024 12:34 PM EDT [facility] Blood Capillary blood specimen / Unknown 07/17/2024 12:34 PM EDT 07/17/2024 12:36 PM EDT us Marlene Ahuja MD LAB POINT OF CARE TE ST DOCKED DEVICE UNSOLICITED RESULTS Final Result Performing Organization Address [facility] Co de Phone Number [facility] [address] [place] [address], [place] [phone] documented in this encounter Visit Diagnoses Diagnosis Chronic cough Cough Chronic cough Cough documented in this encounter Administered Medications Inactive Administered Medications - up to 3 most recent administrations Medication Order MAR Action Action Date Dose Rate Site lactated Ringer's infusion 75 mL/hr, intravenous, Continuous, Starting on Sun07/17/24 at 1300, Preprocedure Restarted 07/17/2024 1:43 PM EDT New Bag 07/17/2024 1:14 PM EDT 250 mL/hr sodium chloride 0.9 % flush 10 mL 10 mL, intravenous, 2 times daily, First dose on Nikki 07/17/24 at 1300, Preprocedure sodium chloride 0.9 % flush 10 mL 10 mL, intravenous, As needed, line care, Starting on Nikki 07/17/24 at 1232, Preprocedure documented in this encounter Discontinued Medications Medication Sig Discontinue Reason Start Date End Da te amoxicillin (AMOXIL) 500 mg capsule Take 2 capsules (1,000 mg total) by mouth 2 (two) times a day. Therapy completed 06/10/2024 07/11/2024 fluticasone propionate (FLONASE) 50 mcg/actuation nasal spray Administer 2 sprays into each nostril 1 (one) time each day. 2 Sprays by Each Nare route daily. Therapy completed 06/10/2024 07/11/2024 baclofen (LIORESAL) 10 mg tablet Take 1 Tablet by mouth daily as needed (muscle spasms). Therapy completed 12/13/2023 07/11/2024 documented as of this encounter Active and Recently Administered Medications Times are shown in EDT. Scheduled Medication Order 07/15/2024 07/16/2024 07/17/2024 sodium chloride 0.9 % flush 10 mL(Linked Group 1) 10 mL, intravenous, 2 times daily, First dose on Nikki 07/17/24 at 1300, Preprocedure 1300 (Canceled Entry - Provider: Automatic Discharge Provider - Comment: Automatically canceled at discontinue of medication order) Continuous Medication Order 07/15/2024 07/16/2024 07/17/2024 lactated Ringer's infusion 75 mL/hr, intravenous, Continuous, Starting on Nikki 07/17/24 at 1300, Preprocedure 1314 (New Bag - Prov ider: Russ Kelly CRNA)1342 (Paused - Provider: Russ Kelly CRNA - Comment: Switch to gravity)1343 (Restarted - Provider: Russ Kelly CRNA)1823 (Due: Stopped) PRN Medication Order 07/15/2024 07/16/2024 07/17/2024 sodium chloride 0.9 % flush 10 mL(Linked Group 1) 10 mL, intravenous, As needed, line care, Starting on Nikki 07/17/24 at 1232, Preprocedure Linked Groups Order Group 1: Insert peripheral IV (CANCELED) STAT, Once, On Nikki 07/17/24 at 1233, For 1 occurrence, Preprocedure And Maintain IV access (CANCELED) Until discontinued, Starting on Nikki 07/17/24 at 1233, Until Specified, Preprocedure And Saline lock IV (CANCELED) Routine, Once, On Nikki 07/17/24 at 1233, For 1 occurrence, Preprocedure And sodium chloride 0.9 % flush 10 mLJump to med 10 mL, intravenous, 2 times daily, First dose on Nikki 07/17/24 at 1300, Preprocedure And sodium chloride 0.9 % flush 10 mLJump to med 10 mL, intravenous, As needed, line care, Starting on Nikki 07/17/24 at 1232, Preprocedure documented in this encounter Orders Medications Ordered That Rito ht Not Have Been Administered Count Last Ordered Date First Ordered Date diphenhydrAMINE (BENADRYL) i njection 12.5 mg 1 07/17/2024 fentaNYL (PF) (SUBLIMAZE) injection 50 mcg 1 07/17/2024 haloperidol lactate (HALDOL) injection 1 mg 1 07/17/2024 lactated Ringer's infusion 2 07/17/2024 oxyCODONE (ROXICODONE) immed iate release tablet 5 mg 1 07/17/2024 sodium chloride 0.9 % flush 10 mL 2 025 Respiratory Care Count Last Ordered Date First Ordered Date OXYGEN THERAPY, ADULT 1 07/17/2024 Discharge Count Last Ordered Date First Orde red Date DISCHARGE PATIENT 1 07/17/2024 documented in this encounter Additional Health Concerns Infection Onset Date Last Indicated Resolved Time Tuberculosis Rule-Out 07/17/2024 07/17/2024 Assessment Noted Time PHQ-9 Depression Total Score: 14 025 8:17 PM EST documented as of this encounter Care Teams Heavy Mobile Equipment Repairer Relationship Specialty Start Date End Date Bonnie Huff PA [address] [place] [address] PCP - General 10/24/23 documented as of this encounter
--- OUTSIDE RECORDS SUMMARY | 2024-07-18 12:48 | XMS_ITS | Encounter Summary ---
Author Organization [email or web address] Address [address] [place] [address] Care Team Providers Care Departure Clerk Name Role Phone Bonnie Huff Primary Care Provider + Reason for Visit * Auth/Cert (Routine) Specialty Diagnoses / Procedures Referred By Contac t Referred To Contact Diagnoses Chronic cough CHRONIC COUGH Procedures NH BRONCHOSCOPY RIGID/FLEXIBLE DIAGNOSTIC W/CELL WASHING BRONCHOSCOPY Marlene Ahuja MD [address] [address] Phone: tel: fax: [facility] OR [address] [place] [phone] Phone: tel: Referral ID Status Reason Start Date Expiration Date Visits Re quested Visits Authorized [id number] 1 1 Encounter Details Date Type Department Care Team (Late st Contact Info) Description 07/17/2024 1:14 PM EDT Anesthesia Event [facility] Main OR [address] [place] [phone] Brent Mcfarlane DO [address] [place] [phone] Russ Kelly CRNA [address] [place] [id number] Anesthesia Record Procedure Summary Procedure Name Responsible Anesthesiologist Anesthesia Start Time Anesthesia Stop Time BRONCHOSCOPY (Bronchus) Brent Mcfarlane DO 07/17/24 1314 07/17/24 1416 Events Date Time Event Comment 07/17/2024 1254 1313 In Room 1314 An Start 1314 An Start Data The patient wa s reevaluated immediately before moderate or deep sedation use and before anesthesia induction. 1318 An Induction 1327 An Intubation 1329 Anesthesia Ready 1331 Proc Start 1345 Proc Fin 1407 An Extubation EXTUBATE PT WI TH ADEQUATE TIDAL VOLUME PERFORMED, TOF 4/4, DENTITION INTACT UNCHANGED 1410 an stop data 1410 Transport to PACU/ICU Patien t reassessed and ready for transfer, airway stable. Patient transport to designated recovery area. {Transport to PACU/ICU:[id number]} 1411 Out of Room 1415 Handoff to RN I completed my handoff to the receiving nurse during which we: 1. Identified the patient 2. Identified the responsible provider 3. Reviewed the pertinent medical history 4. Discussed the surgical course 5. Reviewed intra-op anesthesia management and issues during anesthesia 6. Set expectations for post-procedure period 7. Allowed opportunity for questions and acknowledgement of understanding. 1416 An Stop Full report rec eived by RN at PACU, pt's V/S remain stable. Dentition unchanged. Meds Name Total midazolam 1 mg/mL 2 mg propofol (DIPRIVAN) injection 10 mg/mL 3 00 mg rocuronium 50 mg ondansetron 2 mg/mL 4 mg dexamethasone (DECADRON) injection 4 mg/ mL 12 mg lidocaine PF (XYLOCAINE-MPF) local injec tion 2% 60 mg HYDROmorphone (DILAUDID) injection 1 mg/ mL 0.5 mg propofoL (DIPRIVAN) infusion 10 mg/mL 28 9.52 mg sugammadex (BRIDION) injection 100 mg/mL 400 mg lactated Ringer's infusion 300 mL * Agents Name O2 * Blood No blood administrations on file. Lines, Drains, and Airways Type Details Placement Removal Peripheral IV Placement Date: 07/08; Placement Time: 1314; Catheter Size: 20 G (1.75 ); Orientation: Left; Location: Antecubital; Site Prep: Chlorhexidine; Local Anesth: None; Inserted by: Mario Denson IV RN; Insertion Attempts: 1; Patient Tolerance: Tolerated well; Removal Date: 07/17/24; Removal Time: 1612 07/17/24 1314 by Chelsea Denson RN 07/17/24 1612 by Abby Barcenas RN ETT Placement Date: 07/08; Placement Time: 1338 (created via procedure documentation); Mask Ventilation: 1; Technique: Direct laryngoscopy; Type: ETT; Cuffed: Yes; Blade Size: 3; Location: Oral; Insertion Attempts: 3 or more; Placement Verification: Auscultation, Capnometry; Airway Comments: ETT#8 slide to esophagea twice by TENISHA, passed by MD at th third attempt. Atraumatically. OG passed to decompress her stomach. ; Removal Date: 07/17/24; Removal Time: 1407 07/17/24 1338 by Russ Kelly CRNA 07/17/24 1407 by Russ Kelly CRNA documented in this encounter Social History Tobacco [...] your loved ones. For example, early childhood special educator or elderly care for an older adult? [...] as of this encounter Progress Notes * Russ Kelly CRNA - 07/17/2024 2:16 PM EDT Patient: Erum Rawls Procedure Summary Date: 07/17/24 Room / Location: [facility] OR / [facility] OR Anesthesia Start: 1313 Anesthesia Stop: 1415 Procedure: BRONCHOSCOPY (Bronchus) Diagnosis: Chronic cough (CHRONIC COUGH) Surgeons: Marlene Ahuja MD Responsible Provider: Brent Mcfarlane DO Anesthesia Type: general ASA Status: 2 Anesthesia Plan: general Last Vitals: Vitals Value Taken Time BP 116/71 07/17/24 1416 Temp 98 07/17/24 1416 Pulse 100 07/17/24 1416 Resp 07/17/24 1416 SpO2 100 07/17/24 1416 No data recorded Anesthesia Post Evaluation Patient location during evaluation: PACU Patient participation: complete - patient participated Level of consciousness: awake and alert Pain score: 0 Pain management: adequate Airway patency: patent Anesthetic complications: no Cardiovascular status: acceptable Respiratory status: acceptable Hydration status: acceptable Nausea: No Vomiting: No There were no known notable events for this encounter. * Brent Mcfarlane DO - 07/17/2024 1:34 PM EDTAssociated Order(s): Intubation General Information and Staff Patient location during procedure: OR Anesthesiologist: Brent Mcfarlane DO Resident/BIOLOGICAL LAB TECHNICIAN: Russ Kelly CRNA Performed: anesthesiologist Performed by: Russ Kelly CRNA Authorized by: Brent Mcfarlane DO Intubation Additional Comments ETT#8 slide to esophagea twice by TENISHA, passed by at th third attempt. Atraumatically. OG passedto decompress her stomach. Airway not difficult Urgency: elective Final Airway Details Successful airway: ETT Cuffed: yes Successful intubation technique: direct laryngoscopy Facilitating devices/methods: intubating stylet Endotracheal tube insertion site: oral Blade: Kerri Blade size: #3 ETT size (mm): 7.5 Cormack-Lehane Classification: grade IIa - partial view of glottis Placement verified by: chest auscultation and capnometry Number of attempts at approach: 3 or moreFinal airway type: endotracheal airway Indications and Patient Condition Indications for airway management: anesthesia Spontaneous Ventilation: absent Sedation level: Yes Preoxygenated: yes Soft Tissue Damage: No Dentition Unchanged: Yes Patient position: sniffing MILS maintained throughout Mask difficulty assessment: 1 - vent by mask * Brent Mcfarlane DO - 07/17/2024 12:44 PM EDT Relevant Problems Cardio (+) Migraine Pulmonary (+) Asthma with COPD ([facility]/HCC) Neuro/Psych (+) Migraine Endo (+) Hypothyroidism Other (+) Iron deficiency anemia (+) Rheumatoid arthritis ([facility]) Clinical information reviewed: Tobacco Allergies Meds Med Hx Surg Hx Fam Hx Soc Hx Anesthesia Plan ASA 2 Anesthesia Plan: general General Anesthesia Considerations: ETT Anesthesia Risks Discussed dental injury, allergic reaction, nausea, serious complications, pain, sore throat and corneal abrasion Plan Factors Patient is not a current smoker Induction method: intravenous Anesthetic plan and risks discussed with patient. Anesthesia Plan discussed with attending. Anesthesia Evaluation Patient summary reviewed and Nursing notes reviewed No history of anesthetic complications Airway Mallampati: III Thyromental distance: < 3 finger breadths Neck ROM: full Dental - normal exam Pulmonary - normal exam breath sounds clear to auscultation (+) COPD, asthma ROS comment: CARDIOPULMONARY TEST: Last Pulmonary function Test showed: 01/03/2024 FEV1/FVC 77%. FEV1 1.59 at 60%. FVC 62%. No bronchodilator response. TLC 85%. RV 115%. DLCO 60% (adjusted 75%). Mild obstruction. No restriction. Mild decrease in diffusion. Finding consistent with mild obstructive lung disease. CT Chest: IMPRESSION: No acute findings in the chest, abdomen, or pelvis. Chronic changes at the lung bases suspicious for an infectious or inflammatory process such as chronic atypical mycobacterial infection or recurrent aspiration. Former Smoker quit 7 years ago Bronchoscopy for chronic cough Cardiovascular - normal exam Exercise tolerance: good (-) hypertension, past AK, CAD, angina, YAÑEZ ECG reviewed Rhythm: regular Rate: normal Neuro/Psych (+) headaches (Migraines) (-) seizures, TIA, CVA Comments: Fibromyalgia GI/Hepatic/Renal (+) GERD well controlled (-) liver disease, renal disease Endo/Other (+) hypothyroidism, arthritis (Rheumatoid arthritis on humiera) (-) diabetes mellitus Comments: Hx of hypoglucemia Abdominal (-) obese PONV RISK SCORE: 2 Vitals: 07/11/24 1500 07/17/24 1223 BP: 113/71 Pulse: 80 Resp: 16 Temp: 36.3 ??C (97.3 ??F) SpO2: 98% Weight: 65.8 kg (145 lb) Height: 1.575 m (62 ) SpO2 Readings from Last 1 Encounters: 07/17/24 98% WBC Date Value Ref Range Status 06/23/2024 7.1 4.8 - 10.8 K/mcL Final RBC Date Value Ref Range Status 06/23/2024 4.10 3.80 - 4.80 M/mcL Final Hemoglobin Date Value Ref Range Status 06/23/2024 13.0 11.5 - 16.0 g/dL Final Hematocrit Date Value Ref Range Status 06/23/2024 39.7 35.0 - 47.0 % Final Platelets Date Value Ref Range Status 06/23/2024 293 130 - 400 K/mcL Final MCV Date Value Ref Range Status 06/23/2024 95.9 79.0 - 98.0 FL Final No Known Allergies STOP BANG: STOP-Bang Total Score: (Patient-Rptd) 2 (07/11/2024 12:52 AM) NPO Status: No data recorded documented in this encounter Plan of Treatment Upcoming Encounters Date Type Department Care Team (Late st Contact Info) Description 09/05/2024 2:45 PM EDT Office Visit Pulmonolgy - [place] 175 [facility] 200 [place] [address] Marlene Ahuja MD [address] [address] 09/18/2024 2:15 PM EDT Office Visit Internal Medicine [facility] [address] [phone] Bonnie Huff PA [address] [address] 12/30/2024 2:00 PM EDT Office Visit General Surgery - [place] 175 [facility] [address] [place] [phone] Fredo Machado DO 175 [facility] [address] [place] [address] documented as of this encounter Procedures Procedure Name Priority Date/Time Associated Diagnosis Comments TH AN ENDOTRACHEAL(NO CHARGE) Routine 07/17/2024 1:34 PM EDT documented in this encounter Results * TH AN ENDOTRACHEAL(NO CHARGE) (07/17/2024 1:34 PM EDT) Narrative Brent Mcfarlane DO - 07/17/2024 1:34 PM EDT Brent Mcfarlane DO ? 07/17/2024 ??4:09 PM General Information and Staff Patient location during procedure: OR Anesthesiologist: Brent Mcfarlane DO Resident/BIOLOGICAL LAB TECHNICIAN: uRss Kelly CRNA Performed: anesthesiologist Performed by: Russ Kelly CRNA Authorized by: Brent Mcfarlane DO ?? Intubation Additional Comments ETT#8 slide to esophagea twice by BIOLOGICAL LAB TECHNICIAN, passed by DO at th third attempt. Atraumatically. OG passed to decompress her stomach. Airway not difficult Urgency: elective Final Airway Details Successful airway: ETT Cuffed: yes Successful intubation technique: direct laryngoscopy Facilitating devices/methods: intubating stylet Endotracheal tube insertion site: oral Blade: Kerri Blade size: #3 ETT size (mm): 7.5 Cormack-Lehane Classification: grade IIa - partial view of glottis Placement verified by: chest auscultation and capnometry Number of attempts at approach: 3 or moreFinal airway type: endotracheal airway Indications and Patient Condition Indications for airway management: anesthesia Spontaneous Ventilation: absent Sedation level: Yes Preoxygenated: yes Soft Tissue Damage: No Dentition Unchanged: Yes Patient position: sniffing MILS maintained throughout Mask difficulty assessment: 1 - vent by mask Brent Mcfarlane DO ANESTHESIA ORDERABLES Edited Re sult - Final documented in this encounter Visit Diagnoses Not on filedocumented in this encounter Administered Medications Inactive Administered Medications - up to 3 most recent administrations Medication Order MAR Action Action Date Dose Rate Site dexAMETHasone (DECADRON) injection intravenous, As needed, Starting on Nikki 07/17/24 at 1329, Anesthesia Intraprocedure Given 07/17/2024 1:29 PM EDT 12 mg HYDROmorphone (DILAUDID) injection intravenous, As needed, Starting on Nikki 07/17/24 at 1315, Anesthesia Intraprocedure Given 07/17/2024 1:15 PM EDT 0.5 mg lactated Ringer's infusion 75 mL/hr, intravenous, Continuous, Starting on Nikki 07/17/24 at 1300, Preprocedure Restarted 07/17/2024 1:43 PM EDT New Bag 07/17/2024 1:14 PM EDT 250 mL/hr lidocaine (PF) (XYLOCAINE-MPF) 2 % injection injection, As needed, Starting on Nikki 07/17/24 at 1318, Anesthesia Intraprocedure Given 07/17/2024 1:18 PM EDT 60 mg midazolam (VERSED) injection intravenous, As needed, Starting on Nikki 07/17/24 at 1312, Anesthesia Intraprocedure Given 07/17/2024 1:12 PM EDT 2 mg ondansetron (PF) (ZOFRAN) injection intravenous, As needed, Starting on Nikki 07/17/24 at 1329, Anesthesia Intraprocedure Given 07/17/2024 1:29 PM EDT 4 mg propofoL (DIPRIVAN) infusion 10 mg/mL intravenous, Continuous PRN, Starting on Nikki 07/17/24 at 1317, Anesthesia Intraprocedure New Bag 07/17/2024 1:17 PM EDT 200 mcg/kg/min 78.96 mL/hr propofoL (DIPRIVAN) injection intravenous, As needed, Starting on Nikki 07/17/24 at 1318, Anesthesia Intraprocedure Given 07/17/2024 1:20 PM EDT 100 mg Given 07/17/2024 1:18 PM EDT 200 mg rocuronium (ZEMURON) injection intravenous, As needed, Starting on Nikki 07/17/24 at 1318, Anesthesia Intraprocedure Given 07/17/2024 1:18 PM EDT 50 mg sugammadex (BRIDION) 100 mg/mL injection intravenous, As needed, Starting on Nikki 07/17/24 at 1343, Anesthesia Intraprocedure Given 07/17/2024 1:50 PM EDT 20 0 mg Given 07/17/2024 1:43 PM EDT 200 mg documented in this encounter Additional Health Concerns Infection Onset Date Last Indicated Resolved Time Tuberculosis Rule-Out 07/17/2024 07/17/2024 Assessment Noted Time PHQ-9 Depression Total Score: 14 025 8:17 PM EST documented as of this encounter Care Teams Departure Clerk Relationship Specialty Start Date End Date Bonnie Huff PA [address] [place] [address] PCP - General 10/24/23 documented as of this encounter
--- OUTSIDE RECORDS SUMMARY | 2024-07-18 12:48 | XMS_ITS | Encounter Summary ---
Author Organization [employer] Address [address] [place] [address] Care Team Providers Care Data Network Architect Name Role Phone Bonnie Huff Primary Care Provider + Reason for Visit * Consultation (Routine) - Authorized Specialty Diagnoses / Procedures Referred By Contsilvestre reynolds Referred To Contact Physical Therapy Diagnoses Lateral pain of left hip Lumbar pain Claudy Araya PA [address] [place] [address] Phone: tel: fax: Referral ID Status Reason Start Date Expiration Date Visits Requested Visits Authorized [id number] Authorized Consult and Treat 05/01/2024 05/01/2025 21 21 Encounter Details Date Type Department Care Team ([facility] st Contact Info) Description 07/14/2024 2:00 PM EDT Treatment [address] [phone] Amelia Perez PT Lateral pain [...] your loved ones. For example, child care supervisor or elderly care for an older [...] Progress Notes * Amelia Perez, PT - 07/14/2024 2:00 PM EDT [facility]Out[facility] PHYSICAL THERAPY PROGRESS NOTE Date: 07/14/2024 Visit Number: 5 Patient Name: Erum Rawls : 1975 Age: 48 y.o. Gender: female Diagnosis: ICD-10-CM ICD-9-CM 1. Lateral pain of left hip M25.552 719.45 2. Lumbar pain M54.50 724.2 Date of Onset: 12/02/2022 Date of Surgery: Referring Provider: Claudy Araya PA Insurance: Payor: [employer] PLAN / Plan: [employer] MEDICAID / Product Type: *No Product type* / Patient Identified by: Amelia Perez PT Language: Speaks and understands Spanish as preferred language with no dairy husbandman required Medications: Current Outpatient Medications on File Prior to Visit Medication Sig Dispense Refill adalimumab (HUMIRA) 40 mg/0.8 mL syringe Inject 0.8 mL (40 mg total) under the skin every 14 (fourteen) days. albuterol HFA (PROAIR HFA ; PROVENTIL HFA ; VENTOLIN HFA) 90 mcg/actuation inhaler 2 puffs every 4 (four) hours if needed. Inhale 2 Puffs into the lungs every 6 hours as needed for Cough, Wheezing orShortness of Breath. 3 inhalers and 3 refills amitriptyline (ELAVIL) 25 mg tablet Take 1 tablet (25 mg total) by mouth at bedtime. Take 1 Tablet by mouth at bedtime. 90 tablet 3 docusate sodium (Colace) 100 mg capsule Take 1 capsule (100 mg total) by mouth 2 (two) times a day.60 each 11 ferrous sulfate 325 mg (65 mg elemental iron) tablet Take 1 tablet (325 mg total) by mouth 1 (one) time each day. Take 1 Tablet by mouth daily. 90 tablet 3 fluticasone-salmeterol (ADVAIR DISKUS) 250-50 mcg/dose diskus inhaler 1 puff 2 (two) times a day. [...] every morning (before breakfast). 90 tablet 3 linaCLOtide (Linzess) 145 mcg capsule Take 1 capsule (145 mcg total) by mouth 1 (one) time each day. Hold for diarrhea 30 capsule 11 loratadine (CLARITIN) 10 mg tablet Take 1 tablet (10 mg total) by mouth 1 (one) time each day. Take1 Tablet by mouth daily as needed for Allergies. omeprazole (PriLOSEC) [address] capsule Take 1 capsule (40 mg total) by mouth 1 (one) time each day.Take in a.m. on empty stomach, wait 30 minutes and then eat to activate medication (Patient taking differently: Take 1 capsule (40 mg total) by mouth if needed. Take in a.m. on empty stomach, wait 30minutes and then eat to activate medication) 14 each 0 plecanatide (Trulance) 3 mg [...] tablet (25 mg total) by mouth at bedtime.Take 1 Tablet by mouth at bedtime. 90 tablet 3 [DISCONTINUED] amoxicillin (AMOXIL) 500 mg capsule Take 2 capsules (1,000 mg total) by mouth 2 (two) times a day. 56 capsule 0 [DISCONTINUED] baclofen (LIORESAL) 10 mg tablet Take 1 Tablet by mouth daily as needed (muscle spasms). [DISCONTINUED] fluticasone propionate (FLONASE) 50 mcg/actuation nasal spray Administer 2 sprays into each nostril 1 (one) time each day. 2 Sprays by Each Nare route daily. 16 g 3 [DISCONTINUED] SUMAtriptan (IMITREX) 50 mg tablet Take 1 tablet (50 mg total) by mouth 2 (two) times a day if needed for migraine. Take 1 tab prn migraine, may repeat in 2 hours prn max 100 mg per 24hours 9 tablet 1 No current facility-administered medications on file prior to visit. Allergies: has No Known Allergies. Precautions: RA, Fibromyalgia Fall Risk: No SUBJECTIVE Subjective Report: Patient reports continued symptoms, no change. Functional Limitations: Reported by Patient Initial Evaluation: limitations with prolonged standing, bending, stairs, walking (relied on cart at store) Current: same as above Chart Reviewed: Yes Pain: Initial Evaluation: pain 5/10; Pain at worst over the past week 9/10 and at best is a 4/10 Current: Current level of pain 5-6/10; Pain at worst over the past week 9/10 and at best is a 4/10 OBJECTIVE Vitals: There were no vitals filed for this visit.; Gait: amb unassisted with slight unsteadiness, bilateral trendelenburg, slow mojgan, small step length Posture/Observation: R iliac crest higher than L, anterior pelvic tilt Palpation: tenderness L ASIS, lower lumbar paraspinals, bilateral PSIS Lumbar Spine ROM Initial Current Lumbar flexion (0-60) To knees with low back pain To knee with low back pain Lumbar extension (0-35) NT 75% limited Lumbar side bending R (0-25) 75% limited P (worse than L) 50% limited Lumbar side bending L (0-25) 50% limited P 50-75% limited Lumbar Rotation R (0-20) 75% limited P 75% limited Lumbar Rotation L (0-20) 75% limited P 75% limited HIP RANGE OF MOTION Right PROM Left PROM Flexion (120 deg) 70 low back P 40 low back/hip P Extension (30 deg) NT NT Abduction (45 deg) 30 low back pain 10 hip P Adduction (45 deg) NT NT External Rotation (45 deg) 30 10 P Internal Rotation (45 deg) 35 15 P LOWER EXTREMITY MYOTOMES: Myotome Right initial Right current Left initial Left current Hip Flexion (L2) 2+/5 P 3/5 2+/5 P (less ROM than R) 3-/5 Knee Extension (L3) 2+/5 knee P 3/5 2+/5 knee P 3-/5 Ankle Dorsiflexion (L4) 3+/5 ankle P 3+/5 2+/5 ankle P 3-/5 Big Toe Extension (L5) NT/5 NT/5 Ankle Plantar Flexion (S1) 2+/5 P cramping in calf feeling 3+/5 2+/5 P 3-/5 Knee flexion (S2) 2+/5 3/5 2+/5 2+/5 Special Tests: Straight leg raise + bilateral Slump test - bilateral TREATMENT INTERVENTIONS: (This Date of Service) Procedures: Nustep L4 x 6 min lower extremity and upper extremity See above objective measures Discussed plan of care ASSESSMENT/PROGRESS SUMMARY Reporting Period Start Date: 06/04/2024; End Date: 07/14/2024 Summary of Program/Progress to Date: Patient presented to clinic with chronic low back pain and left hip pain. Since she started PT, her pain and function have remained about the same. Objectively, she continue to have similar impairments in her ROM/flexibility of her low back and hips. She did have some improvement in her lower extremity strength. I encouraged her to continue tolerable exercisesat home to maintain strength gains. I would like to see what physiatry says regarding her low back symptoms prior to continuing any PT. Will put on hold (I told patient if she makes a PT appt more than 4 weeks from now, would need new referral). Response to Therapy Session: fair low tolerance to test and measures Patient Education: Education provided: plan of care Education Provided To: Patient utilizing Explanation mode(s) of education Response to Education: Verbal Understanding GOALS Short Term Goals (will be achieved in 4 weeks) 1. Initiate home exercise program.- MET 2. Pain will be improved by 2-3 points on VAS.- NOT MET 3. Patient will improve lower extremity strength by 1/3 grade on manual muscle testing.- MET 4. Patient will improve lumbar flexion ROM to mid shins or better.- NOT MET Stunt Woman Goals (will be achieved in 8-12 weeks) 1. Patient will be independent with home exercise program to maintain therapeutic gains.- PARTIALLYMET 2. Patient will be able to bend over with less pain and improved ROM to pick things off floor- NOT MET 3. Patient will be able to stand for longer times with less pain and improved tolerance. - NOT MET PLAN POC Development/Review: Initial Evaluation and General Description as Follows: put on hold ; Participants: Patient Skilled Therapy Plan Required: NO- Reasons Why Continued Therapy Is Not Recommended: Additional Comments: no change in pain/function with PT so far, will see what physiatry says and may discharge or consider continuing based on their recommendation Planned Therapy Interventions: Cold Pack, E-Stim -- Unattended, Hot Pack, Manual Therapy, Neuromuscular Re-education, Patient / Family Education, Therapeutic Activity, and Therapeutic Exercise Recommended Consults: physiatry Equipment Recommended: none; Equipment Provided: none Frequency/Duration: on hold Plan for future sessions: on hold, if returns progress stretching/strengthening as tolerated Total Treatment Time: 30 Modalities: Therapeutic procedures: Therapeutic Exercise Time Entry: 30 Documentation completed by Amelia Perez PT [address] [address] Dept: [phone] Dept PATIENT NAME: Erum Rawls : 1975 [...] and plan. SIGNATURE: DATE Claudy Araya PA documented in this encounter Plan of Treatment Upcoming Encounters Date Type Department Care Team ([facility] Contact Info) Description 09/05/2024 2:45 PM EDT Office Visit Pulmonolgy - [place] 175 [facility] 200 [place] [phone] Marlene Ahuja MD [address] [address] 09/18/2024 2:15 PM EDT Office Visit Internal Medicine - [place] [address] [phone] Bonnie Huff PA [address] [address] 12/30/2024 2:00 PM EDT Office Visit General Surgery [facility] [address] [phone] Fredo Machado, [address] [address] documented as of this encounter Visit Diagnoses Diagnosis Lateral pain of left hip- Primary Lumbar pain Lumbago documented in this encounter Additional Health Concerns Assessment Noted Time PHQ-9 Depression Total Score: 14 025 8:17 PM EST documented as of this encounter Care Teams Data Network Architect Relationship Specialty Start Date End Date Bonnie Huff PA [address] [place] [address] PCP - General 10/24/23 documented as of this encounter
--- OUTSIDE RECORDS SUMMARY | 2024-07-18 12:48 | XMS_ITS | Encounter Summary ---
Author Organization [facility] Address [address] [place] [address] Care Team Providers Care Rail Signal Mechanic Name Role Phone Bonnie Huff Primary Care Provider + Reason for Visit * Auth/Cert (Routine) Specialty Diagnoses / Procedures Referred By Contac t Referred To Contact Diagnoses Chronic cough CHRONIC COUGH Procedures TX BRONCHOSCOPY RIGID/FLEXIBLE DIAGNOSTIC W/CELL WASHING BRONCHOSCOPY Marlene Ahuja MD [address] [address] Phone: tel: fax: [facility] OR [address] [place] [phone] Phone: tel: Referral ID Status Reason Start Date Expiration Date Visits Re quested Visits Authorized [id number] 1 1 Encounter Details Date Type Department Care Team (Latest Contact Info) Description 07/17/2024 12:00 PM EDT - 07/17/2024 4:18 PM EDT Hospital Encounter [facility] Main OR [address] [place] [address] Marlene Ahuja MD [address] [address] Chronic cough Discharge Disposition: Home or Self Care Social [...] your loved ones. For example, child development professor or elderly care for an older adult? [...] Sign Reading Time Taken Comments Blood Pressure 110/75 07/17/2024 3:08 PM EDT Pulse 89 07/17/2024 3:08 PM EDT Temperature 36.6 ??C (97.9 ??F) 07/17/2024 3:08 PM ED T Respiratory Rate 14 07/17/2024 3:08 PM EDT Oxygen Saturation 100% 07/17/2024 3:08 PM EDT Inhaled Oxygen Concentration - - Weight 65.8 kg (145 lb) 07/11/2024 3:00 PM EDT Height 157.5 cm (5' 2 ) 07/11/2024 3:00 PM EDT Body Mass Index 26.52 07/11/2024 3:00 PM EDT documented in this encounter Discharge Instructions * Attachments The following attachments cannot be sent through Care Everywhere. * General Anesthesia (Egyptian) documented in this encounter Medications at Time [...] (one) time each day. 510 g 11 06/06/2024 6 pregabalin (LYRICA) 75 mg capsule Take 1 [...] per 24 hours 9 tablet 1 07/10/2024 documented as of this encounter Discharge Disposition [...] EDT BRONCHOSCOPY OPERATIVE NOTE Date: 07/17/2024 Location: [facility] OR Name: Erum Rawls, : 1975, Diagnosis Pre-op Diagnosis * Chronic cough [R05.3] Post-op Diagnosis * Chronic cough [R05.3] Procedures BRONCHOSCOPY 84325 - [place] BRONCHOSCOPY RIGID/FLEXIBLE DIAGNOSTIC W/CELL WASHING Indications: Erum Rawls is an 48 y.o. female who is having surgery for CHRONIC COUGH. Surgeon(s) & Us Administrative Law Judge(s) * Marlene Ahuja MD - Primary Anesthesia: general ASA: II Estimated Blood Loss: Minimal Specimen: Specimens ID Source Type Tests Collected By Collected At Frozen? Priority Lab ID 1 Lung, Left Upper Lobe Wash NON-GYNECOLOGIC CYTOLOGY Marlene Ahuja MD 07/17/24 1342 Description: left upper lobe bronchial wash A Lung, Right Middle Lobe Wash CULTURE, AFB AND SMEAR WITH REFLEX TO IDENTIFICATION AND SUSCEPTIBILITY CULTURE FUNGUS, OTHER THAN SKIN HAIR OR NAILS CULTURE BRONCHIAL WITH GRAM STAIN Marlene Ahuja MD 07/17/[address] [place], [place] [id number], [address] [place], [place] [id number], [address] [place], [place] [id number] Description: right middle lobe bronchial wash B Lung, Left Upper Lobe Wash CULTURE, AFB AND SMEAR WITH REFLEX TO IDENTIFICATION AND SUSCEPTIBILITY CULTURE FUNGUS, OTHER THAN SKIN HAIR OR NAILS CULTURE BRONCHIAL WITH GRAM STAIN Marlene Ahuja MD 07/17/24 1337 [facility]-[id number], [facility]-[id number], 25[facility]-[id number] Description: left upper lobe bronchial wash Procedure [...] 2:45 PM EDT Office Visit Pulmonolgy - [place] [address] [phone] Marlene Ahuja MD [address] [address] 09/18/2024 2:15 PM EDT Office Visit Internal Medicine - [place] [address] [phone] Bonnie Huff PA [address] [address] 12/30/2024 2:00 PM EDT Office Visit General Surgery - [place] 175 [facility] [address] [place] [address] Fredo Machado, DO [address] [facility] [address] [place] [address] Pending Results Name Type Priority Associated Diagnoses [...] Routine 07/17/2024 1:36 PM EDT Chronic cough TX BRONCHOSCOPY RIGID/FLEXIBLE DIAGNOSTIC W/CELL WASHING 07/17/2024 1:13 PM EDT Chronic cough POCT GLUCOSE BLOOD Routine 07/17/2024 12 :34 PM EDT documented in this encounter Results * Acid fast bacilli stain (07/17/2024 1:37 PM EDT) AFB Stain Result No Acid fast bacilli seen on direct smear (Fuchsin method, 1000x) No Acid Fast Bacilli seen on direct smear 07/17/2024 9:03 PM EDT [facility] Wash Structure of upper lobe of left lung / Unknown 07/17/2024 1:37 PM EDT 07/17/2024 2:50 PM EDT Marlene Ahuja MD LAB MICROBIOLOGY - GENERAL ORDER ALONSO Final Result [facility] [address] [place] [address], [place] [phone] * Acid fast bacilli stain (07/17/2024 1:36 PM EDT) AFB Stain Result No Acid fast bacilli seen on direct smear (Fuchsin method, 1000x) No Acid Fast Bacilli seen on direct smear 07/17/2024 9:57 PM EDT [facility] Wash Structure of middle lobe of right lung / Unknown 07/17/2024 1:36 PM EDT 07/17/2024 2:50 PM EDT Marlene Ahuja MD LAB MICROBIOLOGY - GENERAL ORDER ALONSO Final Result [facility] [address] [place] [address], [place] [phone] * (ABNORMAL) POCT Glucose, blood (07/17/2024 12:34 PM EDT) Glucose POCT 107(H) 70 - 100 mg/dL 07/17/2024 12:34 PM EDT [facility] Blood Capillary blood specimen / Unknown 07/17/2024 12:34 PM EDT 07/17/2024 12:36 PM EDT us Marlene Ahuja MD LAB POINT OF CARE TE ST DOCKED DEVICE UNSOLICITED RESULTS Final Result [facility] [address] [place] [address], [place] [phone] documented in this encounter Visit Diagnoses Diagnosis Chronic cough Cough documented in this encounter [...] intravenous, As needed, line care, Starting on Inkki 07/17/24 at 1232, Preprocedure documented in this [...] documented as of this encounter Care Teams Rail Signal Mechanic Relationship Specialty Start Date End Date Bonnie Huff PA [address] [place] [address] PCP - General 10/24/23 documented as of this encounter
--- OUTSIDE RECORDS SUMMARY | 2024-07-18 12:48 | XMS_ITS | Clinical Summary ---
Author Organization [facility] Address [address] [place] [address] Phone Care Team Providers Care Treasury Accountant Name Role Phone Bonnie Huff Primary Care Provider + Allergies No known active allergies Medications albuterol HFA (PROAIR HFA ; PROVENTIL HFA ; VENTOLIN HFA) 90 mcg/actuation inhalerIndicatio ns:acute asthma attack,bronchosp asm prevention 2 puffs every 4 (four) hours if needed. Inhale 2 Puffs into the lungs every 6 hours as needed for Cough, Wheezing or Shortness of Breath. 3 inhalers and 3 refills 12/13/19 24 025 Active fluticasone-salm eterol (ADVAIR DISKUS) 250-50 mcg/dose diskus inhalerIndicatio ns:maintenance therapy for asthma 1 puff 2 (two) [...] (two) times a day. 02/25/20 24 Active adalimumab (HUMIRA) 40 mg/0.8 mL syringe Inject 0.8 mL (40 mg total) under the skin every 14 (fourteen) days. Active docusate sodium (Colace) 100 mg capsule Take 1 capsule (100 mg total) by mouth 2 (two) times a day. 60 each 06/06/19 25 Active polyethylene glycol (MIRALAX) 17 gram packet Take 17 g by mouth 1 (one) time each day. 510 g 06/06/19 25 026 Active plecanatide (Trulance) 3 mg tabletIndication s:Routine physical examination,Epig astric pain,H/O Helicobacter infection,Strain ing with stools Take 1 tablet (3 mg total) by mouth 1 (one) time each day. 30 tablet 06/06/19 25 Active omeprazole (PriLOSEC) [address] capsule Take 1 capsule (40 mg total) by mouth 1 (one) time each day. Take in a.m. on empty stomach, wait 30 minutes and then eat to activate medication 14 each 06/10/19 25 026 Active Additional Information Patient taking differently:40 mg oralAs needed, Take in a.m. on empty stomach, wait 30 minutes and then eat to activate medication, Reported on 07/11/2024 ferrous sulfate 325 mg (65 mg elemental iron) tablet Take 1 tablet (325 mg total) by mouth 1 (one) time each day. Take 1 Tablet by mouth daily. 90 tablet 06/10/19 25 Active levothyroxine (SYNTHROID, LEVOTHROID) 25 mcg tablet Take 1 tablet (25 mcg total) by mouth 1 (one) time each day before breakfast. Take 1 Tablet by mouth every morning (before breakfast). 90 tablet 06/10/19 25 Active linaCLOtide (Linzess) 145 mcg capsule Take 1 capsule (145 mcg total) by mouth 1 (one) time each day. Hold for diarrhea 30 capsule 11 06/16/19 25 Active SUMAtriptan (IMITREX) 50 mg tablet Take 1 tablet (50 mg total) by mouth 2 (two) times a day if needed for migraine. Take 1 tab prn migraine, may repeat in 2 hours prn max 100 mg per 24 hours 9 tablet 1 07/11/19 25 026 Active amitriptyline (ELAVIL) 25 mg tablet Take 1 tablet (25 mg total) by mouth at bedtime. Take 1 Tablet by mouth at bedtime. 90 tablet 3 07/11/19 25 Active baclofen (LIORESAL) 10 mg tablet Take 1 Tablet by mouth daily as needed (muscle spasms). 12/13/19 24 025 Discontinu ed(Therapy completed) SUMAtriptan (IMITREX) 50 mg tablet Take 1 tablet (50 mg total) by mouth 2 (two) times a day if needed for migraine. Take 1 tab prn migraine, may repeat in 2 hours prn max 100 mg per 24 hours 9 tablet 1 06/10/19 25 025 Discontinu ed(Reorder ) amoxicillin (AMOXIL) 500 mg capsule Take 2 capsules (1,000 mg total) by mouth 2 (two) times a day. 56 capsule 06/10/19 25 025 Discontinu ed(Therapy completed) levoFLOXacin (LEVAQUIN) 500 mg tablet Take 1 tablet (500 mg total) by mouth 1 (one) time each day for 14 days. 14 each 06/10/19 25 025 amitriptyline (ELAVIL) 25 mg tablet Take 1 tablet (25 mg total) by mouth at bedtime. Take 1 Tablet by mouth at bedtime. 90 tablet 3 06/10/19 25 025 Discontinu ed(Reorder ) fluticasone propionate (FLONASE) 50 mcg/actuation nasal spray Administer 2 sprays into each nostril 1 (one) time each day. 2 Sprays by Each Nare route daily. 16 g 3 06/10/19 25 025 Discontinu ed(Therapy completed) Active Problems Problem Noted Date Diagnosed Date Allergic rhinitis 12/13/2023 Asthma with COPD 12/13/2023 Hyperlipidemia 12/13/2023 Hypothyroidism 12/13/2023 Insomnia 12/13/2023 Iron deficiency anemia 12/13/2023 Migraine 12/13/2023 Muscle spasm 12/13/2023 Fibromyalgia Rheumatoid arthritis Encounters Date Type Department Care Team Description 07/17/2024 1:30 PM EDT - 07/17/2024 3:00 PM EDT Surgery [facility] OR [address] [place] [phone] Marlene Ahuja MD BRONCHOSCOPY [[id number] (CPT??)] 07/17/2024 1:14 PM EDT Anesthesia Event [facility] OR [address] [place] [phone] Brent Mcfarlane DO Vermes, Rachie, CRNA 07/17/2024 12:00 PM EDT - 07/17/2024 4:18 PM EDT Hospital Encounter [facility] OR [address] [place] [phone] Marlene Ahuja MD Chronic cough Discharge Disposition: Home or Self Care 07/14/2024 2:00 PM EDT Treatment [facility] [address] [phone] Amelia Perez, PT Lateral pain of left hip (Primary Dx); Lumbar pain 07/09/2024 Telephone Pulmonolgy [facility] 175 [facility] [address] [place] [phone] Shavon Vasquez MA Surgery-Bronchoscopy 07/09/2024 Telephone Pulmonolgy [facility] 175 [facility] [address] [place] [phone] Shavon Vasquez MA Surgery-Bronchoscopy 07/04/2024 1:30 PM EDT Office Visit Pulmonolgy [facility] [address] [phone] Marlene Ahuja MD Chronic cough (Primary Dx); Asthma with COPD ([facility]/HCC); Rheumatoid arthritis involving multiple sites, unspecified whether rheumatoid factor present ([facility]); Abnormal CT of the chest 07/04/2024 Telephone Pulmonolgy - [place] 175 [facility] [address] [place] [phone] Shavon Vasquez MA Surgical Booking 07/01/2024 1:00 PM EDT Office Visit General Surgery [address] [place] [phone] Fredo Machado, Umbilical hernia without obstruction and without gangrene (Primary Dx) 06/30/2024 2:00 PM EDT Treatment [address] [phone] Hugo Shultz, BARN BOSS Lateral pain of left hip (Primary Dx) 06/30/2024 Telephone Internal Medicine [address] [phone] Rocio Almaguer MA Request For Order(s) ([facility] Orders 06/13/24) 06/30/2024 Telephone Internal Medicine [address] [place] [phone] Rocio Almaguer MA Request For Order(s) (Home Care [facility]NA Cert 05/17/24-07/15/24/Plan Of Care /) 06/24/2024 Telephone Internal Medicine [address] [phone] Rocio Almagure [place] Request For Order(s) ([facility] Discharge Summary Report /) 06/23/2024 2:00 PM EDT Treatment [address] [phone] Hugo Shultz, BARN BOSS Lateral pain of left hip (Primary Dx) 06/19/2024 Telephone Internal [address] [phone] Rocio Almaguer [place] Request For Order(s) (Karen HOGANA Missed Visit 05/27/24) 06/17/2024 2:00 PM EST Office Visit Internal [address] [phone] Bonnie Huff PA Asthma with COPD ([facility]) (Primary Dx); Allergic rhinitis, unspecified seasonality, unspecified trigger; Hypothyroidism, unspecified type; Fibromyalgia; Rheumatoid arthritis involving multiple sites, unspecified whether rheumatoid factor present ([facility]); Iron deficiency anemia, unspecified iron deficiency anemia type 06/16/2024 2:30 PM EST Treatment [facility] [place] [address] [facility] [address] [phone] Hugo Shultz PTA Lateral pain of left hip (Primary Dx) 06/10/2024 Telephone Internal Medicine - [address] [phone] Rocio Almaguer [place] Request For Order(s) ([facility] Missed Visit 05/20/24) 06/10/2024 Telephone Gastroenterology [address] [phone] Stan Babb PA 06/10/2024 Telephone Gastroenterology [facility] [address] [phone] Stan Babb PA 06/09/2024 1:49 PM EST - 06/09/2024 11:59 PM EST Hospital Encounter [facility] CT Scan [address] [place] [phone] Umbilical hernia without obstruction and without gangrene Discharge Disposition: Home or Self Care 06/09/2024 1:49 PM EST - 06/09/2024 11:59 PM EST Hospital Encounter [facility] CT Scan [address] [place] [phone] Pneumonia of left lung due to infectious organism, unspecified part of lung Discharge Disposition: Home or Self Care 06/09/2024 Telephone Gastroenterology [address] [phone] Elba Sierra PA PRIOR AUTHORIZATION 06/06/2024 3:00 PM EST Office Visit Gastroenterology [facility] [address] [phone] Stan Babb PA Epigastric pain (Primary Dx); Routine physical examination; H/O Helicobacter infection; Straining with stools 06/04/2024 2:00 PM EST Evaluation [address] [place] [phone] Amelia Perez, PT Lateral pain of left hip (Primary Dx); Lumbar pain 06/04/2024 Telephone Internal Medicine - [address] [place] [phone] Bonnie Huff PA Melonie: EDISONA FYI 06/04/2024 Telephone Internal Medicine [address] [phone] Rocio Almaguer [place] Request For Order(s) ([facility] Missed Visit 05/20/24) 05/20/2024 11:00 AM EST Consult General Surgery - [address] [place] [phone] Fredo Machado, DO Umbilical hernia without obstruction and without gangrene 05/20/2024 10:15 AM EST Office Visit Pulmonolgy - [address] [phone] Marlene Ahuja MD Pneumonia of left lung due to infectious organism, unspecified part of lung (Primary Dx); Asthma with COPD ([facility]); Bronchiectasis without acute exacerbation ([facility]) 05/19/2024 1:30 PM EST Office Visit Internal Medicine - [address] [phone] Bonnie Huff PA Hospital discharge follow-up (Primary Dx); Pneumonia of left lung due to infectious organism, unspecified part of lung; Moderate persistent asthma with acute exacerbation 05/16/2024 Telephone Internal Medicine - [address] [place] [phone] Bonnie Huff PA VNA 05/01/2024 2:00 PM EST Consult Orthopedics - [place] [address] [place] [phone] Claudy Araya PA Lumbar pain (Primary Dx); Lateral pain of left hip 04/28/2024 9:45 AM EST Office Visit Internal Medicine - [place] [address] [phone] Bonnie Huff PA Umbilical hernia without obstruction and without gangrene (Primary Dx); Jaw pain 04/21/2024 Telephone Gastroenterology [address] [phone] Stan Babb PA from Last 3 Months Surgical History Surgery Date Site/Laterality Comments HYSTERECTOMY PROCEDURE: HISTORICAL HYSTERECTOMY; COMMENT: ANNI due to fibroids 2020 in [place] OTHER SURGICAL HISTORY NO PAST SURGERIES topic Medical History Medical History Date Comments Allergic rhinitis DX:Allergic rh initis Hypothyroidism DX:Hypothyroidis m Muscle spasm DX:Muscle spasm Insomnia DX:Insomnia Iron deficiency anemia DX:Iron d eficiency anemia Migraine DX:Migraine Asthma DX:Asthma Hyperlipidemia DX:Hyperlipidemi a Asthma with COPD (CMS/HCC) DX:As thma with COPD ([facility]) Fibromyalgia Rheumatoid arthritis (CMS/HCC) Diabetes mellitus ([facility]/HCC) hypo glycemia GERD (gastroesophageal reflux disease) Irritable bowel syndrome History of transfusion Family History Relation Name Status Comments Father [...] Mass Index 26.52 07/11/2024 3:00 PM EDT Plan of Treatment Upcoming Encounters Date Type Department Care Team (Late st Contact Info) Description 09/05/2024 2:45 PM EDT Office Visit Pulmonolgy - [place] [address] [phone] Marlnee Ahuja MD [address] [phone] 09/18/2024 2:15 PM EDT Office Visit Internal Medicine - [place] [address] [phone] Bonnie Huff PA [address] [phone] 12/30/2024 2:00 PM EDT Office Visit General Surgery - [place] 175 [facility] [address] [place] [phone] Fredo Machado DO [address] [phone] Health Maintenance Due Date Last Done Comments COVID-19 Vaccine (#1) 11/27/1979 DTaP,Tdap,and Td Vaccines (1 - Tdap) 1993 Hepatitis B Vaccines (1 of 3 - 19+ 3-dose series) 1993 Pneumococcal Vaccine: Pediatrics (0 to 5 Years) and At-Risk Patients (6 to 64 Years) (1 of 2 - PCV) 1993 Cervical Cancer Screening: P ap Smear 11/27/1995 Colorectal Cancer Screening: Colonoscopy 01/27/2024 HIV Screening 01/27/2024 Hepatitis C Screening 01/27/2024 Influenza Vaccine (Season Ended) 2024 Social Influencers of Health Screening 03/17/2025 03/17/2024 [...] THERAPY, ADULT Routine 07/17/2024 2:13 PM EDT ACID FAST BACILLI STAIN Routine 07/17/2024 1:37 PM EDT Chronic cough CULTURE BRONCHIAL WITH GRAM STAIN Routine 07/17/2024 1:37 PM EDT Chronic cough ACID FAST BACILLI STAIN Routine 07/17/2024 1:36 PM EDT Chronic cough CULTURE BRONCHIAL WITH GRAM STAIN Routine 07/17/2024 1:36 PM EDT Chronic cough TH AN ENDOTRACHEAL(NO CHARGE) Routine 07/17/2024 1:34 PM EDT UT BRONCHOSCOPY RIGID/FLEXIBLE DIAGNOSTIC W/CELL WASHING 07/17/2024 1:13 PM EDT Chronic cough POCT GLUCOSE BLOOD Routine 07/17/2024 12 :34 PM EDT CBC WITH AUTO DIFFERENTIAL Routine 06/23/2024 2:31 [...] to infectious organism, unspecified part of lung MG MAMMO DIGITAL SCREENING W EDY BILAT Routine 03/28/2024 1:52 PM EST Routine physical examination LIPID PANEL Routine 12/14/2023 HM DEPRESSION SCREENING Routine 12/13/2023 from Last 3 Months or Most Recently Relevant to Health Maintenance Results * Acid fast bacilli stain (07/17/2024 1:37 PM EDT) Only the most recent of2 resultswithin the time period is included. AFB Stain Result No Acid fast bacilli seen on direct smear (Fuchsin method, 1000x) No Acid Fast Bacilli seen on direct smear 07/17/2024 9:03 PM EDT [facility] Wash Structure of upper lobe of left lung / Unknown 07/17/2024 1:37 PM EDT 07/17/2024 2:50 PM EDT us Marlene Ahuja MD LAB MICROBIOLOGY - GENERAL ORDER ALONSO Final Result [facility] [address] [place] [address], * TH AN ENDOTRACHEAL(NO CHARGE) (07/17/2024 1:34 PM EDT) Narrative Brent Mcfarlane DO - 07/17/2024 1:34 PM EDT Brent Mcfarlane DO ? 07/17/2024 ??4:09 PM General Information and Staff Patient location during procedure: OR Anesthesiologist: Brent Mcfarlane DO Resident/CLOSER ON: Russ Kelly CRNA Performed: anesthesiologist Performed by: Russ Kelly CRNA Authorized by: Brent Mcfarlane DO ?? Intubation Additional Comments ETT#8 slide to esophagea twice by CLOSER ON, passed by at th third attempt. Atraumatically. OG passed [...] ANESTHESIA ORDERABLES Edited Re sult - Final * (ABNORMAL) POCT Glucose, blood (07/17/2024 12:34 PM EDT) [facility] Glucose POCT 107(H) 70 - 100 mg/dL 07/17/2024 12:34 PM EDT [facility] Blood Capillary blood specimen / Unknown 07/17/2024 12:34 PM EDT 07/17/2024 12:36 PM EDT Marlene Ahuja MD LAB POINT OF CARE TE ST DOCKED DEVICE UNSOLICITED RESULTS Final Result [facility] [address] [place] [address], * CBC auto differential (06/23/2024 2:31 PM EDT) Only the most recent of2 resultswithin the time period is included. [facility] WBC 7.1 4.8 - 10.8 K/mcL LAB HEMETOLOGY METHOD 06/23/2024 6:31 PM EDT [facility] RBC 4.10 3.80 - 4.80 M/mcL LAB HEMETOLOGY METHOD 06/23/2024 6:31 PM EDT [facility] Hemoglobin 13.0 11.5 - 16.0 g/dL LAB HEMETOLOGY METHOD 06/23/2024 6:31 PM EDT [facility] Hematocrit 39.7 35.0 - 47.0 % LAB HEMETOLOGY METHOD 06/23/2024 6:31 PM EDT [facility] MCV 95.9 79.0 - 98.0 FL LAB HEMETOLOGY METHOD 06/23/2024 6:31 PM EDT [facility] MCH 31.4 27.0 - 32.0 pcg LAB HEMETOLOGY METHOD 06/23/2024 6:31 PM EDT [facility] MCHC 32.7 32.0 - 37.0 g/dL LAB HEMETOLOGY METHOD 06/23/2024 6:[facility] RDW 12.6 11.0 - 15.0 % LAB HEMETOLOGY METHOD 06/23/2024 6:31 PM EDT [facility] Platelets 293 130 - 400 K/mcL LAB HEMETOLOGY METHOD 06/23/2024 6:31 PM EDT [facility] MPV 10.8 7.0 - 11.0 FL LAB HEMETOLOGY METHOD 06/23/2024 6:31 PM [facility] NRBC 0.0 <1.0 % LAB HEMETOLOGY METHOD 06/23/2024 6:31 PM EDT [facility] NRBC Absolute 0.00 <0.10 K/mcL LAB HEMETOLOGY METHOD 06/23/2024 6:31 PM [facility] Neutrophils Relative 56.9 % LAB HEMETOLOGY METHOD 06/23/2024 6:31 PM [facility] Lymphocytes Relative 31.7 % LAB HEMETOLOGY METHOD 06/23/2024 6:31 PM [facility] Monocytes Relative 8.6 % LAB HEMETOLOGY METHOD 06/23/2024 6:31 PM [facility] Eosinophils Relative 1.4 % LAB HEMETOLOGY METHOD 06/23/2024 6:31 PM [facility] Basophils Relative 1.0 % LAB HEMETOLOGY METHOD 06/23/2024 6:31 PM [facility] Immature Granulocytes Relative 0.4 % LAB HEMETOLOGY METHOD 06/23/2024 6:31 PM EDT [facility] Neutrophils Absolute 4.02 1.50 - 7.00 K/mcL LAB HEMETOLOGY METHOD 06/23/2024 6:31 PM EDT [facility] Lymphocytes Absolute 2.24 1.00 - 5.00 K/mcL LAB HEMETOLOGY METHOD 06/23/2024 6:31 PM EDT [facility] Monocytes Absolute 0.61 0.20 - 1.00 K/mcL LAB HEMETOLOGY METHOD 06/23/2024 6:31 PM EDT [facility] Eosinophils Absolute 0.10 0.00 - 0.50 K/mcL LAB HEMETOLOGY METHOD 06/23/2024 6:31 PM EDT [facility] Basophils Absolute 0.07 0.00 - 0.20 K/mcL LAB HEMETOLOGY METHOD 06/23/2024 6:31 PM EDT [facility] Immature Granulocytes Absolute 0.03 0.00 - 0.03 K/mcL LAB HEMETOLOGY METHOD 06/23/2024 6:31 PM EDT [facility] Blood Venous blood specimen / Unknown Venipuncture / Unknown 06/23/2024 2:31 PM EDT 06/23/2024 2:31 PM EDT us Bonnie GOINS LAB BLOOD ORDERABLES Fin al Result [facility] [address] [place] [address], * Thyroid stimulating hormone (06/23/2024 2:31 PM EDT) TSH 1.84 0.40 - 4.00 mcIU/mL LAB CHEMISTRY METHOD 06/23/2024 6:48 PM EDT [facility] Blood Venous blood specimen / Unknown Venipuncture / Unknown 06/23/2024 2:31 PM EDT 06/23/2024 2:31 PM EDT us Bonnie GOINS LAB BLOOD ORDERABLES Fin al Result Performing Organization Address City/[facility]/ZIP Co de Phone Number [facility] [address] [place] [address], [place] [phone] * Iron (06/23/2024 2:31 PM EDT) Pathologist [facility] Iron 71 40 - 150 mcg/dL LAB CHEMISTRY METHOD 06/23/2024 6:41 PM EDT [facility] Blood Venous blood specimen / Unknown Venipuncture / Unknown 06/23/2024 2:31 PM EDT 06/23/2024 2:31 PM EDT us Bonnie GOINS LAB BLOOD ORDERABLES Fin al Result Performing Organization Address [facility]/ZIP Co de Phone Number [facility] [address] [place] [address], [place] [phone] * Ferritin (06/23/2024 2:31 PM EDT) [facility] Ferritin 118 8 - 252 ng/mL LAB CHEMISTRY METHOD 06/23/2024 6:42 PM EDT [facility] Blood Venous blood specimen / Unknown Venipuncture / Unknown 06/23/2024 2:31 PM EDT 06/23/2024 2:31 PM EDT us Bonnie GOINS LAB BLOOD ORDERABLES Fin al Result Performing Organization Address City/[facility]/ZIP Co de Phone Number [facility] [address] [place] [address], [place] [phone] * Comprehensive metabolic panel (06/23/2024 2:31 PM EDT) Sodium 140 133 - 145 mmol/L LAB CHEMISTRY METHOD 06/23/2024 6:41 PM [facility] Potassium 4.5 3.5 - 5.5 mmol/L LAB CHEMISTRY METHOD 06/23/2024 6:41 PM [facility] Chloride 107 96 - 110 mmol/L LAB CHEMISTRY METHOD 06/23/2024 6:41 PM [facility] CO2 26 21 - 32 mmol/L LAB CHEMISTRY METHOD 06/23/2024 6:41 PM [facility] Anion Gap 7 3 - 11 LAB CHEMISTRY METHOD 06/23/2024 6:41 PM [facility] Glucose 92 70 - 100 mg/dL LAB CHEMISTRY METHOD 06/23/2024 6:41 PM [facility] BUN 15 5 - 25 mg/dL LAB CHEMISTRY METHOD 06/23/2024 6:41 PM [facility] Creatinine 0.79 0.50 - 1.10 mg/dL LAB CHEMISTRY METHOD 06/23/2024 6:41 PM [facility] eGFR 92 >=60 mL/min/1. 73m2 LAB CHEMISTRY METHOD 06/23/2024 6:41 PM [facility] Comment:Calculation based on the??Chronic Kidney Disease Epidemiology Collaboration (CKD-EPI) equation refit??without adjustment for race. BUN/Creatinine Ratio 19.0 LAB CHEMISTRY METHOD 06/23/2024 6:41 PM [facility] Calcium 9.6 8.5 - 10.5 mg/dL LAB CHEMISTRY METHOD 06/23/2024 6:41 PM [facility] AST (SGOT) 30 10 - 42 unit/L LAB CHEMISTRY METHOD 06/23/2024 6:41 PM [facility] ALT (SGPT) 44 10 - 60 unit/L LAB CHEMISTRY METHOD 06/23/2024 6:41 PM [facility] Alkaline Phosphatase 106 [...] al Result [facility] [address] [place] [address], [place] [phone] * CT Abdomen Pelvis wo Contrast (06/09/2024 [...] Signed Date: 06/12/2024 13:19 ET Workstation ID: [id number] Transcribed By: Self Edit Transcribed Date: 06/12/2024 [...] Signed Date: 06/12/2024 13:19 ET Workstation ID: [id number] Transcribed By: Self Edit Transcribed Date: 06/12/2024 13:19 ET us Fredo Machado DO IMG CT PROCEDURES Final [...] Signed Date: 06/12/2024 13:19 ET Workstation ID: [id number] Transcribed By: Self Edit Transcribed Date: 06/12/2024 [...] Signed Date: 06/12/2024 13:19 ET Workstation ID: [id number] Transcribed By: Self Edit Transcribed Date: 06/12/2024 13:12 ET Marlene Ahuja MD IMG CT PROCEDURES Final Result * (ABNORMAL) Helicobacter pylori breath test (06/09/2024 1:08 PM EST) H Pylori Breath Test Positive( A) Negative LAB CHEMISTRY METHOD 06/10/2024 6:25 AM EST [facility] Breath Oral cavity structure / Unknown Non-blood Collection / Unknown 06/09/2024 1:08 PM EST 06/09/2024 1:08 PM EST Stan GOINS LAB BODY FLUIDS AND STOOLS NICK BUNN Final Result [facility] [address] [place] [address], [place] [phone] * (ABNORMAL) Manual differential (05/20/2024 11:35 AM EST) Neutrophils % 56.0 % LAB HEMETOLOGY METHOD 05/20/2024 2:54 PM [facility] Lymphocytes % 32.0 % LAB HEMETOLOGY METHOD 05/20/2024 2:54 PM [facility] Reactive Lymphocyte 4.00 % LAB HEMETOLOGY METHOD 05/20/2024 2:54 PM [facility] Monocytes % 4.0 % LAB HEMETOLOGY METHOD 05/20/2024 2:54 PM [facility] Eosinophils % 2.0 % LAB HEMETOLOGY METHOD 05/20/2024 2:54 PM [facility] Basophils % 0.0 % LAB HEMETOLOGY METHOD 05/20/2024 2:54 PM [facility] Myelocytes % 3.0(H) % LAB HEMETOLOGY METHOD 05/20/2024 2:54 PM [facility] Neutrophils Absolute Manual 9.13(H) 1.50 - 7.00 K/mcL LAB HEMETOLOGY METHOD 05/20/2024 2:54 PM [facility] Lymphocytes Absolute 5.22(H) 1.00 - 5.00 K/mcL LAB HEMETOLOGY METHOD 05/20/2024 2:54 PM [facility] Reactive Lymph Abs Manual 0.65(H) 0.00 - 0.00 lym LAB HEMETOLOGY METHOD 05/20/2024 2:54 PM [facility] Monocytes Absolute Manual 0.65 0.20 - 1.00 K/mcL LAB HEMETOLOGY METHOD 05/20/2024 2:54 PM [facility] Eosinophils Absolute Manual 0.33 0.00 - 0.50 K/mcL LAB HEMETOLOGY METHOD 05/20/2024 2:54 PM [facility] Basophils Absolute Manual 0.00 0.00 - 0.20 K/mcL LAB HEMETOLOGY METHOD 05/20/2024 2:54 PM EST [facility] Myelocytes Absolute Manual 0.49(H) 0.00 - 0.00 K/mcL LAB HEMETOLOGY METHOD 05/20/2024 2:54 PM EST [facility] Rbc Morphology See comment( A) Consistent with indices, Normal for [place] LAB HEMETOLOGY METHOD 05/20/2024 2:54 PM EST [facility] Comment:RBC: Morphology agre es with CBC Platelet Morphology - WAM See Note(A) Normal [facility] 05/20/2024 2:54 PM EST [facility] Comment:PLT: Normal Blood Venous blood specimen / Unknown Venipuncture / Unknown 05/20/2024 11:35 AM EST 05/20/2024 11:35 AM EST us Marlene Ahuja MD LAB BLOOD ORDERABLES Final Resul t [facility] [address] [place] [address], [place] [phone] * MG Mammo Digital Screening w Edy [...] Signed Date: 03/28/2024 14:56 ET Workstation ID: [id number] Transcribed By: Self Edit Transcribed Date: 03/28/2024 [...] Signed Date: 03/28/2024 14:56 ET Workstation ID: [id number] Transcribed By: Self Edit Transcribed Date: 03/28/2024 14:52 ET Bonnie GOINS IMG BI PROCEDURES Final Result * (ABNORMAL) Lipid panel (12/14/2023) LDL/HDL Ratio 4 0 - 4 Triglycerides 113 0 - 150 mg/dL Cholesterol 164 0 - 200 mg/dL HDL 40 >=40 mg/dL LDL Cholesterol 102(A) 0 - 100 mg/dL Blood Venous blood specimen / Unknown Historical Provider LAB BLOOD ORDERABLES Sujey l Result * Depression Screening (12/13/2023) Depression Screening Abstracted Historical Provider HEALTH MAINTENANCE Final Result from Last 3 Months or Most Recently Relevant to Health Maintenance Additional Health Concerns Infection Onset Date Last Indicated Tuberculosis Rule-Out 07/17/2024 07/17/2024 Insurance [employer] Care Teams Treasury Accountant Relationship Specialty Start Date End Date Bonnie Huff PA [address] [place] [address] PCP - General 10/24/23
== END 2024-07-18 11:45 | disposition home or self-care (01) ==
LOC: HO.HWS 11:02
PROVIDERS: PCP Physician Assistant; Visit Provider Obstetrics & Gynecology
DX: Z01.419 Encounter for gynecological examination (general) (routine) without abnormal findings (principal)
CPT/HCPCS: 99386; 99459

== ENCOUNTER → 2024-07-18 11:01 | Outpatient (BNVA) | payer OTHER, SELFPAY | PROVIDERS: PCP Physician Assistant; Visit Provider Obstetrics & Gynecology | DX: Z01.419 Encounter for gynecological examination (general) (routine) without abnormal findings (principal) | CPT/HCPCS: 99386; 99459 ==

== ENCOUNTER 2024-07-30 15:13 | Outpatient (AMB) | payer OTHER, SELFPAY ==
[2024-07-30 15:32] VITALS: BP 128/62; PULSE 78; O2SAT 97; BMI 26.2
--- NOTE | 2024-07-30 15:32 | A.OFFVIS_ITS ---
Vital Signs 07/30/24 15:32 Height 5 ft 2 in Weight 143 lb BMI 26.2 BP 128/62 Blood Pressure Location Lt brachial Position Sitting Pulse 78 Pulse Source Pulse Oximeter Pulse Oximetry (%) 97 Oxygen Delivery Method Room Air Intake Visit Reasons: follow up Intake Note: Patient presents for follow up on RA and lab review. She was last seen in the office on 06/24/[address] Alcantara. Chemist Water Purification Name: [id number] Baig Allergies No Known Allergies Allergy (Verified 07/30/24 15:38) Medication List - Last Reconciled 07/30/24 by Kathy Alcantara MD adalimumab (Humira) 40 mg (0.8 mL) subcut Q2W albuterol sulfate 90 mcg/actuation (Ventolin HFA) 2 puffs inhalation Q4-6H PRN amitriptyline 25 mg PO BEDTIME fluticasone propion-salmeterol 250-50 mcg/dose (Advair Diskus) 1 ea inhalation BID hydroxyzine HCl 100 mg PO BEDTIME inhalational spacing device ([facility] spacer) As directed levothyroxine 25 mcg PO DAILY@0600 loratadine 10 mg PO DAILY milnacipran 25 mg PO BID pregabalin 75 mg PO BID sumatriptan succinate 50 mg PO Q2H PRN MDD 100 HPI Comments Details: Patient is a 48-year-old female with hypothyroidism on levothyroxine and GERD secondary to H pylori infection status post eradication who presents for follow up of seropositive rheumatoid arthritis Interval History: Patient last seen 06/24/2024 with me. At that time she was recovering from pneumonia and had not started her Humira. Recommended starting the Humira and completing prednisolone taper Today patient reports that she continues to have widespread joint pain Rheumatologic History: Patient initially presented for evaluation of whole-body pain 01/30/2024. At that time evaluation was consistent with fibromyalgia with no evidence of synovitis on examination and tender points. Recommend pregabalin and milnacipran. Preliminary results showed a very elevated CRP and ESR as well as positive rheumatoid factor. The thought was that she had rheumatoid arthritis and she was started on prednisolone taper and methotrexate. She was re-evaluated 4 weeks later with no improvement on the prednisone in fact she stated that the prednisone made her pain worse. Given this she was re-evaluated as fibromyalgia and started on pregabalin and milnacipran Current Rheumatology Medication(s): Humira 40 mg SC every other week Milnacipran Pregabalin Amitriptyline [facility] Medical History Adalimumab (Humira) long-term use Rheumatoid arthritis Fibromyalgia affecting multiple sites Hyperlipidemia Asthma Migraine Iron deficiency anemia Insomnia Muscle spasm Hypothyroidism Allergic rhinitis Surgical History H/O: hysterectomy Family History Mother Breast cancer Sister Breast cancer Social History Household Members: Family Housing: Apartment Do you presently have visiting nurse or other home services: No Patient Tobacco Use Status: Former Tobacco user Tobacco use type: Cigarette service: No Female Reproductive History Menstrual Age of Menarche: 10 Review of Systems Const Details: Review of Systems Constitutional: Denies fever, chills, weight loss ENT: Denies vision changes, eye pain or eye redness, dental caries, dry mouth GI: Denies nausea, vomiting, diarrhea, abdominal pain, change in BM Pulm: Denies SOB, YAÑEZ, hemoptysis, wheezing Cards: Denies chest pain, palpitations Skin: Denies Raynaud's, rash, nail changes, photosensitivity, PACKAGE WRAPPER: Denies headaches, weakness, paresthesias, recurrent falls MSK: as per HPI All other systems reviewed and are unremarkable except noted above Physical Exam Vital Signs: Last Vital Signs Pulse 78 07/30/24 15:32 BP 128/62 07/30/24 15:32 Pulse Ox 97 07/30/24 15:32 Oxygen Delivery Method Room Air 07/30/24 15:32 BMI result Body Mass Index 26.2 Physical Examination CONSTITUITIONAL Patient alert and cooperative. Well appearing and in no apparent painful distress HEENT Conjunctiva and sclera clear. ?Pupils equal round and reactive to light. ?No lymphadenopathy. ?Normal dentition. No oral or nasal ulcers noted. No evidence of discoid rash to the martin of ears CHEST/RESPIRATORY SYSTEM Normal respiratory effort and able to speak in complete sentences. ?Clear to auscultation bilaterally. ?No crackles, rales, rhonchi, wheezes heard. CARDIAC SYSTEM Regular rate and rhythm. ?S1 and S2 heard no murmurs. ?Radial pulses intact bilaterally MSK Hands: ?Able to make a fist. No swelling noted but tenderness to palpation of the MCPs and PIPs DIPs. Wrists: Full range of motion to the wrists. Tenderness to palpation of the wrist joint. No swelling noted. ? Elbows: Tenderness to palpation of bilateral tendon insertion of the medial and lateral epicondyles. No tenderness to palpation of the elbow joint proper Shoulders: Decreased active range of motion secondary to pain. Full passive range of motion Hips: Hip flexion with pain but full range of motion. Internal and external rotation of the hip without pain. Hip bursa: Tenderness to palpation Knees: ?Full range of motion. ?No tenderness to palpation of the knee joint but there was swelling over the bilateral pes anserine bursa Ankles: Full range of motion. ?Tenderness to palpation but no evidence of swelling. Feet: ?Positive squeeze test and tenderness to palpation of all MTPs. Tender points:??Tenderness to palpation of the neck, shoulders, chest, elbows, hips, buttocks or knees. SKIN Skin intact without rashes. Results Reviewed Results Reviewed: Laboratory Tests 01/30/24 04/30/24 06/24/24 16:30 12:57 15:06 WBC 6.6 RBC 4.43 D Hgb 13.7 D Hct 41.5 D Plt Count 273 ESR 34 H 34 H Sodium 142 Potassium 3.9 Chloride 111 H Carbon Dioxide 24 BUN 12 Creatinine 0.72 AST 28 34 H ALT 26 40 H C-Reactive Protein 0.74 H 0.82 H Rheumatoid Factor 18.3 H Cycl Citrul Peptide IgG <16 Immunology lab 02/25/24 15:04 LORENZO Screen POSITIVE A LORENZO Titer 1:40 H Assessment & Plan Assessment & Plan (1) Rheumatoid arthritis: Comment: DDx 02/2024 +RF, -CCP Methotrexate 02/2024 - 04/2024. Not effective Humira 04/2024 Code(s): M06.9 - Rheumatoid arthritis, unspecified Category: Medical Qualifiers: Rheumatoid arthritis location: multiple sites Rheumatoid factor presence: with rheumatoid factor Qualified Code(s): M05.79 - Rheumatoid arthritis with rheumatoid factor of multiple sites without organ or systems involvement Plan: #Seropositive RA Patient with seropositive rheumatoid arthritis currently on hold from treatment given her recent pneumonia complicated by sepsis. Disease is currently in flare. We will restart her Humira and re-evaluate Plan - Stop Humira - Start Actemra infusions 8mg/kg every 4 weeks - Medrol taper - RTC 3 months - Labs before visit: CBC, CMP, ESR, CRP, hepatitis panel, T spot, lipid panel (2) Fibromyalgia affecting multiple sites: Code(s): M79.7 - Fibromyalgia Category: Medical Plan: #Fibromyalgia Patient also has a component of fibromyalgia Pregabalin milnacipran has not been helping we will stop this at this time Can consider optimizing once her inflammatory arthritis is under control Plan - Pregabalin and milnacipran - Amytriptyline 25mg bedtime (3) Encounter for monitoring tocilizumab therapy: Code(s): Z51.81 - Encounter for therapeutic drug level monitoring; Z79.620 - ocean transportation intermediary (current) use of immunosuppressive biologic Plan: #Long-term Use of Tocilizumab Discussed the risks and benefits of tocilizumab with the management of this patient's rheumatic condition. ? Benefits include decreased pain, improved mortality, improved quality of life Risks include LFT abnormalities, elevated triglycerides, GI perforations Contraindicated in a patient with history of diverticulitis Monitoring: ?CBC, CMP, triglycerides Plan I spent 45 minutes reviewing the record and labs, taking a history, examining the patient, discussing the treatment plan and documenting in the medical record Orders: Orders Lipid Panel Today M05.79 - Rheumatoid arthritis with rheumatoid factor of m ultiple sites without organ or systems involvement Medications: New methylprednisolone (Medrol) 8 mg orally; Take 6 pills (3 in the morning, 3 in the evening) for 14 days then 5 pills (3 in the morning, 2 in the evening) for 14 days, then 4 pills ( 2 in the morning, 2 in the evening) for 14 days then 3 pills (2 in the morning, 1 in the evening) for 14 days; then 2 pills (1 in the morning, 1 in the evening) for 14 days then 1 pill daily for 14 days then 0.5 pill daily for 14 days 120 tabs 2RF M05.79 - Rheumatoid arthritis with rheumatoid factor of multiple sites without organ or systems involvement Discontinued milnacipran Discontinued Reason: Doctor's Order 25 mg PO BID 180 tabs 2RF M79.7 - Fibromyalgia pregabalin Discontinued Reason: Doctor's Order 75 mg PO BID 180 caps 2RF M79.7 - Fibromyalgia adalimumab (Humira) Discontinued Reason: Doctor's Order 40 mg (0.8 mL) subcut Q2W 2 ea 6RF M06.9 - Rheumatoid arthritis, unspecified Coding Level of Care Code Est Pt Level 5 (86936) Complex EM visit Add On G2211 Diagnoses Rheumatoid arthritis involving multiple sites with positive rheumatoid factor M05.79 Rheumatoid arthritis location: multiple sites Rheumatoid factor presence: with rheumatoid factor Fibromyalgia affecting multiple sites M79.7 Encounter for monitoring tocilizumab therapy Z51.81; Z79.620
--- OUTSIDE RECORDS SUMMARY | 2024-07-30 17:45 | XMS_ITS | Clinical Summary ---
Author Organization [facility] Address [address] [place] [address] Phone Care Team Providers Care Zipper Measurer Name Role Phone Bonnie Huff Primary Care [...] 2 times daily. 01/04/20 24 025 Active Savella 25 mg tablet Take 1 [...] 06/06/19 026 Active plecanatide (Trulance) 3 mg tabletIndication [...] eat to activate medication 14 each 06/10/19 026 Active Additional Information Patient taking differently:40 [...] each day. Hold for diarrhea 30 capsule 06/16/19 25 Active SUMAtriptan (IMITREX) 50 mg [...] bedtime. 90 tablet 3 07/11/19 25 Active hydrOXYzine HCL (ATARAX) 50 mg tablet Take 1 tablet (50 mg total) by mouth at bedtime. 90 tablet 3 07/29/19 25 Active loratadine (CLARITIN) 10 mg tablet Take 1 tablet (10 mg total) by mouth 1 (one) time each day. Take 1 Tablet by mouth daily as needed for Allergies. 90 tablet 3 07/29/19 25 Active baclofen (LIORESAL) 10 mg tablet Take 1 Tablet by mouth daily as needed (muscle spasms). 12/13/19 24 025 Discontin ued(Thera py completed ) hydrOXYzine HCL (ATARAX) 50 mg tablet Take 1 tablet (50 mg total) by mouth at bedtime. Take 2 Tablets by mouth at bedtime as needed (sleep). 12/13/19 24 025 Discontin ued(Reord er) loratadine (CLARITIN) 10 mg tablet Take 1 tablet (10 mg total) by mouth 1 (one) time each day. Take 1 Tablet by mouth daily as needed for Allergies. 12/13/19 24 025 Discontin ued(Reord er) SUMAtriptan (IMITREX) 50 mg tablet Take 1 tablet (50 mg total) by mouth 2 (two) times a day if needed for migraine. Take 1 tab prn migraine, may repeat in 2 hours prn max 100 mg per 24 hours 9 tablet 1 06/10/19 25 025 Discontin ued(Reord er) amoxicillin (AMOXIL) 500 mg capsule Take 2 capsules (1,000 mg total) by mouth 2 (two) times a day. 56 capsule 06/10/19 25 025 Discontin ued(Thera py completed ) amitriptyline (ELAVIL) 25 mg tablet Take 1 tablet (25 mg total) by mouth at bedtime. Take 1 Tablet by mouth at bedtime. 90 tablet 3 06/10/19 25 025 Discontin ued(Reord er) fluticasone propionate (FLONASE) 50 mcg/actuation nasal spray Administer 2 sprays into each nostril 1 (one) time each day. 2 Sprays by Each Nare route daily. 16 g 3 06/10/19 25 025 Discontin ued(Thera py completed ) Active Problems Problem Noted Date Diagnosed Date Allergic rhinitis 12/13/2023 Asthma with COPD ([facility] V24, [facility] V28) 11/15 Hyperlipidemia 12/13/2023 Hypothyroidism 12/13/2023 Insomnia 12/13/2023 Iron deficiency anemia 12/13/2023 Migraine 12/13/2023 Muscle spasm 12/13/2023 Fibromyalgia Rheumatoid arthritis ([facility] V24, [facility] V28) Encounters Date Type Department Care Team Description 07/17/2024 1:30 PM EDT - 07/17/2024 3:00 PM EDT Surgery [facility] OR [address] [place] [phone] Marlene Ahuja MD BRONCHOSCOPY [[id number] (CPT??)] 07/17/2024 1:14 PM EDT Anesthesia Event [facility] OR [address] [place] [phone] Brent Mcfarlane DO Vermes, Rachie, TENISHA 07/17/2024 12:00 PM EDT - 07/17/2024 4:18 PM EDT Hospital Encounter [address] [phone] Marlene Ahuja MD Chronic cough Discharge Disposition: Home or Self Care 07/14/2024 2:00 PM EDT Treatment [address] [phone] Amelia Perez, PT Lateral pain of left hip (Primary Dx); Lumbar pain 07/09/2024 Telephone Pulmonolgy [facility] [address] [phone] Shavon Nolan MA Surgery-Bronchoscopy 07/09/2024 Telephone Pulmonolgy [facility] [address] [phone] Shavon Nolan MA Surgery-Bronchoscopy 07/04/2024 1:30 PM EDT Office Visit Pulmonolgy - [place] 175 [facility] [address] [place] [phone] Marlene Ahuja MD Chronic cough (Primary Dx); Asthma with COPD ([facility] V24, [facility] V28); Rheumatoid arthritis involving multiple sites, unspecified whether rheumatoid factor present ([facility] V24, [facility] V28); Abnormal CT of the chest 07/04/2024 Telephone Pulmongy [facility] 175 [facility] [address] [place] [phone] Shavon Nolan MA Surgical Booking 07/01/2024 1:00 PM EDT Office Visit General Surgery [address] [place] [phone] Fredo Machado, Umbilical hernia without obstruction and without gangrene (Primary Dx) 06/30/2024 2:00 PM EDT Treatment [address] [phone] Hugo Shultz, HAT BRIM CURLER Lateral pain of left hip (Primary Dx) 06/30/2024 Telephone Internal Medicine [address] [phone] Rocio Almaguer MA Request For Order(s) ([facility] Orders 06/13/24) 06/30/2024 Telephone Internal Medicine [address] [phone] Rocio Almaguer [place] Request For Order(s) (Home Care VNA Cert 05/17/24-07/15/24/Plan Of Care /) 06/24/2024 Telephone Internal Medicine [address] [phone] Rocio Almaguer [place] Request For Order(s) ([facility] Discharge Summary Report /) 06/23/2024 2:00 PM EDT Treatment [address] [phone] Hugo Suhltz, HAT BRIM CURLER Lateral pain of left hip (Primary Dx) 06/19/2024 Telephone Internal Medicine - [place] 175 [facility] [address] [place] [phone] Rocio Almaguer MA Request For Order(s) (Karen CRYSTAL Missed Visit 05/27/24) 06/17/2024 2:00 PM EST Office Visit Internal Medicine [facility] 175 [facility] [address] [place] [phone] Bonnie Huff PA Asthma with COPD ([facility] V24, [facility] V28) (Primary Dx); Allergic rhinitis, unspecified seasonality, unspecified trigger; Hypothyroidism, unspecified type; Fibromyalgia; Rheumatoid arthritis involving multiple sites, unspecified whether rheumatoid factor present ([facility] V24, [facility] V28); Iron deficiency anemia, unspecified iron deficiency anemia type 06/16/2024 2:30 PM EST Treatment [facility] [address] [phone] Hugo Shultz, HAT BRIM CURLER Lateral pain of left hip (Primary Dx) 06/10/2024 Telephone Internal Medicine [facility] [address] [phone] Rocio Almaguer MA Request For Order(s) ([facility]aren CRYSTAL Physicians Missed Visit 05/20/24) 06/10/2024 Telephone Gastroenterology [facility] [address] [phone] Stan Babb PA 06/10/2024 Telephone Gastroenterology [facility] 175 [facility] [address] [phone] Stan Babb PA 06/09/2024 1:49 PM EST - 06/09/2024 11:59 PM EST Hospital Encounter [facility] CT Scan [address] [place] [phone] Umbilical hernia without obstruction and without gangrene Discharge Disposition: Home or Self Care 06/09/2024 1:49 PM EST - 06/09/2024 11:59 PM EST Hospital Encounter [facility] CT Scan [address] [place] [phone] Pneumonia of left lung due to infectious organism, unspecified part of lung Discharge Disposition: Home or Self Care 06/09/2024 Telephone Gastroenterology [address] [phone] Elba Sierra PA PRIOR AUTHORIZATION 06/06/2024 3:00 PM EST Office Visit Gastroenterology [address] [phone] Stan Babb PA Epigastric pain (Primary Dx); Routine physical examination; H/O Helicobacter infection; Straining with stools 06/04/2024 2:00 PM EST Evaluation [address] [phone] Amelia Perez PT Lateral pain of left hip (Primary Dx); Lumbar pain 06/04/2024 Telephone Internal Medicine - [address] [phone] Bonnie Huff PA Melonie: MARAH CRAVENI 06/04/2024 Telephone Internal Medicine [address] [phone] Rocio Almaguer [place] Request For Order(s) ([facility]aren CRYSTAL Physicians Missed Visit 05/20/24/) 05/20/2024 11:00 AM EST Consult General Surgery - [address] [place] [phone] Fredo Machado, DO Umbilical hernia without obstruction and without gangrene 05/20/2024 10:15 AM EST Office Visit Pulmonolgy - [address] [phone] Marlene Ahuja MD Pneumonia of left lung due to infectious organism, unspecified part of lung (Primary Dx); Asthma with COPD (CMS/HCC V24, CMS/HCC V28); Bronchiectasis without acute exacerbation (CMS/HCC V24, CMS/HCC V28) 05/19/2024 1:30 PM EST Office Visit Internal Medicine - [place] 175 [facility] [address] [place] [phone] Bonnie Huff PA Hospital discharge follow-up (Primary Dx); Pneumonia of left lung due to infectious organism, unspecified part of lung; Moderate persistent asthma with acute exacerbation 05/16/2024 Telephone Internal Medicine - [place] 175 [facility] [address] [place] [phone] Bonnie Huff PA VNA 05/01/2024 2:00 PM EST Consult Orthopedics [address] [phone] Claudy Araya PA Lumbar pain (Primary Dx); Lateral pain of left hip from Last 3 Months Surgical History Surgery Date Site/Laterality Comments HYSTERECTOMY PROCEDURE: HISTORICAL HYSTERECTOMY; COMMENT: ANNI due to [place]roids 2020 [place] OTHER SURGICAL HISTORY NO PAST SURGERIES topic Medical History Medical History Date Comments Allergic rhinitis DX:Allergic rh initis Hypothyroidism DX:Hypothyroidis m Muscle spasm DX:Muscle spasm Insomnia DX:Insomnia Iron deficiency anemia DX:Iron d eficiency anemia Migraine DX:Migraine Asthma DX:Asthma Hyperlipidemia DX:Hyperlipidemi a Asthma with COPD ([facility] V24, [facility] V28) DX:Asthma with COPD ([facility]) Fibromyalgia Rheumatoid arthritis ([facility] V24, [facility] V28) Diabetes mellitus ([facility] V24, [facility] V28) hypoglycemia GERD (gastroesophageal reflux disease) Irritable bowel syndrome [...] care for your loved ones. For example, children teacher or elderly care for an [...] 09/05/2024 2:45 PM EDT Office Visit Pulmonolgy [facility] [address] [phone] Marlene Ahuja MD [address] [phone] 09/18/2024 2:15 PM EDT Office Visit Internal Medicine [facility] [address] [phone] Bonnie Huff, BRISEIDA [address] [address] 12/30/2024 2:00 PM EDT Office Visit General Surgery [facility] 175 [facility] [address] [place] [phone] Fredo Machado, [address] [phone] Health Maintenance Due Date Last Done Comments [...] age to complete this topic Meningococcal B Vaccine Aged Out No l onger eligible based on patient's age to complete this topic RSV Immunization Patients Under 20 months Aged Out No longer eligible b ased on patient's age to complete this topic Varicella Vaccines Aged Out No longer eligible based on patient's age to complete this topic Procedures Procedure Name Priority Date/Time Associated Diagnosis Comments OXYGEN THERAPY, ADULT Routine 07/17/2024 2:13 PM EDT NON-GYNECOLOGIC CYTOLOGY Routine 07/17/2024 1:41 PM EDT Chronic cough ACID FAST BACILLI STAIN Routine 07/17/2024 1:37 PM EDT Chronic cough CULTURE BRONCHIAL WITH GRAM STAIN Routine 07/17/2024 1:37 PM EDT Chronic cough CULTURE FUNGUS, OTHER THAN SKIN HAIR OR NAILS Routine 07/17/2024 1:37 PM EDT Chronic cough ACID FAST BACILLI STAIN Routine 07/17/2024 1:36 PM EDT Chronic cough CULTURE BRONCHIAL WITH GRAM STAIN Routine 07/17/2024 1:36 PM EDT Chronic cough CULTURE FUNGUS, OTHER THAN SKIN HAIR OR NAILS Routine 07/17/2024 1:36 PM EDT Chronic cough TH AN ENDOTRACHEAL(NO CHARGE) Routine 07/17/2024 1:34 PM EDT [place] BRONCHOSCOPY RIGID/FLEXIBLE DIAGNOSTIC W/CELL WASHING 07/17/2024 1:13 [...] Recently Relevant to Health Maintenance Results * Non-gynecologic cytology (07/17/2024 1:41 PM EDT) Final Diagnosis Lung,left upper lobe bronchial wash (ThinPrep, cell block): No malignant cells identified Acute inflammation present 07/22/2024 11:16 AM [facility] Specimen A Adequacy Satisfactory for evaluation 07/22/2024 11:16 AM [facility] Gross Description A. Lung, Left Upper Lobe, left upper lobe bronchial wash: Received 1 ml of clear fluid; 1 ThinPrep, 1 Cell block Cell block in formalin @8:30-total formalin fixation time 60.5 hours. 07/22/2024 11:16 AM [facility] Disclaimer Unless otherwise specified, all tissue is 10% NB formalin fixed and paraffin embedded. Technical cytopathology services provided by [facility], at [address] [place] [address], [place] [address] (CLIA # [id number]/Alma Colindres MD, Supervisor Power Reactor.) 07/22/2024 11:16 AM [facility] Wash Structure of upper lobe of left lung / Unknown 07/17/2024 1:41 PM EDT 07/18/2024 8:02 AM EDT us Marlene Ahuja MD LAB CYTOLOGY ORDERABLES Final Re sult Performing Organization Address City/[facility]/ZIP Co de Phone Number [facility] [address] [place] [address], [place] [phone] * Culture bronchial with gram stain (07/17/2024 1:37 PM EDT) Only the most recent of2 resultswithin the time period is included. Bronchial Culture No pathogens isolated. 07/20/2024 10:32 AM EDT [facility] Gram Stain Result Many Polymorphonuclear leukocytes 07/20/2024 10:32 AM EDT [facility] Gram Stain Result No epithelial cells seen 07/20/2024 10:32 AM EDT [facility] Gram Stain Result No organisms seen 07/20/2024 10:32 AM EDT [facility] Wash Structure of upper lobe of left lung / Unknown 07/17/2024 1:37 PM EDT 07/17/2024 2:50 PM EDT us Marlene Ahuja MD LAB MICROBIOLOGY - GENERAL ORDER ALONSO Final Result Performing Organization Address City/[facility]/ZIP Co de Phone Number [facility] [address] [place] [address], [place] [phone] * Acid fast bacilli stain (07/17/2024 1:37 PM EDT) Only the most recent of2 resultswithin the time period is included. AFB Stain Result No Acid fast bacilli seen on direct smear (Fuchsin method, 1000x) No Acid Fast Bacilli seen on direct smear 07/17/2024 9:03 PM EDT [facility] Wash Structure of upper lobe of left lung / Unknown 07/17/2024 1:37 PM EDT 07/17/2024 2:50 PM EDT us Marlene Ahuja MD LAB MICROBIOLOGY - GENERAL ORDER ALONSO Final Result [facility] [address] [place] [address], [place] [phone] * TH AN ENDOTRACHEAL(NO CHARGE) (07/17/2024 1:34 PM EDT) Brent Poe DO - 07/17/2024 1:34 PM EDT Brent Mcfarlane DO ? 07/17/2024 ??4:09 PM General Information and Staff Patient location during procedure: [place] Anesthesiologist: Brent Mcfarlane DO Resident/HOTSHOT SUPERINTENDENT: Russ Kelly CRNA Performed: anesthesiologist Performed by: Russ Kelly CRNA Authorized by: Brent Mcfarlane DO ?? Intubation Additional Comments ETT#8 slide to esophagea twice by HOTSHOT SUPERINTENDENT, passed by at th third attempt. Atraumatically. [...] - 100 mg/dL 07/17/2024 12:34 PM EDT [facility] Blood Capillary blood specimen / Unknown 07/17/2024 12:34 PM EDT 07/17/2024 12:36 PM EDT us Marlene Ahuja MD LAB POINT OF CARE TE ST DOCKED DEVICE UNSOLICITED RESULTS Final Result [facility] [address] [place] [address], * CBC auto differential (06/23/2024 2:31 PM EDT) Only the most recent of2 resultswithin the time period is included. WBC 7.1 4.8 - 10.8 K/mcL LAB HEMETOLOGY METHOD 06/23/2024 6:31 PM EDT [facility] RBC 4.10 3.80 - 4.80 M/mcL LAB HEMETOLOGY METHOD 06/23/2024 6:31 PM EDT [facility] Hemoglobin 13.0 11.5 - 16.0 g/dL LAB HEMETOLOGY METHOD 06/23/2024 6:31 PM EDT [facility] Hematocrit 39.7 35.0 - 47.0 % LAB HEMETOLOGY METHOD 06/23/2024 6:31 PM EDT [facility] MCV 95.9 79.0 - 98.0 FL LAB HEMETOLOGY METHOD 06/23/2024 6:31 PM EDT [facility] MCH 31.4 27.0 - 32.0 pcg LAB HEMETOLOGY METHOD 06/23/2024 6:31 PM EDT [facility] MCHC 32.7 32.0 - 37.0 g/dL LAB HEMETOLOGY METHOD 06/23/2024 6:31 PM [facility] RDW 12.6 11.0 - 15.0 % LAB HEMETOLOGY METHOD 06/23/2024 6:31 PM EDT [facility] Platelets 293 130 - 400 K/mcL LAB HEMETOLOGY METHOD 06/23/2024 6:31 PM EDT [facility] MPV 10.8 7.0 - 11.0 FL LAB HEMETOLOGY METHOD 06/23/2024 6:31 PM [facility] NRBC 0.0 <1.0 % LAB HEMETOLOGY METHOD 06/23/2024 6:31 PM [facility] NRBC Absolute 0.00 <0.10 K/mcL LAB HEMETOLOGY METHOD 06/23/2024 6:31 PM [facility] Neutrophils Relative 56.9 % LAB HEMETOLOGY METHOD 06/23/2024 6:31 PM [facility] Lymphocytes Relative 31.7 % LAB HEMETOLOGY METHOD 06/23/2024 6:31 PM [facility] Monocytes Relative 8.6 % LAB HEMETOLOGY METHOD 06/23/2024 6:31 PM [facility] Eosinophils Relative 1.4 % LAB HEMETOLOGY METHOD 06/23/2024 6:31 PM [facility] Basophils Relative 1.0 % LAB HEMETOLOGY METHOD 06/23/2024 6:31 PM [facility] Immature Granulocytes Relative 0.4 % LAB HEMETOLOGY METHOD 06/23/2024 6:31 PM [facility] Neutrophils Absolute 4.02 1.50 - 7.00 K/mcL LAB HEMETOLOGY METHOD 06/23/2024 6:31 PM [facility] Lymphocytes Absolute 2.24 1.00 - 5.00 K/mcL LAB HEMETOLOGY METHOD 06/23/2024 6:31 PM [facility] Monocytes Absolute 0.61 0.20 - 1.00 K/mcL LAB HEMETOLOGY METHOD 06/23/2024 6:31 PM [facility] Eosinophils Absolute 0.10 0.00 - 0.50 K/mcL LAB HEMETOLOGY METHOD 06/23/2024 6:31 PM EDT [facility] Basophils Absolute 0.07 0.00 - 0.20 K/[facility] LAB HEMETOLOGY METHOD 06/23/2024 6:31 PM EDT [facility] Immature Granulocytes Absolute 0.03 0.00 - 0.03 K/[facility] LAB HEMETOLOGY METHOD 06/23/2024 6:31 PM EDT [facility] Blood Venous blood specimen / Unknown Venipuncture / Unknown 06/23/2024 2:31 PM EDT 06/23/2024 2:31 PM EDT Bonnie GOINS LAB BLOOD ORDERABLES Fin al Result Performing Organization Address City/[facility]/ZIP Co de Phone Number [facility] [address] [place] [address], [place] [phone] * Thyroid stimulating hormone (06/23/2024 2:31 PM EDT) TSH 1.84 0.40 - 4.00 mcIU/mL LAB CHEMISTRY METHOD 06/23/2024 6:48 PM EDT [facility] Blood Venous blood specimen / Unknown Venipuncture / Unknown 06/23/2024 2:31 PM EDT 06/23/2024 2:31 PM EDT Bonnie GOINS LAB BLOOD ORDERABLES Fin al Result [facility] [address] [place] [address], [place] [phone] * Iron (06/23/2024 2:31 PM EDT) Iron 71 40 - 150 mcg/dL LAB CHEMISTRY METHOD 06/23/2024 6:41 PM EDT [facility] Blood Venous blood specimen / Unknown Venipuncture / Unknown 06/23/2024 2:31 PM EDT 06/23/2024 2:31 PM EDT Bonnie GOINS LAB BLOOD ORDERABLES Fin al Result [facility] [address] [place] [address], [place] [phone] * Ferritin (06/23/2024 2:31 PM EDT) Ferritin 118 8 - 252 ng/mL LAB CHEMISTRY METHOD 06/23/2024 6:42 PM EDT [facility] Blood Venous blood specimen / Unknown Venipuncture / Unknown 06/23/2024 2:31 PM EDT 06/23/2024 2:31 PM EDT Bonnie GOINS LAB BLOOD ORDERABLES Fin al Result Performing Organization Address City/[facility]/ZIP Co de Phone Number [facility] [address] [place] [address], [place] [phone] * Comprehensive metabolic panel (06/23/2024 2:31 PM EDT) Sodium 140 133 - 145 mmol/L LAB CHEMISTRY METHOD 06/23/2024 6:41 PM EDT [facility] Potassium 4.5 3.5 - 5.5 mmol/L LAB CHEMISTRY METHOD 06/23/2024 6:41 PM EDT [facility] Chloride 107 96 - 110 mmol/L LAB CHEMISTRY METHOD 06/23/2024 6:41 PM EDT [facility] CO2 26 21 - 32 mmol/L LAB CHEMISTRY METHOD 06/23/2024 6:41 PM EDT [facility] Anion Gap 7 3 - 11 LAB CHEMISTRY METHOD 06/23/2024 6:41 PM EDT [facility] Glucose 92 70 - 100 mg/dL LAB CHEMISTRY METHOD 06/23/2024 6:41 PM [facility] BUN 15 5 - 25 mg/dL LAB CHEMISTRY METHOD 06/23/2024 6:41 PM [facility] Creatinine 0.79 0.50 - 1.10 mg/dL LAB CHEMISTRY METHOD 06/23/2024 6:41 PM [facility] eGFR 92 >=60 mL/min/1. 73m2 LAB CHEMISTRY METHOD 06/23/2024 6:41 PM [facility] Comment:Calculation based on the??Chronic Kidney Disease Epidemiology Collaboration (CKD-EPI) equation refit??without adjustment for race. BUN/Creatinine Ratio 19.0 LAB CHEMISTRY METHOD 06/23/2024 6:41 PM [facility] Calcium 9.6 8.5 - 10.5 mg/dL LAB CHEMISTRY METHOD 06/23/2024 6:41 PM [facility] AST (SGOT) 30 10 - 42 unit/L LAB CHEMISTRY METHOD 06/23/2024 6:41 PM [facility] ALT (SGPT) 44 10 - 60 unit/L LAB CHEMISTRY METHOD 06/23/2024 6:41 PM [facility] Alkaline Phosphatase 106 42 - 121 unit/L LAB CHEMISTRY METHOD 06/23/2024 6:41 PM [facility] Total Protein 7.5 6.0 - 8.0 g/dL LAB CHEMISTRY METHOD 06/23/2024 6:41 PM [facility] Albumin 3.9 3.2 - 5.0 g/dL LAB CHEMISTRY METHOD 06/23/2024 6:41 PM [facility] Total Bilirubin 0.3 0.0 - 1.4 mg/dL LAB CHEMISTRY METHOD 06/23/2024 6:41 PM [facility] Blood Venous blood specimen / Unknown Venipuncture / Unknown 06/23/2024 2:31 PM EDT 06/23/2024 2:31 PM EDT Bonnie GOINS LAB BLOOD ORDERABLES Philip al Result [facility] [address] [place] [address], * CT Abdomen Pelvis wo Contrast (06/09/2024 [...] Signed Date: 06/12/2024 13:19 ET Workstation ID: [id number] Transcribed By: Self Edit Transcribed Date: 06/12/2024 [...] Signed Date: 06/12/2024 13:19 ET Workstation ID: [id number] Transcribed By: Self Edit Transcribed Date: 06/12/2024 [...] Signed Date: 06/12/2024 13:19 ET Workstation ID: [id number] Transcribed By: Self Edit Transcribed Date: 06/12/2024 [...] Signed Date: 06/12/2024 13:19 ET Workstation ID: [id number] Transcribed By: Self Edit Transcribed Date: 06/12/2024 13:12 ET Marlene Ahuja MD IMG CT PROCEDURES Final Result * (ABNORMAL) Helicobacter pylori breath test (06/09/2024 1:08 PM EST) Pathologist [facility] Pylori Breath Test Positive( A) Negative LAB CHEMISTRY METHOD 06/10/2024 6:25 AM EST [facility] Breath Oral cavity structure / Unknown Non-blood Collection / Unknown 06/09/2024 1:08 PM EST 06/09/2024 1:08 PM EST Stan GOINS LAB BODY FLUIDS AND STOOLS NICK BUNN Final Result [facility] [address] [place] [address], [place] [phone] * (ABNORMAL) Manual differential (05/20/2024 11:35 AM EST) Pathologist [facility] Neutrophils % 56.0 % LAB HEMETOLOGY METHOD 05/20/2024 2:54 PM EST [facility] Lymphocytes % 32.0 % LAB HEMETOLOGY METHOD 05/20/2024 2:54 PM EST [facility] Reactive Lymphocyte 4.00 % LAB HEMETOLOGY METHOD 05/20/2024 2:54 PM EST [facility] Monocytes % 4.0 % LAB HEMETOLOGY METHOD 05/20/2024 2:54 PM EST [facility] Eosinophils % 2.0 % LAB HEMETOLOGY METHOD 05/20/2024 2:[address] [facility] Basophils % 0.0 % LAB HEMETOLOGY METHOD 05/20/2024 2:[address] [facility] Myelocytes % 3.0(H) % LAB HEMETOLOGY METHOD 05/20/2024 2:[address] [facility] Neutrophils Absolute Manual 9.13(H) 1.50 - 7.00 K/mcL LAB HEMETOLOGY METHOD 05/20/2024 2:[address] [facility] Lymphocytes Absolute 5.22(H) 1.00 - 5.00 K/mcL LAB HEMETOLOGY METHOD 05/20/2024 2:[address] [facility] Reactive Lymph Abs Manual 0.65(H) 0.00 - 0.00 lym LAB HEMETOLOGY METHOD 05/20/2024 2:[address] [facility] Monocytes Absolute Manual 0.65 0.20 - 1.00 K/mcL LAB HEMETOLOGY METHOD 05/20/2024 2:[address] [facility] Eosinophils Absolute Manual 0.33 0.00 - 0.50 K/mcL LAB HEMETOLOGY METHOD 05/20/2024 2:[address] [facility] Basophils Absolute Manual 0.00 0.00 - 0.20 K/mcL LAB HEMETOLOGY METHOD 05/20/2024 2:[address] [facility] Myelocytes Absolute Manual 0.49(H) 0.00 - 0.00 K/mcL LAB HEMETOLOGY METHOD 05/20/2024 2:[address] [facility] Rbc Morphology See comment( A) Consistent with indices, Normal for LAB HEMETOLOGY METHOD 05/20/2024 2:[address] [facility] Comment:RBC: Morphology agre es with CBC Platelet Morphology - WAM See Note(A) Normal LAB HEMETOLOGY METHOD 05/20/2024 2:[facility] Comment:PLT: Normal Blood Venous blood specimen / Unknown Venipuncture / Unknown 05/20/2024 11:35 AM EST 05/20/2024 11:35 AM EST us Marlene Ahuja MD LAB BLOOD ORDERABLES Final Resul t [facility] [address] [place] [address], [place] [phone] * MG Mammo Digital Screening w Edy [...] Signed Date: 03/28/2024 14:56 ET Workstation ID: [id number] Transcribed By: Self Edit Transcribed Date: 03/28/2024 [...] Signed Date: 03/28/2024 14:56 ET Workstation ID: [id number] Transcribed By: Self Edit Transcribed Date: 03/28/2024 14:52 ET Bonnie GOINS IMNayeli BI PROCEDURES Final Result * (ABNORMAL) Lipid panel (12/14/2023) LDL/HDL Ratio 4 0 - 4 Triglycerides 113 0 - 150 mg/dL Cholesterol 164 0 - 200 mg/dL HDL 40 >=40 mg/dL LDL Cholesterol 102(A) 0 - 100 mg/dL Blood Venous blood specimen / Unknown Historical Provider LAB BLOOD ORDERABLES Sujey l Result * Depression Screening (12/13/2023) Depression Screening Abstracted us Historical Provider MD HEALTH MAINTENANCE Final Result from Last 3 Months or Most Recently Relevant to Health Maintenance Additional Health Concerns Infection Onset Date Last Indicated Tuberculosis Rule-Out 07/17/2024 07/17/2024 Insurance [facility] Care Teams Zipper Measurer Relationship Specialty Start Date End Date Bonnie Huff PA [address] [place] [address] PCP - General 10/24/23
== END 2024-07-30 16:13 | disposition home or self-care (01) ==
LOC: HO.RHE 15:13
PROVIDERS: Visit Provider Student in an Organized Health Care Education/Training Program
DX: M05.79 Rheumatoid arthritis with rheumatoid factor of multiple sites without organ or systems involvement (principal); M79.7 Fibromyalgia; Z51.81 Encounter for therapeutic drug level monitoring; Z79.620 Long term (current) use of immunosuppressive biologic
CPT/HCPCS: 99215; G2211

== ENCOUNTER → 2024-07-30 15:13 | Outpatient (BNVA) | payer OTHER, SELFPAY | PROVIDERS: Visit Provider Student in an Organized Health Care Education/Training Program | DX: M05.79 Rheumatoid arthritis with rheumatoid factor of multiple sites without organ or systems involvement (principal); M79.7 Fibromyalgia; Z51.81 Encounter for therapeutic drug level monitoring; Z79.620 Long term (current) use of immunosuppressive biologic | CPT/HCPCS: 99212 ==

== ENCOUNTER 2024-07-31 14:21 | Outpatient (AMB) | payer OTHER, SELFPAY ==
[2024-07-31 14:37] VITALS: BP 116/72; BMI 26.3
--- NOTE | 2024-07-31 14:37 | MHC.OFFVIS ---
Vital Signs 07/31/24 14:37 Height 5 ft 2 in Weight 144 lb BMI 26.3 BP 116/72 Intake Visit Reasons: STD Screen Cable Installation Manager Required: No Cable Installation Manager Services: Cable Installation Manager Present Information Interpreted: clinical only Optometric Tech: Optometric Tech Present Allergies No Known Allergies Allergy (Verified 07/31/24 14:38) Medication List - Last Reconciled 07/31/24 by Kaylee Pozo CNM albuterol sulfate 90 mcg/actuation (Ventolin HFA) 2 puffs inhalation Q4-6H PRN amitriptyline 25 mg PO BEDTIME fluticasone propion-salmeterol 250-50 mcg/dose (Advair Diskus) 1 ea inhalation BID hydroxyzine HCl 100 mg PO BEDTIME inhalational spacing device ([facility] spacer) As directed levothyroxine 25 mcg PO DAILY@0600 loratadine 10 mg PO DAILY methylprednisolone (Medrol) 8 mg orally; Take 6 pills (3 in the morning, 3 in the evening) for 14 days then 5 pills (3 in the morning, 2 in the evening) for 14 days, then 4 pills ( 2 in the morning, 2 in the evening) for 14 days then 3 pills (2 in the morning, 1 in the evening) for 14 days; then 2 pills (1 in the morning, 1 in the evening) for 14 days then 1 pill daily for 14 days then 0.5 pill daily for 14 days sumatriptan succinate 50 mg PO Q2H PRN MDD 100 Is last menstrual period known: No HPI HPI STD Screen: Details: Patient is here because she had a visit with Dr. Damian a couple of weeks ago but she forgot to request testing for STDs of the time. She had had an encounter about a year ago with a couple of partners and she heard afterwards that 1 of the may have had an infection so she wants to get checked. She has a history of a hysterectomy and she believes they took everything out for endometriosis 4 or 5 years ago in [place]. She says she was not put on hormones or anything she did have hot flashes. She does have a little bit of vaginal itching sometimes. [facility] Medical History (Updated 07/31/24 @ 15:45 by Kaylee Pozo CNM) Rheumatoid arthritis Fibromyalgia affecting multiple sites Hyperlipidemia Asthma Migraine Iron deficiency anemia Insomnia Muscle spasm Hypothyroidism Allergic rhinitis Surgical History (Updated 07/31/24 @ 15:45 by Kaylee Pozo CNM) H/O: hysterectomy Family History Mother Breast cancer Sister Breast cancer Social History Household Members: Family Housing: Apartment Do you presently have visiting nurse or other home services: No Patient Tobacco Use Status: Former Tobacco user Tobacco use type: Cigarette service: No Female Reproductive History Menstrual Age of Menarche: 10 control method: none Total pregnancies: 1 Full term: 1 Physical Exam Vital Signs: Last Vital Signs BP 116/72 07/31/24 14:37 BMI result Body Mass Index 26.3 Other: External vulva little bit pink which might be consistent with mild yeast. Vaginal cuff appears well healed scant white discharge possibly consistent with yeast testing sent for gonorrhea chlamydia trichomoniasis Rosi and yeast discussed the the last 2 are very common in yeast can happen at any time she is wearing thin micro fiber stretch undies today discussed the wearing fabrics such as this often promotes yeast and bacteria. Assessment & Plan Assessment & Plan (1) Possible exposure to STD: Code(s): Z20.2 - Contact with and (suspected) exposure to infections with a predominantly sexual mode of transmission Category: Medical (2) H/O: hysterectomy: Comment: Patient brought records to last visit but says they did not get scan I asked her to bring them to the office next time she is in the hospital for scanning.... Code(s): Z90.710 - Acquired absence of both cervix and uterus Category: Surgical (3) Rheumatoid arthritis: Comment: DDx 02/2024 +RF, -CCP Methotrexate 02/2024 - 04/2024. Not effective Humira 04/2024 Code(s): M06.9 - Rheumatoid arthritis, unspecified Category: Medical Qualifiers: Rheumatoid arthritis location: multiple sites Rheumatoid factor presence: with rheumatoid factor Qualified Code(s): M05.79 - Rheumatoid arthritis with rheumatoid factor of multiple sites without organ or systems involvement (4) Yeast infection of the vagina: Comment: And some yeast dermatitis in groin. See note Code(s): B37.31 - Acute candidiasis of vulva and vagina Category: Medical Plan Testing done during the visit for gonorrhea chlamydia trichomoniasis bacterial vaginosis and yeast. Encouraged her to consider switching to cotton underwear when she is home and does not care about dressing up, the micro fiber underwear may feel good on but they do not permit air to get to the vulvar area and promote yeast. I am treating her with Monistat 7 cream that she can use internally and also externally where she has a little itching in her groin area I recommend she apply it before her moisturizer. She is in the midst of switching her medication regime and we will be starting Medrol pack and changing the whole medication regimen so I did not want to add another p.o. medication to her regimen. I was trying to put in orders for HIV hep B hep C and syphilis but it develops that the orders were placed by Dr. Damian. So I printed them for her so that she can go get the labs done here at the [facility]. The patient then remembered that the can addition she was worried about that she had been told in old partner had was herpes. I explained that we normally do not do blood work testing for that because most people have been exposed to the herpes virus at some point in her life, often orally. I shared with her what the symptoms can be like and that they come and they go. She in fact remembered then that she often does get a sore on her lip that comes and goes when she has a cold. Nevertheless she did want to have the blood test and i told her that it may likely be positive but will not necessarily represent an STD and most likely would represent presence of the virus that she has had symptoms for off and on in her life. Order placed for that and she is going to the lab now. I also asked her to bring the records of her hysterectomy to the office at some point and request that the manager front staff skin them in so they they are in the chart, and to let the providers know they are in. Orders: Orders CT NG by PCR Today N89.8 - Other specified noninflammatory disorders of vagina, Z20.2 - Contact with and (suspected) exposure to infections with a predominantly sexual mode of transmission Bacterial Vaginosis Panel Today N89.8 - Other specified noninflammatory disorders of vagina Herpes Simplex Virus Ab IgG Today Z20.2 - Contact with and (suspected) exposure to infections with a predominantly sexual mode of transmission Medications: New miconazole nitrate 2% (Miconazole-7) May use internally as well as externally for vaginal itching and yeast infection 1 appful vaginal BEDTIME 7 days 45 grams 1RF Coding Level of Care Code Est Pt Level 3 (63864) Diagnoses Possible exposure to STD Z20.2 H/O: hysterectomy Z90.710 Rheumatoid arthritis involving multiple sites with positive rheumatoid factor M05.79 Rheumatoid arthritis location: multiple sites Rheumatoid factor presence: with rheumatoid factor Yeast infection of the vagina B37.31
--- OUTSIDE RECORDS SUMMARY | 2024-07-31 17:23 | XMS_ITS | Clinical Summary ---
Author Organization [facility] Address [address] [place] [address] Phone Care Team Providers Care Mechanical Service Representative Name Role Phone Bonnie Huff Primary [...] Date Allergic rhinitis 12/13/2023 Asthma with COPD ([facility] V24, [facility] V28) 11/15 Hyperlipidemia 12/13/2023 Hypothyroidism 12/13/2023 Insomnia 12/13/2023 Iron deficiency anemia 12/13/2023 Migraine 12/13/2023 Muscle spasm 12/13/2023 Fibromyalgia Rheumatoid arthritis ([facility] V24, [facility] V28) Encounters Date Type Department Care Team Description 07/17/2024 1:30 PM EDT - 07/17/2024 3:00 PM EDT Surgery [facility] OR [address] [place] [phone] Marlene Ahuja MD BRONCHOSCOPY [[id number] (CPT??)] 07/17/2024 1:14 PM EDT Anesthesia Event [facility] OR [address] [place] [phone] Brent Mcfarlane DO Vermes, Rachie, TENISHA 07/17/2024 12:00 PM EDT - 07/17/2024 4:18 PM EDT Hospital Encounter [address] [phone] Marlene Ahuja MD Chronic cough Discharge Disposition: Home or Self Care 07/14/2024 2:00 PM EDT Treatment [address] [phone] Amelia Perez, PT Lateral pain of left hip (Primary Dx); Lumbar pain 07/09/2024 Telephone Pulmonolgy [facility] [address] [phone] Shavon Nolan MA Surgery-Bronchoscopy 07/09/2024 Telephone Pulmonolgy [facility] [address] [phone] Shavon Nolan MA Surgery-Bronchoscopy 07/04/2024 1:30 PM EDT Office Visit Pulmonolgy - [place] 175 [facility] [address] [place] [phone] Marlene Ahuja MD Chronic cough (Primary Dx); Asthma with COPD ([facility] V24, [facility] V28); Rheumatoid arthritis involving multiple sites, unspecified whether rheumatoid factor present ([facility] V24, [facility] V28); Abnormal CT of the chest 07/04/2024 Telephone Pulmongy [facility] 175 [facility] [address] [place] [phone] Shavon Nolan MA Surgical Booking 07/01/2024 1:00 PM EDT Office Visit General Surgery [address] [place] [phone] Fredo Machado, Umbilical hernia without obstruction and without gangrene (Primary Dx) 06/30/2024 2:00 PM EDT Treatment [address] [phone] Hugo Shultz, AS400 DEVELOPER Lateral pain of left hip (Primary Dx) 06/30/2024 Telephone Internal Medicine [address] [phone] Rocio Almaguer MA Request For Order(s) ([facility] Orders 06/13/24) 06/30/2024 Telephone Internal Medicine [address] [phone] Rocio Almaguer [place] Request For Order(s) (Home Care VNA Cert 05/17/24-07/15/24/Plan Of Care /) 06/24/2024 Telephone Internal Medicine [address] [phone] Rocio Almaguer [place] Request For Order(s) ([facility] Discharge Summary Report /) 06/23/2024 2:00 PM EDT Treatment [address] [phone] Hugo Shultz, AS400 DEVELOPER Lateral pain of left hip (Primary Dx) 06/19/2024 Telephone Internal Medicine - [place] 175 [facility] [address] [place] [phone] Rocio Almaguer MA Request For Order(s) (Karen CRYSTAL Missed Visit 05/27/24) 06/17/2024 2:00 PM EST Office Visit Internal Medicine [facility] 175 [facility] [address] [place] [phone] Bonnie Huff PA Asthma with COPD ([facility] V24, [facility] V28) (Primary Dx); Allergic rhinitis, unspecified seasonality, unspecified trigger; Hypothyroidism, unspecified type; Fibromyalgia; Rheumatoid arthritis involving multiple sites, unspecified whether rheumatoid factor present ([facility] V24, [facility] V28); Iron deficiency anemia, unspecified iron deficiency anemia type 06/16/2024 2:[address] [facility] [address] [phone] Hugo Shultz, AS400 DEVELOPER Lateral pain of left hip (Primary Dx) 06/10/2024 Telephone Internal Medicine [facility] [address] [phone] Rocio Almaguer [place] Request For Order(s) ([facility] Missed Visit 05/20/24) 06/10/2024 Telephone Gastroenterology [facility] [address] [phone] Stan Babb PA 06/10/2024 Telephone Gastroenterology [facility] 175 [facility] [address] [phone] Stan Babb PA 06/09/2024 1:49 PM EST - 06/09/2024 11:59 PM EST Hospital Encounter [facility] CT Scan [address] [place] [phone] Umbilical hernia without obstruction and without gangrene Discharge Disposition: Home or Self Care 06/09/2024 1:49 PM EST - 06/09/2024 11:59 PM EST Hospital Encounter [facility] CT Scan [address] [place] [phone] Pneumonia of left lung due to infectious organism, unspecified part of lung Discharge Disposition: Home or Self Care 06/09/2024 Telephone Gastroenterology [address] [phone] Elba Sierra PA PRIOR AUTHORIZATION 06/06/2024 3:00 PM EST Office Visit Gastroenterology [address] [phone] Stan Babb PA Epigastric pain (Primary Dx); Routine physical examination; H/O Helicobacter infection; Straining with stools 06/04/2024 2:00 PM EST Evaluation [address] [phone] Amelia Perez PT Lateral pain of left hip (Primary Dx); Lumbar pain 06/04/2024 Telephone Internal Medicine - [address] [phone] Bonnie Huff PA Melonie: MARAH CRAVENI 06/04/2024 Telephone Internal Medicine [address] [phone] Rocio Almaguer [place] Request For Order(s) ([facility]aren [facility] Physicians Missed Visit 05/20/24/) 05/20/2024 11:00 AM EST Consult General Surgery - [address] [place] [phone] Fredo Machado, DO Umbilical hernia without obstruction and without gangrene 05/20/2024 10:15 AM EST Office Visit Pulmonolgy - [address] [phone] Marlene Ahuja MD Pneumonia of left lung due to infectious organism, unspecified part of lung (Primary Dx); Asthma with COPD (CMS/HCC V24, CMS/HCC V28); Bronchiectasis without acute exacerbation (CMS/HCC V24, CMS/HCC V28) 05/19/2024 1:30 PM EST Office Visit Internal Medicine - [place] 175 [facility] [address] [place] [phone] Bonnie Huff PA Hospital discharge follow-up (Primary Dx); Pneumonia of left lung due to infectious organism, unspecified part of lung; Moderate persistent asthma with acute exacerbation 05/16/2024 Telephone Internal Medicine - [place] 175 [facility] [address] [place] [phone] Bonnie Huff PA VNA from Last 3 Months Surgical History Surgery Date Site/Laterality Comments HYSTERECTOMY PROCEDURE: HISTORICAL HYSTERECTOMY; COMMENT: ANNI due to fibroids 2020 in [place] OTHER SURGICAL HISTORY NO PAST SURGERIES topic Medical History Medical History Date Comments Allergic rhinitis DX:Allergic rh initis Hypothyroidism DX:Hypothyroidis m Muscle spasm DX:Muscle spasm Insomnia DX:Insomnia Iron deficiency anemia DX:Iron d eficiency anemia Migraine DX:Migraine Asthma DX:Asthma Hyperlipidemia DX:Hyperlipidemi a Asthma with COPD ([facility] V24, [facility] V28) DX:Asthma with COPD ([facility]) Fibromyalgia Rheumatoid arthritis ([facility] V24, [facility] V28) Diabetes mellitus ([facility] V24, [facility] V28) hypoglycemia GERD (gastroesophageal reflux disease) Irritable [...] your loved ones. For example, child care director or elderly care for an older [...] 2:45 PM EDT Office Visit Pulmonolgy - [place] [address] [phone] Marlene Ahuja MD [address] [address] 09/18/2024 2:15 PM EDT Office Visit Internal Medicine - [place] [address] [phone] Bonnie Huff PA [address] [address] 12/30/2024 2:00 PM EDT Office Visit General Surgery - [place] 175 [facility] [address] [place] [phone] Fredo Machado DO [address] [phone] Health Maintenance Due Date Last Done Comments [...] ENDOTRACHEAL(NO CHARGE) Routine 07/17/2024 1:34 PM EDT DE BRONCHOSCOPY RIGID/FLEXIBLE DIAGNOSTIC W/CELL WASHING 07/17/2024 1:13 [...] identified Acute inflammation present 07/22/2024 11:16 AM EDT [facility] Specimen A Adequacy Satisfactory for evaluation 07/22/2024 11:16 AM EDT [facility] Gross Description A. Lung, Left Upper Lobe, left upper lobe bronchial wash: Received 1 ml of clear fluid; 1 ThinPrep, 1 Cell block Cell block in formalin @8:30-total formalin fixation time 60.5 hours. 07/22/2024 11:16 AM EDT [facility] Disclaimer Unless otherwise specified, all tissue is 10% NB formalin fixed and paraffin embedded. Technical cytopathology services provided by [facility], at [address] [place] [address] (CLIA # [id number]/Alma Colindres MD, Research Physicist.) 07/22/2024 11:16 AM EDT [facility] Wash Structure of upper lobe of left lung / Unknown 07/17/2024 1:41 PM EDT 07/18/2024 8:02 AM EDT us Marlene Ahuja MD LAB CYTOLOGY ORDERABLES Final Re sult [facility] [address] [place] [address], [place] [phone] * Culture bronchial with gram stain (07/17/2024 1:37 PM EDT) Only the most recent of2 resultswithin the time period is included. Bronchial Culture No pathogens isolated. 07/20/2024 10:32 AM EDT [facility] Gram Stain Result Many Polymorphonuclear leukocytes 07/20/2024 10:32 AM EDT [facility] Gram Stain Result No epithelial cells seen 07/20/2024 10:32 AM EDT [facility] Gram Stain Result No organisms seen 07/20/2024 10:32 AM EDT [facility] Wash Structure of upper lobe of left lung / Unknown 07/17/2024 1:37 PM EDT 07/17/2024 2:50 PM EDT us Marlene Ahuja MD LAB MICROBIOLOGY - GENERAL ORDER ALONSO Final Result Performing Organization Address [facility] de Phone Number [facility] [address] [place] [address], [place] [phone] * Acid fast bacilli stain (07/17/2024 1:37 PM EDT) Only the most recent of2 resultswithin the time period is included. AFB Stain Result No Acid fast bacilli seen on direct smear (Fuchsin method, 1000x) No Acid Fast Bacilli seen on direct smear 07/17/2024 9:03 PM EDT [facility] Wash Structure of upper lobe of left lung / Unknown 07/17/2024 1:37 PM EDT 07/17/2024 2:50 PM EDT us Marlene Ahuja MD LAB MICROBIOLOGY - GENERAL ORDER ALONSO Final Result Performing Organization Address City/[facility]/ZIP Co de Phone Number [facility] [address] [place] [address], [place] [phone] * TH AN ENDOTRACHEAL(NO CHARGE) (07/17/2024 1:34 PM EDT) Brent Poe DO - 07/17/2024 1:34 PM EDT Brent Mcfarlane DO ? 07/17/2024 ??4:09 PM General Information and Staff Patient location during procedure: OR Anesthesiologist: Brent Mcfarlane DO Resident/FULLERETTE: Russ Kelly CRNA Performed: anesthesiologist Performed by: Russ Kelly CRNA Authorized by: Brent Mcfarlane DO ?? Intubation Additional Comments ETT#8 slide to esophagea twice by FULLERETTE, passed by at th third attempt. Atraumatically. [...] - 100 mg/dL 07/17/2024 12:34 PM EDT [facility] Blood Capillary blood specimen / Unknown 07/17/2024 12:34 PM EDT 07/17/2024 12:36 PM EDT Marlene Ahuja MD LAB POINT OF CARE TE ST DOCKED DEVICE UNSOLICITED RESULTS Final Result [facility] [address] [place] [address], * CBC auto differential (06/23/2024 2:31 PM EDT) Only the most recent of2 resultswithin the time period is included. WBC 7.1 4.8 - 10.8 K/mcL LAB HEMETOLOGY METHOD 06/23/2024 6:31 PM EDT [facility] RBC 4.10 3.80 - 4.80 M/mcL LAB HEMETOLOGY METHOD 06/23/2024 6:31 PM EDT [facility] Hemoglobin 13.0 11.5 - 16.0 g/dL LAB HEMETOLOGY METHOD 06/23/2024 6:31 PM EDT [facility] Hematocrit 39.7 35.0 - 47.0 % LAB HEMETOLOGY METHOD 06/23/2024 6:31 PM EDT [facility] MCV 95.9 79.0 - 98.0 FL LAB HEMETOLOGY METHOD 06/23/2024 6:31 PM EDT [facility] MCH 31.4 27.0 - 32.0 pcg LAB HEMETOLOGY METHOD 06/23/2024 6:31 PM EDT [facility] MCHC 32.7 32.0 - 37.0 g/dL LAB HEMETOLOGY METHOD 06/23/2024 6:31 PM EDT [facility] RDW 12.6 11.0 - 15.0 % LAB HEMETOLOGY METHOD 06/23/2024 6:31 PM EDT [facility] Platelets 293 130 - 400 K/mcL LAB HEMETOLOGY METHOD 06/23/2024 6:31 PM EDT [facility] MPV 10.8 7.0 - 11.0 FL LAB HEMETOLOGY METHOD 06/23/2024 6:31 PM EDT [facility] NRBC 0.0 <1.0 % LAB HEMETOLOGY METHOD 06/23/2024 6:31 PM EDT [facility] NRBC Absolute 0.00 <0.10 K/mcL LAB HEMETOLOGY METHOD 06/23/2024 6:31 PM [facility] Neutrophils Relative 56.9 % LAB HEMETOLOGY [facility]/23[facility]24 [facility] Lymphocytes Relative 31.7 % LAB HEMETOLOGY METHOD 06/23/2024 6:31 [facility] Monocytes Relative 8.6 % LAB HEMETOLOGY METHOD 06/23/2024 6:31 PM [facility] Eosinophils Relative 1.4 % LAB HEMETOLOGY METHOD 06/23/2024 6:31 PM [facility] Basophils Relative 1.0 % LAB HEMETOLOGY METHOD 06/23/2024 6:31 PM [facility] Immature Granulocytes Relative 0.4 % LAB HEMETOLOGY METHOD 06/23/2024 6:31 PM [facility] Neutrophils Absolute 4.02 1.50 - 7.00 K/mcL LAB HEMETOLOGY METHOD 06/23/2024 6:31 PM [facility] Lymphocytes Absolute 2.24 1.00 - 5.00 K/mcL LAB HEMETOLOGY METHOD 06/23/2024 6:31 PM EDT [facility] Monocytes Absolute 0.61 0.20 - 1.00 K/mcL LAB HEMETOLOGY METHOD 06/23/2024 6:31 PM [facility] Eosinophils Absolute 0.10 0.00 - 0.50 K/mcL LAB HEMETOLOGY METHOD 06/23/2024 6:31 PM [facility] Basophils Absolute 0.07 0.00 - [...] ORDERABLES Fin al Result Performing Organization Address City/[facility]/ZIP Co de Phone Number [facility] [address] [place] [address], [place] [phone] * Thyroid stimulating hormone (06/23/2024 2:31 PM EDT) TSH 1.84 0.40 - 4.00 mcIU/mL LAB CHEMISTRY METHOD 06/23/2024 6:48 PM EDT [facility] Blood Venous blood specimen / Unknown Venipuncture / Unknown 06/23/2024 2:31 PM EDT 06/23/2024 2:31 PM EDT us Bonnie GOINS LAB BLOOD ORDERABLES Fin al Result Performing Organization Address City/[facility]/ZIP Co de Phone Number [facility] [address] [place] [address], [place] [phone] * Iron (06/23/2024 2:31 PM EDT) Iron 71 40 - 150 mcg/dL LAB CHEMISTRY METHOD 06/23/2024 6:41 PM EDT [facility] Blood Venous blood specimen / Unknown Venipuncture / Unknown 06/23/2024 2:31 PM EDT 06/23/2024 2:31 PM EDT us Bonnie GOINS LAB BLOOD ORDERABLES Fin al Result Performing Organization Address City/[facility]/ZIP Co de Phone Number [facility] [address] [place] [address], [place] [phone] * Ferritin (06/23/2024 2:31 PM EDT) Ferritin 118 8 - 252 ng/mL LAB CHEMISTRY METHOD 06/23/2024 6:42 PM EDT [facility] Blood Venous blood specimen / Unknown Venipuncture / Unknown 06/23/2024 2:31 PM EDT 06/23/2024 2:31 PM EDT Bonnie GOINS LAB BLOOD ORDERABLES Fin al Result Performing Organization Address [facility]/ZIP Co de Phone Number [facility] [address] [place] [address], [place] [phone] * Comprehensive metabolic panel (06/23/2024 2:31 PM EDT) Sodium 140 133 - 145 mmol/L LAB CHEMISTRY METHOD 06/23/2024 6:41 PM [facility] Potassium 4.5 3.5 - 5.5 mmol/L LAB CHEMISTRY METHOD 06/23/2024 6:41 PM [facility] Chloride 107 96 - 110 mmol/L LAB CHEMISTRY METHOD 06/23/2024 6:41 PM [facility] CO2 26 21 - 32 mmol/L LAB CHEMISTRY METHOD 06/23/2024 6:41 PM [facility] Anion Gap 7 3 - 11 LAB CHEMISTRY METHOD 06/23/2024 6:41 PM [facility] Glucose 92 70 - 100 mg/dL LAB CHEMISTRY METHOD 06/23/2024 6:41 PM [facility] BUN 15 5 - 25 mg/dL LAB CHEMISTRY METHOD 06/23/2024 6:41 PM [facility] Creatinine 0.79 0.50 - 1.10 mg/dL LAB CHEMISTRY METHOD 06/23/2024 6:41 PM [facility] eGFR 92 >=60 mL/min/1. 73m2 LAB CHEMISTRY METHOD 06/23/2024 6:41 PM [facility] Comment:Calculation based on the??Chronic Kidney Disease Epidemiology Collaboration (CKD-EPI) equation refit??without adjustment for race. BUN/Creatinine Ratio 19.0 LAB CHEMISTRY METHOD 06/23/2024 6:41 PM [facility] Calcium 9.6 8.5 - 10.5 mg/dL LAB CHEMISTRY METHOD 06/23/2024 6:41 PM [facility] AST (SGOT) 30 10 - 42 unit/L LAB CHEMISTRY METHOD 06/23/2024 6:41 PM [facility] ALT (SGPT) 44 10 - 60 unit/L LAB CHEMISTRY METHOD 06/23/2024 6:41 PM [facility] Alkaline Phosphatase 106 42 - 121 unit/L LAB CHEMISTRY METHOD 06/23/2024 6:41 PM [facility] Total Protein 7.5 6.0 - 8.0 g/dL LAB CHEMISTRY METHOD 06/23/2024 6:41 PM [facility] Albumin 3.9 3.2 - 5.0 g/dL LAB CHEMISTRY METHOD 06/23/2024 6:41 PM [facility] Total Bilirubin 0.3 0.0 - 1.4 mg/dL LAB CHEMISTRY METHOD 06/23/2024 6:41 PM [facility] Blood Venous blood specimen / Unknown Venipuncture / Unknown 06/23/2024 2:31 PM EDT 06/23/2024 2:31 PM EDT Bonnie GOINS LAB BLOOD ORDERABLES Fin al Result [facility] [address] [place] [address], * CT Abdomen Pelvis wo Contrast (06/09/2024 [...] Signed Date: 06/12/2024 13:19 ET Workstation ID: [id number] Transcribed By: Self Edit Transcribed Date: 06/12/2024 [...] Signed Date: 06/12/2024 13:19 ET Workstation ID: [id number] Transcribed By: Self Edit Transcribed Date: 06/12/2024 [...] Signed Date: 06/12/2024 13:19 ET Workstation ID: [id number] Transcribed By: Self Edit Transcribed Date: 06/12/2024 [...] Signed Date: 06/12/2024 13:19 ET Workstation ID: [id number] Transcribed By: Self Edit Transcribed Date: 06/12/2024 13:12 ET us Marlene Ahuja MD IMG CT PROCEDURES Final Result * (ABNORMAL) Helicobacter pylori breath test (06/09/2024 1:08 PM EST) Pathologist [facility] H Pylori Breath Test Positive( A) Negative LAB CHEMISTRY METHOD 06/10/2024 6:25 AM EST [facility] Breath Oral cavity structure / Unknown Non-blood Collection / Unknown 06/09/2024 1:08 PM EST 06/09/2024 1:08 PM EST Stan GOINS LAB BODY FLUIDS AND STOOLS NICK BUNN Final Result [facility] [address] [place] [address], [place] [phone] * (ABNORMAL) Manual differential (05/20/2024 11:35 AM EST) [facility] Neutrophils % 56.0 % LAB HEMETOLOGY METHOD 05/20/2024 2:54 PM [facility] Lymphocytes % 32.0 % LAB HEMETOLOGY METHOD 05/20/2024 2:54 PM [facility] Reactive Lymphocyte 4.00 % LAB HEMETOLOGY METHOD 05/20/2024 2:54 PM [facility] Monocytes % 4.0 % LAB HEMETOLOGY METHOD 05/20/2024 2:54 PM [facility] Eosinophils % 2.0 % LAB HEMETOLOGY METHOD 05/20/2024 2:54 PM [facility] Basophils % 0.0 % LAB HEMETOLOGY METHOD 05/20/2024 2:54 PM [facility] Myelocytes % 3.0(H) % LAB HEMETOLOGY METHOD 05/20/2024 2:54 PM [facility] Neutrophils Absolute Manual 9.13(H) 1.50 - 7.00 K/mcL LAB HEMETOLOGY METHOD 05/20/2024 2:54 PM [facility] Lymphocytes Absolute 5.22(H) 1.00 - 5.00 K/mcL LAB HEMETOLOGY METHOD 05/20/2024 2:54 PM [facility] Reactive Lymph Abs Manual 0.65(H) 0.00 - 0.00 lym LAB HEMETOLOGY METHOD 05/20/2024 2:54 PM [facility] Monocytes Absolute Manual 0.65 0.20 - 1.00 K/mcL LAB HEMETOLOGY METHOD 05/20/2024 2:54 PM [facility] Eosinophils Absolute Manual 0.33 0.00 - 0.50 K/mcL LAB HEMETOLOGY METHOD 05/20/2024 2:54 PM [facility] Basophils Absolute Manual 0.00 0.00 - 0.20 K/mcL LAB HEMETOLOGY METHOD 05/20/2024 2:54 PM [facility] Myelocytes Absolute Manual 0.49(H) 0.00 - 0.00 K/mcL LAB HEMETOLOGY METHOD 05/20/2024 2:54 PM [facility] Rbc Morphology See comment( A) Consistent with indices, Normal for [place] LAB HEMETOLOGY METHOD 05/20/2024 2:54 PM [facility] Comment:RBC: Morphology agre es with CBC Platelet Morphology - WAM See Note(A) Normal LAB HEMETOLOGY METHOD 05/20/2024 2:54 PM [facility] Comment:PLT: Normal Blood Venous blood specimen / Unknown Venipuncture / Unknown 05/20/2024 11:35 AM EST 05/20/2024 11:35 AM EST us Marlene Ahuja MD LAB BLOOD ORDERABLES Final Resul t [facility] [address] [place] [address], [place] [phone] * MG Mammo Digital Screening w Edy [...] Signed Date: 03/28/2024 14:56 ET Workstation ID: [id number] Transcribed By: Self Edit Transcribed Date: 03/28/2024 [...] Signed Date: 03/28/2024 14:56 ET Workstation ID: [id number] Transcribed By: Self Edit Transcribed Date: 03/28/2024 14:52 ET Bonnie GOINS IMG BI PROCEDURES Final Result * (ABNORMAL) Lipid panel (12/14/2023) Pathologist [facility] LDL/HDL Ratio 4 0 - 4 Triglycerides 113 0 - 150 mg/dL Cholesterol 164 0 - 200 mg/dL HDL 40 >=40 mg/dL LDL Cholesterol 102(A) 0 - 100 mg/dL Blood Venous blood specimen / Unknown Historical Provider LAB BLOOD ORDERABLES Sujey l Result * Depression Screening (12/13/2023) Pathologist [facility] Depression Screening Abstracted Historical Provider HEALTH MAINTENANCE Final Result from Last 3 Months or Most Recently Relevant to Health Maintenance Additional Health Concerns Infection Onset Date Last Indicated Tuberculosis Rule-Out 07/17/2024 07/17/2024 Insurance [facility] Care Teams Mechanical Service Representative Relationship Specialty Start Date End Date Bonnie Huff PA [address] [place] [address] PCP - General 10/24/23
== END 2024-07-31 15:37 | disposition home or self-care (01) ==
LOC: HO.HWSM 14:21
PROVIDERS: Visit Provider Advanced Practice Midwife
DX: Z20.2 Contact with and (suspected) exposure to infections with a predominantly sexual mode of transmission (principal); Z90.710 Acquired absence of both cervix and uterus; M05.79 Rheumatoid arthritis with rheumatoid factor of multiple sites without organ or systems involvement; B37.31 Acute candidiasis of vulva and vagina
CPT/HCPCS: 99213

== ENCOUNTER 2024-07-31 14:21 | Outpatient (REF) | payer OTHER, SELFPAY ==
--- OUTSIDE RECORDS SUMMARY | 2024-07-31 18:01 | XMS_ITS | Clinical Summary ---
Author Organization [facility] Address [address] [place] [address] Phone Care Team Providers Care Technical Artist Name Role Phone Bonnie Huff Primary [...] Date Allergic rhinitis 12/13/2023 Asthma with COPD ([facility] V24, [facility] V28) 11/15 Hyperlipidemia 12/13/2023 Hypothyroidism 12/13/2023 Insomnia 12/13/2023 Iron deficiency anemia 12/13/2023 Migraine 12/13/2023 Muscle spasm 12/13/2023 Fibromyalgia Rheumatoid arthritis ([facility] V24, [facility] V28) Encounters Date Type Department Care Team Description 07/17/2024 1:30 PM EDT - 07/17/2024 3:00 PM EDT Surgery [facility] OR [address] [place] [phone] Marlene Ahuja MD BRONCHOSCOPY [[id number] (CPT??)] 07/17/2024 1:14 PM EDT Anesthesia Event [facility] OR [address] [place] [phone] Brent Mcfarlane DO Vermes, Rachie, TENISHA 07/17/2024 12:00 PM EDT - 07/17/2024 4:18 PM EDT Hospital Encounter [address] [phone] Marlene Ahuja MD Chronic cough Discharge Disposition: Home or Self Care 07/14/2024 2:00 PM EDT Treatment [address] [phone] Aemlia Perez, PT Lateral pain of left hip (Primary Dx); Lumbar pain 07/09/2024 Telephone Pulmonolgy [facility] [address] [phone] Shavon Nolan MA Surgery-Bronchoscopy 07/09/2024 Telephone Pulmonolgy [facility] [address] [phone] Shavon Nolan MA Surgery-Bronchoscopy 07/04/2024 1:30 PM EDT Office Visit Pulmonolgy - [place] 175 [facility] [address] [place] [phone] Marlene Ahuja MD Chronic cough (Primary Dx); Asthma with COPD ([facility] V24, [facility] V28); Rheumatoid arthritis involving multiple sites, unspecified whether rheumatoid factor present ([facility] V24, [facility] V28); Abnormal CT of the chest 07/04/2024 Telephone Pulmongy [facility] 175 [facility] [address] [place] [phone] Shavon Nolan MA Surgical Booking 07/01/2024 1:00 PM EDT Office Visit General Surgery [address] [place] [phone] Fredo Machado, Umbilical hernia without obstruction and without gangrene (Primary Dx) 06/30/2024 2:00 PM EDT Treatment [address] [phone] Hugo Shultz, DENTAL EQUIPMENT TECHNICIAN Lateral pain of left hip (Primary Dx) 06/30/2024 Telephone Internal Medicine [address] [phone] Rocio Almaguer MA Request For Order(s) ([facility] Orders 06/13/24) 06/30/2024 Telephone Internal Medicine [address] [phone] Rocio Almaguer [place] Request For Order(s) (Home Care VNA Cert 05/17/24-07/15/24/Plan Of Care /) 06/24/2024 Telephone Internal Medicine [address] [phone] Rocio Almaguer [place] Request For Order(s) ([facility] Discharge Summary Report /) 06/23/2024 2:00 PM EDT Treatment [address] [phone] Hugo Shultz, DENTAL EQUIPMENT TECHNICIAN Lateral pain of left hip (Primary Dx) 06/19/2024 Telephone Internal Medicine - [place] 175 [facility] [address] [place] [phone] Rocio Almaguer MA Request For Order(s) (Karen CRYSTAL Missed Visit 05/27/24) 06/17/2024 2:00 PM EST Office Visit Internal Medicine [facility] 175 [facility] [address] [place] [phone] Bonnie Huff PA Asthma with COPD ([facility] V24, [facility] V28) (Primary Dx); Allergic rhinitis, unspecified seasonality, unspecified trigger; Hypothyroidism, unspecified type; Fibromyalgia; Rheumatoid arthritis involving multiple sites, unspecified whether rheumatoid factor present ([facility] V24, [facility] V28); Iron deficiency anemia, unspecified iron deficiency anemia type 06/16/2024 2:30 PM EST Treatment [facility] [address] [phone] Hugo Shultz, DENTAL EQUIPMENT TECHNICIAN Lateral pain of left hip (Primary Dx) 06/10/2024 Telephone Internal Medicine [facility] [address] [phone] Rocio Almaguer MA Request For Order(s) (Karen CRYSTAL Physicians Missed Visit 05/20/24) 06/10/2024 Telephone Gastroenterology [facility] [address] [phone] Stan Babb PA 06/10/2024 Telephone Gastroenterology [facility] 175 [facility] [address] [phone] Stan Babb PA 06/09/2024 1:49 PM EST - 06/09/2024 11:59 PM EST Hospital Encounter [facility] CT Scan [address] [place] [phone] Umbilical hernia without obstruction and without gangrene Discharge Disposition: Home or Self Care 06/09/2024 1:49 PM EST - 06/09/2024 11:59 PM EST Hospital Encounter [facility] CT Scan [address] [place] [phone] Pneumonia of left lung due to infectious organism, unspecified part of lung Discharge Disposition: Home or Self Care 06/09/2024 Telephone Gastroenterology [address] [phone] Elba Sierra PA PRIOR AUTHORIZATION 06/06/2024 3:00 PM EST Office Visit Gastroenterology [address] [phone] Stan Babb PA Epigastric pain (Primary Dx); Routine physical examination; H/O Helicobacter infection; Straining with stools 06/04/2024 2:00 PM EST Evaluation [address] [phone] Amelia Perez PT Lateral pain of left hip (Primary Dx); Lumbar pain 06/04/2024 Telephone Internal Medicine - [address] [phone] Bonnie Huff PA Melonie: MARAH CRAVENI 06/04/2024 Telephone Internal Medicine [address] [phone] Rocio Almaguer [place] Request For Order(s) (Karen CRYSTAL Physicians Missed Visit 05/20/24/) 05/20/2024 11:00 AM EST Consult General Surgery - [address] [place] [phone] Fredo Machado, DO Umbilical hernia without obstruction and without gangrene 05/20/2024 10:15 AM EST Office Visit Pulmonolgy - [address] [phone] Marlene Ahuja MD Pneumonia of left lung due to infectious organism, unspecified part of lung (Primary Dx); Asthma with COPD (CMS/HCC V24, CMS/HCC V28); Bronchiectasis without acute exacerbation (CMS/HCC V24, CMS/HCC V28) 05/19/2024 1:30 PM EST Office Visit Internal Medicine - [place] 175 [facility] [address] [place] [phone] Bonnie Huff PA Hospital discharge follow-up (Primary Dx); Pneumonia of left lung due to infectious organism, unspecified part of lung; Moderate persistent asthma with acute exacerbation 05/16/2024 Telephone Internal Medicine - [place] 175 [facility] [address] [place] [phone] Bonnie Huff PA VNA from Last 3 Months Surgical History Surgery Date Site/Laterality Comments HYSTERECTOMY PROCEDURE: HISTORICAL HYSTERECTOMY; COMMENT: ANNI due to [place]roids 2020 [place] OTHER SURGICAL HISTORY NO PAST SURGERIES topic Medical History Medical History Date Comments Allergic rhinitis DX:Allergic rh initis Hypothyroidism DX:Hypothyroidis m Muscle spasm DX:Muscle spasm Insomnia DX:Insomnia Iron deficiency anemia DX:Iron d eficiency anemia Migraine DX:Migraine Asthma DX:Asthma Hyperlipidemia DX:Hyperlipidemi a Asthma with COPD ([facility] V24, [facility] V28) DX:Asthma with COPD ([facility]) Fibromyalgia Rheumatoid arthritis ([facility] V24, [facility] V28) Diabetes mellitus ([facility] V24, [facility] V28) hypoglycemia GERD (gastroesophageal reflux disease) Irritable [...] your loved ones. For example, child welfare director or elderly care for an older [...] 2:45 PM EDT Office Visit Pulmonolgy - [place] [address] [phone] Marlene Ahuja MD [address] [address] 09/18/2024 2:15 PM EDT Office Visit Internal Medicine - [place] [address] [phone] Bonnie Huff PA [address] [address] 12/30/2024 2:00 PM EDT Office Visit General Surgery - [place] 175 [facility] [address] [place] [phone] Fredo Machado DO [address] [phone] Health Maintenance Due Date Last Done Comments [...] ENDOTRACHEAL(NO CHARGE) Routine 07/17/2024 1:34 PM EDT [place] BRONCHOSCOPY RIGID/FLEXIBLE DIAGNOSTIC W/CELL WASHING 07/17/2024 1:13 [...] Acute inflammation present 07/22/2024 11:16 AM EDT [facility] Specimen A Adequacy Satisfactory for evaluation 07/22/2024 11:16 AM EDT [facility] Gross Description A. Lung, Left Upper Lobe, left upper lobe bronchial wash: Received 1 ml of clear fluid; 1 ThinPrep, 1 Cell block Cell block in formalin @8:30-total formalin fixation time 60.5 hours. 07/22/2024 11:16 AM EDT [facility] Disclaimer Unless otherwise specified, all tissue is 10% NB formalin fixed and paraffin embedded. Technical cytopathology services provided by [facility], at [address] [place] [address] (CLIA # [id number]/Alma Colindres MD, Biological Lab Technician.) 07/22/2024 11:16 AM EDT [facility] Wash Structure of upper lobe of left lung / Unknown 07/17/2024 1:41 PM EDT 07/18/2024 8:02 AM EDT us Marlene Ahuja MD LAB CYTOLOGY ORDERABLES Final Re sult [facility] [address] [place] [address], [place] [phone] * Culture bronchial with gram stain (07/17/2024 1:37 PM EDT) Only the most recent of2 resultswithin the time period is included. Bronchial Culture No pathogens isolated. 07/20/2024 10:32 AM EDT [facility] Gram Stain Result Many Polymorphonuclear leukocytes 07/20/2024 10:32 AM EDT [facility] Gram Stain Result No epithelial cells seen 07/20/2024 10:32 AM EDT [facility] Gram Stain Result No organisms seen 07/20/2024 10:32 AM EDT [facility] Wash Structure of upper lobe of left lung / Unknown 07/17/2024 1:37 PM EDT 07/17/2024 2:50 PM EDT us Marlene Ahuja MD LAB MICROBIOLOGY - GENERAL ORDER ALONSO Final Result Performing Organization Address [facility] de Phone Number [facility] [address] [place] [address], [place] [phone] * Acid fast bacilli stain (07/17/2024 1:37 PM EDT) Only the most recent of2 resultswithin the time period is included. AFB Stain Result No Acid fast bacilli seen on direct smear (Fuchsin method, 1000x) No Acid Fast Bacilli seen on direct smear 07/17/2024 9:03 PM EDT [facility] Wash Structure of upper lobe of left lung / Unknown 07/17/2024 1:37 PM EDT 07/17/2024 2:50 PM EDT us Marlene Ahuja MD LAB MICROBIOLOGY - GENERAL ORDER ALONSO Final Result Performing Organization Address City/[facility]/ZIP Co de Phone Number [facility] [address] [place] [address], [place] [phone] * TH AN ENDOTRACHEAL(NO CHARGE) (07/17/2024 1:34 PM EDT) Brent Poe DO - 07/17/2024 1:34 PM EDT Brent Mcfarlane DO ? 07/17/2024 ??4:09 PM General Information and Staff Patient location during procedure: OR Anesthesiologist: Brent Mcfarlane DO Resident/DIRECT MAIL CLERK: Russ Kelly CRNA Performed: anesthesiologist Performed by: Russ Kelly CRNA Authorized by: Brent Mcfarlane DO ?? Intubation Additional Comments ETT#8 slide to esophagea twice by DIRECT MAIL CLERK, passed by at th third attempt. Atraumatically. [...] - 100 mg/dL 07/17/2024 12:34 PM EDT [facility] Blood Capillary blood specimen / Unknown 07/17/2024 12:34 PM EDT 07/17/2024 12:36 PM EDT Marlene Ahuja MD LAB POINT OF CARE TE ST DOCKED DEVICE UNSOLICITED RESULTS Final Result [facility] [address] [place] [address], * CBC auto differential (06/23/2024 2:31 PM EDT) Only the most recent of2 resultswithin the time period is included. WBC 7.1 4.8 - 10.8 K/mcL LAB HEMETOLOGY METHOD 06/23/2024 6:31 PM EDT [facility] RBC 4.10 3.80 - 4.80 M/mcL LAB HEMETOLOGY METHOD 06/23/2024 6:31 PM EDT [facility] Hemoglobin 13.0 11.5 - 16.0 g/dL LAB HEMETOLOGY METHOD 06/23/2024 6:31 PM EDT [facility] Hematocrit 39.7 35.0 - 47.0 % LAB HEMETOLOGY METHOD 06/23/2024 6:31 PM EDT [facility] MCV 95.9 79.0 - 98.0 FL LAB HEMETOLOGY METHOD 06/23/2024 6:31 PM EDT [facility] MCH 31.4 27.0 - 32.0 pcg LAB HEMETOLOGY METHOD 06/23/2024 6:31 PM EDT [facility] MCHC 32.7 32.0 - 37.0 g/dL LAB HEMETOLOGY METHOD 06/23/2024 6:31 PM EDT [facility] RDW 12.6 11.0 - 15.0 % LAB HEMETOLOGY METHOD 06/23/2024 6:31 PM EDT [facility] Platelets 293 130 - 400 K/mcL LAB HEMETOLOGY METHOD 06/23/2024 6:31 PM EDT [facility] MPV 10.8 7.0 - 11.0 FL LAB HEMETOLOGY METHOD 06/23/2024 6:31 PM EDT [facility] NRBC 0.0 <1.0 % LAB HEMETOLOGY METHOD 06/23/2024 6:31 PM EDT [facility] NRBC Absolute 0.00 <0.10 K/mcL LAB HEMETOLOGY METHOD 06/23/2024 6:31 PM [facility] Neutrophils Relative 56.9 % LAB HEMETOLOGY METHOD 06/23/2024 6:[facility] Lymphocytes Relative 31.7 % LAB HEMETOLOGY METHOD 06/23/2024 6:31 [facility] Monocytes Relative 8.6 % [...] LAB HEMETOLOGY METHOD 06/23/2024 6:31 PM EDT [facility] Monocytes Absolute 0.61 0.20 - 1.00 K/mcL LAB HEMETOLOGY METHOD 06/23/2024 6:31 PM [facility] Eosinophils Absolute 0.10 0.00 - 0.50 K/mcL LAB HEMETOLOGY METHOD 06/23/2024 6:31 PM [facility] Basophils Absolute 0.07 0.00 - 0.20 K/mcL LAB HEMETOLOGY METHOD 06/23/2024 6:31 PM EDT [facility] Immature Granulocytes Absolute 0.03 0.00 - 0.03 K/mcL LAB HEMETOLOGY METHOD 06/23/2024 6:31 PM EDT [facility] Blood Venous blood specimen / Unknown Venipuncture / Unknown 06/23/2024 2:31 PM EDT 06/23/2024 2:31 PM EDT us Bonnei GOINS LAB BLOOD ORDERABLES Fin al Result Performing Organization Address City/[facility]/ZIP Co de Phone Number [facility] [address] [place] [address], [place] [phone] * Thyroid stimulating hormone (06/23/2024 2:31 PM EDT) TSH 1.84 0.40 - 4.00 mcIU/mL LAB CHEMISTRY METHOD 06/23/2024 6:48 PM EDT [facility] Blood Venous blood specimen / Unknown Venipuncture / Unknown 06/23/2024 2:31 PM EDT 06/23/2024 2:31 PM EDT us Bonnie GOINS LAB BLOOD ORDERABLES Fin al Result Performing Organization Address City/[facility]/ZIP Co de Phone Number [facility] [address] [place] [address], [place] [phone] * Iron (06/23/2024 2:31 PM EDT) Iron 71 40 - 150 mcg/dL LAB CHEMISTRY METHOD 06/23/2024 6:41 PM EDT [facility] Blood Venous blood specimen / Unknown Venipuncture / Unknown 06/23/2024 2:31 PM EDT 06/23/2024 2:31 PM EDT us Bonnie GOINS LAB BLOOD ORDERABLES Fin al Result Performing Organization Address City/[facility]/ZIP Co de Phone Number [facility] [address] [place] [address], [place] [phone] * Ferritin (06/23/2024 2:31 PM EDT) Ferritin 118 8 - 252 ng/mL LAB CHEMISTRY METHOD 06/23/2024 6:42 PM EDT [facility] Blood Venous blood specimen / Unknown Venipuncture / Unknown 06/23/2024 2:31 PM EDT 06/23/2024 2:31 PM EDT Bonnie GOINS LAB BLOOD ORDERABLES Fin al Result Performing Organization Address [facility]/ZIP Co de Phone Number [facility] [address] [place] [address], [place] [phone] * Comprehensive metabolic panel (06/23/2024 2:31 PM EDT) Sodium 140 133 - 145 mmol/L LAB CHEMISTRY METHOD 06/23/2024 6:41 PM [facility] Potassium 4.5 3.5 - 5.5 mmol/L LAB CHEMISTRY METHOD 06/23/2024 6:41 PM [facility] Chloride 107 96 - 110 mmol/L LAB CHEMISTRY METHOD 06/23/2024 6:41 PM [facility] CO2 26 21 - 32 mmol/L LAB CHEMISTRY METHOD 06/23/2024 6:41 PM [facility] Anion Gap 7 3 - 11 LAB CHEMISTRY METHOD 06/23/2024 6:41 PM [facility] Glucose 92 70 - [...] LAB BLOOD ORDERABLES Fin al Result [facility] [address] [place] [address], * CT Abdomen Pelvis wo Contrast (06/09/2024 [...] Signed Date: 06/12/2024 13:19 ET Workstation ID: [id number] Transcribed By: Self Edit Transcribed Date: 06/12/2024 [...] Signed Date: 06/12/2024 13:19 ET Workstation ID: [id number] Transcribed By: Self Edit Transcribed Date: 06/12/2024 [...] Signed Date: 06/12/2024 13:19 ET Workstation ID: [id number] Transcribed By: Self Edit Transcribed Date: 06/12/2024 [...] Signed Date: 06/12/2024 13:19 ET Workstation ID: [id number] Transcribed By: Self Edit Transcribed Date: 06/12/2024 13:12 ET us Marlene Ahuja MD IMG CT PROCEDURES Final Result * (ABNORMAL) Helicobacter pylori breath test (06/09/2024 1:08 PM EST) Pathologist [facility] H Pylori Breath Test Positive( A) Negative LAB CHEMISTRY METHOD 06/10/2024 6:25 AM EST [facility] Breath Oral cavity structure / Unknown Non-blood Collection / Unknown 06/09/2024 1:08 PM EST 06/09/2024 1:08 PM EST Stan GOINS LAB BODY FLUIDS AND STOOLS NICK BUNN Final Result [facility] [address] [place] [address], [place] [phone] * (ABNORMAL) Manual differential (05/20/2024 11:35 AM EST) [facility] Neutrophils % 56.0 % LAB HEMETOLOGY METHOD 05/20/2024 2:54 PM [facility] Lymphocytes % 32.0 % LAB HEMETOLOGY METHOD 05/20/2024 2:54 PM [facility] Reactive Lymphocyte 4.00 % LAB HEMETOLOGY METHOD 05/20/2024 2:54 PM [facility] Monocytes % 4.0 % LAB HEMETOLOGY METHOD 05/20/2024 2:54 PM [facility] Eosinophils % 2.0 % LAB HEMETOLOGY METHOD 05/20/2024 2:54 PM [facility] Basophils % 0.0 % LAB HEMETOLOGY METHOD 05/20/2024 2:54 PM [facility] Myelocytes % 3.0(H) % LAB HEMETOLOGY METHOD 05/20/2024 2:54 PM [facility] Neutrophils Absolute Manual 9.13(H) 1.50 - 7.00 K/mcL LAB HEMETOLOGY METHOD 05/20/2024 2:54 PM [facility] Lymphocytes Absolute 5.22(H) 1.00 - 5.00 K/mcL LAB HEMETOLOGY METHOD 05/20/2024 2:54 PM [facility] Reactive Lymph Abs Manual 0.65(H) 0.00 - 0.00 lym LAB HEMETOLOGY METHOD 05/20/2024 2:54 PM [facility] Monocytes Absolute Manual 0.65 0.20 - 1.00 K/mcL LAB HEMETOLOGY METHOD 05/20/2024 2:54 PM [facility] Eosinophils Absolute Manual 0.33 0.00 - 0.50 K/mcL LAB HEMETOLOGY METHOD 05/20/2024 2:54 PM [facility] Basophils Absolute Manual 0.00 0.00 - 0.20 K/mcL LAB HEMETOLOGY METHOD 05/20/2024 2:54 PM [facility] Myelocytes Absolute Manual 0.49(H) 0.00 - 0.00 K/mcL LAB HEMETOLOGY METHOD 05/20/2024 2:54 PM [facility] Rbc Morphology See comment( A) Consistent with indices, Normal for [place] LAB HEMETOLOGY METHOD 05/20/2024 2:54 PM [facility] Comment:RBC: Morphology agre es with CBC Platelet Morphology - WAM See Note(A) Normal LAB HEMETOLOGY METHOD 05/20/2024 2:54 PM [facility] Comment:PLT: Normal Blood Venous blood specimen / Unknown Venipuncture / Unknown 05/20/2024 11:35 AM EST 05/20/2024 11:35 AM EST us Marlene Ahuja MD LAB BLOOD ORDERABLES Final Resul t [facility] [address] [place] [address], [place] [phone] * MG Mammo Digital Screening w Edy [...] Signed Date: 03/28/2024 14:56 ET Workstation ID: [id number] Transcribed By: Self Edit Transcribed Date: 03/28/2024 [...] Signed Date: 03/28/2024 14:56 ET Workstation ID: [id number] Transcribed By: Self Edit Transcribed Date: 03/28/2024 [...] l Result * Depression Screening (12/13/2023) Pathologist [facility] Depression Screening Abstracted Historical Provider HEALTH MAINTENANCE Final Result from Last 3 Months or Most Recently Relevant to Health Maintenance Additional Health Concerns Infection Onset Date Last Indicated Tuberculosis Rule-Out 07/17/2024 07/17/2024 Insurance [employer] Care Teams Technical Artist Relationship Specialty Start Date End Date Bonnie Huff PA [address] [place] [address] PCP - General 10/24/23
[2024-08-01 13:59] LABS: CT PCR NOT DETECTED (Not Detect.); NG PCR NOT DETECTED (Not Detect.)
== END 2024-07-31 14:22 | disposition home or self-care (01) ==
LOC: HO.LAB 14:21
PROVIDERS: Visit Provider Advanced Practice Midwife
DX: Z20.2 Contact with and (suspected) exposure to infections with a predominantly sexual mode of transmission (principal); N89.8 Other specified noninflammatory disorders of vagina; M05.79 Rheumatoid arthritis with rheumatoid factor of multiple sites without organ or systems involvement; B37.31 Acute candidiasis of vulva and vagina; Z90.710 Acquired absence of both cervix and uterus
CPT/HCPCS: 86695; 86696; 87491; 87591; 99212

== ENCOUNTER 2024-07-31 15:42 | Outpatient (REF) | payer OTHER, SELFPAY ==
[2024-08-01 16:55] LABS: Bacterial Vaginosis PCR NEGATIVE (Negative); Candida Group PCR NOT DETECTED (Not Detect); Candida glab krusei PCR NOT DETECTED (Not Detect); Trichomonas vaginalis PCR NOT DETECTED (Not Detect)
== END 2024-07-31 15:43 | disposition home or self-care (01) ==
LOC: HO.HHCL 15:42
PROVIDERS: Visit Provider Advanced Practice Midwife
DX: N89.8 Other specified noninflammatory disorders of vagina (principal)
CPT/HCPCS: 81515

== ENCOUNTER 2024-08-26 16:33 | Emergency (ER) | payer OTHER, SELFPAY ==
[2024-08-26] VITALS (7 sets, daily range): BP systolic 85–119; BP diastolic 48–78; PULSE 82–122; RESP 11–24; TEMP 36.8–38.3; O2SAT 95–98; BMI 26.7
--- NOTE | ~2024-08-26 | XR_ITS ---
CLINICAL HISTORY: chest pain 2 view chest x-ray Comparison: CR/SR - XR CHEST 2V - 05/13/24 11:54 EST Findings: Heart size is normal. Patchy opacities in the lingula with slight interval worsening. Blunting of left costophrenic angle likely small pleural effusion. No pneumothorax. Stable bilateral apical pleural thickening. No acute fracture. IMPRESSION: 1. Interval mild worsening of patchy lingular opacities suspicious for pneumonia. Small left pleural effusion. Radiographic follow-up recommended until resolution. This document has been electronically signed by: Juliana Lorenz MD on 08/26/2024 17:47:04
--- NOTE | 2024-08-26 16:35 | ECG_ITS ---
Test Reason : CHEST PAIN Blood Pressure : */* mmHG Vent. Rate : 115 BPM Atrial Rate : 115 BPM P-R Int : 96 ms QRS Dur : 66 ms QT Int : 318 ms P-R-T Axes : 59 11 48 degrees QTcB Int : 439 ms Sinus tachycardia with short DE Nonspecific ST and T wave abnormality Abnormal ECG When compared with ECG of 13-May-2024 11:20, No significant change was found Referred By: Fely Giron Electronically Signed By: GIULIANA JAMISON MD
--- NOTE | 2024-08-26 17:13 | ED.GENADULT ---
HPI - General Adult General Chief complaint: Chest Pain Stated complaint: chest pain Time Seen by Provider: 08/26/24 20:01 Source: patient Limitations: no limitations History of Present Illness ED Provider: Connie Turner PA-C HPI narrative: 48-year-old female with a history of rheumatoid arthritis, fibromyalgia, presents with cough and cold symptoms x1 day. Associated pleuritic chest discomfort, worse with the coughing and deep inspiration, generalized malaise, headache and nausea. Denies known fever. Related Data Home Medications ?Medication ?Instructions ?Recorded ?Confirmed albuterol sulfate 90 mcg/actuation 2 puff inhalation Q4-6H PRN 01/30/24 07/31/24 aerosol inhaler (Ventolin HFA) Shortness Of Breath Or Wheezing amitriptyline 25 mg tablet 25 mg PO BEDTIME 01/30/24 07/31/24 fluticasone 250 mcg-salmeterol 50 1 ea inhalation BID 01/30/24 07/31/24 mcg/dose blistr powdr for inhalation (Advair Diskus) hydroxyzine HCl 50 mg tablet 100 mg PO BEDTIME 01/30/24 07/31/24 inhalational spacing device #1 ea 01/30/24 07/31/24 [facility] spacer) levothyroxine 25 mcg tablet 25 mcg PO DAILY@0600 01/30/24 07/31/24 loratadine 10 mg tablet 10 mg PO DAILY 01/30/24 07/31/24 sumatriptan succinate 50 mg tablet 50 mg PO Q2H PRN Migraine Headache 01/30/24 07/31/24 Previous Rx's ?Medication ?Instructions ?Recorded methylprednisolone 8 mg tablet 8 mg PO .COMPLEX #120 tabs 07/30/24 (Medrol) miconazole nitrate 2 % vaginal 1 appful vaginal BEDTIME 7 days 07/31/24 cream (Miconazole-7) #45 grams amoxicillin 500 mg capsule 1,000 mg (2 x 500 mg) PO Q8H #60 08/27/24 caps azithromycin 250 mg tablet 250 mg PO DAILY 4 days #4 tabs 08/27/24 Allergies Allergy/AdvReac Type Severity Reaction Status Date / Time No Known Allergies Allergy Verified 08/26/24 17:14 [facility] Past Medical History Medical History (Updated 08/28/24 @ 00:00 by Background Daemon) Rheumatoid arthritis Fibromyalgia affecting multiple sites Hyperlipidemia Asthma Migraine Iron deficiency anemia Insomnia Muscle spasm Hypothyroidism Allergic rhinitis Surgical History (Updated 07/31/24 @ 15:45 by Kaylee Pozo CNM) H/O: hysterectomy Family History Family History Mother Breast cancer Sister Breast cancer Social History Social History Household Members: Family Housing: Apartment Do you presently have visiting nurse or other home services: No Patient Tobacco Use Status: Former Tobacco user Tobacco use type: Cigarette service: No Physical Exam ED Vital Signs: Vital Signs - 24 hr 08/26/24 17:12 08/26/24 19:51 08/26/24 20:45 Temperature 98.3 F 98.9 F 100.9 F H Pulse Rate 113 H 114 H 122 H Respiratory Rate 24 H 20 20 Blood Pressure 106/78 119/68 104/74 Pulse Oximetry 98 95 96 Oxygen Delivery Method Room Air Room Air 08/26/24 20:57 08/26/24 22:41 08/26/24 23:30 Temperature 98.3 F Pulse Rate 109 H 88 88 Respiratory Rate 24 H 15 14 Blood Pressure 104/74 92/48 L 105/60 Pulse Oximetry 97 95 96 Oxygen Delivery Method Room Air Room Air 08/26/24 23:59 08/26/24 23:59 08/27/24 00:00 Temperature Pulse Rate 82 82 96 Respiratory Rate 11 L Blood Pressure 85/49 L 85/49 L 95/56 L Pulse Oximetry 95 Oxygen Delivery Method Room Air 08/27/24 00:02 08/27/24 00:05 08/27/24 01:09 Temperature 98.2 F Pulse Rate 89 83 Respiratory Rate 16 Blood Pressure 103/65 91/55 L Pulse Oximetry 97 95 Oxygen Delivery Method Room Air 08/27/24 02:36 Temperature 97.8 F Pulse Rate 84 Respiratory Rate 15 Blood Pressure 102/58 L Pulse Oximetry 96 Oxygen Delivery Method Room Air BMI result Body Mass Index 26.7 Course Course Course Narrative: This is a rapid medical exam performed by Paul Giron NP: Additional HPI, ROS, PE not included below will be deferred to primary provider. Patient is a 48-year-old female presenting with complaint of chest pain, nausea, headache. CP worse with inspiration. Appears very uncomfortable in triage, HR 115. Plan: EKG, labs, CXR Reevaluation(s) Reevaluation #1: This is a sepsis focused exam performed at 8:16 p.m. on August 26, the patient is tachycardic with significant leukocytosis, is febrile, we will be obtaining blood cultures, lactic, giving weight based IV fluid therapy and starting ceftriaxone, and tylenol Time: : Reevaluation #2: The patient was ambulated, her oxygen and maintained at 97% on room air, she is appropriate for discharge Medications Administered Discontinued Medications Generic Name Dose Route Start Last Admin Trade Name Freq PRN Reason Stop Dose Admin Acetaminophen 975 mg 08/26/24 20:48 08/26/24 20:56 Acetaminophen 325 Mg Tablet PO 08/26/24 20:49 975 mg ONCE ONE Administration Ceftriaxone Sodium 2 gm 08/26/24 20:16 08/26/24 20:35 Ceftriaxone Sodium 2 Gm Vial IVPUSH 08/26/24 20:17 2 gm ONCE ONE Administration Sodium Chloride 1,986.72 mls @ 1,986.72 mls/hr 08/26/24 20:16 08/26/24 23:59 Ns 30 ml/kg infuse over 1 hr (1986.72 ml) 08/26/24 21:15 Infused IV Infusion .Q1H STA Azithromycin 500 mg/ Sodium 250 mls @ 125 mls/hr 08/26/24 20:16 08/26/24 22:52 Chloride IV 08/26/24 22:15 Infused ONCE ONE Infusion Lactated Ringer's 1,000 mls @ 999 mls/hr 08/27/24 01:45 08/27/24 02:36 Lr IV 08/27/24 02:45 Infused .Q1H1M [place] Infusion Medical Decision Making Medical Decision Making MDM Narrative: 48-year-old female with a history of rheumatoid arthritis, fibromyalgia, presents with cough and cold symptoms x1 day. Associated pleuritic chest discomfort, worse with the coughing and deep inspiration, generalized malaise, headache and nausea. Denies known fever. Problem: Chronic pain History: Per patient I have considered the following differential diagnoses: Viral syndrome, pneumonia, bronchitis, sepsis, PE Plan:This is a sepsis focused exam performed at 8:16 p.m. on August 26, the patient is tachycardic with significant leukocytosis, is febrile, we will be obtaining blood cultures, lactic, giving weight based IV fluid therapy and starting ceftriaxone, and tylenol. Concern for viral syndrome versus pneumonia, she does not have a tobacco abuse history to suggest bronchitis. Given tachycardia thought about PE, however she is likely tachycardic from her fever, she has no objective signs symptoms for DVT on exam, deferring a dimer at this time I have independently reviewed the following tests: Labs: Leukocytosis with left shift, no electrolyte abnormality, troponin negative at less than 2.7, lactic 1.7, EKG: Sinus tachycardia, rate of 115, nonspecific ST and T-wave abnormalities noted, unchanged from prior study, QTC 439 Chest x-ray:IMPRESSION: 1. Interval mild worsening of patchy lingular opacities suspicious for pneumonia. Small left pleural effusion. Radiographic follow-up recommended until resolution. Lab Data 08/26/24 17:49 08/26/24 17:49 Labs: Lab Results 08/26/24 08/26/24 Range/Units 17:49 20:12 WBC 19.4 H (4.8-10.8) X10*3/uL RBC 4.27 (4.20-5.50) X10*6/uL Hgb 13.6 (12.0-16.0) g/dl Hct 39.4 (37.0-47.0) % MCV 92.3 (80.0-98.0) fL MCH 31.9 (27.0-33.0) pg MCHC 34.5 (31.0-35.0) g/dl RDW 13.1 (11.0-16.0) % Plt Count 251 (160-400) X10*3/uL MPV 9.7 (9.4-12.3) fL Immature Gran % (Auto) 0.7 H (0.0-0.4) % Neut % (Auto) 77.5 H (45-73) % Lymph % (Auto) 15.3 L (20-40) % Brantley % (Auto) 5.9 (2-11) % Eos % (Auto) 0.4 (0-4) % Baso % (Auto) 0.2 (0-2) % Lymph # (Auto) 3.0 (1.2-4.9) X10*3/uL Brantley # (Auto) 1.1 (0.1-1.2) X10*3/uL Eos # (Auto) 0.1 (0.0-0.4) X10*3/uL Baso # (Auto) 0.0 (0.0-0.2) X10*3/uL Abs Immat Gran (auto) 0.13 H (0.00-0.03) X10*3/uL Absolute Neuts (auto) 15.1 H (2.0-8.3) x10*3/uL Absolute Nucleated RBC 0.000 (0.0-0.012) X10*3/uL Nucleated RBC % (auto) 0.0 (0.0-0.2) /100WBC PT 12.3 (10.9-12.4) SEC INR 1.1 (0.9-1.1) Sodium 137 (135-145) mmol/L Potassium 4.0 (3.3-5.1) mmol/L Chloride 101 (96-108) mmol/L Carbon Dioxide 22 (22-29) mmol/L Anion Gap 18 (12-20) BUN 17 H (9-16) mg/dL Creatinine 0.82 (0.5-1.4) mg/dL Estim Creat Clear Calc 74.0 Estimated GFR > 60 Random Glucose 91 (60-115) mg/dL Lactic Acid 1.7 (0.5-2.0) mmol/L Calcium 9.7 (8.4-10.2) mg/dL Magnesium 2.4 (1.6-2.6) mg/dL Total Bilirubin 0.7 (0.0-1.0) mg/dL AST 54 H (5-31) U/L ALT 56 H (0-31) U/L Alkaline Phosphatase 129 H (39-117) U/L Troponin I High Sens < 2.7 < 2.7 (<3.5-17.0) ng/L B-Natriuretic Peptide < 10 (<100) pg/mL Total Protein 8.1 H (6.5-8.0) g/dL Albumin 4.1 (3.5-5.0) g/dL Beta HCG, Quant < 2 mIU/mL Influenza Type A (PCR) NEGATIVE (Negative) Influenza Type B (PCR) NEGATIVE (Negative) RSV RNA Qual (PCR) NEGATIVE (Negative) SARS-CoV-2 RNA (RT-PCR) NEGATIVE (Negative) Discharge Plan Discharge Clinical Impression: Pneumonia Patient Disposition: Home, Self-Care Instructions: Community Acquired Pneumonia (ED) Additional Instructions: You were found to have pneumonia. See home care instructions. Take the amoxicillin as directed, take the azithromycin as directed. Follow up with your primary care provider as needed. You can use [id number] Tylenol 1000 mg taken every 8 hours, alternated with [id number] ibuprofen 600 mg taken every 6 hours with food, for fever, headache and body ache. Prescriptions: New amoxicillin 500 mg capsule 1,000 mg PO Q8H Qty: 60 0RF azithromycin 250 mg tablet 250 mg PO DAILY 4 Days Qty: 4 0RF Rx Instructions: start on day 2 of therapy No Action (DME) Evan Ulloa [facility] Spacer See Rx Instructions .ROUTE .MEDSUPPLY Qty: 1 Rx Instructions: As directed albuterol sulfate [Ventolin HFA] 90 mcg/actuation HFA aerosol inhaler 2 puff inhalation Q4-6H PRN (Reason: Shortness Of Breath Or Wheezing) sumatriptan succinate 50 mg tablet 50 mg PO Q2H MDD 100 PRN (Reason: Migraine Headache) fluticasone propion-salmeterol [Advair Diskus] 250-50 mcg/dose blister with device 1 ea inhalation BID loratadine 10 mg tablet 10 mg PO DAILY amitriptyline 25 mg tablet 25 mg PO BEDTIME levothyroxine 25 mcg tablet 25 mcg PO DAILY@0600 hydroxyzine HCl 50 mg tablet 100 mg PO BEDTIME methylprednisolone [Medrol] 8 mg tablet 8 mg PO .COMPLEX Qty: 120 2RF Rx Instructions: 8 mg orally; Take 6 pills (3 in the morning, 3 in the evening) for 14 days then 5 pills (3 in the morning, 2 in the evening) for 14 days, then 4 pills ( 2 in the morning, 2 in the evening) for 14 days then 3 pills (2 in the morning, 1 in the evening) for 14 days; then 2 pills (1 in the morning, 1 in the evening) for 14 days then 1 pill daily for 14 days then 0.5 pill daily for 14 days miconazole nitrate [Miconazole-7] 2 % cream 1 appful vaginal BEDTIME 7 Days Qty: 45 1RF Rx Instructions: May use internally as well as externally for vaginal itching and yeast infection Interventions: ED Discharge Assessment Last Done: 08/27/24 03:21 Discharge Date/Time: 08/27/24 03:30 Print Language: Yoruba
[2024-08-26 17:53] LABS: MANUAL DIFF FLAG NO
[2024-08-26 17:56] LABS: Basophils Percent Auto 0.2 % (0-2); Eosinophils Absolute Auto 0.1 X10*3/uL (0.0-0.4); Eosinophils Percent Auto 0.4 % (0-4); Hematocrit 39.4 % (37.0-47.0); Hemoglobin 13.6 g/dl (12.0-16.0); Imm Gran Abs Auto 0.13 X10*3/uL (0.00-0.03); Imm Gran Pct Auto 0.7 % (0.0-0.4); Lymphocytes Percent Auto 15.3 % (20-40); Mean Corpuscular HGB Conc 34.5 g/dl (31.0-35.0); Mean Corpuscular Hemoglobin 31.9 pg (27.0-33.0); Mean Corpuscular Volume 92.3 fL (80.0-98.0); Mean Platelet Volume 9.7 fL (9.4-12.3); Monocytes Absolute Auto 1.1 X10*3/uL (0.1-1.2); Monocytes Percent Auto 5.9 % (2-11); Neutrophils Absolute Auto 15.1 x10*3/uL (2.0-8.3); Neutrophils Percent Auto 77.5 % (45-73); Platelet Count 251 X10*3/uL (160-400); Red Blood Count 4.27 X10*6/uL (4.20-5.50); Red Cell Distribution Width 13.1 % (11.0-16.0); White Blood Count 19.4 X10*3/uL (4.8-10.8)
[2024-08-26 18:01] LABS: INTERNATIONAL NORM RATIO 1.1 (0.9-1.1); Prothrombin Time 12.3 SEC (10.9-12.4)
[2024-08-26 18:17] LABS: B Type Natriuretic Peptide < 10 pg/mL (<100)
[2024-08-26 18:22] LABS: Alanine Aminotransferase 56 U/L (0-31); Albumin Level 4.1 g/dL (3.5-5.0); Alkaline Phosphatase 129 U/L (39-117); Anion Gap 18 (12-20); Aspartate Amino Transferase 54 U/L (5-31); Bilirubin Total 0.7 mg/dL (0.0-1.0); Blood Urea Nitrogen 17 mg/dL (9-16); Calcium 9.7 mg/dL (8.4-10.2); Carbon Dioxide 22 mmol/L (22-29); Chloride 101 mmol/L (96-108); Estimated Glomerular Filt Rate > 60; Glucose Random 91 mg/dL (60-115); HCG Quantitative < 2 mIU/mL; Magnesium 2.4 mg/dL (1.6-2.6); Sodium 137 mmol/L (135-145); Total Protein 8.1 g/dL (6.5-8.0); Troponin-I High Sensitivity < 2.7 ng/L (<3.5-17.0)
[2024-08-26 18:38] LABS: Influenza A PCR NEGATIVE (Negative); Influenza B PCR NEGATIVE (Negative); Resp Syncy Virus RNA Qual PCR NEGATIVE (Negative); SARS COV2 PCR INHOUSE NEGATIVE (Negative)
--- NOTE | 2024-08-26 20:16 | PC.NURSE ---
20g IV access established to left AC. Lactic acid, troponin, and 1st set of blood cultures drawn and sent for analysis. Results pending. Sepsis criteria met: elevated WBC, tachycardia, pneumonia harvinder. BRISEIDA Turner to evaluate patient. Aware of criteria.
[2024-08-26 20:34] LABS: Lactic Acid 1.7 mmol/L (0.5-2.0)
[2024-08-26] MEDS: cefTRIAXone sodium 2 GM VIAL IVPUSH (20:35)
[2024-08-26] MEDS: SODIUM CHLORIDE 1986.72 ML IV (20:36)
[2024-08-26] MEDS: Azithromycin 500 MG in 0.9 % Sodium Chloride 250 ML 125 MG IV (20:40)
[2024-08-26 20:44] LABS: Troponin-I High Sensitivity < 2.7 ng/L (<3.5-17.0)
[2024-08-26] MEDS: Acetaminophen 325 MG TABLET 975 MG PO (20:56)
[2024-08-27] VITALS: BP 95/56; PULSE 96
[2024-08-27 00:02] VITALS: BP 103/65; PULSE 89
[2024-08-27 00:05] VITALS: O2SAT 97
[2024-08-27 01:09] VITALS: BP 91/55; PULSE 83; RESP 16; TEMP 36.8; O2SAT 95
[2024-08-27] MEDS: Lactated Ringers 1,000 ML 999 ML IV (01:37)
[2024-08-27 02:36] VITALS: BP 102/58; PULSE 84; RESP 15; TEMP 36.6; O2SAT 96
[2024-08-27 03:21] VITALS: BP 102/58; PULSE 84; RESP 15; TEMP 36.6; O2SAT 96
== END 2024-08-27 03:30 | disposition home or self-care (01) ==
PROVIDERS: Physician Assistant Medical; Registered Nurse Emergency; Student in an Organized Health Care Education/Training Program; Emergency Provider Emergency Medicine
DX: J18.9 Pneumonia, unspecified organism (principal); R05.9 Cough, unspecified; R00.0 Tachycardia, unspecified; D72.829 Elevated white blood cell count, unspecified; Z03.818 Encounter for observation for suspected exposure to other biological agents ruled out; E78.5 Hyperlipidemia, unspecified; Z87.891 Personal history of nicotine dependence; J45.909 Unspecified asthma, uncomplicated; Z79.899 Other long term (current) drug therapy
CPT/HCPCS: 0241U; 36415; 71046; 80053; 83605; 83735; 83880; 84484; 84702; 85025; 85610; 87040; 93005; 96361; 96374; 96375; 99285; J0456; J0696; J7120

== ENCOUNTER → 2024-08-26 16:35 | Outpatient (BNV) | payer OTHER, SELFPAY | PROVIDERS: Emergency Provider Emergency Medicine; Visit Provider Internal Medicine Cardiovascular Disease | DX: R00.0 Tachycardia, unspecified (principal) | CPT/HCPCS: 93010 ==

== ENCOUNTER → 2024-08-26 17:14 | Outpatient (BNV) | payer OTHER, SELFPAY | PROVIDERS: Visit Provider Specialist | DX: J90 Pleural effusion, not elsewhere classified (principal) | CPT/HCPCS: 71046 ==

== ENCOUNTER 2024-09-04 09:21 | Outpatient (REF) | payer OTHER, SELFPAY ==
--- OUTSIDE RECORDS SUMMARY | 2024-09-04 09:36 | XMS_ITS | Clinical Summary ---
Author Organization [facility] Address [address] [place] [address] Phone Care Team Providers Care Signalman Name Role Phone Bonnie Huff Primary Care Provider + Allergies No known active allergies Medications albuterol HFA (PROAIR HFA ; PROVENTIL HFA ; VENTOLIN HFA) 90 mcg/actuation inhalerIndicati ons:acute asthma attack,bronchos pasm prevention 2 puffs every 4 (four) hours if needed. Inhale 2 Puffs into the lungs every 6 hours as needed for Cough, Wheezing or Shortness of Breath. 3 inhalers and 3 refills 12/13/19 24 025 Active fluticasone-analisa meterol (ADVAIR DISKUS) 250-50 mcg/dose diskus inhalerIndicati ons:maintenance therapy for asthma 1 puff 2 (two) [...] 25 026 Active plecanatide (Trulance) 3 mg tabletIndicatio [...] for diarrhea 30 capsule 06/16/19 25 Active amitriptyline (ELAVIL) 25 mg tablet Take 1 tablet (25 mg total) by mouth at bedtime. Take 1 Tablet by mouth at bedtime. 90 tablet 07/11/19 25 Active hydrOXYzine HCL (ATARAX) 50 mg tablet Take 1 tablet (50 mg total) by mouth at bedtime. 90 tablet 07/29/19 25 Active loratadine (CLARITIN) 10 mg tablet Take 1 tablet (10 mg total) by mouth 1 (one) time each day. Take 1 Tablet by mouth daily as needed for Allergies. 90 tablet 3 07/29/19 25 Active SUMAtriptan (IMITREX) 50 mg tablet Take 1 tablet by mouth as needed for migraine, may repeat in 2 hours if needed, max 2 tabs in 24 hours 9 tablet 1 08/19/19 25 Active SUMAtriptan (IMITREX) 50 mg tablet Take 1 tablet (50 mg total) by mouth 2 (two) times a day if needed for migraine. Take 1 tab prn migraine, may repeat in 2 hours prn max 100 mg per 24 hours 9 tablet 1 07/11/19 25 025 Discontinued Active Problems Problem Noted Date Diagnosed Date Allergic rhinitis 12/13/2023 Asthma with COPD ([facility] [place]24, [facility] V28) 11/15 Hyperlipidemia 12/13/2023 Hypothyroidism 12/13/2023 Insomnia 12/13/2023 Iron deficiency anemia 12/13/2023 Migraine 12/13/2023 Muscle spasm 12/13/2023 Fibromyalgia Rheumatoid arthritis ([facility] V24, [facility] V28) Encounters Date Type Department Care Team Description 07/17/2024 1:30 PM EDT - 07/17/2024 3:00 PM EDT Surgery [facility] OR [address] [place] [phone] Marlene Ahuja MD BRONCHOSCOPY [[id number] (CPT??)] 07/17/2024 1:14 PM EDT Anesthesia Event [facility] OR [address] [place] [phone] Brent Mcfarlane DO Vermes, Rachie, CRNA 07/17/2024 12:00 PM EDT - 07/17/2024 4:18 PM EDT Hospital Encounter [address] [phone] Marlene Ahuja MD Chronic cough Discharge Disposition: Home or Self Care 07/14/2024 2:00 PM EDT Treatment [address] [phone] Amelia Perez, PT Lateral pain of left hip (Primary Dx); Lumbar pain 07/09/[address] [place] [phone] Shavon Nolan MA Surgery-Bronchoscopy [facility] [address] [place] [phone] Shavon Nolan MA Surgery-Bronchoscopy 07/04/2024 1:30 PM EDT Office Visit [address] [place] [phone] Marlene Ahuja MD Chronic cough (Primary Dx); Asthma with COPD ([facility] V24, [facility] V28); Rheumatoid arthritis involving multiple sites, unspecified whether rheumatoid factor present ([facility] V24, [facility] V28); Abnormal CT of the chest 07/04/[address] [phone] Shavon Nolan MA Surgical Booking 07/01/2024 1:00 PM EDT Office Visit General Surgery - [address] [place] [phone] Fredo Machado, DO Umbilical hernia without obstruction and without gangrene (Primary Dx) 06/30/2024 2:00 PM EDT Treatment [facility] - [address] [place] [phone] Hugo Shultz, HUMAN RESOURCES PROFESSIONAL Lateral pain of left hip (Primary Dx) 06/30/2024 Telephone Internal Medicine - [facility] 175 [facility] [address] [place] [phone] Rocio Almaguer MA Request For Order(s) ([facility] Orders 06/13/24) 06/30/2024 Telephone Internal Medicine - [facility] 175 [facility] [address] [place] [phone] Rocio Almaguer MA Request For Order(s) (Home Care [facility] Cert 05/17/24-07/15/24/Plan Of Care /) 06/24/2024 Telephone Internal Medicine [address] [phone] Rocio Almaguer MA Request For Order(s) ([facility] Discharge Summary Report /) 06/23/2024 2:00 PM EDT Treatment [address] [phone] Hugo Shultz, HUMAN RESOURCES PROFESSIONAL Lateral pain of left hip (Primary Dx) 06/19/2024 Telephone Internal Medicine [address] [phone] Rocio Almaguer MA Request For Order(s) ([facility] Missed Visit 05/27/24) 06/17/2024 2:00 PM EST Office Visit Internal [address] [phone] Bonnie Huff, PA Asthma with COPD (CMS/HCC V24, CMS/HCC V28) (Primary Dx); Allergic rhinitis, unspecified seasonality, unspecified trigger; Hypothyroidism, unspecified type; Fibromyalgia; Rheumatoid arthritis involving multiple sites, unspecified whether rheumatoid factor present (CMS/HCC V24, CMS/HCC V28); Iron deficiency anemia, unspecified iron deficiency anemia type 06/16/2024 2:30 PM EST Treatment [address] [phone] Hugo Shultz, HUMAN RESOURCES PROFESSIONAL Lateral pain of left hip (Primary Dx) 06/10/2024 Telephone Internal Medicine [address] [phone] Rocio Almaguer [place] Request For Order(s) ([facility] Missed Visit 05/20/24) 06/10/2024 Telephone Gastroenterology [address] [phone] Stan Babb PA 06/10/2024 Telephone Gastroenterology [facility] [address] [place] [phone] Stan Babb PA 06/09/2024 1:49 PM EST - 06/09/2024 11:59 PM EST Hospital Encounter [facility] CT Scan [address] [place] [phone] Umbilical hernia without obstruction and without gangrene Discharge Disposition: Home or Self Care 06/09/2024 1:49 PM EST - 06/09/2024 11:59 PM EST Hospital Encounter [facility] CT Scan [address] [place] [phone] Pneumonia of left lung due to infectious organism, unspecified part of lung Discharge Disposition: Home or Self Care 06/09/2024 Telephone Gastroenterology - [facility] [address] [place] [phone] Elba Sierra PA PRIOR AUTHORIZATION from Last 3 Months Surgical History Surgery Date Site/Laterality Comments HYSTERECTOMY PROCEDURE: HISTORICAL HYSTERECTOMY; COMMENT: ANNI due to fibroids 2020 in [place] OTHER SURGICAL HISTORY NO PAST SURGERIES topic Medical History Medical History Date Comments Allergic rhinitis DX:Allergic rh initis Hypothyroidism DX:Hypothyroidis m Muscle spasm DX:Muscle spasm Insomnia DX:Insomnia Iron deficiency anemia DX:Iron d eficiency anemia Migraine DX:Migraine Asthma DX:Asthma Hyperlipidemia DX:Hyperlipidemi a Asthma with COPD ([facility] V24, [facility] V28) DX:Asthma with COPD ([facility]) Fibromyalgia Rheumatoid arthritis ([facility]24[facility] V28) Diabetes mellitus ([facility] V24, [facility] V28) hypoglycemia GERD (gastroesophageal reflux disease) Irritable [...] for your loved ones. For example, child health associate or elderly care for an older [...] Care Team (Late st Contact Info) Description 09/04/2024 2:45 PM EDT Office Visit [facility] [address] [phone] Marlene Ahuja MD [address] [address] 09/18/2024 2:15 PM EDT Office Visit Internal Medicine [facility] 175 [facility] [address] [place] [phone] Bonnie Huff PA [address] [address] 09/29/2024 3:30 PM EDT [facility] 175 [facility] [address] [place] [phone] Marlene Ahuja MD [address] [address] 12/30/2024 2:00 PM EDT Office Visit General Surgery [facility] 175 [facility] [address] [place] [phone] Fredo Machado, DO [address] [phone] Health Maintenance Due Date Last Done Comments [...] ENDOTRACHEAL(NO CHARGE) Routine 07/17/2024 1:34 PM EDT [place] BRONCHOSCOPY RIGID/FLEXIBLE DIAGNOSTIC W/CELL WASHING 07/17/2024 1:13 [...] pain H/O Helicobacter infection Straining with stools MG MAMMO DIGITAL SCREENING W EDY BILAT Routine 03/28/2024 1:52 PM EST Routine physical examination LIPID PANEL Routine 12/14/2023 HM DEPRESSION SCREENING Routine 12/13/2023 from Last 3 Months or Most Recently Relevant to Health Maintenance Results * Non-gynecologic cytology (07/17/2024 1:41 PM EDT) Final Diagnosis Lung,left upper lobe bronchial wash (ThinPrep, cell block): No malignant cells identified Acute inflammation present 07/22/2024 11:16 AM [facility] Specimen A Adequacy Satisfactory for evaluation 07/22/2024 11:16 AM [facility] Gross Description A. Lung, Left Upper Lobe, left upper lobe bronchial wash: Received 1 ml of clear fluid; 1 ThinPrep, 1 Cell block Cell block in formalin @8:30-total formalin fixation time 60.5 hours. 07/22/2024 11:16 AM [facility] Disclaimer Unless otherwise specified, all tissue is 10% NB formalin fixed and paraffin embedded. Technical cytopathology services provided by [facility], at [address] [place] [address], [place] [address] (CLIA # [id number]/Alma Colindres MD, Banquet Stewardess.) 07/22/2024 11:16 AM [facility] Wash Structure of upper lobe of left lung / Unknown 07/17/2024 1:41 PM EDT 07/18/2024 8:02 AM EDT us Marlene Ahuja MD LAB CYTOLOGY ORDERABLES Final Re sult Performing Organization Address City/[facility]/ZIP Co de Phone Number [facility] [address] [place] [address], [place] [phone] * Culture bronchial with gram stain (07/17/2024 1:37 PM EDT) Only the most recent of2 resultswithin the time period is included. Bronchial Culture No pathogens isolated. 07/20/2024 10:[address] [facility] Gram Stain Result Many Polymorphonuclear leukocytes 07/20/2024 10:[address] [facility] Gram Stain Result No epithelial cells seen 07/20/2024 10:[address] [facility] Gram Stain Result No organisms seen 07/20/2024 10:[address] [facility] Wash Structure of upper lobe of left lung / Unknown 07/17/2024 1:37 PM EDT 07/17/2024 2:50 PM EDT us Marlene Ahuja MD LAB MICROBIOLOGY - GENERAL ORDER ALONSO Final Result Performing Organization Address City/[facility]/ZIP Co de Phone Number [facility] [address] [place] [address], [place] [phone] * Culture fungus, other than skin hair or nails (07/17/2024 1:37 PM EDT) Only the most recent of2 resultswithin the time period is included. Culture, Fungus Negative for Fungus after 4 Weeks 08/18/2024 7:[address] [facility] Wash Structure of upper lobe of left lung / Unknown 07/17/2024 1:37 PM EDT 07/17/2024 2:50 PM EDT Marlene Ahuja MD LAB MICROBIOLOGY - GENERAL ORDER ALONSO Final Result Performing Organization Address [facility] Co de Phone Number [facility] [address] [place] [address], [place] [phone] * Acid fast bacilli stain (07/17/2024 1:37 PM EDT) Only the most recent of2 resultswithin the time period is included. AFB Stain Result No Acid fast bacilli seen on direct smear (Fuchsin method, 1000x) No Acid Fast Bacilli seen on direct smear 07/17/2024 9:[address] [facility] Wash Structure of upper lobe of left lung / Unknown 07/17/2024 1:37 PM EDT 07/17/2024 2:50 PM EDT Marlene Ahjua MD LAB MICROBIOLOGY - GENERAL ORDER ALONSO Final Result Performing Organization Address [facility] de Phone Number [facility] [address] [place] [address], [place] [phone] * TH AN ENDOTRACHEAL(NO CHARGE) (07/17/2024 1:34 PM EDT) Brent Poe DO - 07/17/2024 1:34 PM EDT Brent Mcfarlane DO ? 07/17/2024 ??4:09 PM General Information and Staff Patient location during procedure: OR Anesthesiologist: Brent Mcfarlane DO Resident/COAL BRIQUETTE MACHINE OPERATOR: Russ Kelly CRNA Performed: anesthesiologist Performed by: Russ Kelly CRNA Authorized by: Brent Mcfarlane DO ?? Intubation Additional Comments ETT#8 slide to esophagea twice by COAL BRIQUETTE MACHINE OPERATOR, passed by at th third attempt. Atraumatically. [...] POCT Glucose, blood (07/17/2024 12:34 PM EDT) [facility] Glucose POCT 107(H) 70 - 100 mg/dL 07/17/2024 12:[address] [facility] Blood Capillary blood specimen / Unknown 07/17/2024 12:34 PM EDT 07/17/2024 12:36 PM EDT Marlene Ahuja MD LAB POINT OF CARE TE ST DOCKED DEVICE UNSOLICITED RESULTS Final Result [facility] [address] [place] [address], [place] [phone] * CBC auto differential (06/23/2024 2:31 PM EDT) [facility] WBC 7.1 4.8 - 10.8 K/mcL LAB HEMETOLOGY METHOD 06/23/2024 6:[address] [facility] RBC 4.10 3.80 - 4.80 M/mcL LAB HEMETOLOGY METHOD 06/23/2024 6:[address] [facility] Hemoglobin 13.0 11.5 - 16.0 g/dL LAB HEMETOLOGY METHOD 06/23/2024 6:[address] [facility] Hematocrit 39.7 35.0 - 47.0 % LAB HEMETOLOGY METHOD 06/23/2024 6:[address] [facility] MCV 95.9 79.0 - 98.0 FL LAB HEMETOLOGY METHOD 06/23/2024 6:[address] [facility] MCH 31.4 27.0 - 32.0 pcg LAB HEMETOLOGY METHOD 06/23/2024 6:[address] [facility] MCHC 32.7 32.0 - 37.0 g/dL LAB HEMETOLOGY METHOD 06/23/2024 6:[address] [facility] RDW 12.6 11.0 - 15.0 % LAB HEMETOLOGY METHOD 06/23/2024 6:[address] [facility] Platelets 293 130 - 400 K/mcL LAB HEMETOLOGY METHOD 06/23/2024 6:[address] [facility] MPV 10.8 7.0 - 11.0 FL LAB HEMETOLOGY METHOD 06/23/2024 6:[address] [facility] NRBC 0.0 <1.0 % LAB HEMETOLOGY METHOD 06/23/2024 6:[address] [facility] NRBC Absolute 0.00 <0.10 K/mcL LAB HEMETOLOGY METHOD 06/23/2024 6:[address] [facility] Neutrophils Relative 56.9 % LAB HEMETOLOGY METHOD 06/23/2024 6:[address] [facility] Lymphocytes Relative 31.7 % LAB HEMETOLOGY METHOD 06/23/2024 6:[address] [facility] Monocytes Relative 8.6 % LAB HEMETOLOGY METHOD 06/23/2024 6:[address] [facility] Eosinophils Relative 1.4 % LAB HEMETOLOGY METHOD 06/23/2024 6:[address] [facility] Basophils Relative 1.0 % LAB HEMETOLOGY METHOD 06/23/2024 6:[address] [facility] Immature Granulocytes Relative 0.4 % LAB HEMETOLOGY METHOD 06/23/2024 6:[address] [facility] Neutrophils Absolute 4.02 1.50 - 7.00 K/mcL LAB HEMETOLOGY METHOD 06/23/2024 6:[address] [facility] Lymphocytes Absolute 2.24 1.00 - 5.00 K/mcL LAB HEMETOLOGY METHOD 06/23/2024 6:[address] [facility] Monocytes Absolute 0.61 0.20 - 1.00 K/mcL LAB HEMETOLOGY METHOD 06/23/2024 6:[address] [facility] Eosinophils Absolute 0.10 0.00 - 0.50 K/mcL LAB HEMETOLOGY METHOD 06/23/2024 6:[address] [facility] Basophils Absolute 0.07 0.00 - 0.20 K/mcL LAB HEMETOLOGY METHOD 06/23/2024 6:[address] [facility] Immature Granulocytes Absolute 0.03 0.00 - 0.03 K/mcL LAB HEMETOLOGY METHOD 06/23/2024 6:[address] [facility] Blood Venous blood specimen / Unknown Venipuncture / Unknown 06/23/2024 2:31 PM EDT 06/23/2024 2:31 PM EDT us Bonnie GOINS LAB BLOOD ORDERABLES Fin al Result [facility] [address] [place] [address], * Thyroid stimulating hormone (06/23/2024 2:31 PM EDT) TSH 1.84 0.40 - 4.00 mcIU/mL LAB CHEMISTRY METHOD 06/23/2024 6:[address] [facility] Blood Venous blood specimen / Unknown Venipuncture / Unknown 06/23/2024 2:31 PM EDT 06/23/2024 2:31 PM EDT Bonnie GOINS LAB BLOOD ORDERABLES Fin al Result Performing Organization Address City/[facility]/ZIP Co de Phone Number [facility] [address] [place] [address], [place] [phone] * Iron (06/23/2024 2:31 PM EDT) Iron 71 40 - 150 mcg/dL LAB CHEMISTRY METHOD 06/23/2024 6:[address] [facility] Blood Venous blood specimen / Unknown Venipuncture / Unknown 06/23/2024 2:31 PM EDT 06/23/2024 2:31 PM EDT Bonnie GOINS LAB BLOOD ORDERABLES Fin al Result Performing Organization Address City/[facility]/ZIP Co de Phone Number [facility] [address] [place] [address], [place] [phone] * Ferritin (06/23/2024 2:31 PM EDT) Ferritin 118 8 - 252 ng/mL LAB CHEMISTRY METHOD 06/23/2024 6:[address] [facility] Blood Venous blood specimen / Unknown Venipuncture / Unknown 06/23/2024 2:31 PM EDT 06/23/2024 2:31 PM EDT Bonnie GOINS LAB BLOOD ORDERABLES Fin al Result [facility] [address] [place] [address], [place] [phone] * Comprehensive metabolic panel (06/23/2024 2:31 PM EDT) Sodium 140 133 - 145 mmol/L LAB CHEMISTRY METHOD 06/23/2024 6:41 PM [facility] Potassium 4.5 3.5 - 5.5 mmol/L LAB CHEMISTRY METHOD 06/23/2024 6:41 PM [facility] Chloride 107 96 - 110 mmol/L LAB CHEMISTRY METHOD 06/23/2024 6:41 PM [facility] CO2 26 21 - 32 mmol/L LAB CHEMISTRY METHOD 06/23/2024 6:41 PM [facility] Anion Gap 7 3 - 11 LAB CHEMISTRY METHOD 06/23/2024 6:41 PM [facility] Glucose 92 70 - 100 mg/dL LAB CHEMISTRY METHOD 06/23/2024 6:41 PM [facility] BUN 15 5 - 25 mg/dL LAB CHEMISTRY METHOD 06/23/2024 6:41 PM [facility] Creatinine 0.79 0.50 - 1.10 mg/dL LAB CHEMISTRY METHOD 06/23/2024 6:41 PM [facility] eGFR 92 >=60 mL/min/1. 73m2 LAB CHEMISTRY METHOD 06/23/2024 6:41 PM [facility] Comment:Calculation based on the??Chronic Kidney Disease Epidemiology Collaboration (CKD-EPI) equation refit??without adjustment for race. BUN/Creatinine Ratio 19.0 LAB CHEMISTRY METHOD 06/23/2024 6:41 PM [facility] Calcium 9.6 8.5 - 10.5 mg/dL LAB CHEMISTRY METHOD 06/23/2024 6:41 PM [facility] AST (SGOT) 30 10 - 42 unit/L LAB CHEMISTRY METHOD 06/23/2024 6:41 PM [facility] ALT (SGPT) 44 10 - 60 unit/L LAB CHEMISTRY METHOD 06/23/2024 6:[address] [facility] Alkaline Phosphatase 106 42 - 121 unit/L LAB CHEMISTRY METHOD 06/23/2024 6:[address] [facility] Total Protein 7.5 6.0 - 8.0 g/dL LAB CHEMISTRY METHOD 06/23/2024 6:[address] [facility] Albumin 3.9 3.2 - 5.0 g/dL LAB CHEMISTRY METHOD 06/23/2024 6:[address] [facility] Total Bilirubin 0.3 0.0 - 1.4 mg/dL LAB CHEMISTRY METHOD 06/23/2024 6:[address] [facility] Blood Venous blood specimen / Unknown Venipuncture / Unknown 06/23/2024 2:31 PM EDT 06/23/2024 2:31 PM EDT us Bonnie GOINS LAB BLOOD ORDERABLES Fin al Result [facility] [address] [place] [address], * CT Abdomen Pelvis wo Contrast (06/09/2024 [...] Signed Date: 06/12/2024 13:19 ET Workstation ID: [id number] Transcribed By: Self Edit Transcribed Date: 06/12/2024 [...] Signed Date: 06/12/2024 13:19 ET Workstation ID: [id number] Transcribed By: Self Edit Transcribed Date: 06/12/2024 [...] Signed Date: 06/12/2024 13:19 ET Workstation ID: [id number] Transcribed By: Self Edit Transcribed Date: 06/12/2024 [...] Signed Date: 06/12/2024 13:19 ET Workstation ID: [id number] Transcribed By: Self Edit Transcribed Date: 06/12/2024 13:12 ET Marlene Ahuja MD IM CT PROCEDURES Final Result * (ABNORMAL) Helicobacter pylori breath test (06/09/2024 1:08 PM EST) H Pylori Breath Test Positive( A) Negative LAB CHEMISTRY METHOD 06/10/2024 6:[address] [facility] Breath Oral cavity structure / Unknown Non-blood Collection / Unknown 06/09/2024 1:08 PM EST 06/09/2024 1:08 PM EST Stan GOINS LAB BODY FLUIDS AND STOOLS NICK BUNN Final Result [facility] [address] [place] [address], [place] [phone] * MG Mammo Digital Screening w Edy [...] Signed Date: 03/28/2024 14:56 ET Workstation ID: [id number] Transcribed By: Self Edit Transcribed Date: 03/28/2024 [...] Signed Date: 03/28/2024 14:56 ET Workstation ID: [id number] Transcribed By: Self Edit Transcribed Date: 03/28/2024 [...] * Depression Screening (12/13/2023) Pathologist [facility] Depression Screening Abstracted Historical Provider HEALTH MAINTENANCE Final Result from Last 3 Months or Most Recently Relevant to Health Maintenance Insurance [facility] Care Teams Signalman Relationship Specialty Start Date End Date Bonnie Huff PA [address] [place] [address] PCP - General 10/24/23
[2024-09-04 09:53] LABS: MANUAL DIFF FLAG NO
[2024-09-04 10:05] LABS: Basophils Percent Auto 0.5 % (0-2); Eosinophils Absolute Auto 0.2 X10*3/uL (0.0-0.4); Hematocrit 35.2 % (37.0-47.0); Hemoglobin 11.8 g/dl (12.0-16.0); Imm Gran Abs Auto 0.04 X10*3/uL (0.00-0.03); Imm Gran Pct Auto 0.6 % (0.0-0.4); Lymphocytes Percent Auto 30.6 % (20-40); Mean Corpuscular HGB Conc 33.5 g/dl (31.0-35.0); Mean Corpuscular Hemoglobin 31.1 pg (27.0-33.0); Mean Corpuscular Volume 92.6 fL (80.0-98.0); Mean Platelet Volume 8.8 fL (9.4-12.3); Monocytes Absolute Auto 0.2 X10*3/uL (0.1-1.2); Monocytes Percent Auto 2.8 % (2-11); Neutrophils Percent Auto 62.5 % (45-73); Platelet Count 419 X10*3/uL (160-400); Red Cell Distribution Width 12.4 % (11.0-16.0); White Blood Count 6.4 X10*3/uL (4.8-10.8)
[2024-09-04 10:43] LABS: Erythrocyte Sedimentation Rate 92 MM/HR (0-20)
[2024-09-04 11:55] LABS: HBc Num1 0.06 S/CO (0.00-0.79); HBsAGNum1 0.36 S/CO (0.00-0.99); Hepatitis A Antibody IgM 0.18 Index (0-0.79); Hepatitis B Core Antibody Nonreactive (Nonreactive); Hepatitis B Surface Antigen Negative (Negative); ~HepC Num1 0.17 S/CO (0.00-0.79); ~Hepatitis A Antibody IgM Nonreactive (Nonreactive); ~Hepatitis B Surface Antibody NONREACTIVE (Nonreactive); ~Hepatitis C Antibody Nonreactive (Nonreactive)
[2024-09-04 12:02] LABS: HBsAGNum1 0.33 S/CO (0.00-0.99); HIV AB/AG Nonreactive (Nonreactive); HIV Num 1 0.06 S/CO (0.00-0.99); Hepatitis B Surface Antigen Negative (Negative); ~HepC Num1 0.17 S/CO (0.00-0.79); ~Hepatitis C Antibody Nonreactive (Nonreactive)
[2024-09-04 12:12] LABS: Alanine Aminotransferase 51 U/L (0-31); Albumin Level 4.1 g/dL (3.5-5.0); Alkaline Phosphatase 141 U/L (39-117); Anion Gap 11 (12-20); Bilirubin Total 0.2 mg/dL (0.0-1.0); Blood Urea Nitrogen 13 mg/dL (9-16); C Reactive Protein 1.39 mg/dL (< or = 0.50); Calcium 9.5 mg/dL (8.4-10.2); Carbon Dioxide 25 mmol/L (22-29); Chloride 111 mmol/L (96-108); Cholesterol 180 mg/dL (<200); Estimated Glomerular Filt Rate > 60; Glucose Random 135 mg/dL (60-115); HDL Cholesterol 38 mg/dL (>40); LDL Cholesterol Calculated 113 mg/dL (<100); Potassium 3.7 mmol/L (3.3-5.1); Sodium 143 mmol/L (135-145); Total Protein 7.7 g/dL (6.5-8.0); Triglycerides 145 mg/dL (<150)
[2024-09-04 12:20] LABS: Syphilis Screen Nonreactive (Nonreactive)
[2024-09-04 12:25] LABS: Aspartate Amino Transferase 25 U/L (5-31)
[2024-09-06 21:13] LABS: TS Negative Control Passed; TS Panel A 2; TS Panel B 0; TS Positive Control Passed; TSpotTB Negative (Negative)
== END 2024-09-04 09:22 | disposition home or self-care (01) ==
LOC: HO.LAB 09:21
PROVIDERS: Obstetrics & Gynecology; PCP Physician Assistant; Visit Provider Student in an Organized Health Care Education/Training Program
DX: M05.79 Rheumatoid arthritis with rheumatoid factor of multiple sites without organ or systems involvement (principal); R74.01 Elevation of levels of liver transaminase levels; Z20.2 Contact with and (suspected) exposure to infections with a predominantly sexual mode of transmission
CPT/HCPCS: 36415; 80053; 80061; 85025; 85652; 86140; 86481; 86704; 86706; 86709; 86780; 86803; 87340; 87389

== ENCOUNTER 2024-09-05 14:19 | Outpatient (REF) | payer OTHER, SELFPAY | END 2024-09-05 14:20 | disposition home or self-care (01) | LOC: HO.MAMMO 14:19 | PROVIDERS: PCP Physician Assistant; Visit Provider Obstetrics & Gynecology | DX: Z13.89 Encounter for screening for other disorder (principal) ==

== ENCOUNTER 2024-10-09 13:33 | Outpatient (AMB) | payer OTHER, SELFPAY ==
--- NOTE | 2024-10-09 13:46 | MHC.OFFVIS ---
Vital Signs 10/09/24 13:51 Height 5 ft 2 in Weight 147 lb 4.301 oz BMI 26.9 BP 120/80 Blood Pressure Location Rt brachial Position Sitting Pulse 91 Pulse Source Pulse Oximeter Pulse Oximetry (%) 98 Oxygen Delivery Method Room Air Intake Visit Reasons: follow up Intake Note: Patient presents for RA/Fibromyalgia follow up. Collaborating Supervising Physician Required: Yes Collaborating Supervising Physician Language: [employer] Supervisor Services: Collaborating Supervising Physician Present Collaborating Supervising Physician Name: Mendoza Feliciano Information Interpreted: non-clinical & clinical Allergies No Known Allergies Allergy (Verified 10/09/24 13:50) Medication List - Last Reconciled 10/09/24 by Kathy Alcantara MD albuterol sulfate 90 mcg/actuation (Ventolin HFA) 2 puffs inhalation Q4-6H PRN amitriptyline 25 mg PO BEDTIME amoxicillin 1,000 mg (2 x 500 mg) PO Q8H azithromycin 250 mg PO DAILY 4 days fluticasone propion-salmeterol 250-50 mcg/dose (Advair Diskus) 1 ea inhalation BID hydroxyzine HCl 100 mg PO BEDTIME inhalational spacing device ([facility]) As directed levothyroxine 25 mcg PO DAILY@0600 loratadine 10 mg PO DAILY methylprednisolone (Medrol) 8 mg orally; Take 6 pills (3 in the morning, 3 in the evening) for 14 days then 5 pills (3 in the morning, 2 in the evening) for 14 days, then 4 pills ( 2 in the morning, 2 in the evening) for 14 days then 3 pills (2 in the morning, 1 in the evening) for 14 days; then 2 pills (1 in the morning, 1 in the evening) for 14 days then 1 pill daily for 14 days then 0.5 pill daily for 14 days miconazole nitrate 2% (Miconazole-7) 1 appful vaginal BEDTIME 7 days sumatriptan succinate 50 mg PO Q2H PRN MDD 100 HPI Comments Details: Patient is a 48-year-old female with hypothyroidism on levothyroxine and GERD secondary to H pylori infection status post eradication who presents for follow up of seropositive rheumatoid arthritis Interval History: Patient last seen 07/30/24 with me. At that time she was started on Actemra infusions and a Medrol taper Patient started the actemra infusions. has received 2 doses Has noticed that she has swelling to her feet and her face Still has pain all over Rheumatologic History: Patient initially presented for evaluation of whole-body pain 01/30/2024. At that time evaluation was consistent with fibromyalgia with no evidence of synovitis on examination and tender points. Recommend pregabalin and milnacipran. Preliminary results showed a very elevated CRP and ESR as well as positive rheumatoid factor. The thought was that she had rheumatoid arthritis and she was started on prednisolone taper and methotrexate. She was re-evaluated 4 weeks later with no improvement on the prednisone in fact she stated that the prednisone made her pain worse. Given this she was re-evaluated as fibromyalgia and started on pregabalin and milnacipran Current Rheumatology Medication(s): Actemra 8mg/kg every 4 weeks [facility] Medical History (Updated 08/28/24 @ 00:00 by Ashely Pereira) Rheumatoid arthritis Fibromyalgia affecting multiple sites Hyperlipidemia Asthma Migraine Iron deficiency anemia Insomnia Muscle spasm Hypothyroidism Allergic rhinitis Surgical History H/O: hysterectomy Family History Mother Breast cancer Sister Breast cancer Social History Household Members: Family Housing: Apartment Do you presently have visiting nurse or other home services: No Patient Tobacco Use Status: Former Tobacco user Tobacco use type: Cigarette service: No Female Reproductive History Menstrual Age of Menarche: 10 Review of Systems Const Details: Review of Systems Constitutional: Denies fever, chills, weight loss ENT: Denies vision changes, eye pain or eye redness, dental caries, dry mouth GI: Denies nausea, vomiting, diarrhea, abdominal pain, change in BM Pulm: Denies SOB, YAÑEZ, hemoptysis, wheezing Cards: Denies chest pain, palpitations Skin: Denies Raynaud's, rash, nail changes, photosensitivity, CROSS CUT SAWYER: Denies headaches, weakness, paresthesias, recurrent falls MSK: as per HPI All other systems reviewed and are unremarkable except noted above Physical Exam Vital Signs: Last Vital Signs Pulse 91 10/09/24 13:51 BP 120/80 10/09/24 13:51 Pulse Ox 98 10/09/24 13:51 Oxygen Delivery Method Room Air 10/09/24 13:51 BMI result Body Mass Index 26.9 Vital signs reviewed Physical Examination CONSTITUITIONAL Patient alert and cooperative. Well appearing and in no apparent painful distress HEENT Conjunctiva and sclera clear. ?Pupils equal round and reactive to light. ?No lymphadenopathy. ?Normal dentition. No oral or nasal ulcers noted. No evidence of discoid rash to the martin of ears CHEST/RESPIRATORY SYSTEM Normal respiratory effort and able to speak in complete sentences. ?Clear to auscultation bilaterally. ?No crackles, rales, rhonchi, wheezes heard. CARDIAC SYSTEM Regular rate and rhythm. ?S1 and S2 heard no murmurs. ?Radial pulses intact bilaterally MSK Hands: ?Able to make a fist. No swelling noted but tenderness to palpation of the MCPs and PIPs DIPs. Wrists: Full range of motion to the wrists. Tenderness to palpation of the wrist joint. No swelling noted. ? Elbows: Tenderness to palpation of bilateral tendon insertion of the medial and lateral epicondyles. No tenderness to palpation of the elbow joint proper Shoulders: Decreased active range of motion secondary to pain. Full passive range of motion Hips: Hip flexion with pain but full range of motion. Internal and external rotation of the hip without pain. Hip bursa: Tenderness to palpation Knees: ?Full range of motion. ?No tenderness to palpation of the knee joint but there was swelling over the bilateral pes anserine bursa Ankles: Full range of motion. ?Tenderness to palpation but no evidence of swelling. Feet: ?Positive squeeze test and tenderness to palpation of all MTPs. Tender points:??Tenderness to palpation of the neck, shoulders, chest, elbows, hips, buttocks or knees. SKIN Skin intact without rashes. Results Reviewed Results Reviewed: Laboratory Tests 06/24/24 09/04/24 15:06 09:51 WBC 6.6 6.4 RBC 4.43 D 3.80 L Hgb 13.7 D 11.8 L Hct 41.5 D 35.2 L Plt Count 273 419 H D ESR 34 H 92 H Sodium 142 143 Potassium 3.9 3.7 Chloride 111 H 111 H Carbon Dioxide 24 25 BUN 12 13 Creatinine 0.72 0.74 AST 34 H 25 ALT 40 H 51 H Alkaline Phosphatase 96 141 H C-Reactive Protein 0.82 H 1.39 H Immunology lab 02/25/24 15:04 LORENZO Screen POSITIVE A LORENZO Titer 1:40 H Rheumatoid Factor 18.3 H Cycl Citrul Peptide IgG <16 Assessment & Plan Assessment & Plan (1) Rheumatoid arthritis: Comment: DDx 02/2024 +RF, -CCP Methotrexate 02/2024 - 04/2024. Not effective Humira 04/2024 Code(s): M06.9 - Rheumatoid arthritis, unspecified Category: Medical Qualifiers: Rheumatoid arthritis location: multiple sites Rheumatoid factor presence: with rheumatoid factor Qualified Code(s): M05.79 - Rheumatoid arthritis with rheumatoid factor of multiple sites without organ or systems involvement Plan: #Seropositive RA Patient is a 48-year-old female with what appears to be an inflammatory arthritis with a positive RF. Currently on Actemra infusions. Received 2 doses with not much improvement. We will see her again in 2 months. If no improvement we will need to proceed with an MRI of her hands Plan - Actemra infusions 8mg/kg every 4 weeks - RTC 2 months - Labs before visit: CBC, CMP, ESR, CRP (2) Fibromyalgia affecting multiple sites: Code(s): M79.7 - Fibromyalgia Category: Medical Plan: #Fibromyalgia Patient also has a component of fibromyalgia which is complicating the picture. Unsure if this entire presentation is all fibromyalgia or is there something else. Plan - Amytriptyline 25mg bedtime (3) Encounter for monitoring tocilizumab therapy: Code(s): Z51.81 - Encounter for therapeutic drug level monitoring; Z79.620 - senior living (current) use of immunosuppressive biologic Plan: #Long-term Use of Tocilizumab Discussed the risks and benefits of tocilizumab with the management of this patient's rheumatic condition. ? Benefits include decreased pain, improved mortality, improved quality of life Risks include LFT abnormalities, elevated triglycerides, GI perforations Contraindicated in a patient with history of diverticulitis Monitoring: ?CBC, CMP, triglycerides Plan I spent 30 minutes reviewing the record and labs, taking a history, examining the patient, discussing the treatment plan and documenting in the medical record Orders: Orders Comprehensive Met. Panel Today M05.79 - Rheumatoid arthritis with rheumatoid factor of multiple sites without organ or systems involvement C Reactive Protein Today M05.79 - Rheumatoid arthritis with rheumatoid factor of multiple sites without organ or systems involvement Erythrocyte Sedimentation Rate Today M05.79 - Rheumatoid arthritis with rheumatoid factor of multiple sites without organ or systems involvement Complete Blood Count Auto Diff Today M05.79 - Rheumatoid arthritis with rheumatoid factor of multiple sites without organ or systems involvement Medications: Discontinued methylprednisolone (Medrol) Discontinued Reason: Doctor's Order 8 mg orally; Take 6 pills (3 in the morning, 3 in the evening) for 14 days then 5 pills (3 in the morning, 2 in the evening) for 14 days, then 4 pills ( 2 in the morning, 2 in the evening) for 14 days then 3 pills (2 in the morning, 1 in the evening) for 14 days; then 2 pills (1 in the morning, 1 in the evening) for 14 days then 1 pill daily for 14 days then 0.5 pill daily for 14 days 120 tabs 2RF M05.79 - Rheumatoid arthritis with rheumatoid factor of multiple sites without organ or systems involvement Coding Level of Care Code Est Pt Level 4 (87893) Complex EM visit Add On G2211 Diagnoses Rheumatoid arthritis involving multiple sites with positive rheumatoid factor M05.79 Rheumatoid arthritis location: multiple sites Rheumatoid factor presence: with rheumatoid factor Fibromyalgia affecting multiple sites M79.7 Encounter for monitoring tocilizumab therapy Z51.81; Z79.620
[2024-10-09 13:51] VITALS: BP 120/80; PULSE 91; O2SAT 98; BMI 26.9
--- OUTSIDE RECORDS SUMMARY | 2024-10-09 16:23 | XMS_ITS | Clinical Summary ---
Author Organization [facility] Address [address] [place] [address] Phone Care Team Providers Care Block Cableman Name Role Phone Bonnie Huff [facility] [...] of Breath. 3 inhalers and 3 refills 4 025 Active fluticasone-salm eterol (ADVAIR DISKUS) 250-50 mcg/dose diskus inhalerIndicatio ns:maintenance therapy for asthma 1 puff 2 (two) times a day. Inhale 1 Puff into the lungs 2 times daily. 4 025 Active Savella 25 mg tablet Take 1 tablet (25 mg total) by mouth 2 (two) times a day. 4 Active folic acid (FOLVITE) 1 mg tablet Take 1 tablet (1 mg total) by mouth 1 (one) time each day. 4 Active pregabalin (LYRICA) 75 mg capsule Take 1 capsule (75 mg total) by mouth 2 (two) times a day. 4 Active docusate sodium (Colace) 100 mg capsule Take 1 capsule (100 mg total) by mouth 2 (two) times a day. 60 each 5 Active polyethylene glycol (MIRALAX) 17 gram packet Take 17 g by mouth 1 (one) time each day. 510 g 5 026 Active plecanatide (Trulance) 3 mg tabletIndication s:Routine physical examination,Epig astric pain,H/O Helicobacter infection,Strain ing with stools Take 1 tablet (3 mg total) by mouth 1 (one) time each day. 30 tablet 5 Active omeprazole (PriLOSEC) [address] capsule Take 1 capsule (40 mg total) by mouth 1 (one) time each day. Take in a.m. on empty stomach, wait 30 minutes and then eat to activate medication 14 each 5 026 Active ferrous sulfate 325 mg (65 mg elemental iron) tablet Take 1 tablet (325 mg total) by mouth 1 (one) time each day. Take 1 Tablet by mouth daily. 90 tablet 5 Active levothyroxine (SYNTHROID, LEVOTHROID) 25 mcg tablet Take 1 tablet (25 mcg total) by mouth 1 (one) time each day before breakfast. Take 1 Tablet by mouth every morning (before breakfast). 90 tablet 5 Active linaCLOtide (Linzess) 145 mcg capsule Take 1 capsule (145 mcg total) by mouth 1 (one) time each day. Hold for diarrhea 30 capsule 5 Active amitriptyline (ELAVIL) 25 mg tablet Take 1 tablet (25 mg total) by mouth at bedtime. Take 1 Tablet by mouth at bedtime. 90 tablet 5 Active hydrOXYzine HCL (ATARAX) 50 mg tablet Take 1 tablet (50 mg total) by mouth at bedtime. 90 tablet 5 Active loratadine (CLARITIN) 10 mg tablet Take 1 tablet (10 mg total) by mouth 1 (one) time each day. Take 1 Tablet by mouth daily as needed for Allergies. 90 tablet 5 Active SUMAtriptan (IMITREX) 50 mg tablet Take 1 tablet by mouth as needed for migraine, may repeat in 2 hours if needed, max 2 tabs in 24 hours 9 tablet 1 5 Active inhalational spacing device (OptiChamber [facility]) inhaler 1 DEVICE BY DOES NOT APPLY ROUTE 2 TIMES DAILY FOR 1 DOSE. 1 each 1 5 Active tocilizumab (Actemra) 20 mg/mL solutionIndicati ons:Rheumatoid arthritis involving multiple sites, unspecified whether rheumatoid factor present ([facility] V24, [facility] V28) Per rheum 5 Active adalimumab (HUMIRA) 40 mg/0.8 mL syringe Inject 0.8 mL (40 mg total) under the skin every 14 (fourteen) days. 025 Discontin ued(Thera py completed ) Active Problems Problem Noted Date Diagnosed Date Allergic rhinitis 12/13/2023 Asthma with COPD ([facility] V24, [facility] V28) 11/15 Hyperlipidemia 12/13/2023 Hypothyroidism 12/13/2023 Insomnia 12/13/2023 Iron deficiency anemia 12/13/2023 Migraine 12/13/2023 Muscle spasm 12/13/2023 Fibromyalgia Rheumatoid arthritis ([facility] V24, [facility] V28) Encounters Date Type Department Care Team Description 09/15/2024 1:30 PM EDT Office Visit Internal Medicine [address] [phone] Bonnie Huff PA Asthma with COPD ([facility] V24, [facility] V28) (Primary Dx); Rheumatoid arthritis involving multiple sites, unspecified whether rheumatoid factor present ([facility] V24, [facility] V28) 09/04/2024 2:45 PM EDT Office Visit Pulmonolgy [address] [phone] Marlene Ahuja MD Mild persistent asthma, unspecified whether complicated (Primary Dx); Rheumatoid arthritis involving multiple sites, unspecified whether rheumatoid factor present ([facility] V24, [facility] V28); Bronchiectasis without complication ([facility] V24, [facility] V28) 07/17/2024 1:30 PM EDT - 07/17/2024 3:00 PM EDT Surgery [facility] Main OR [address] [place] [phone] Marlene Ahuja MD BRONCHOSCOPY [[id number] (CPT )] 07/17/2024 1:14 PM EDT Anesthesia Event [facility] OR [address] [place] [phone] Brent Mcfarlane DO Vermes, Rachie, TENISHA 07/17/2024 12:00 PM EDT - 07/17/2024 4:18 PM EDT Hospital Encounter [facility] OR [address] [place] [phone] Marlene Ahuja MD Chronic cough Discharge Disposition: Home or Self Care 07/14/2024 2:00 PM EDT Treatment [address] [phone] Amelia Perez, PT Lateral pain of left hip (Primary Dx); Lumbar pain 07/09/2024 Telephone Pulmon[address]gy [address] [phone] Shavon Nolan MA Surgery-Bronchoscop y 07/09/[address] [phone] Shavon Nolan MA Surgery-Bronchoscop y from Last 3 Months Surgical History Surgery Date Site/Laterality Comments HYSTERECTOMY PROCEDURE: HISTORICAL HYSTERECTOMY; COMMENT: ANNI due to fibroids 2020 [place] OTHER SURGICAL HISTORY NO PAST SURGERIES topic Medical History Medical History Date Comments Allergic rhinitis DX:Allergic rh initis Hypothyroidism DX:Hypothyroidis m Muscle spasm DX:Muscle spasm Insomnia DX:Insomnia Iron deficiency anemia DX:Iron d eficiency anemia Migraine DX:Migraine Asthma DX:Asthma Hyperlipidemia DX:Hyperlipidemi a Asthma with COPD ([facility] V24, [facility] V28) DX:Asthma with COPD ([facility]) Fibromyalgia Rheumatoid arthritis ([facility] V24, [facility] V28) Diabetes mellitus ([facility] V24, [facility] V28) hypoglycemia GERD (gastroesophageal reflux disease) Irritable [...] loved ones. For example, early childhood education specialist or elderly care for an older [...] Sign Reading Time Taken Comments Blood Pressure 113/80 09/15/2024 1:30 PM EDT Pulse 98 09/15/2024 1:30 PM EDT Temperature 36.6 C (97.8 F) 09/15/2024 1:30 PM EDT Respiratory Rate 20 09/04/2024 2:39 PM EDT Oxygen Saturation 98% 09/15/2024 1:30 PM EDT Inhaled Oxygen Concentration - - Weight 65.9 kg (145 lb 3.2 oz) 09/15/2024 1:30 P M EDT Height 157.5 cm (5' 2 ) 09/15/2024 1:30 PM EDT Body Mass Index 26.56 09/15/2024 1:30 PM EDT Plan of Treatment Upcoming Encounters Date Type Department Care Team (Late st Contact Info) Description 10/24/2024 3:30 PM EDT Office Visit Pulmonolgy [facility] [address] [phone] Marlene Ahuja MD [address] [phone] 10/28/2024 9:00 AM EDT Appointment [facility] Xray [address] [place] [phone] 12/18/2024 1:00 PM EDT Office Visit Internal Medicine [facility] [address] [phone] Bonnie Huff PA [address] [phone] 12/30/2024 2:00 PM EDT Office Visit General Surgery - [place] [address] [facility] [address] [place] [phone] Fredo Machado, [address] [facility] [address] [place] [address] Health Maintenance Due Date Last Done Comments [...] Procedure Name Priority Date/Time Associated Diagnosis Comments IMMUNOGLOBULINS IGG, IGA, IGM, IGE Routine 09/04/2024 3:28 PM EDT Mild persistent asthma, unspecified whether complicated Rheumatoid arthritis involving multiple sites, unspecified whether rheumatoid factor present ([facility] V24, [facility] V28) OXYGEN THERAPY, ADULT Routine 07/17/2024 2:13 PM EDT NON-GYNECOLOGIC CYTOLOGY Routine 07/17/2024 1:41 PM EDT Chronic cough ACID FAST BACILLI STAIN Routine 07/18/19 1:37 PM EDT Chronic cough CULTURE BRONCHIAL WITH GRAM STAIN Routine 07/17/2024 1:37 PM EDT Chronic cough CULTURE FUNGUS, OTHER THAN SKIN HAIR OR NAILS Routine 07/17/2024 1:37 PM EDT Chronic cough ACID FAST BACILLI STAIN Routine 07/18/19 1:36 PM EDT Chronic cough CULTURE BRONCHIAL WITH GRAM STAIN Routine 07/17/2024 1:36 PM EDT Chronic cough CULTURE FUNGUS, OTHER THAN SKIN HAIR OR NAILS Routine 07/17/2024 1:36 PM EDT Chronic cough TH AN ENDOTRACHEAL(NO CHARGE) Routine 07/17/2024 1:34 PM EDT [place] BRONCHOSCOPY RIGID/FLEXIBLE DIAGNOSTIC W/CELL WASHING 07/17/2024 1:13 PM EDT Chronic cough POCT GLUCOSE BLOOD Routine 07/17/2024 12 :34 PM EDT MG MAMMO DIGITAL SCREENING W EDY BILAT Routine 03/28/2024 1:52 PM EST Routine physical examination LIPID PANEL Routine 12/14/2023 HM DEPRESSION SCREENING Routine 12/13/2023 from Last 3 Months or Most Recently Relevant to Health Maintenance Results * Immunoglobulins IgG, IgA, IgM, IgE (09/04/2024 3:28 PM EDT) Total IgG 1,330 549 - 1,584 mg/dL LAB CHEMISTRY METHOD 09/04/2024 10:01 PM EDT [facility] IgA 188 61 - 348 mg/dL LAB CHEMISTRY METHOD 09/04/2024 10:01 PM EDT [facility] IgM 108 23 - 259 mg/dL LAB CHEMISTRY METHOD 09/04/2024 10:01 PM EDT [facility] IgE 4.3 0.0 - 158.0 I Unit/mL LAB CHEMISTRY METHOD 09/04/2024 10:01 PM EDT [facility] Blood Venous blood specimen / Unknown Venipuncture / Unknown 09/04/2024 3:28 PM EDT 09/04/2024 3:28 PM EDT us Marlene Ahuja MD LAB BLOOD ORDERABLES Final Resul t [facility] [address] [place] [address], * Non-gynecologic cytology (07/17/2024 1:41 PM EDT) Final Diagnosis Lung,left upper lobe bronchial wash (ThinPrep, cell block): No malignant cells identified Acute inflammation present 07/22/2024 11:16 AM T [facility] Specimen A Adequacy Satisfactory for evaluation 07/22/2024 11:16 AM T [facility] Gross Description A. Lung, Left Upper Lobe, left upper lobe bronchial wash: Received 1 ml of clear fluid; 1 ThinPrep, 1 Cell block Cell block in formalin @8:30-total formalin fixation time 60.5 hours. 07/22/2024 11:16 AM EDT [facility] Disclaimer Unless otherwise specified, all tissue is 10% NB formalin fixed and paraffin embedded. Technical cytopathology services provided by [facility], at [address] [facility], [place] [address] ([facility] # [id number]/Alma Colindres MD, Weight Training Instructor.) 07/22/2024 11:16 AM EDT [facility] Wash Structure of upper lobe of left lung / Unknown 07/17/2024 1:41 PM EDT 07/18/2024 8:02 AM EDT Marlene Ahuja MD LAB CYTOLOGY ORDERABLES Final Re sult Performing Organization Address City/[facility]/ZIP Co de Phone Number [facility] [address] [place] [address], [place] [phone] * Culture bronchial with gram stain (07/17/2024 1:37 PM EDT) Only the most recent of2 resultswithin the time period is included. Bronchial Culture No pathogens isolated. 07/20/2024 10:32 AM EDT [facility] Gram Stain Result Many Polymorphonuclear leukocytes 07/20/2024 10:32 AM EDT [facility] Gram Stain Result No epithelial cells seen 07/20/2024 10:32 AM EDT [facility] Gram Stain Result No organisms seen 07/20/2024 10:32 AM EDT [facility] Wash Structure of upper lobe of left lung / Unknown 07/17/2024 1:37 PM EDT 07/17/2024 2:50 PM EDT Marlene Ahuja MD LAB MICROBIOLOGY - GENERAL ORDER ALONSO Final Result [facility] [address] [place] [address], [place] [phone] * Culture fungus, other than skin hair or nails (07/17/2024 1:37 PM EDT) Only the most recent of2 resultswithin the time period is included. Culture, Fungus Negative for Fungus after 4 Weeks 08/18/2024 7:53 AM EDT [facility] Wash Structure of upper lobe of left lung / Unknown 07/17/2024 1:37 PM EDT 07/17/2024 2:50 PM EDT Marlene Ahuja MD LAB MICROBIOLOGY - GENERAL ORDER ALONSO Final Result Performing Organization Address [facility] Co de Phone Number [facility] [address] [place] [address], [place] [phone] * Acid fast bacilli stain (07/17/2024 1:37 PM EDT) Only the most recent of2 resultswithin the time period is included. AFB Stain Result No Acid fast bacilli seen on direct smear (Fuchsin method, 1000x) No Acid Fast Bacilli seen on direct smear 07/17/2024 9:03 PM EDT [facility] Wash Structure of upper lobe of left lung / Unknown 07/17/2024 1:37 PM EDT 07/17/2024 2:50 PM EDT Marlene Ahuja MD LAB MICROBIOLOGY - GENERAL ORDER ALONSO Final Result Performing Organization Address City/[facility]/ZIP Co de Phone Number [facility] [address] [place] [address], [place] [phone] * TH AN ENDOTRACHEAL(NO CHARGE) (07/17/2024 1:34 PM EDT) Brent Poe DO - 07/17/2024 1:34 PM EDT Brent Mcfarlane DO 07/17/2024 4:09 PM General Information and Staff Patient location during procedure: OR Anesthesiologist: Brent Mcfarlane DO Resident/FISHER QUAHOG: Russ Kelly CRNA Performed: anesthesiologist Performed by: Russ Kelly CRNA Authorized by: Brent Mcfarlane DO Intubation Additional Comments ETT#8 slide to esophagea twice by FISHER QUAHOG, passed by DO at th third attempt. [...] - 100 mg/dL 07/17/2024 12:34 PM EDT [facility] Blood Capillary blood specimen / Unknown 07/17/2024 12:34 PM EDT 07/17/2024 12:36 PM EDT Marlene Ahuja MD LAB POINT OF CARE TE ST DOCKED DEVICE UNSOLICITED RESULTS Final Result [facility] [address] [place] [address], [place] [phone] * MG Mammo Digital Screening w Edy bilat (03/28/2024 1:52 PM EST) Anatomical Region Laterality Modality Breast Bilateral Mammography 03/28/2024 2:52 PM EST Impressions 03/28/2024 2:56 PM EST No mammographic evidence of malignancy. Outside previous study is not available for comparison A negative mammogram in the presence of a clinically suspicious palpable abnormality does not preclude the possibility of malignancy or alter the indications for biopsy. ASSESSMENT: BI-RADS 1: NEGATIVE RECOMMENDATION(S): 1: Routine screening mammogram BILATERAL in 1 year. -------- FINAL REPORT -------- Dictated By: Jose L Duque Dictated Date: 03/28/2024 14:52 ET Assigned Physician: Jose L Duque Reviewed and Electronically Signed By: Jose L Duque Signed Date: 03/28/2024 14:56 ET Workstation ID: [id number] Transcribed By: Self Edit Transcribed Date: 03/28/2024 14:52 ET Narrative 03/28/2024 2:56 PM EST EXAM: SCREENING MAMMOGRAPHY, BILATERAL HISTORY: SCREENING. No additional history. COMPARISON: None available TECHNIQUE: Synthesized CC and MLO projections of each breast. Tomosynthesis of each breast in the CC and MLO projections. ADDITIONAL IMAGING: None Computer-aided detection was employed with the Commissioner AI 3-D. TISSUE DENSITY: There are scattered areas of fibroglandular density. (BI-RADS category B) FINDINGS: RIGHT BREAST: No suspicious mass. No suspicious calcification. No distortion. No additional suspicious right breast findings LEFT BREAST: No suspicious mass. No suspicious calcification. No distortion. No additional suspicious left breast findings Procedure Note Jose L Duque MD - 03/28/2024 EXAM: SCREENING MAMMOGRAPHY, BILATERAL HISTORY: SCREENING. No additional history. COMPARISON: None available TECHNIQUE: Synthesized CC and MLO projections of each breast.Tomosynthesis of each breast in the CC and MLO projections. ADDITIONAL IMAGING: None Computer-aided detection was employed with the Commissioner AI 3-D. TISSUE DENSITY: There are scattered [...] Signed Date: 03/28/2024 14:56 ET Workstation ID: [id number] Transcribed By: Self Edit Transcribed Date: 03/28/2024 [...] Most Recently Relevant to Health Maintenance Insurance [facility] [facility] Care Teams Block Cableman Relationship Specialty Start Date End Date Bonnie Huff PA [address] [place] [address] [facility] - General 10/24/23
== END 2024-10-09 14:19 | disposition home or self-care (01) ==
LOC: HO.RHE 13:33
PROVIDERS: PCP Physician Assistant; Visit Provider Student in an Organized Health Care Education/Training Program
DX: M05.79 Rheumatoid arthritis with rheumatoid factor of multiple sites without organ or systems involvement (principal); M79.7 Fibromyalgia; Z51.81 Encounter for therapeutic drug level monitoring; Z79.620 Long term (current) use of immunosuppressive biologic
CPT/HCPCS: 99214; G2211

== ENCOUNTER → 2024-10-09 13:33 | Outpatient (BNVA) | payer OTHER, SELFPAY | PROVIDERS: PCP Physician Assistant; Visit Provider Student in an Organized Health Care Education/Training Program | DX: M79.7 Fibromyalgia (principal); M05.79 Rheumatoid arthritis with rheumatoid factor of multiple sites without organ or systems involvement; Z51.81 Encounter for therapeutic drug level monitoring; Z79.620 Long term (current) use of immunosuppressive biologic | CPT/HCPCS: 99212 ==

== ENCOUNTER 2024-12-11 08:05 | Outpatient (AMB) | payer OTHER, SELFPAY ==
--- OUTSIDE RECORDS SUMMARY | 2024-12-10 07:16 | XMS_ITS | Encounter Summary ---
Author Organization [facility] Address [address] [place] [address] Care Team Providers Care Screw Driver Operator Name Role Phone Bonnie Huff Primary Care Provider + Reason for Referral * Imaging (Routine) - Authorized Specialty Diagnoses / Procedures Referred By Contac t Referred To Contact Radiology Diagnoses Bronchiectasis without complication (CMS/HCC V24, CMS/HCC V28) Procedures XR Esophagram Marlene Ahuja MD [address] [address] Phone: tel: fax: [facility] [address] [place] [address] Phone: tel: Referral ID Status Reason Start Date Expiration Date V isits Requested Visits Authorized [id number] Authorized 09/04/2024 09/04/2025 1 1 Reason for Visit * Imaging (Routine) - Authorized Specialty Diagnoses / Procedures Referred By Contac t Referred To Contact Radiology Diagnoses Bronchiectasis without complication (CMS/HCC V24, CMS/HCC V28) Procedures XR Esophagram Marlene Ahuja MD [address] [address] Phone: tel: fax: [facility] [address] [place] [address] Phone: tel: Referral ID Status Reason Start Date Expiration Date V isits Requested Visits Authorized [id number] Authorized 09/04/2024 09/04/2025 1 1 Encounter Details Date Type Department Care Team (Latest Contact Info) Description 12/10/2024 7:16 AM EDT - 12/10/2024 11:59 PM EDT Hospital Encounter [facility] [place] [address] Bronchiectasis without complication (CMS/HCC V24, CMS/[facility] V28) Discharge Disposition: Home or Self Care Social [...] for your loved ones. For example, child monitor or elderly care for an older adult? [...] this encounter Medications at Time of Discharge albuterol HFA (PROAIR HFA ; PROVENTIL HFA [...] (two) times a day. 60 each 06/06/2024 ferrous sulfate 325 mg (65 mg [...] by mouth at bedtime. 90 tablet 3 07/28/2024 inhalational spacing device ([facility]) inhaler 1 DEVICE BY DOES NOT APPLY ROUTE 2 TIMES DAILY FOR 1 DOSE. 1 each 1 09/09/2024 levothyroxine (SYNTHROID, LEVOTHROID) 25 mcg tablet Take [...] as needed for Allergies. 90 tablet 3 07/28/2024 omeprazole (PriLOSEC) [address] capsule Take [...] day. 02/25/2024 SUMAtriptan (IMITREX) 50 mg tablet TAKE 1 TABLET BY MOUTH NEEDED FOR MIGRAINE, MAY REPEAT IN 2 HOURS IF NEEDED, MAX 2 TABS/24 HOURS 9 tablet 1 11/18/2024 tocilizumab (Actemra) 20 mg/mL solutionIndication s:Rheumatoid arthritis involving multiple sites, unspecified whether rheumatoid factor present ([facility] V24, [facility] V28) Per rheum 09/15/2024 documented as of this encounter Discharge Disposition Disposition Code Departure Means Destination Home or Self Care documented in this encounter Plan of Treatment Upcoming Encounters Date Type Department Care Team (Late st Contact Info) Description 12/18/2024 1:00 PM EDT Office Visit Internal Medicine - [address] [place] [address] Bonnie Huff, PA [address] [place] [address] 02/02/2025 9:30 AM EDT Office Visit General Surgery [address] [place] [address] Fredo Machado, DO [address] [place] [address] documented as of this encounter Procedures Procedure Name Priority Date/Time Associated Diagnosis Comments XR ESOPHAGRAM Routine 12/10/2024 8:51 AM EDT Bronchiectasis without complication ([facility] V24, [facility] V28) documented in this encounter Results * XR Esophagram (12/10/2024 8:51 AM EDT) Anatomical Region Laterality Modality Head and Neck Radiographic Nu ging 12/10/2024 10:3 6 AM EDT Impressions 12/10/2024 11:17 AM EDT Tiny, sliding, axial hiatal hernia without visualized gastroesophageal reflux. Otherwise, unremarkable double contrast esophagram. -------- FINAL REPORT -------- Dictated By: Maribell Smyth Dictated Date: 12/10/2024 10:36 ET Assigned Physician: Pradeep De La Cruz Reviewed and Electronically Signed By: Pradeep De La Cruz Signed Date: 12/10/2024 11:17 ET Workstation ID: [id number] Transcribed By: Self Edit Transcribed Date: 12/10/2024 10:50 ET Resident/PA/OPERATIONS PROFESSIONAL: Maribell Smyth 12/10/2024 11:17 AM EDT FINDINGS: Double contrast esophagram performed. COMPARISON: No prior esophagram imaging; CT chest without contrast June 09, 2024 reviewed HISTORY: Patient is a 49-year-old female with history of persistent cough. Dysphagia. 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 There is bilateral apical pleural thickening. There is bibasilar haziness, left greater than right, which correlates with chronic changes seen on prior CT chest imaging from June 09, 2024. There is no focal consolidation or mass lesion identified. Normal appearance of bony structures. 1 view lateral soft tissue neck demonstrates no prevertebral soft tissue masses. Airway is widely patent. Bony degenerative changes are noted of the cervical spine, including mild anterolisthesis of C4 over C5 and loss of disc height at C5-6. Effervescent crystals were administered orally. Thick and thin barium were administered orally under fluoroscopic control. Pharyngoesophagram: Rapid sequence imaging of the hypopharynx during swallowing demonstrates prompt initiation of swallowing. There is normal soft palate elevation and normal epiglottic motion. There is no laryngeal penetration or beverley aspiration. There is no residual in the vallecula nor in the piriform sinuses. Thoracic esophagus: Normal distensibility, motility and mucosal pattern without evidence of ulceration, stricture or mass formation. Hiatal hernia: Tiny, sliding, axial hiatal hernia without visualized gastroesophageal reflux. Reflux: Unable to elicit 13mm Barium pill: Swallowed without difficulty. Prompt passage of pill from the esophagus into the stomach. DAP: 1.96 Gycm^2 Procedure Note Pradeep De La Cruz MD - 12/10/2024 FINDINGS: Double contrast esophagram performed. COMPARISON: No prior esophagram imaging; CT chest without contrastFebr2024 reviewed HISTORY: Patient is a 49-year-old female with history of persistent cough.Dysphagia. 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 There is bilateral apicalpleural thickening. There is bibasilar haziness, left greater than right,which correlates with [facility] There is no focal consolidation or mass lesionidentified. Normal appearance of bony structures. 1 view lateral softtissue neck demonstrates no prevertebral soft tissue masses. Airway iswidely patent. Bony degenerative changes are noted of the cervical spine,including mild anterolisthesis of C4 over C5 and loss of disc height atC5-6. Effervescent crystals were administered orally. Thick and thin barium wereadministered orally under fluoroscopic control. Pharyngoesophagram: Rapid sequence imaging of the hypopharynx duringswallowing demonstrates prompt initiation of swallowing. There is normalsoft palate elevation and normal epiglottic motion. There is no laryngealpenetration or beverley aspiration. There is no residual in the vallecula norin the piriform sinuses. Thoracic esophagus: Normal distensibility, motility and mucosal patternwithout evidence of ulceration, stricture or mass formation. Hiatal hernia: Tiny, sliding, axial hiatal hernia without visualizedgastroesophageal reflux. Reflux: Unable to elicit 13mm Barium pill: Swallowed without difficulty. Prompt passage of pillfrom the esophagus into the stomach. DAP: 1.96 Gycm^2 IMPRESSION: Tiny, sliding, axial hiatal hernia without visualized gastroesophagealreflux. Otherwise, unremarkable double contrast esophagram. -------- FINAL REPORT -------- Dictated By: Maribell Smyth Dictated Date: 12/10/2024 10:36 ET Assigned Physician: Pradeep De La Cruz Reviewed and Electronically Signed By: Pradeep De La Cruz Signed Date: 12/10/2024 11:17 ET Workstation ID: [id number] Transcribed By: Self Edit Transcribed Date: 12/10/2024 10:50 ET Resident/PA/OPERATIONS PROFESSIONAL: Maribell Smyth Marlene Ahuja MD IMG FLUOROSCOPY PROCEDURES Final Result documented in this encounter Visit Diagnoses Diagnosis Bronchiectasis without complication (CMS/HCC V24, CMS/HCC V28) documented in this encounter Administered Medications Inactive Administered Medications - up to 3 most recent administrations Medication Order MAR Action Action Date Dose Rate Site barium sulfate (E-Z-DISK) tablet 700 mg 700 mg, oral, Once in imaging, Starting on Sun12/10/24 at 0852, For 1 dose, Swallow whole with 1-2 swallows of water just prior to fluoroscopic examination. Given 12/10/2024 8:55 AM EDT 700 mg barium sulfate (E-Z-HD) 98 % suspension 100 mL 100 mL, oral, Once in imaging, Starting on Sun12/10/24 at 0853, For 1 dose Given 12/10/2024 8:55 AM EDT 100 mL barium sulfate (E-Z-PAQUE) 96 % (w/w) suspension 50 mL 50 mL, oral, Once in imaging, Starting on Sun12/10/24 at 0852, For 1 dose Given 12/10/2024 8:55 AM EDT 50 mL sod bicarb-citric ac-simeth 2.21-1.53 gram/4 gram packet 1 packet 1 packet, oral, Once, On Sun12/10/24 at 0915, For 1 dose, Dissolve the contents of a half of a packet on the back of the tongue, wash down with 15 mL of water or juice and repeat with remaining contents. Given 12/10/2024 8:54 AM EDT 1 packet documented in this encounter Additional Health Concerns Assessment Noted Time PHQ-9 Depression Total Score: 14 025 8:17 PM EST documented as of this encounter Care Teams Screw Driver Operator Relationship Specialty Start Date End Date Bonnie Huff PA [address] [place] [address] PCP - General 10/24/23 documented as of this encounter
--- NOTE | 2024-12-11 08:20 | MHC.OFFVIS ---
Vital Signs 12/11/24 08:26 Height 5 ft 2 in Weight 147 lb 14.883 oz BMI 27.1 BP 115/80 Blood Pressure Location Lt brachial Position Sitting Pulse 88 Pulse Source Pulse Oximeter Pulse Oximetry (%) 98 Oxygen Delivery Method Room Air Intake Visit Reasons: follow up Intake Note: Patient presents for RA/Fibromyalgia follow up. Explosive Operator Fuse Required: Yes Explosive Operator Fuse Language: Vehicle Body Builder Services: Explosive Operator Fuse Present Explosive Operator Fuse Name: Radhames [id number] Information Interpreted: non-clinical & clinical Allergies No Known Allergies Allergy (Verified 12/11/24 08:26) Medication List - Last Reconciled 12/11/24 by Kathy Alcantara MD albuterol sulfate 90 mcg/actuation (Ventolin HFA) 2 puffs inhalation Q4-6H PRN amitriptyline 25 mg PO BEDTIME amoxicillin 1,000 mg (2 x 500 mg) PO Q8H azithromycin 250 mg PO DAILY 4 days fluticasone propion-salmeterol 250-50 mcg/dose (Advair Diskus) 1 ea inhalation BID hydroxyzine HCl 100 mg PO BEDTIME inhalational spacing device (OptiChamber Laila C spacer) As directed levothyroxine 25 mcg PO DAILY@0600 loratadine 10 mg PO DAILY miconazole nitrate 2% (Miconazole-7) 1 appful vaginal BEDTIME 7 days sumatriptan succinate 50 mg PO Q2H PRN MDD 100 HPI Comments Details: Patient is a 49-year-old female with hypothyroidism on levothyroxine and GERD secondary to H pylori infection status post eradication who presents for follow up of seropositive rheumatoid arthritis Interval History: Patient last seen 10/09/24 with me. - Actemra infusions - Only received 2 doses - No change in her symptoms Today - On Actemra infusions - Still having pain involving her knees, shoulders, hands - Muscle pain throughout Rheumatologic History: ?RA Fibromyalgia 01/2024 - Methotrexate and prednisone. No improvement, not even on prednisone - Milnacipran and lyrica. No improvement - Humira. Complicated by PNA 04/2024 - Actemra 08/2024 - Patient initially presented for evaluation of whole-body pain 01/30/2024. At that time evaluation was consistent with fibromyalgia with no evidence of synovitis on examination and tender points. Recommend pregabalin and milnacipran. Preliminary results showed a very elevated CRP and ESR as well as positive rheumatoid factor. The thought was that she had rheumatoid arthritis and she was started on prednisolone taper and methotrexate. She was re-evaluated 4 weeks later with no improvement on the prednisone in fact she stated that the prednisone made her pain worse. Given this she was re-evaluated as fibromyalgia and started on pregabalin and milnacipran Current Rheumatology Medication(s): Actemra 8mg/kg every 4 weeks [facility] Medical History (Updated 12/11/24 @ 13:58 by Kathy Alcantara MD) Rheumatoid arthritis Fibromyalgia affecting multiple sites Hyperlipidemia Asthma Migraine Iron deficiency anemia Insomnia Muscle spasm Hypothyroidism Allergic rhinitis Surgical History H/O: hysterectomy Family History Mother Breast cancer Sister Breast cancer Social History Household Members: Family Housing: Apartment Do you presently have visiting nurse or other home services: No Patient Tobacco Use Status: Former Tobacco user Tobacco use type: Cigarette service: No Female Reproductive History Menstrual Age of Menarche: 10 Review of Systems Const Details: Review of Systems Constitutional: Denies fever, chills, weight loss ENT: Denies vision changes, eye pain or eye redness, dental caries, dry mouth GI: Denies nausea, vomiting, diarrhea, abdominal pain, change in BM Pulm: Denies SOB, YAÑEZ, hemoptysis, wheezing Cards: Denies chest pain, palpitations Skin: Denies Raynaud's, rash, nail changes, photosensitivity, CRUSHER SUPERVISOR: Denies headaches, weakness, paresthesias, recurrent falls MSK: as per HPI All other systems reviewed and are unremarkable except noted above Physical Exam Exam Exam: Vital signs reviewed Physical Examination CONSTITUITIONAL Patient alert and cooperative. Well appearing and in no apparent painful distress MSK Hands: ?Able to make a fist. No swelling noted but tenderness to palpation of the MCPs and PIPs, DIPs. Wrists: Full range of motion to the wrists. Tenderness to palpation of the wrist joint. No swelling noted. ? Elbows: Tenderness to palpation of bilateral tendon insertion of the medial and lateral epicondyles. No tenderness to palpation of the elbow joint proper Shoulders: Decreased active range of motion secondary to pain. Full passive range of motion Hip bursa: Tenderness to palpation Knees: ?Full range of motion. ?No tenderness to palpation of the knee joint but there was swelling over the bilateral pes anserine bursa Ankles: Full range of motion. ?Tenderness to palpation but no evidence of swelling. Feet: ?Positive squeeze test and tenderness to palpation of all MTPs. Tender points:??Tenderness to palpation of the neck, shoulders, chest, elbows, hips, buttocks or knees. SKIN Skin intact without rashes. Vital Signs: Last Vital Signs Pulse 88 12/11/24 08:26 BP 115/80 12/11/24 08:26 Pulse Ox 98 12/11/24 08:26 Oxygen Delivery Method Room Air 12/11/24 08:26 BMI result Body Mass Index 27.1 Results Reviewed Results Reviewed: Laboratory Tests 09/04/24 12/04/24 09:51 08:42 WBC 5.4 RBC 4.04 L Hgb 13.2 Hct 36.7 L Plt Count 207 D ESR 92 H 5 Sodium 142 Potassium 3.5 Chloride 112 H Carbon Dioxide 23 BUN 12 Creatinine 0.74 AST 25 45 H ALT 51 H 67 H C-Reactive Protein 1.39 H < 0.04 Triglycerides 158 H Cholesterol 226 H LDL Cholesterol, Calc 156 H HDL Cholesterol 39 L Rheumatology Labs 01/30/24 02/25/24 12/04/24 16:30 15:04 08:42 Rheumatoid Factor 18.3 H < 13.0 Cycl Citrul Peptide IgG <16 <16 LORENZO Screen POSITIVE A LORENZO Titer 1:40 H Sm ([place]) Antibody <1.0 NEG SM/ITEM PROCESSOR IgG Antibody <1.0 NEG Anti-Mitochondrial Ab NEGATIVE Beta-2-GPI IgG Ab <2.0 Beta-2-GPI IgA Ab <2.0 Beta-2-GPI IgM Ab <2.0 Anti-Smooth Muscle Ab <20 Thyroglobulin Antibody <1 Thyroid Peroxidase Ab <1 Anti-Cardiolipin IgG Ab <2.0 Anti-Cardiolipin IgM Ab <2.0 Complement C3 173 Complement C4 23 Assessment & Plan Assessment & Plan (1) Rheumatoid arthritis: Comment: DDx 02/2024 +RF (low titre), -CCP No improvement on prednisone or medrol Methotrexate 02/2024 - 04/2024. Not effective Humira 04/2024 - stopped 05/2024 due to PNA and hospitalized Actemra infusion 08/2024 Code(s): M06.9 - Rheumatoid arthritis, unspecified Category: Medical Qualifiers: Rheumatoid arthritis location: multiple sites Rheumatoid factor presence: with rheumatoid factor Qualified Code(s): M05.79 - Rheumatoid arthritis with rheumatoid factor of multiple sites without organ or systems involvement Plan: #?RA Patient is a 49-year-old female with? Rheumatoid arthritis here today for follow up This is a very difficult case because she had a slightly positive rheumatoid factor and elevated inflammatory markers with tenderness to palpation of the MCPs, PIPs, wrists and other joints. But did not respond to prednisolone or prednisone. Has not responded to immunosuppression. She definitely has fibromyalgia on top of the condition and her inflammatory markers have resolved on tocilizumab but her symptoms really have not improved much. Her RF has now normalized. My concern is that she may not have an underlying rheumatologic problem and at her all of her symptoms may be related to fibromyalgia. We will continue the Actemra for another 4 months since she said she has very mild benefit and see if low-dose naltrexone we will help Plan - Continue Actemra infusions - Start low dose naltrexone 4.5mg daily - RTC 4 months - Labs before visit: CBC, CMP, ESR, CRP, lipid panel (2) Fibromyalgia affecting multiple sites: Code(s): M79.7 - Fibromyalgia Category: Medical Plan: #Fibromyalgia She definitely has fibromyalgia, the concern is does she also have an underlying rheum condition (3) Encounter for monitoring tocilizumab therapy: Code(s): Z51.81 - Encounter for therapeutic drug level monitoring; Z79.620 - rodent exterminator (current) use of immunosuppressive biologic Plan: #Long-term Use of IL 6 Inhibitors: Tocilizumab/Sarilumab Discussed the risks and benefits of IL6 inhibitors with the management of this patient's rheumatic condition. Benefits include decreased pain, improved mortality, improved quality of life Risks include LFT abnormalities, elevated triglycerides, GI perforations Contraindicated in a patient with history of diverticulitis Monitoring: CBC, CMP, triglycerides Plan I spent 35 minutes reviewing the record and labs, taking a history, examining the patient, discussing the treatment plan, ordering diagnostic work up and documenting in the medical record Medications: New naltrexone 4.5 mg PO .nightly 90 caps 1RF M79.7 - Fibromyalgia Coding Level of Care Code Est Pt Level 4 (26299) Complex EM visit Add On G2211 Diagnoses Rheumatoid arthritis involving multiple sites with positive rheumatoid factor M05.79 Rheumatoid arthritis location: multiple sites Rheumatoid factor presence: with rheumatoid factor Fibromyalgia affecting multiple sites M79.7 Encounter for monitoring tocilizumab therapy Z51.81; Z79.620
[2024-12-11 08:26] VITALS: BP 115/80; PULSE 88; O2SAT 98; BMI 27.1
--- OUTSIDE RECORDS SUMMARY | 2024-12-11 08:27 | XMS_ITS | Encounter Summary ---
Author Organization [employer] Address [address] [place] [address] Care Team Providers Care Insurance Investigator Name Role Phone Bonnie Huff Primary Care Provider + Encounter Details Date Type Department Care Team (Late st Contact Info) Description 11/19/2024 Telephone Gastroenterology - [place] [address] [place] [address] Jean Carlos Milligan MD [address] [place] [address] Social History Tobacco Use Types Packs/Day Years [...] your loved ones. For example, early childhood educator aide or elderly care for an older [...] as of this encounter Progress Notes * Maria C Xiong - 11/19/2024 8:07 AM EDT Received refill request from patient's pharmacy for: omeprazole (PriLOSEC) [address] capsule Sig: Take 1 capsule (40 mg total) by mouth 1 (one) time each day. Take in a.m. on empty stomach, wait 30 minutes and then eat to activate medication Previous Stan patient, no upcoming appt for OV Called patient and LM to schedule appt with new provider documented in this encounter Plan of Treatment Upcoming Encounters Date Type Department Care Team (Late st Contact Info) Description 12/18/2024 1:00 PM EDT Office Visit Internal Medicine [facility] 175 [facility] [address] [place] [address] Bonnie Huff PA [address] [place] [address] 02/02/2025 9:30 AM EDT Office Visit General Surgery [facility] 175 [facility] [address] [place] [address] Fredo Machado, DO [address] [place] [address] documented as of this encounter Visit Diagnoses Not on filedocumented in this encounter Additional Health Concerns Assessment Noted Time PHQ-9 Depression Total Score: 14 025 8:17 PM EST documented as of this encounter Care Teams Insurance Investigator Relationship Specialty Start Date End Date Bonnie Huff PA [address] [place] [address] PCP - General 10/24/23 documented as of this encounter
--- OUTSIDE RECORDS SUMMARY | 2024-12-11 08:27 | XMS_ITS | Clinical Summary ---
Author Organization [facility] Address [address] [place] [address] Phone Care Team Providers Care Access Liaison Name Role Phone Bonnie Huff Primary Care [...] (two) times a day. 02/25/20 24 Active docusate sodium (Colace) 100 mg capsule [...] medication 14 each 06/10/19 25 026 Active ferrous sulfate 325 mg (65 [...] daily as needed for Allergies. 90 tablet 07/29/19 25 Active inhalational spacing device ([facility]) inhaler 1 DEVICE BY DOES NOT APPLY ROUTE 2 TIMES DAILY FOR 1 DOSE. 1 each 1 09/10/19 25 Active tocilizumab (Actemra) 20 mg/mL solutionIndicati ons:Rheumatoid arthritis involving multiple sites, unspecified whether rheumatoid factor present ([facility] V24, [facility] V28) Per rheum 09/16/19 25 Active SUMAtriptan (IMITREX) 50 mg tablet TAKE 1 TABLET BY MOUTH NEEDED FOR MIGRAINE, MAY REPEAT IN 2 HOURS IF NEEDED, MAX 2 TABS/24 HOURS 9 tablet 1 11/19/19 25 Active SUMAtriptan (IMITREX) 50 mg tablet Take 1 tablet by mouth as needed for migraine, may repeat in 2 hours if needed, max 2 tabs in 24 hours 9 tablet 1 08/19/19 25 025 Discontinued Active Problems Problem Noted Date Diagnosed Date Allergic rhinitis 12/13/2023 Asthma with COPD ([facility] V24, [facility] V28) 11/15 Hyperlipidemia 12/13/2023 Hypothyroidism 12/13/2023 Insomnia 12/13/2023 Iron deficiency anemia 12/13/2023 Migraine 12/13/2023 Muscle spasm 12/13/2023 Fibromyalgia Rheumatoid arthritis ([facility] V24, [facility] V28) Encounters Date Type Department Care Team Description 12/10/2024 7:16 AM EDT - 12/10/2024 11:59 PM EDT Hospital Encounter [facility] [address] [place] [phone] Bronchiectasis without complication ([facility] V24, [facility] V28) Discharge Disposition: Home or Self Care 11/19/2024 Telephone Gastroenterology - [place] 175 [facility] [address] [phone] Jean Carlos Milligan MD 09/15/2024 1:30 PM EDT Office Visit Internal Medicine [facility] [address] [phone] Bonnie Huff PA Asthma with COPD ([facility] V24, [facility] V28) (Primary Dx); Rheumatoid arthritis involving multiple sites, unspecified whether rheumatoid factor present ([facility] V24, [facility] V28) from Last 3 Months Surgical History Surgery Date Site/Laterality Comments HYSTERECTOMY PROCEDURE: HISTORICAL HYSTERECTOMY; COMMENT: ANNI due to fibroids 2020 in [place] OTHER SURGICAL HISTORY NO PAST SURGERIES topic Medical History Medical History Date Comments Allergic rhinitis DX:Allergic rh initis Hypothyroidism DX:Hypothyroidis m Muscle spasm DX:Muscle spasm Insomnia DX:Insomnia Iron deficiency anemia DX:Iron d eficiency anemia Migraine DX:Migraine Asthma DX:Asthma Hyperlipidemia DX:Hyperlipidemi a Asthma with COPD ([facility] V24, [facility] V28) DX:Asthma with COPD ([facility]) Fibromyalgia Rheumatoid arthritis ([facility] V24, [facility] V28) Diabetes mellitus ([facility] V24, [facility] V28) hypoglycemia GERD (gastroesophageal reflux disease) Irritable [...] for your loved ones. For example, child abuse worker or elderly care for an older [...] PM EDT Office Visit Internal Medicine - [address] [place] [phone] Bonnie Huff, PA [address] [place] [address] 02/02/2025 9:30 AM EDT Office Visit General Surgery - [place] 175 [facility] [address] [place] [phone] Fredo Machado, DO [address] [place] [address] Health Maintenance Due Date Last Done Comments COVID-19 Vaccine (#1) 11/27/1979 DTaP,Tdap,and Td Vaccines (1 - Tdap) 1993 Hepatitis B Vaccines (1 of 3 - 19+ 3-dose series) 1993 Pneumococcal Vaccine: 50+ Years (1 of 2 - PCV) 1993 Cervical Cancer Screening: P ap Smear 11/27/1995 Colorectal Cancer Screening: Colonoscopy 01/27/2024 HIV Screening 01/27/2024 Hepatitis C Screening 01/27/2024 Zoster Vaccines (1 of 2) 2024 Influenza Vaccine (#1) 2024 Social Influencers of Health Screening 03/17/2025 03/17/2024 Breast Cancer Screening 03/28/2026 03/28/2024 Cholesterol Screening (Lipid Panel) 12/13/2028 12/14/2023, 12/14/2023 Depression Screening Completed 04/27/2024, 12/13/2023 HIB Vaccines Aged Out No longer eligi [...] 12/10/2024 8:51 AM EDT Bronchiectasis without complication (CMS/HCC V24, CMS/HCC V28) MG MAMMO DIGITAL SCREENING W EDY BILAT Routine 03/28/2024 1:52 PM EST Routine physical examination LIPID PANEL Routine 12/14/2023 HM DEPRESSION SCREENING Routine 12/13/2023 from Last 3 Months or Most Recently Relevant to Health Maintenance Results * XR Esophagram (12/10/2024 8:51 AM [...] Signed Date: 12/10/2024 11:17 ET Workstation ID: [id number] Transcribed By: Self Edit Transcribed Date: 12/10/2024 10:50 ET Resident/PA/MANAGER DISH: Maribell Smyth Narrative 12/10/2024 11:17 AM EDT FINDINGS: Double contrast esophagram performed. COMPARISON: No prior esophagram imaging; CT chest without contrast June 09, 2024 reviewed HISTORY: Patient is a 49-year-old female with history of persistent cough. Dysphagia. Line Erector radiographs: 1 view chest radiograph demonstrates cardiac [...] No prior esophagram imaging; CT chest without contrastFebruary 2024 reviewed HISTORY: Patient is a 49-year-old female with history of persistent cough.Dysphagia. Line Erector radiographs: 1 view chest radiograph demonstrates cardiac andmediastinal contours within normal limits. There is bilateral apicalpleural thickening. There is bibasilar haziness, left greater than right,which correlates with chronic changes seen on prior CT chest imaging fromFebruary 2024. There is no focal consolidation or [...] Signed Date: 12/10/2024 11:17 ET Workstation ID: [id number] Transcribed By: Self Edit Transcribed Date: 12/10/2024 10:50 ET Resident/PA/MANAGER DISH: Maribell Smyth us Marlene Ahuja MD IMG FLUOROSCOPY PROCEDURES Final Result * MG Mammo Digital [...] Signed Date: 03/28/2024 14:56 ET Workstation ID: [id number] Transcribed By: Self Edit Transcribed Date: 03/28/2024 [...] Signed Date: 03/28/2024 14:56 ET Workstation ID: [id number] Transcribed By: Self Edit Transcribed Date: 03/28/2024 [...] Most Recently Relevant to Health Maintenance Insurance [facility] [employer] Care Teams Access Liaison Relationship Specialty Start Date End Date Bonnie Huff PA [address] [place] [address] PCP - General 10/24/23
== END 2024-12-11 08:58 | disposition home or self-care (01) ==
LOC: HO.RHES 08:05
PROVIDERS: PCP Physician Assistant; Visit Provider Student in an Organized Health Care Education/Training Program
DX: M05.79 Rheumatoid arthritis with rheumatoid factor of multiple sites without organ or systems involvement (principal); M79.7 Fibromyalgia; Z51.81 Encounter for therapeutic drug level monitoring; Z79.620 Long term (current) use of immunosuppressive biologic
CPT/HCPCS: 99214

== ENCOUNTER → 2024-12-11 08:05 | Outpatient (BNVA) | payer OTHER, SELFPAY | PROVIDERS: PCP Physician Assistant; Visit Provider Student in an Organized Health Care Education/Training Program | DX: M05.79 Rheumatoid arthritis with rheumatoid factor of multiple sites without organ or systems involvement (principal); M79.7 Fibromyalgia; Z51.81 Encounter for therapeutic drug level monitoring; Z79.620 Long term (current) use of immunosuppressive biologic | CPT/HCPCS: 99212 ==